=== PATIENT | male | born 1935 | race Caucasian/White ===

== ENCOUNTER 2019-10-14 08:36 | Outpatient (CLI) | payer MEDICARE, SELFPAY ==
--- NOTE | ~2019-10-14 | NM_ITS ---
EXAMINATION: NM bone scan whole body DATE: 10/14/2019 13:35 INDICATION: Prostate cancer TECHNIQUE: 24.8 mCi Tc-99m HDP was administered intravenously. Delayed whole-body scintigrams were o btained. COMPARISON: Bone scan dated 10/17/[address] abdomen and pelvis date FINDINGS: There is persistent intense bone uptake along the left inferior pubic ramus corresponding to expansil e sclerotic lesion which could be related to metastatic disease or potentially Paget's disease. Three foci of mild increased uptake remains in a linear pattern along the anterior right fifth, sixth and seventh ribs with linear pattern favoring healing rib fractures. There is however a subtle sclerotic bone lesion at the anterior right seventh rib on the most recent CT which has an appearance more conc erning for metastatic disease. Multiple small foci of mild joint centered uptake with typical distrib ution most likely degenerative in etiology including at the bilateral shoulders, at a few facet joint s in the cervical spine and at the thoracolumbar junction, the lateral side of the right knee and at several metacarpophalangeal or interphalangeal joints at the bilateral feet. Mild increased uptake at the L4-L5 disc space with corresponding degenerative endplate changes on CT. Mild increased uptake a long the bilateral anterior iliac spines where there are small enthesophytes. A prior suspicious scle rotic lesion short distance posterior medial from the right anterior iliac spine as well as a few add itional smaller sclerotic lesions at the right pubic body and at L1 and L3 appear to have resolved on the most recent CT images and are without evident increased uptake on the bone scan. IMPRESSION: 1. Persistent intense increased uptake along the left inferior pubic ramus with decrease in the degre e of previous sclerosis likely related to treated metastatic disease. 2. 3 small foci of increased uptake at the anterior right fifth-seventh ribs. The linear orientation favors rib fractures however there is a subtle sclerotic lesion at the visualized seventh rib lesion which appears more concerning for metastatic disease. 3. Interval resolution on CT at several of the distal sclerotic lesion seen on the prior CT which rem ain without evident increased FDG uptake on the current study likely representing response to treatme nt of metastatic disease. Reviewed, dictated and finalized at location A. IMPRESSION: 1. Persistent intense increased uptake along the left inferior pubic ramus with decrease in the degree of previous sclerosis likely related to treated metasta tic disease. 2. 3 small foci of increased uptake at the anterior right fifth-seventh ribs. T he linear orientation favors rib fractures however there is a subtle sclerotic lesion at the visualized seventh rib lesion which appears more concerning for m etastatic disease. 3. Interval resolution on CT at several of the distal sclerotic lesion seen on the prior CT which remain without evident increased FDG uptake on the current s tudy likely representing response to treatment of metastatic disease.
--- NOTE | ~2019-10-14 | CT_ITS ---
EXAMINATION: CT abdomen pelvis w con DATE: 10/14/2019 09:19 INDICATION: Prostate cancer restaging TECHNIQUE: Computed tomography (CT) of the abdomen and pelvis was performed with 100 cc Omnipaque 350 intravenous contrast. Automated exposure control and iterative reconstruction technique were employe d. Exam dose: 269.27 mGy-cm total exam DLP. COMPARISON: 10/27/2016 CT abdomen pelvis 10/17/2016 radionuclide bone scan FINDINGS: Fat-containing right foramen of Bochdalek hernia. There is no infiltrate or consolidation or mass density at the included lung bases. Normal heart size. No pericardial or pleural effusion. Several small hepatic cysts are noted. There are bilateral renal cysts, the largest at the upper pole of the left kidney, measuring up to 4.6 cm diameter. The largest on the right measures 3.3 cm diamet er. Otherwise no hepatic, splenic, pancreatic, and adrenal or solid renal space-occupying mass lesion is evident. There is calcification of the abdominal aorta and iliac arteries; no abdominal aortic aneurysm. Status post prostatectomy. There are surgical clips along both pelvic sidewalls. No intraperitoneal o r retroperitoneal or pelvic mass lesion or adenopathy or ascites is evident. No bowel obstruction, bowel wall thickening, pneumatosis or intraperitoneal free air is evident. Sclerosis of the left inferior pubic ramus/impression is less intense compared to 10/27/2016. Small sclerotic lesion of the right ilium noted on 10/27/2016. IMPRESSION: No evidence of prostate cancer recurrence or metastasis; diminished right ilium and left inferior pubic ramus/ischium findings compared to 10/27/2016 Reviewed, dictated and finalized at [facility]. Reviewed, dictated and finalized at location B. IMPRESSION: No evidence of prostate cancer recurrence or metastasis; diminishe d right ilium and left inferior pubic ramus/ischium findings compared to 017
[2019-10-14 09:08] LABS: Estimated Glomerular Filt Rate > 60
== END 2019-10-14 08:37 | disposition home or self-care (01) ==
LOC: ANHIMG 08:43
PROVIDERS: PCP Family Medicine; Visit Provider Urology
DX: C61 Malignant neoplasm of prostate (principal)
CPT/HCPCS: 36415; 74177; 78306; A9561; Q9967

== ENCOUNTER 2020-06-02 09:14 | Outpatient (CLI) | payer MEDICARE, SELFPAY ==
--- NOTE | ~2020-06-02 | CT_ITS ---
EXAMINATION: CT abdomen pelvis w con DATE: 06/02/2020 09:44 INDICATION: Prostate cancer restaging TECHNIQUE: Computed tomography (CT) of the abdomen and pelvis was performed with 100 cc Omnipaque 350 intravenous contrast. Automated exposure control and iterative reconstruction technique were employe d. Exam dose: 256.02 mGy-cm total exam DLP. COMPARISON: 10/14/2019 CT abdomen pelvis FINDINGS: Emphysematous changes are noted. No infiltrate or consolidation of the included lower lung zones. Normal heart size. No pericardial or pleural effusion. There are several up to 7 mm left hepatic cysts. The liver is otherwise unremarkable. Normal splenic size. No pancreatic mass lesion or calcification. The gallbladder appears unremarkable. No bile duct or pancreatic duct dilatation. Normal adrenal glands. Multiple bilateral renal cysts measuring up to 5 cm maximal dimension on the left, 3.5 cm on the righ t. No urinary tract calculus or hydroureteronephrosis is evident. The urinary bladder is unremarkable. Status post prostatectomy. Status post bilateral pelvic sidewall lymph node dissection. No intraperitoneal or retroperitoneal or pelvic mass lesion or adenopathy or ascites is detected. No evidence of appendicitis. No bowel obstruction, bowel wall thickening, pneumatosis or intraperiton eal free air. There is abdominal aortic and iliac and femoral and bilateral renal artery calcification. No abdomina l aortic aneurysm. There are scattered osteosclerotic lesions of the axial skeleton consistent with prostate metastatic disease. There is increased involvement of the left ischium/posterior acetabulum and new lesions invo lving left and right ilium, sacrum, proximal right femur, spine, one or more). IMPRESSION: Status post prostatectomy and bilateral pelvic sidewall lymph node dissection Osteosclerotic metastatic disease, increased since 10/14/2019 No abdominal or pelvic mass lesion or adenopathy is evident Hepatic and bilateral renal cysts Reviewed, dictated and finalized at Location [facility]. Reviewed, dictated and finalized at location B.
[2020-06-02 09:41] LABS: Estimated Glomerular Filt Rate > 60
== END 2020-06-02 09:15 | disposition home or self-care (01) ==
LOC: ANHIMG 09:18
PROVIDERS: PCP Family Medicine; Visit Provider Urology
DX: C80.1 Malignant (primary) neoplasm, unspecified (principal); Z19.2 Hormone resistant malignancy status; C79.51 Secondary malignant neoplasm of bone; Z90.79 Acquired absence of other genital organ(s); K76.89 Other specified diseases of liver; N28.1 Cyst of kidney, acquired; N28.89 Other specified disorders of kidney and ureter; I70.0 Atherosclerosis of aorta; I70.8 Atherosclerosis of other arteries
CPT/HCPCS: 74177; Q9967

== ENCOUNTER 2020-06-03 09:43 | Outpatient (CLI) | payer MEDICARE, SELFPAY ==
--- NOTE | ~2020-06-03 | NM_ITS ---
EXAMINATION: NM bone scan whole body DATE: 06/03/2020 12:35 INDICATION: Prostate cancer TECHNIQUE: 25 mCi Tc-99m HDP was administered intravenously. Delayed whole-body scintigrams were obt ained. COMPARISON: Bone scan dated 10/14/[address] abdomen and pelvis dated 06/02/2020 FINDINGS: Persistent increased uptake along the left inferior pubic ramus extending to the left ischial tuberos ity with increased sclerosis minimal change in extent of a large sclerotic lesion on CT consistent wi th metastatic disease. Significant increase in number and degree of FDG uptake throughout the axial a nd appendicular skeleton. There are corresponding small sclerotic lesions skin on the CT in the ribs, spine, pelvis and proximal femurs, the majority which appear either new or significantly enlarged si nce the prior study consistent with progression of metastatic disease. IMPRESSION: 1. Interval progression of widespread osseous metastatic disease. Reviewed, dictated and finalized at location A.
== END 2020-06-03 09:44 | disposition home or self-care (01) ==
LOC: ANHIMG 09:46
PROVIDERS: PCP Family Medicine; Visit Provider Urology
DX: C80.1 Malignant (primary) neoplasm, unspecified (principal); Z19.2 Hormone resistant malignancy status; C79.51 Secondary malignant neoplasm of bone
CPT/HCPCS: 78306; A9561

== ENCOUNTER 2021-02-07 07:56 | Outpatient (CLI) | payer MEDICARE, SELFPAY ==
--- NOTE | ~2021-02-07 | NM_ITS ---
EXAMINATION: NM bone scan whole body DATE: 02/07/2021 13:56 INDICATION: Malignant neoplasm with hormone resistant status. TECHNIQUE: 26.5 mCi Tc-99m HDP was administered intravenously. Delayed whole-body scintigrams were o btained. COMPARISON: Bone scan dated 06/03/2020 FINDINGS: Significant interval increase in numerous widespread foci of increased bone uptake which at the time of the prior study correspond with numerous sclerotic bone lesions with change of prior prostatectomy most consistent with metastatic prostate cancer. The numerous lesions involve essentially all of the vertebrae of the spine and THE bilateral ribs with multiple additional lesions in the pelvis and pro ximal bones of the extremities with a couple lesions in the skull. Small foci of mild likely degenera tive uptake at the base of the right great toe and at the medial compartment of the left knee. IMPRESSION: 1. Significant interval decrease in numerous widely scattered foci of increased uptake throughout the axial and appendicular skeleton consistent with progression of metastatic prostate cancer. Reviewed, dictated and finalized at location A. [employer] IMPRESSION: 1. Significant interval decrease in numerous widely scattered foci of increased uptake throughout the axial and appendicular skeleton consistent with progress ion of metastatic prostate cancer.
--- NOTE | ~2021-02-07 | DEXA_ITS ---
Bone Density Report Name: Yamil Sabillon Age: 85 Sex: Male Ethnicity: White Date of : 1935 Indication: cancer; Referring Provider: Carl Eason Study: Bone densitometry was performed. Exam Date: February 07, 2021 Accession number: [id number] Bone Density: Region BMD T-score Z-score Classification AP Spine (L1, L2, L3) 1.014 -0.5 0.7 Normal Femoral Neck (Left) 0.536 -2.9 -1.2 Osteoporosis Total Hip (Left) 0.655 -2.5 -1.3 Osteoporosis Total Hip Bilateral Avg 0.644 -2.5 -1.4 Osteoporosis Femoral Neck (Right) 0.531 -2.9 -1.3 Osteoporosis Total Hip (Right) 0.633 -2.6 -1.4 Osteoporosis World Health Organization criteria for BMD impression classify patients as: Normal (T-score at or above -1.0), Osteopenia (T-score between -1.0 and -2.5), or Osteoporosis (T-score at or below -2.5). 10-year Fracture Risk: FRAX not reported because: Some T-score for Spine Total or Hip Total or Femoral Neck at or below -2.5 Clinical Information Provided by Patient: Smokes Has the following medical conditions: Cancer Patient maximum height was 67 Drinks caffeinated beverages Impression: The patient has osteoporosis, based on the Left Femoral Neck T-score. The patient has risk factors, including: smoking. Discussion: INCREASED RISK OF FRACTURE. BONE DENSITY IS UNDESIRABLY LOW AT ONE OR MORE SKELETAL SITES, CONSISTENT WITH OSTEOPOROSIS. This patient's lowest T-score meets the World Health Organization's (WHO) criteria for osteoporosis at one or more sites (T-score -2.5 or below). In untreated patients, the risk of osteoporotic fracture increases approximately two-fold for each 1.0 SD decrease in T-score. Low bone density is not the only risk factor for fracture; also consider factors such as patient's age, frailty or poor health, risk of falling, risk of injury, previous osteoporotic fracture, family history of osteoporosis, cigarette smoking, low body weight, etc. Not everyone with low bone mineral density has osteoporosis; osteomalacia and other metabolic bone disorders should also be considered. Patients who have osteoporosis should be evaluated for specific diseases and conditions (secondary causes) that may cause or contribute to bone loss. The National Osteoporosis Foundation (NOF) recommends pharmacologic intervention for men with BMD at this level (a T-score of -2.5 or below). The patient should follow a healthful lifestyle (good nutrition with adequate calcium and vitamin D, and appropriate weight-bearing exercise). Follow-Up: Consider repeating this study in 2 years to reassess this patient's status, or sooner if there is some new clinical indication. Reported by: ADITYA on 02/07/2021 8:24:00 AM. Reviewed, dictated and finalized at location [place] [facility]
== END 2021-02-07 07:57 | disposition home or self-care (01) ==
LOC: ANHIMG 08:01
PROVIDERS: PCP Family Medicine; Visit Provider Urology
DX: C80.1 Malignant (primary) neoplasm, unspecified (principal); M81.0 Age-related osteoporosis without current pathological fracture; Z19.2 Hormone resistant malignancy status
CPT/HCPCS: 77080; 78306; A9561

== ENCOUNTER 2021-03-31 14:22 | Outpatient (CLI) | payer MEDICARE, SELFPAY ==
[2021-03-31 14:38] LABS: Basophils Absolute Auto 0.1 K/mm3 (0.0-0.1); Eosinophils Absolute Auto 0.4 K/mm3 (0-0.3); Eosinophils Percent Auto 8.2 % (0-4.4); Hematocrit 44.3 % (42.0-52.0); Hemoglobin 14.1 g/dL (14.0-18.0); Immature Granulocyte Absolute 0.01 K/mm3 (0.00-0.031); Immature Granulocyte Percent A 0.2 % (0-0.5); Lymphocytes Absolute Auto 1.28 K/mm3 (0.9-3.2); Lymphocytes Percent Auto 26.8 % (18.3-44.2); Mean Corpuscular HGB Conc 31.8 g/dl (32-36); Mean Corpuscular Hemoglobin 28.8 pg (26-34); Mean Corpuscular Volume 90.6 fl (80-100); Mean Platelet Volume 9.2 fl (7.4-10.4); Monocytes Absolute Auto 0.4 K/mm3 (0.1-0.6); Monocytes Percent Auto 7.3 % (2.6-8.5); Neutrophils Absolute Auto 2.7 K/mm3 (1.3-6.7); Neutrophils Percent Auto 56.5 % (45.5-73.1); Platelet Count Result 227 k/mm3 (150-375); Red Blood Count 4.89 M/mm3 (4.6-6.20); Red Cell Distribution Width 13.5 % (11.5-14.5); White Blood Count 4.8 K/mm3 (4.5-10.0)
[2021-03-31 17:18] LABS: Alanine Aminotransferase 12 U/L (4-50); Albumin Level 4.6 g/dL (3.5-5.1); Alkaline Phosphatase 266 U/L (38-126); Anion Gap 8 mmol/L (8-16); Aspartate Amino Transferase 33 U/L (17-59); Bilirubin,Total 0.3 mg/dL (0.2-1.3); Blood Urea Nitrogen 14 mg/dL (9-20); Calcium 9.2 mg/dL (8.4-10.2); Carbon Dioxide 27 mmol/L (22-30); Chloride 104 mmol/L (98-107); Estimated Glomerular Filt Rate > 60; Glucose 104 mg/dL (65-110); Potassium 4.6 mmol/L (3.4-5.0); Sodium 139 mmol/L (137-145)
[2021-04-05 12:54] LABS: Testosterone Free 0.4 pg/mL (30.0-135.0); Testosterone Total 7 ng/dL (250-1100)
== END 2021-03-31 14:23 | disposition home or self-care (01) ==
LOC: ANHLAB 14:24
PROVIDERS: PCP Family Medicine; Visit Provider Internal Medicine Hematology & Oncology
DX: C61 Malignant neoplasm of prostate (principal)
CPT/HCPCS: 36415; 80053; 84153; 84402; 84403; 85025

== ENCOUNTER 2021-04-17 10:16 | Outpatient (CLI) | payer MEDICARE, SELFPAY ==
[2021-04-17 10:59] LABS: INR 0.9; Prothrombin Time 12.4 Seconds (11.1-14.7)
[2021-04-17 11:00] LABS: Partial Thromboplastin Time 36.6 SECONDS (22.3-36.8)
== END 2021-04-17 10:17 | disposition home or self-care (01) ==
LOC: ANHSURGERY 10:23
PROVIDERS: PCP Family Medicine; Visit Provider Surgery
DX: Z01.818 Encounter for other preprocedural examination (principal); C61 Malignant neoplasm of prostate
CPT/HCPCS: 36415; 85610; 85730

== ENCOUNTER 2021-04-19 01:30 | Day surgery (SDC) | payer MEDICARE, SELFPAY ==
[2021-04-12 13:31] VITALS: BMI 23.1
--- NOTE | 2021-04-12 13:52 | PC.NURSE ---
Report to the Outpatient Waiting Room, entrance under the green pavilion located off [facility], at time _11:30AM__ on date __04/19/21 . OR Time: ___1:30PM . - You will be asked a series of questions to screen for COVID 19 for your protection. - A mask is required within the hospital. - No visitors are allowed at this time. Preoperative COVID Testing Requirements: No COVID Test needed if: (proof is required; if not received patient will have Rapid Test prior to entry) - Patient has received COVID Vaccine at least 14 days prior to procedure date or - Patient has positive COVID test result within last 90 days of surgery date. COVID Test needed if above criteria is not met If not COVID vaccinated a COVID test must be conducted within 72 hours of surgery and patient is asked to isolate self from time of testing until procedure. You will go to the [facility] for your COVID testing. The [facility] site is located at the corner of [address] [facility]. You will only be called if COVID results are positive and your surgeon may reschedule your elective surgery date. Patients may have clear liquids (water, carbonated beverages, clear teas, apple juice) until 3 hours prior to surgery with a maximum of 20 ounces. - No food from midnight until time of surgery - Infants may have breast milk until 4 hours before surgery, infant formula 6 hours prior to surgery. - Children will be allowed to drink immediately following surgery. If applicable, please bring a bottle or sippy cup to assist with drinking. Juice, water, soda, and popsicles are readily available. For infants on formula, please bring formula the day of surgery. Pacifiers are allowed. Take the following medications with a SIP of water the morning of surgery: NONE Medications to discontinue per physician NONE Date to take last dose Please no make-up, nail english, hairspray, perfume, deodorant, or body powder the day of surgery. No jewelry (including any body piercings) or valuables the day of surgery, leave them at home. Please take a shower or bath the night before, or the morning of, surgery with an antibacterial soap. Wear comfortable, loose fitting clothing. Children are encouraged to wear pajamas. - Jewelry must be removed prior to entering the operating room. Rings and piercings that are not removed may be cut off. - The hospital will not accept responsibility for valuables. - Please leave all valuables, including medications, at home the day of surgery. If you are going home after surgery, a licensed [facility] driver must drive you home. - NO public transportation without another adult. - We recommend that an adult stay with you for 24 hours following discharge. - We also recommend that you do not drive, make important decision, drink alcoholic beverages, or take any drugs that were not prescribed by your health care provider for at least 24 hours after your discharge time. For Pediatric surgeries, we recommend two adults accompany the child home (only one inside the building at this time). Follow any additional instructions given to you from your surgeon. Telephone instructions given to ____PATIENT and asked if any additional questions and then verbalized understanding. Patient advised to call surgeon office or pre surgery nurse liaison [phone] if any additional questions.
--- NOTE | ~2021-04-19 | XR_ITS ---
EXAMINATION: XR chest port-a-cath/central DATE: 04/19/2021 13:47 INDICATION: Port catheter insertion TECHNIQUE: frontal view of the chest was obtained. COMPARISON: None FINDINGS: Left internal jugular central venous port catheter with distal tip in the cephalad superior vena cava . No focal airspace opacities, pulmonary edema, pleural effusion or pneumothorax. The cardiomediastin al silhouette is normal. There are scattered sclerotic bone lesions consistent with metastatic prosta te cancer. IMPRESSION: 1. No acute cardiopulmonary disease post placement of a left internal jugular central venous port cat heter with distal tip in the cephalad superior vena cava. 2. Multiple sclerotic bone lesions consistent with metastatic prostate cancer. Reviewed, dictated and finalized at location A. TURE TESTER IMPRESSION: 1. No acute cardiopulmonary disease post placement of a left internal jugular c entral venous port catheter with distal tip in the cephalad superior vena cava. 2. Multiple sclerotic bone lesions consistent with metastatic prostate cancer.
--- NOTE | ~2021-04-19 | XR_ITS ---
EXAMINATION: XR fl guide central line place DATE: 04/19/2021 13:24 INDICATION: Port catheter insertion TECHNIQUE: Single fluoroscopic image of the left upper chest was obtained during procedure performed by Dr. Nicole. Radiologist was not present for the imaging or procedure. The amount of fluoroscopy santosh e used during this procedure was 0.3 minutes. COMPARISON: None. FINDINGS: Left internal jugular central venous port catheter with distal tip at the midsuperior vena cava. No p neumothorax. Mediastinal silhouette is normal. IMPRESSION: 1. Left internal jugular central venous port catheter with distal tip at the midsuperior vena cava. Reviewed, dictated and finalized at location A. L [employer] IMPRESSION: 1. Left internal jugular central venous port catheter with distal tip at the mi dsuperior vena cava.
--- NOTE | 2021-04-19 07:28 | WPDANESEPPF ---
Anes - Initial Pre Proc Eval Procedure: Operation Date: 04/19/21 13:30 Proposed Procedures p Insertion Radha Cath - Sheila Nicole MD Date/Time: 04/19/21 07:28 Surgeon: Sheila Nicole MD Pre Op Diagnosis: Prostate Ca Patient Data Age: 86 Gender: M Height: 1.69 m Weight: 66 kg Allergies Allergy/AdvReac Type Severity Reaction Status Date / Time No Known Allergies Allergy Mild Unverified 04/19/21 11:36 Home Medications Medication Instructions Recorded Confirmed Type lisinopril-hydrochlorothiazide 1 tablet PO QAM 04/12/21 04/19/21 History Patient hx anesthesia problems: none Family hx anesthesia problems: none Results Review: All pre-operative results and documents have been reviewed as part of the pre-operative evaluation. [facility], [facility] Past Medical History Medical History (Updated 04/19/21 @ 07:28 by Figueroa Post DO) Bone metastases Dyslipidemia Essential (primary) hypertension Prostate cancer Surgical History Surgical History (Updated 11/18/19 @ 10:32 by Angelica Staton MD) History of bilateral inguinal hernia repair 11/2003 History of prostatectomy 11/2002 Family History Family History (Updated 09/04/17 @ 10:40 by DOCTOR UNKNOWN) Father Family history of cardiovascular disease Malignant neoplasm of prostate Mother Family history of cardiovascular disease Social History Social History Smoking packs per day: 1 Smoking cigarettes per day: 20.0 Years smoked: 60 Smoking pack-years: 60.00 Smoking status: Current every day smoker Tobacco type: cigarettes Alcohol intake: former Substance use: never Living arrangements: alone Spiritual care concerns: No Anes - Eval Final PreProcedure Day of Procedure 04/19/21 07:28 Patient weight: normal Heart: regular rate and rhythm Lungs: clear to auscultation and normal air movement Airway: Mallampati scale class II Neurological: alert and oriented Last oral intake: >/= 8 hours ASA classification: III Emergent: no Anesthetic plan: proceed Anesthesia type and monitoring: general GIVS and standard monitoring Results Review: All pre-operative results and documents have been reviewed as part of the pre-operative evaluation. Informed Consent: The patient's anesthetic plan and its attendant risks and benefits were discussed with the patient/family/POA. Questions were solicited and answers provided to the satisfaction of the patient/family/POA.
[2021-04-19] MEDS: LACTATED RINGERS 1,000 ML 30 ML IV CONT (12:00)
[2021-04-19] MEDS: KETOROLAC 15 MG/ML VIAL (*BKC) IV PUSH (12:01)
[2021-04-19 12:22] VITALS: BP 130/69; PULSE 74; RESP 16; TEMP 37.1; O2SAT 95
--- NOTE | 2021-04-19 12:22 | PM.IMHP ---
H&P: HPI History of Present Illness Date/Time: 04/19/21 12:22 Pt is a 86 y/o M c metastatic prostate cancer needing access for chemotherapy. Pt denies any previous central venous catheterization. Pt is right handed. Chief Complaint: metastatic prostate cancer Review of Systems Review of Systems: All systems reviewed & are unremarkable except as noted in HPI and below PMFSH Past Medical History Medical History Bone metastases Dyslipidemia Essential (primary) hypertension Prostate cancer Surgical History Surgical History History of bilateral inguinal hernia repair 11/2003 History of prostatectomy 11/2002 Family History Family History Father Family history of cardiovascular disease Malignant neoplasm of prostate Mother Family history of cardiovascular disease Social History Social History Smoking packs per day: 1 Smoking cigarettes per day: 20.0 Years smoked: 60 Smoking pack-years: 60.00 Smoking status: Current every day smoker Tobacco type: cigarettes Alcohol intake: former Substance use: never Living arrangements: alone Spiritual care concerns: No Meds Home Medications and Allergies Home Medications Medication Instructions Recorded Confirmed Type lisinopril-hydrochlorothiazide 1 tablet PO QAM 04/12/21 04/19/21 History Allergies Allergy/AdvReac Type Severity Reaction Status Date / Time No Known Allergies Allergy Mild Unverified 04/19/21 11:36 Exam Const: General: cooperative, comfortable and no acute distress Orientation/consciousness: patient oriented x3 Limitations: no limitations Neck: Neck: normal visual inspection, full ROM and no lymphadenopathy Chest: Chest palpation & inspection: normal inspection of the chest Resp: Auscultation: clear to auscultation bilaterally Cardio: Rate: regular rate Rhythm: regular rhythm Assessment and Plan Assessment and plan (1) Prostate cancer: Code(s): C61 - Malignant neoplasm of prostate Status: Acute Assessment and Plan: will setup for VAD placement
--- NOTE | 2021-04-19 12:25 | WPDHPUPDATE1 ---
History and Physical Update Update Date/Time: 04/19/21 12:25 History and Physical has been reviewed, including an updated exam of the patient. There are NO changes in the patient's condition. Risks, benefits, and alternatives have been discussed and questions answered. Patient agrees to proceed with procedure.
[2021-04-19] MEDS: ceFAZolin 2 GM/D5W 50 ML 2 GM/50 ML BAG IVPB (12:48)
[2021-04-19] MEDS: BUPIVACAINE/EPINEPHRINE 0.5% 10 ML VIAL 30 ML INFILTRATE (13:19)
[2021-04-19] MEDS: HEPARIN SODIUM, PORCINE 10,000 UNITS/10 ML VIAL 4000 UNITS IV PUSH (13:26)
[2021-04-19] MEDS: HEPARIN SODIUM 5,000 UNITS/ML VIAL 5000 UNITS IRRIGATION (13:27)
--- NOTE | 2021-04-19 13:30 | W.PM.PROC2 ---
Procedure Note - Detailed Date of Procedure 04/19/21 Pre-op Diagnosis Metastatic prostate cancer Post-op Diagnosis same Procedure Performed placement of LIJ VAD under U/S and flurosocpic guidance Surgeon Sheila Nicole MD Anesthesia MAC and local Indications 86 y/o M c metastatic prostate cancer needing access for chemotherapy Findings unable to pass guidewire past 15 cm in LSCV and subsequently placed in LIJ Description of Procedure Patient was brought into the operating room and placed in the supine position. After adequate induction of mac anesthesia, the patient was prepped and draped in normal sterile fashion. Time-out was then done to verify the patient's identity, as well as the procedure being performed. I began by making a small incision in the left chest, I then gained access into the left subclavian vein with an 18 gauge needle. I then attempted to place the guidewire into the vein, however, I could not get the wire to pass over 15 cm. I did attempt to cannulize the subclavian vein a few other times without success. I then used the ultrasound to gain access into the left internal jugular vein. Once access was gained, I placed the guidewire in the vein and confirmed proper positioning. I then locally anesthetized the area in the left chest. I then enlarged the incision including making a subcutaneous pocket inferiorly to allow placement of the port itself. I proceeded to tunnel the catheter from the chest to the left neck insertion site. I then placed a dilating sheath over the guidewire into the left internal jugular vein via sterile Seldinger technique. This was once again done and confirmed via fluoroscopic guidance. I then removed the dilator and the guidewire, now just leaving the sheath in the vein. I then fed the previously flushed catheter into the left internal jugular vein under fluoroscopic guidance. At approximately 26 cm, the catheter was noted to be near the atrial caval junction. I then peeled away the sheath, now just leaving the catheter in the vein. I then was able to easily draw and flush from the catheter. The catheter was cut to fit and attached to the port itself. The port was placed into the previously made subcutaneous pocket and sutured in with 0 Ethibond suture. Final fluoroscopic view showed the termination of the catheter at the atrial caval junction with a nice smooth curvature back to the port itself. I was able to gain access to the port with a Pool needle and was able to easily draw and flush from the port. I then flushed 4 cc of a final heparin flush into the port. The incision was closed with 3 0 Vicryl suture in the subcutaneous tissue and the skin was closed with 4 O Monocryl subcuticular suture. Dermabond was then placed on wound. The patient tolerated the procedure well and will be sent to the recovery room in stable condition. Implants LIJ VAD Estimated Blood Loss 10 Pathology none sent Complications No immediate complications Condition stable Disposition PACU
[2021-04-19 13:34] VITALS: BP 95/52; PULSE 75; RESP 16; O2SAT 97
[2021-04-19 14:04] VITALS: BP 124/66; PULSE 71; RESP 16
== END 2021-04-19 14:15 | disposition home or self-care (01) ==
PROVIDERS: PCP Family Medicine; Visit Provider Surgery
PROC: (CPT 36561; principal; 2021-04-19 13:30)
DX: C61 Malignant neoplasm of prostate (principal); C79.51 Secondary malignant neoplasm of bone; I10 Essential (primary) hypertension; E78.5 Hyperlipidemia, unspecified; F17.210 Nicotine dependence, cigarettes, uncomplicated
CPT/HCPCS: 36561; 77001; C1788; J0690; J1644; J1885; J2704; J7030; J7120

== ENCOUNTER 2021-09-13 06:35 | Outpatient (CLI) | payer MEDICARE, SELFPAY ==
--- NOTE | ~2021-09-13 | NM_ITS ---
NM bone scan whole body DATE: 09/13/2021 10:58 INDICATION: Prostate cancer metastatic to bone TECHNIQUE: Delayed anterior and posterior static images of the skeleton after intravenous injection o f 26.8 mCi 99m technetium MDP COMPARISON: 02/07/2021 radionuclide bone scan FINDINGS: Numerous abnormal areas of abnormal uptake of the radiopharmaceutical are noted scattered t hrough the axial skeleton, including both shoulder girdles, proximal humeri, proximal femurs, numerou s rib and thoracic and lumbar spine lesions and pelvic lesions. There is little interval change since 02/07/2021. Renal activity is barely detectable, consistent with SuperScan. IMPRESSION: Extensive bilateral skeletal metastatic lesions, relatively stable since 02/07/2021 Reviewed, dictated and finalized at Location A. Reviewed, dictated and finalized at location A.
--- NOTE | ~2021-09-13 | CT_ITS ---
EXAMINATION: CT chest abdomen pelvis w con DATE: 09/13/2021 07:07 INDICATION: Metastatic prostate cancer TECHNIQUE: Transaxial computed tomographic images of the chest, abdomen, and pelvis were obtained aft er the administration of 100 cc of Omnipaque 300 intravenous contrast. The dose-length product (DLP) was 399.67 mGy-cm. Automated exposure control and iterative reconstruction technique were employed. COMPARISON: 06/02/2020 FINDINGS: CHEST CT: There is moderate emphysema. There is a 12 mm nodule of the left upper lobe. There is a left internal jugular Port-A-Cath ending in the midsuperior vena cava. There is a 12 mm lymph node of the left axi lla. The heart size is normal. There is calcified coronary artery atherosclerosis. The lungs are free of acute opacities. No pleural effusion or pneumothorax. There are widespread sclerotic osseous meta stases of the ribs, thoracic spine, sternum, and scapulae. ABDOMEN/PELVIS CT: Cysts of the liver measure up to 7 mm. The spleen, pancreas, gallbladder, and adrenal glands are norm al. Cysts of the kidneys measure up to 6.2 cm on the left. No pathologically enlarged abdominal or pe lvic lymph nodes are identified. There is no free intraperitoneal gas or evidence of bowel obstructio n. There is calcified atherosclerosis of the aorta and many of the other arteries. Again seen are wid espread sclerotic osseous metastases of the spine, pelvis, and femurs with interval increase in size and number since the prior examination. IMPRESSION: 1. Widespread osseous metastatic disease with worsening since the comparison examination. 2. 12 mm left upper lobe nodule and enlarged left axillary lymph node, possible metastatic disease. Reviewed, dictated and finalized at location B. IMPRESSION: 1. Widespread osseous metastatic disease with worsening since the comparison ex amination. 2. 12 mm left upper lobe nodule and enlarged left axillary lymph node, possible metastatic disease.
== END 2021-09-13 06:36 | disposition home or self-care (01) ==
PROVIDERS: PCP Family Medicine; Visit Provider Internal Medicine Hematology & Oncology
DX: C61 Malignant neoplasm of prostate (principal); C79.51 Secondary malignant neoplasm of bone
CPT/HCPCS: 71260; 74177; 78306; A9561; Q9967

== ENCOUNTER 2021-10-06 03:07 | Outpatient (CLI) | payer MEDICARE, SELFPAY ==
--- NOTE | 2021-10-03 09:27 | PC.NURSE ---
Pre Radiology instructions Report to the Outpatient Waiting Room, entrance under the green pavilion located off [facility], at time _0900 on date ___10/06/21____. Procedure Time: _1100 . One visitor will be allowed to accompany the patient into the hospital. The visitor will be instructed to remain with patient at all times or leave the building. We will allow the visitor to come back to the postoperative area when patient is ready. You and your visitor will be asked a series of questions to screen for COVID 19 for your protection. A mask is required within the hospital. Patients are to have no food or drink 6 hours prior to procedure time Driving will be restricted after the procedure, you must have a person to drive you home. Labs will be drawn in preop area and once reviewed, you will be taken to radiology area for procedure. When the procedure is completed, you will be taken to outpatient where you will be monitored for several hours. You may have one visitor in this area. Other than holding anti-coagulants, patient may take other medication(s) as scheduled. Prior to your appointment date patients are instructed to hold anti-coagulants after discussing with ordering provider to stop. If unable to discontinue anti-coagulants please notify radiologist. No aspirin or warfarin (Coumadin) for 7 days prior to the procedure. No clopidogrel (Plavix), ticagrelor (Brilinta), prasugrel (Effient) or dabigatran (Pradaxa) for 5 days prior to the procedure. No rivaroxaban (Xarelto), apixaban (Eliquis), dipyridamole (Aggrenox or Persantine) or cilostazol (Pletal) for 2 days prior to the procedure. Medications to discontinue per physician: ____NONE Date to take last dose: Please leave all valuables, including medications, at home the day of procedure. The hospital will not accept responsibility for valuables. Wear comfortable, loose fitting clothing. Follow any additional instructions given to you from ordering provider. Telephone instructions given to ___PATIENT and asked if any additional questions and then verbalized understanding. Patient advised to call scheduling provider office or registration scheduling [phone] if any additional questions.
[2021-10-03 09:29] VITALS: BMI 22.4
--- NOTE | ~2021-10-06 | XR_ITS ---
EXAMINATION: XR chest 1V DATE: 10/06/2021 12:03 INDICATION: Status post percutaneous left lung biopsy TECHNIQUE: frontal view of the chest was obtained. COMPARISON: 04/29/2021 FINDINGS: There is a small to moderate sized left pneumothorax. Nodular opacity left hilum corresponding to the biopsied nodule and small amount of associated pulmonary hemorrhage. No other airspace opacities, pu lmonary edema, pleural effusion or right-sided pneumothorax. The cardiomediastinal silhouette remains normal with no midline shift. Scattered sclerotic bone lesions consistent with known metastatic pros saravia cancer. Left internal jugular central venous port catheter with distal tip at the cephalad super ior vena cava. IMPRESSION: 1. Small to moderate-sized left pneumothorax post percutaneous biopsy of a left upper lobe nodule. Th e patient was symptomatic with shortness of breath and oxygen saturations of 89% on 2 L oxygen which increased to 96% on 10 L oxygen by nasal cannula. The patient was returned to the CT scanner for ches t tube placement. See separate CT chest tube placement report for further detail. Reviewed, dictated and finalized at location A. IMPRESSION: 1. Small to moderate-sized left pneumothorax post percutaneous biopsy of a left upper lobe nodule. The patient was symptomatic with shortness of breath and ox ygen saturations of 89% on 2 L oxygen which increased to 96% on 10 L oxygen by nasal cannula. The patient was returned to the CT scanner for chest tube placem ent. See separate CT chest tube placement report for further detail.
--- NOTE | ~2021-10-06 | CT_ITS ---
EXAMINATION: CT chest tube placement w [facility] [place] DATE: 10/06/2021 12:42 INDICATION: Iatrogenic left pneumothorax post percutaneous lung biopsy TECHNIQUE: The procedure including the risks and benefits was discussed with the patient. Risks discu ssed included bleeding and infection. The patient understood the risks and benefits and agreed to pro ceed. The skin overlying the infraclavicular anterior left upper chest was prepped and draped in usua l sterile fashion. Anesthetic was administered with 1% lidocaine subcutaneously. Utilizing CT guidan ce the 18 G trocar needle catheter was inserted into the moderate-sized left pneumothorax. A J-wire w as advanced without resistance with positioning within the apical portion of the pneumothorax confirm ed with CT. Utilizing Seldinger technique the needle was removed and the tract serially dilated over the wire to 8 Cymraes. An 8.5 Cymraes pigtail catheter was advanced over the wire and the pigtail tip w as formed and locked. The catheter was attached to a three-way stopcock and one-way valve. The pneumo thorax was manually decompressed and final post procedure CT images were obtained to confirm position ing of the chest tube and decompression of the pneumothorax. Upon decompressing pneumothorax the luh ent's shortness of breath resolved and oxygen saturations increased from 95% to 100% on 10 L nasal ca nnula. The catheter was sutured to the skin. Sterile Vaseline impregnated gauze was placed around the catheter access site and suture and a sterile dressing applied. There were no immediate complication s. The dose-length product was 159.25 mGy-cm. [facility] bed placement. FINDINGS: CT images demonstrate the catheter within the long the anterior margin of the left apex wit h minimal residual pneumothorax. Small amount of pulmonary hemorrhage can be seen surrounding the bio psied nodule in the perihilar posterior segment of the left upper lobe. IMPRESSION: 1. Successful CT-guided left sided chest tube placement with near complete decompression of the previ ously moderate sized iatrogenic left pneumothorax post percutaneous biopsy of a left upper lobe petrona contreras. Reviewed, dictated and finalized at location A. IMPRESSION: 1. Successful CT-guided left sided chest tube placement with near complete deco mpression of the previously moderate sized iatrogenic left pneumothorax post pe rcutaneous biopsy of a left upper lobe nodule.
--- NOTE | ~2021-10-06 | CT_ITS ---
EXAMINATION: CT biopsy lung w/imaging DATE: 10/06/2021 11:55 INDICATION: Left lung biopsy TECHNIQUE: The procedure including the risks and benefits was discussed with the patient. Risks discu ssed included infection, approximately 1/20 risk of symptomatic hemorrhage beyond mild hemoptysis, ap proximately 1/3 risk of pneumothorax, and approximately 1/10 risk of pneumothorax severe enough to wa rrant chest tube placement. The patient understood the risks and agreed to proceed. The patient was p laced supine. The skin overlying the anterior left hemithorax was prepped and draped in sterile fash ion. Anesthetic was administered with 1% lidocaine subcutaneously. A 19 gauge outer needle was adva nced under CT guidance to the lesion of interest. A 20 gauge core biopsy needle was then used to obta in 4 core biopsy specimens. The needle was removed and the entry site was cleaned and dressed. There were no immediate complications. The dose-length product was 169.51 mGy-cm. FINDINGS: CT images demonstrate the outer needle tip adjacent to a 1.3 cm left upper lobe nodule. The re are multiple sclerotic bone lesions consistent with metastatic disease. Mild to moderate emphysema . IMPRESSION: 1. Successful CT-guided biopsy of a 1.3 cm left upper lobe nodule. 2. Biopsy complicated by a delayed post biopsy pneumothorax evident on the postprocedure chest radiog raph and with patient becomes symptomatic with shortness of breath and hypoxia. A CT-guided left ches t tube was placed with resolution of patient's symptoms. Patient was transferred to the emergency dep artment pending hospital admission. See separate report for details regarding the chest tube placemen t. Reviewed, dictated and finalized at location A. IMPRESSION: 1. Successful CT-guided biopsy of a 1.3 cm left upper lobe nodule. 2. Biopsy complicated by a delayed post biopsy pneumothorax evident on the post procedure chest radiograph and with patient becomes symptomatic with shortness of breath and hypoxia. A CT-guided left chest tube was placed with resolution o f patient's symptoms. Patient was transferred to the emergency department pendi ng hospital admission. See separate report for details regarding the chest tube placement.
[2021-10-06 09:24] VITALS: BP 122/64; PULSE 79; RESP 20; TEMP 36.4; O2SAT 97
[2021-10-06 09:54] LABS: Mean Platelet Volume 9.8 fl (7.4-10.4); Platelet Count Result 190 k/mm3 (150-375)
[2021-10-06 10:27] LABS: Prothrombin Time 12.8 Seconds (11.1-14.7)
== END 2021-10-06 03:08 | disposition home or self-care (01) ==
PROVIDERS: Radiology Diagnostic Radiology; PCP Family Medicine; Visit Provider Internal Medicine Hematology & Oncology
PROC: BB24ZZZ Computerized Tomography (CT Scan) of Bilateral Lungs (ICD-10-PCS; CPT 32408; principal; 2021-10-06 11:00)
DX: R91.1 Solitary pulmonary nodule (principal); Z51.81 Encounter for therapeutic drug level monitoring; Z79.899 Other long term (current) drug therapy
CPT/HCPCS: 32408; 32550; 36415; 71045; 75989; 85049; 85610; 88305; C1729; C1769

== ENCOUNTER 2021-10-06 12:52 | Inpatient (IN) | payer MEDICARE, SELFPAY ==
[2021-10-06] VITALS (21 sets, daily range): BP systolic 132–166; BP diastolic 63–80; PULSE 61–79; RESP 18–29; TEMP 36.5–37; O2SAT 88–99
--- NOTE | ~2021-10-06 | XR_ITS ---
XR chest 1V portable 10/06/2021 16:03 Indication: Left pneumothorax. Chest tube placement. Procedure: AP portable chest Comparison: Comparison to multiple prior studies sequentially, with oldest reviewed study dated 2021. Findings: Stable position to pigtail catheter overlying the left upper thorax. There is a port cathet er tip in the SVC. Mild pulmonary vascular congestion. No definite normal thorax is identified. There are scattered areas of sclerosis in the bones, consistent with metastases. Impression: 1: No definite pneumothorax identified. 2: Pulmonary vascular congestion. 3: Sclerotic metastases. Reviewed, dictated and finalized at location A. Impression: 1: No definite pneumothorax identified. 2: Pulmonary vascular congestion. 3: Sclerotic metastases.
--- NOTE | ~2021-10-06 | XR_ITS ---
EXAMINATION: XR chest 1V portable DATE: 10/07/2021 05:48 INDICATION: Left pneumothorax post chest tube placement TECHNIQUE: frontal view of the chest was obtained. COMPARISON: Chest radiograph dated 10/06/2021 FINDINGS: Apical left chest tube in unchanged position. Left internal jugular central venous port catheter with distal tip in the midsuperior vena cava. Small nodular opacity at the left hilum. No other airspace opacities, pulmonary edema, pleural effusi on or pneumothorax. The cardiomediastinal silhouette is normal. Numerous scattered sclerotic bone les ions consistent with metastatic prostate cancer. IMPRESSION: 1. Left chest tube remains in place with no pneumothorax. 2. Emphysema with the biopsied small left upper lobe nodule projecting over the left hilum. 3. Widespread sclerotic bone lesions consistent with metastatic prostate cancer. Reviewed, dictated and finalized at location A. IMPRESSION: 1. Left chest tube remains in place with no pneumothorax. 2. Emphysema with the biopsied small left upper lobe nodule projecting over the left hilum. 3. Widespread sclerotic bone lesions consistent with metastatic prostate cancer .
--- NOTE | ~2021-10-06 | XR_ITS ---
EXAMINATION: XR chest 1V portable DATE: 10/08/2021 09:14 INDICATION: Chest tube removal TECHNIQUE: frontal view of the chest was obtained. COMPARISON: Chest radiograph dated 10/07/2021 FINDINGS: Interval removal of the left-sided chest tube. No pneumothorax. Persistent nodular opacity at the lef t hilum. No other airspace opacities, pulmonary edema or pleural effusion. Cardiomediastinal silhouet te is normal. Unchanged left internal jugular central venous port catheter with distal tip at the cep halad superior vena cava. Multiple scattered sclerotic bone lesions consistent with metastatic prosta te cancer. IMPRESSION: 1. No pneumothorax post left chest tube removal. 2. Indeterminate left perihilar nodule. Correlate with results from prior biopsy. 3. Multiple scattered sclerotic bone lesions consistent with metastatic prostate cancer. Reviewed, dictated and finalized at location A. IMPRESSION: 1. No pneumothorax post left chest tube removal. 2. Indeterminate left perihilar nodule. Correlate with results from prior biops y. 3. Multiple scattered sclerotic bone lesions consistent with metastatic prostat e cancer.
--- NOTE | ~2021-10-06 | XR_ITS ---
XR chest 1V portable 10/06/2021 13:24 Indication: Pneumothorax. Chest tube placement. Procedure: AP portable chest Comparison: 10/06/2021 Findings: Portacatheter tip in the SVC. Heart size normal. No definite pneumothorax identified post c hest tube placement. Patchy bilateral airspace disease, atelectasis versus pneumonia There are sclero tic lesions in the ribs, likely metastatic disease. Impression: 1: Interval resolution of left pneumothorax post chest tube placement. 2: Patchy bilateral airspace disease,, atelectasis versus pneumonia. 3: Osseous metastases. Reviewed, dictated and finalized at location A. Impression: 1: Interval resolution of left pneumothorax post chest tube placement. 2: Patchy bilateral airspace disease,, atelectasis versus pneumonia. 3: Osseous metastases.
--- NOTE | ~2021-10-06 | XR_ITS ---
EXAMINATION: XR chest 1V portable Exam Date/Time: 10/07/2021 11:45 CDT HISTORY: obtain 30 minutes after chest tube placed to w/s Comparison: Same date 5:40 AM. RESULT: Lines, tubes, and devices: Smallbore left upper lung chest tube and left implanted port both remain in stable and good position. Lungs and pleura: Stable left hilar nodule. Senescent change, otherwise clear. Cardiomediastinal silhouette: Stable. Other: No acute osseous or upper abdominal finding. Scattered sclerotic osseous lesions. IMPRESSION: Small bore left chest tube remains in stable and good position, without pneumothorax.. Reviewed, dictated and finalized at location K. IMPRESSION: Small bore left chest tube remains in stable and good position, without pneumot horax..
--- NOTE | 2021-10-06 13:12 | PC.NURSE ---
Patient's chest tube connected to water seal plur-evac and low intermittent suction per Dr. Fenton verbal orders.
[2021-10-06 13:20] LABS: Basophils Percent Auto 0.6 % (0.2-1.2); Eosinophils Percent Auto 0.4 % (0-4.4); Hemoglobin 12.2 g/dL (14.0-18.0); Immature Granulocyte Absolute 0.02 K/mm3 (0.00-0.031); Immature Granulocyte Percent A 0.4 % (0-0.5); Lymphocytes Absolute Auto 0.83 K/mm3 (0.9-3.2); Lymphocytes Percent Auto 17.3 % (18.3-44.2); Mean Corpuscular HGB Conc 31.3 g/dl (32-36); Mean Corpuscular Hemoglobin 29.5 pg (26-34); Mean Corpuscular Volume 94.4 fl (80-100); Mean Platelet Volume 8.8 fl (7.4-10.4); Monocytes Absolute Auto 0.4 K/mm3 (0.1-0.6); Monocytes Percent Auto 8.8 % (2.6-8.5); Neutrophils Absolute Auto 3.5 K/mm3 (1.3-6.7); Neutrophils Percent Auto 72.5 % (45.5-73.1); Platelet Count Result 174 k/mm3 (150-375); Red Blood Count 4.13 M/mm3 (4.6-6.20); Red Cell Distribution Width 16.7 % (11.5-14.5); White Blood Count 4.8 K/mm3 (4.5-10.0)
[2021-10-06 13:25] LABS: Alanine Aminotransferase 12 U/L (6-50); Albumin Level 3.8 g/dL (3.5-5.1); Alkaline Phosphatase 86 U/L (38-126); Anion Gap 4 mmol/L (8-16); Aspartate Amino Transferase 22 U/L (17-59); Bilirubin,Total 0.4 mg/dL (0.2-1.3); Blood Urea Nitrogen 16 mg/dL (9-20); Carbon Dioxide 28 mmol/L (22-30); Chloride 107 mmol/L (98-107); Estimated Glomerular Filt Rate > 60; Glucose 102 mg/dL (65-110); Potassium 4.1 mmol/L (3.4-5.0); Sodium 139 mmol/L (137-145)
--- NOTE | 2021-10-06 13:30 | PC.NURSE ---
PT waterseal chest tube suctioning without issues.
[2021-10-06 13:39] LABS: Prothrombin Time 12.9 Seconds (11.1-14.7)
[2021-10-06 13:40] LABS: Partial Thromboplastin Time 32.2 SECONDS (22.3-36.8)
[2021-10-06 13:52] LABS: SARS-CoV-2 RNA PCR Negative
--- NOTE | 2021-10-06 14:25 | ED.GENADULT ---
HPI - General Adult General Chief complaint: Unspecified Stated complaint: from CT - chest tube Time Seen by Provider: 10/06/21 12:53 Related Data Home Medications Medication Instructions Recorded Confirmed lisinopril 20 1 tablet PO QAM 04/12/21 10/06/21 mg-hydrochlorothiazide 25 mg tablet calcium carbonate 600 mg-vitamin 1 tablet PO BID 06/12/21 10/06/21 D3 5 mcg (200 unit) tablet cholecalciferol (vitamin D3) 25 25 mcg PO DAILY 10/03/21 10/06/21 mcg (1,000 unit) tablet prednisone 5 mg tablet 5 mg PO BID 10/03/21 10/06/21 Allergies Allergy/AdvReac Type Severity Reaction Status Date / Time No Known Allergies Allergy Mild Verified 10/06/21 09:17 [facility] Past Medical History Medical History Bone metastases Dyslipidemia Essential (primary) hypertension Prostate cancer Surgical History Surgical History History of bilateral inguinal hernia repair 11/2003 History of prostatectomy 11/2002 Family History Family History Father Family history of cardiovascular disease Malignant neoplasm of prostate Mother Family history of cardiovascular disease Social History Social History Smoking packs per day: 1 Smoking cigarettes per day: 20.0 Years smoked: 63 Smoking pack-years: 63.00 Smoking status: Current every day smoker Tobacco type: cigarettes Alcohol intake: former Substance use: never Spiritual care concerns: No Course Vital Signs Vital signs: Vital Signs Temperature 97.7 F 10/06/21 13:22 Pulse Rate 65 10/06/21 13:22 Respiratory Rate 25 H 10/06/21 13:22 Blood Pressure 132/72 10/06/21 13:22 Pulse Oximetry 98 10/06/21 13:22 Oxygen Delivery Room Air 10/06/21 13:22 Temperature 97.7 F 10/06/21 13:22 Pulse Rate 65 10/06/21 13:22 Respiratory Rate 25 H 10/06/21 13:22 Blood Pressure 132/72 10/06/21 13:22 Pulse Oximetry 98 10/06/21 13:22 Oxygen Delivery Room Air 10/06/21 13:22 Medical Decision Making Vital Signs Vital Signs: Vital Signs Temperature 97.7 F 10/06/21 13:22 Pulse Rate 65 10/06/21 13:22 Respiratory Rate 25 H 10/06/21 13:22 Blood Pressure 132/72 10/06/21 13:22 Pulse Oximetry 98 10/06/21 13:22 Oxygen Delivery Room Air 10/06/21 13:22 Temperature 97.7 F 10/06/21 13:22 Pulse Rate 65 10/06/21 13:22 Respiratory Rate 25 H 10/06/21 13:22 Blood Pressure 132/72 10/06/21 13:22 Pulse Oximetry 98 10/06/21 13:22 Oxygen Delivery Room Air 10/06/21 13:22 Lab Data Result diagrams: 10/06/21 13:04 10/06/21 13:04 Labs: Lab Results 10/06/21 10/06/21 10/06/21 Range/Units 13:04 13:04 13:04 WBC 4.8 (4.5-10.0) K/mm3 RBC 4.13 L (4.6-6.20) M/mm3 Hgb 12.2 L (14.0-18.0) g/dL Hct 39.0 L (42.0-52.0) % MCV 94.4 (80-100) fl MCH 29.5 (26-34) pg MCHC 31.3 L (32-36) g/dl RDW 16.7 H (11.5-14.5) % Plt Count 174 (150-375) k/mm3 MPV 8.8 (7.4-10.4) fl Immature Gran % (Auto) 0.4 (0-0.5) % Neut % (Auto) 72.5 (45.5-73.1) % Lymph % (Auto) 17.3 L (18.3-44.2) % [place] % (Auto) 8.8 H (2.6-8.5) % Eos % (Auto) 0.4 (0-4.4) % Baso % (Auto) 0.6 (0.2-1.2) % Lymph # (Auto) 0.83 L (0.9-3.2) K/mm3 [place] # (Auto) 0.4 (0.1-0.6) K/mm3 Eos # (Auto) 0.0 (0-0.3) K/mm3 Baso # (Auto) 0.0 (0.0-0.1) K/mm3 Abs Immat Gran (auto) 0.02 (0.00-0.031) K/mm3 Absolute Neuts (auto) 3.5 (1.3-6.7) K/mm3 Absolute Nucleated RBC 0.0 (0.0-0.012) K/mm3 Nucleated RBC % 0.0 (0.0-0.2) % PT 12.9 (11.1-14.7) Seconds INR 1.0 APTT 32.2 (22.3-36.8) SECONDS Sodium 139 (137-145) mmol/L Potassium 4.1 (3.4-5.0) mmol/L Chloride 107 (98-107) mmol/L Carbon Dioxide 28 (2
--- NOTE | 2021-10-06 14:32 | PM.IMHP ---
H&P: HPI History of Present Illness Date/Time: 10/06/21 14:32 Chief Complaint: Lung collapse after lung biopsy Narrative: patient is a 86-year-old male with a past medical history of dyslipidemia, hypertension, prostate cancer with bone metastasis. Patient presented to [facility] after going to Interventional Radiology for a lung biopsy. Unfortunately the patient developed a left-sided pneumothorax which required chest tube placement. General surgery was consulted for further management. While in the emergency department labs and imaging were obtained. Patient had a WBC 4.8, hemoglobin 12.2, hematocrit 39.0, platelet 174, sodium 139, potassium 4.1, creatinine 0.9 BUN of 16 with normal LFTs. Patient is being managed for acute pneumothorax related to a lung biopsy. He will be placed on the medical unit with a chest tube hooked up to suction -defer further care to General surgery. The patient is currently on room air SpO2 98%?. Patient is also on 2 L of oxygen per nasal cannula despite Nursing charting 98% on room air.. Patient's respiration rate is 25 with heart rate of 65 and blood pressure 132/72. He remains afebrile. will resume his lisinopril hydrochlorothiazide and monitor hypertension while he is in the hospital. Chest tube examined at the side of the bed. Chest tube was changed to continuous suction in order to maintain saturations and fully expand the lungs. Patient did not have crepitus around chest tube site which is in the 2nd intercostal space on the left chest wall. Review of Systems Review of Systems: All systems reviewed & are unremarkable except as noted in HPI and below PMFSH Past Medical History Medical History Bone metastases Dyslipidemia Essential (primary) hypertension Prostate cancer Surgical History Surgical History History of bilateral inguinal hernia repair 11/2003 History of prostatectomy 11/2002 Family History Family History Father Family history of cardiovascular disease Malignant neoplasm of prostate Mother Family history of cardiovascular disease Social History Social History Smoking packs per day: 1 Smoking cigarettes per day: 20.0 Years smoked: 63 Smoking pack-years: 63.00 Smoking status: Current every day smoker Tobacco type: cigarettes Alcohol intake: former Substance use: never Spiritual care concerns: No Meds Home Medications and Allergies Home Medications Medication Instructions Recorded Confirmed Type lisinopril 20 1 tablet PO QAM 04/12/21 10/06/21 History mg-hydrochlorothiazide 25 mg tablet calcium carbonate 600 mg-vitamin 1 tablet PO BID 06/12/21 10/06/21 History D3 5 mcg (200 unit) tablet cholecalciferol (vitamin D3) 25 25 mcg PO DAILY 10/03/21 10/06/21 History mcg (1,000 unit) tablet prednisone 5 mg tablet 5 mg PO BID 10/03/21 10/06/21 History Allergies Allergy/AdvReac Type Severity Reaction Status Date / Time No Known Allergies Allergy Mild Verified 10/06/21 09:17 Vital Signs Vital Signs - 24 hr 10/06/21 13:22 Temperature 97.7 F Pulse Rate 65 Respiratory Rate 25 H Blood Pressure 132/72 Pulse Oximetry 98 Oxygen Delivery Room Air Exam Narrative: General: No acute distress. Mental Status: Awake, alert and oriented to person, place, and time with clear speech. Skin: Skin in warm, dry and intact without rashes or lesions. Head: Normocephalic and atraumatic. Eyes: Conjunctivae are clear without exudates or hemorrhage. Sclera is non-icteric. EOM are intact, PERRLA. Ears: The external ear and canal are non-tender and without swelling or discharge. Nose: Nasal mucosa is pink and moist. Septum midline. Nares patent bilaterally. Throat: Oral mucosa pink and
--- NOTE | 2021-10-06 14:36 | ED.GENADULT ---
HPI - General Adult General Chief complaint: Unspecified Stated complaint: from CT - chest tube Time Seen by Provider: 10/06/21 12:53 Source: RN notes reviewed History of Present Illness HPI narrative: Patient presents emergency department from radiology for pneumothorax. The patient was in radiology getting outpatient CT-guided biopsy of the lung nodule when he suffered a pneumothorax. At that time a chest tube was placed by radiologist and the patient was sent to the emergency department for further evaluation and admission. Patient arrives with chest tube in place he denies any complaints at this time other than mild discomfort in the left side of his chest he denies any fevers or chills. States he has a history of prostate cancer with metastasis Related Data Home Medications Medication Instructions Recorded Confirmed lisinopril 20 1 tablet PO QAM 04/12/21 10/06/21 mg-hydrochlorothiazide 25 mg tablet calcium carbonate 600 mg-vitamin 1 tablet PO BID 06/12/21 10/06/21 D3 5 mcg (200 unit) tablet cholecalciferol (vitamin D3) 25 25 mcg PO DAILY 10/03/21 10/06/21 mcg (1,000 unit) tablet prednisone 5 mg tablet 5 mg PO BID 10/03/21 10/06/21 Allergies Allergy/AdvReac Type Severity Reaction Status Date / Time No Known Allergies Allergy Mild Verified 10/06/21 09:17 Review of Systems Review of Systems: Gen.: Denies fevers or chills ENT: Denies congestion Respiratory: See HPI CV: Denies chest pain or palpitations GI: Denies abdominal pain nausea, emesis or diarrhea Musculoskeletal: Denies back pain or muscle pain Neuro: Denies numbness, tingling, weakness or focal weakness Skin: Denies rash Except as documented, all other systems reviewed and negative [facility] Past Medical History Medical History Bone metastases Dyslipidemia Essential (primary) hypertension Prostate cancer Surgical History Surgical History History of bilateral inguinal hernia repair 11/2003 History of prostatectomy 11/2002 Family History Family History Father Family history of cardiovascular disease Malignant neoplasm of prostate Mother Family history of cardiovascular disease Social History Social History Smoking packs per day: 1 Smoking cigarettes per day: 20.0 Years smoked: 63 Smoking pack-years: 63.00 Smoking status: Current every day smoker Tobacco type: cigarettes Alcohol intake: former Substance use: never Spiritual care concerns: No Exam Narrative: APPEARANCE: No acute distress, nontoxic, resting in bed EYES: EOMI HEENT: Normocephalic, atraumatic, OMM RESPIRATORY: No respiratory distress Clear to auscultation bilaterally with no rhonchi wheezing or rales. CARDIOVASCULAR: Regular rate and rhythm without murmurs rubs or gallops. Chest: Chest tube in left anterior chest no surrounding signs of infection ABDOMINAL: Soft, nontender, nondistended, no rebound or guarding MUSCULOSKELETAl: Moves all extremities. No clubbing, cyanosis or edema. NEURO: Awake and alert. Following commands, speech normal, no focal deficits SKIN:: Warm, dry. No rashes lesions or abrasions PSYCHIATRIC: Normal affect/mood, Course Course Emergency Course: Discussed with Dr. Cuellar agrees with consult Discussed with TIFFANY Montano for Dr. Ascencio agrees with admission Discussed with patient and family results of workup and diagnosis. Discussed need for admission. Patient and family understand and agree to current treatment plan Vital Signs Vital signs: Vital Signs Temperature 97.7 F 10/06/21 13:22 Pulse Rate 65 10/06/21 13:22 Respiratory Rate 25 H 10/06/21 13:22 Blood Pressure 132/72 10/06/21 13:22 Pulse Oximetry 98 10/06/21 13:22 Oxygen Delivery Room Air 10/06/21 13:22 Temperature 97.7
--- NOTE | 2021-10-06 16:49 | PM.CNGS ---
Assessment and Plan Assessment and plan (1) Pneumothorax on left: Code(s): J93.9 - Pneumothorax, unspecified Status: Acute Assessment and Plan: Currently resolved with pigtail catheter in place. Will continue suction for now. May try water seal or even catheter removal tomorrow. If pneumo recurs may need formal chest tube placement. (2) Left upper lobe pulmonary nodule: Code(s): R91.1 - Solitary pulmonary nodule Status: Chronic Assessment and Plan: Biopsied today (3) Prostate cancer: Code(s): C61 - Malignant neoplasm of prostate Status: Chronic Assessment and Plan: 1st diagnosed 2002. Multiple bony metastases. Receiving chemotherapy. (4) Smoker: Code(s): F17.200 - Nicotine dependence, unspecified, uncomplicated Status: Chronic Assessment and Plan: long-term History of Present Illness Consult details Consult date: 10/06/21 Reason for consult: chest tube (Left pneumothorax) Requesting physician: Scott Fenton DO Narrative: Patient is an 86-year-old man with advanced prostate cancer and extensive bony metastases. He was noted to have a left lung lesion and arrange to have CT-guided core biopsy which was done today. Although the biopsy was completed successfully, it was noted that he had a moderate left pneumothorax with some shortness of breath following the procedure. The radiologist placed a pigtail catheter in the left apex and evacuated air within the chest re expanding the lung in relieving the patient's shortness of breath. The patient transferred to the emergency room with a syringe on the end of the pigtail catheter. He has since been placed to suction and has been comfortable. His sats have been good. He is seen now in consultation. Review of Systems Review of Systems: All systems reviewed & are unremarkable except as noted in HPI and below (HPI and those items noted below) Constitutional: Constitutional: Reports as per HPI, Denies chills and Denies fever(s) Cardiovascular: Cardiovascular: Denies chest pain with activity, Denies diaphoresis, Denies syncope, Denies rapid heart rate, Denies irregular heart rhythm, Denies leg edema and Denies radiating jaw, neck or arm pain Respiratory: Respiratory: Reports as per HPI, Denies chest congestion, Reports cough, Denies hemoptysis, Reports dyspnea (See HPI) and Denies stridor Comments: Patient is long-term smoker Gastrointestinal: Gastrointestinal: Denies abdominal pain, Denies nausea and Denies vomiting Integumentary/Breasts: Skin/Breast: Denies lesions and Denies rash PMFSH Past Medical History Medical History Bone metastases Dyslipidemia Essential (primary) hypertension Prostate cancer Surgical History Surgical History History of bilateral inguinal hernia repair 11/2003 History of prostatectomy 11/2002 Family History Family History Father Family history of cardiovascular disease Malignant neoplasm of prostate Mother Family history of cardiovascular disease Social History Social History Smoking packs per day: 1 Smoking cigarettes per day: 20.0 Years smoked: 63 Smoking pack-years: 63.00 Smoking status: Current every day smoker Tobacco type: cigarettes Alcohol intake: former Substance use: never Spiritual care concerns: No Meds Home Medications and Allergies Home Medications Medication Instructions Recorded Confirmed Type lisinopril 20 1 tablet PO QAM 04/12/21 10/06/21 History mg-hydrochlorothiazide 25 mg tablet calcium carbonate 600 mg-vitamin 1 tablet PO BID 06/12/21 10/06/21 History D3 5 mcg (200 unit) tablet cholecalciferol (vitamin D3) 25 25 mcg PO DAILY 10/03/21 10/06/21 History mcg (1,000 unit) tablet p
--- NOTE | 2021-10-06 17:14 | PC.NURSE ---
Report given to Aaron. Nurse barrera return call once bed 341 is clean.
--- NOTE | 2021-10-06 18:50 | PC.NURSE ---
This patient, Yamil Sabillon, was admitted to Medical Room 341-01. Patient/family oriented to hospital policies and general routines including ID bracelet, bed and alarms, visiting hours, pain management, procedures, bathroom and other care routines, personal items, smoking policy, room service/diet, and visiting hours. Information on how to activate the Rapid Response Team has been discussed. Patient/Family are encouraged to report perceived risks to care and to ask questions if they do not understand what they are told or what they should do.
--- NOTE | 2021-10-06 19:51 | PC.NURSE ---
Pt to room from ER and chest tube not hooked to suction. No orders were in place for suction Dr. Cuellar called and orders recieved.
[2021-10-07 05:26] VITALS: BP 132/63; PULSE 77; RESP 18; TEMP 36.7; O2SAT 96
[2021-10-07 06:20] LABS: Basophils Percent Auto 0.8 % (0.2-1.2); Eosinophils Percent Auto 0.8 % (0-4.4); Hemoglobin 12.7 g/dL (14.0-18.0); Immature Granulocyte Absolute 0.04 K/mm3 (0.00-0.031); Immature Granulocyte Percent A 0.8 % (0-0.5); Lymphocytes Absolute Auto 1.02 K/mm3 (0.9-3.2); Lymphocytes Percent Auto 19.4 % (18.3-44.2); Mean Corpuscular HGB Conc 32.6 g/dl (32-36); Mean Corpuscular Hemoglobin 30.3 pg (26-34); Mean Corpuscular Volume 93.1 fl (80-100); Mean Platelet Volume 9.7 fl (7.4-10.4); Monocytes Absolute Auto 0.5 K/mm3 (0.1-0.6); Monocytes Percent Auto 9.1 % (2.6-8.5); Neutrophils Absolute Auto 3.7 K/mm3 (1.3-6.7); Neutrophils Percent Auto 69.1 % (45.5-73.1); Platelet Count Result 182 k/mm3 (150-375); Red Blood Count 4.19 M/mm3 (4.6-6.20); Red Cell Distribution Width 16.3 % (11.5-14.5); White Blood Count 5.3 K/mm3 (4.5-10.0)
[2021-10-07 06:29] LABS: Alanine Aminotransferase 11 U/L (6-50); Albumin Level 3.6 g/dL (3.5-5.1); Alkaline Phosphatase 86 U/L (38-126); Anion Gap 7 mmol/L (8-16); Aspartate Amino Transferase 21 U/L (17-59); Bilirubin,Total 0.5 mg/dL (0.2-1.3); Blood Urea Nitrogen 15 mg/dL (9-20); Carbon Dioxide 24 mmol/L (22-30); Chloride 105 mmol/L (98-107); Estimated CRCL calculation 54 ml/min; Estimated Glomerular Filt Rate > 60; Glucose 87 mg/dL (65-110); Potassium 3.7 mmol/L (3.4-5.0); Sodium 136 mmol/L (137-145)
--- NOTE | 2021-10-07 07:11 | PM.IMPN ---
Progress Note: A&P Assessment and Plan (1) Pneumothorax on left: Code(s): J93.9 - Pneumothorax, unspecified Status: Acute Assessment and Plan: general surgery has been consulted for further management of the patient's chest tube, appreciate assistance and recommendations chest tube site appears clean dry and intact, no crepitus noted. Chest tube in the 2nd intercostal space on the left of the chest wall. Chest tube was hooked up to continuous suction. will be transitioned to water-seal per General surgery monitor vital signs, I and O's, neuro status and oxygen levels Repeat chest x-ray today Repeat labs in the morning (2) Bone metastases: Code(s): C79.51 - Secondary malignant neoplasm of bone Status: Acute Assessment and Plan: stable (3) Essential (primary) hypertension: Code(s): I10 - Essential (primary) hypertension Status: Acute Assessment and Plan: continue home medications (4) Dyslipidemia: Code(s): E78.5 - Hyperlipidemia, unspecified Status: Acute Assessment and Plan: stable (5) Prostate cancer: Code(s): C61 - Malignant neoplasm of prostate Status: Chronic Assessment and Plan: stable Subjective Date/time seen: 10/07/21 07:11 patient is doing well this morning spoke with General surgery Dr. Cuellar place the patient to water-seal. Plan for repeat imaging today and possible discharge on 10/08/2021 pending the patient's clinical status. patient remains on 2 L of oxygen per nasal cannula 96%. Patient does not wear oxygen at baseline. Patient denies any shortness of breath Or pain to the lateral aspect of his chest. No acute events reported by RN during the night Review of Systems Review of Systems: All systems reviewed & are unremarkable except as noted in HPI and below Exam Narrative: General: No acute distress. Mental Status: Awake, alert and oriented to person, place, and time with clear speech. Skin: Skin in warm, dry and intact without rashes or lesions. Head: Normocephalic and atraumatic. Eyes: Conjunctivae are clear without exudates or hemorrhage. Sclera is non-icteric. EOM are intact, PERRLA. Ears: The external ear and canal are non-tender and without swelling or discharge. Nose: Nasal mucosa is pink and moist. Septum midline. Nares patent bilaterally. Throat: Oral mucosa pink and moist with good dentition. Tongue midline. Neck: The neck supple without adenopathy. Trachea midline. No JVD. Cardiac: S1 and S2 regular rate and rhythm. No murmurs, gallops, or rubs auscultated. Respiratory: Chest wall symmetric, nontender and without deformity or trauma. Respirations even and unlabored. Lung sounds are Diminished to auscultation in all lobes bilaterally without wheezes, rhonchi, or rales. 2 L of oxygen per nasal cannula. Patient did not have crepitus around chest tube site which is in the 2nd intercostal space on the left chest wall. Abdominal: Abdomen soft, round and non-tender to palpation. Bowel sounds present and normoactive in all 4 quadrants. Spine: Neck and back with grossly normal curvature, no deformity in appearance or signs of trauma. Extremities: Upper and lower extremities atraumatic without tenderness or deformity. Full range of motion and muscle strength 5/5 to all extremities bilaterally. Neurological: Full and symmetric motor and light touch sensation bilaterally. Cranial nerves II-XII grossly intact. Objective Data Vital Signs Vital Signs: Vital Signs - 24 hr 10/06/21 13:22 10/06/21 14:02 10/06/21 14:16 Temperature 97.7 F Pulse Rate 65 61 69 Respiratory Rate 25 H 28 H 26 H Blood Pressure 132/72 156/71 H 153/78 H Pulse Oximetry 98 98 98 Oxygen Delivery Room Air Oxygen Flow Rate 10/06/21 15:00 10/06/21 15:01 10/06/21 15:15 Temperature Pulse Rate 62 72 Respiratory Rate 25 H 26 H 20 Blood Pressure 162/75 H Pulse Oximetry 99 99 Oxygen Delivery Oxygen Flow
--- NOTE | 2021-10-07 12:16 | PM.PNGS ---
Progress Note: A&P Assessment and Plan (1) Pneumothorax on left: Code(s): J93.9 - Pneumothorax, unspecified Status: Acute Assessment and Plan: Chest tube working well. Will put chest tube to water seal and recheck chest x-ray. Recheck chest film again tomorrow and if lung remains expanded will DC chest tube and let patient be discharged. (2) Smoker: Code(s): F17.200 - Nicotine dependence, unspecified, uncomplicated Status: Chronic (3) Left upper lobe pulmonary nodule: Code(s): R91.1 - Solitary pulmonary nodule Status: Chronic Assessment and Plan: Biopsied at procedure. Pending path results. Subjective Subjective Date/Time Seen: 10/07/21 12:16 Patient reports: no new complaints and feels better Review of Systems Review of Systems: All systems reviewed & are unremarkable except as noted in HPI and below ( HPI and those items noted below) Constitutional: Constitutional: Denies chills and Denies fever(s) Cardiovascular: Cardiovascular: Denies chest pain, Denies diaphoresis, Denies dyspnea and Denies paroxysmal nocturnal dyspnea Respiratory: Respiratory: Denies chest congestion, Denies cough and Denies dyspnea Integumentary/Breasts: Skin/Breast: Denies lesions and Denies rash Exam Const: General: comfortable, no acute distress, alert and awake Nutritional Appearance: thin Orientation/consciousness: No confusion Chest: Chest palpation & inspection: abnormal inspection of the chest (Left chest pigtail catheter, Port-A-Cath left subclavian), no crepitus and no tenderness Resp: Effort & Inspection: normal respiratory effort Auscultation: clear to auscultation bilaterally Cardio: Rate: regular rate Rhythm: regular rhythm Heart sounds: no gallops, no murmurs and no rubs Extrem: General: no clubbing, cyanosis or edema and edema Psych: Affect: normal affect Thought process: Normal thought process present Insight: Good insight present (Psych) Objective Data Vital Signs Vital Signs: Vital Signs - 24 hr 10/06/21 13:22 10/06/21 14:02 10/06/21 14:16 Temperature 36.5 C Pulse Rate 65 61 69 Respiratory Rate 25 H 28 H 26 H Blood Pressure 132/72 156/71 H 153/78 H Pulse Oximetry 98 98 98 Oxygen Delivery Room Air Oxygen Flow Rate 10/06/21 15:00 10/06/21 15:01 10/06/21 15:15 Temperature Pulse Rate 62 72 Respiratory Rate 25 H 26 H 20 Blood Pressure 162/75 H Pulse Oximetry 99 99 Oxygen Delivery Oxygen Flow Rate 10/06/21 15:16 10/06/21 15:30 10/06/21 15:31 Temperature Pulse Rate 63 72 66 Respiratory Rate 29 H 25 H 29 H Blood Pressure 132/76 145/78 H Pulse Oximetry 99 93 98 Oxygen Delivery Oxygen Flow Rate 10/06/21 15:45 10/06/21 15:46 10/06/21 16:00 Temperature Pulse Rate Respiratory Rate Blood Pressure 140/74 Pulse Oximetry 97 99 88 L Oxygen Delivery Oxygen Flow Rate 10/06/21 16:01 10/06/21 16:16 10/06/21 16:31 Temperature Pulse Rate Respiratory Rate Blood Pressure 141/63 H 133/73 141/71 H Pulse Oximetry 89 L 97 94 Oxygen Delivery Oxygen Flow Rate 10/06/21 16:46 10/06/21 17:01 10/06/21 17:16 Temperature Pulse Rate Respiratory Rate Blood Pressure 156/80 H 154/76 H 137/72 Pulse Oximetry 94 94 96 Oxygen Delivery Oxygen Flow Rate 10/06/21 18:07 10/06/21 20:00 10/06/21 21:51 Temperature 36.8 C 37.0 C Pulse Rate 79 78 Respiratory Rate 20 18 Blood Pressure 143/68 H 166/71 H Pulse Oximetry 98 98 97 Oxygen Delivery Nasal Cannula Oxygen Flow Rate 2 10/07/21 05:26 Temperature 36.7 C Pulse Rate 77 Respiratory Rate 18 Blood Pressure 132/63 Pulse Oximetry 96 Oxygen Delivery Oxygen Flow Rate Intake/Output Intake/Output: Intake & Output 10/04/21 10/05/21 10/06/21 10/07/21 23:59 23:59 23:59 23:59 Intake Total 440 Output Total 600 Balance -160 Meds/Results Radiology Results: ITS Impressions Chest X-Ray
[2021-10-07 14:58] VITALS: BP 127/64; PULSE 79; RESP 18; TEMP 35.5; O2SAT 93
[2021-10-07 20:09] VITALS: BP 129/67; PULSE 69; RESP 18; TEMP 36.2; O2SAT 96
[2021-10-07 21:15] VITALS: O2SAT 94
[2021-10-08 04:36] VITALS: BP 128/61; PULSE 76; RESP 16; TEMP 36.8; O2SAT 98
[2021-10-08] MEDS: predniSONE 5 MG TABLET PO (08:11)
[2021-10-08] MEDS: lisinopriL 20 MG TABLET PO (08:11)
[2021-10-08] MEDS: hydroCHLOROthiazide 25 MG TABLET PO (08:11)
--- NOTE | 2021-10-08 08:59 | WPDPN ---
Progress Note: A&P Assessment and Plan (1) Pneumothorax on left: Code(s): J93.9 - Pneumothorax, unspecified Status: Acute Assessment and Plan: no pneumothorax on this morning's chest x-ray as well. Chest tube removed without difficulty. We will repeat chest x-ray. If no pneumothorax, patient can be discharged from my perspective. No surgical follow-up is needed. Dressing change instructions were given. He can follow-up with Oncology. (2) Left upper lobe pulmonary nodule: Code(s): R91.1 - Solitary pulmonary nodule Status: Chronic Assessment and Plan: Biopsied and path pending (3) Prostate cancer: Code(s): C61 - Malignant neoplasm of prostate Status: Chronic (4) Bone metastases: Code(s): C79.51 - Secondary malignant neoplasm of bone Status: Acute (5) Smoker: Code(s): F17.200 - Nicotine dependence, unspecified, uncomplicated Status: Chronic Subjective Date/time seen: 10/08/21 08:59 Interval history: No new complaints. No shortness of breath. Review of Systems Review of Systems: All systems reviewed & are unremarkable except as noted in HPI and below ( HPI and those items noted below) Constitutional: Constitutional: Denies chills and Denies fever(s) Cardiovascular: Cardiovascular: Denies chest pain, Denies diaphoresis, Denies dyspnea and Denies paroxysmal nocturnal dyspnea Respiratory: Respiratory: Denies chest congestion, Denies cough and Denies dyspnea Exam Const: General: comfortable, no acute distress, alert and awake Nutritional Appearance: thin Orientation/consciousness: No confusion Chest: Chest palpation & inspection: abnormal inspection of the chest ( left chest tube and Port-A-Cath. Left chest tube removed w/o difficulty.) Resp: Effort & Inspection: normal respiratory effort, able to speak in complete sentences and no cough Auscultation: clear to auscultation bilaterally Objective Data Vital Signs Vital Signs: Vital Signs - 24 hr 10/07/21 14:58 10/07/21 20:09 10/07/21 21:15 Temperature 35.5 C L 36.2 C L Pulse Rate 79 69 Respiratory Rate 18 18 Blood Pressure 127/64 129/67 Pulse Oximetry 93 96 94 Oxygen Delivery Nasal Cannula Oxygen Flow Rate 2 10/08/21 04:36 Temperature 36.8 C Pulse Rate 76 Respiratory Rate 16 Blood Pressure 128/61 Pulse Oximetry 98 Oxygen Delivery Oxygen Flow Rate Intake/Output Intake/Output: Intake & Output 10/05/21 10/06/21 10/07/21 10/08/21 23:59 23:59 23:59 23:59 Intake Total 920 150 Output Total 700 600 Balance 220 -450 Meds/Results Medications: Active Medications Generic Name Dose Route Start Last Admin Trade Name Goranq PRN Reason Stop Dose Admin Calcium Carbonate 500 mg 10/08/21 09:00 10/08/21 08:11 Calcium/Vitamin D 500 Mg Tablet PO 500 mg BID MEENAKSHI Administration Hydrochlorothiazide 25 mg 10/08/21 09:00 10/08/21 08:11 Hydrochlorothiazide 25 Mg Tablet PO 25 mg QAM MEENAKSHI Administration Lisinopril 20 mg 10/08/21 09:00 10/08/21 08:11 Lisinopril 20 Mg Tablet PO 20 mg QAM MEENAKSHI Administration Prednisone 5 mg 10/08/21 09:00 10/08/21 08:11 Prednisone 5 Mg Tablet PO 5 mg BID MEENAKSHI Administration Radiology Results: ITS Impressions Chest X-Ray 10/07/21 16:55 IMPRESSION: Small bore left chest tube remains in stable and good position, without pneumothorax.. Imaging Attestation: I personally reviewed and interpreted this imaging study as follows: ( Chest x-ray from this morning) My impression: no pneumothorax. Chest tube remains in same position. Radiologist's impression: No pneumothorax
--- NOTE | 2021-10-08 10:31 | PM.DS ---
DS: Admitting Diagnosis Discharge Date 10/08/21 Admitting Diagnosis pneumothorax DS: Discharge Diagnosis Discharge Diagnosis (1) Pneumothorax on left: Code(s): J93.9 - Pneumothorax, unspecified Status: Acute Assessment and Plan: general surgery has been consulted for further management of the patient's chest tube, appreciate assistance and recommendations chest tube site appears clean dry and intact, no crepitus noted. Chest tube in the 2nd intercostal space on the left of the chest wall. Chest tube was hooked up to continuous suction. will be transitioned to water-seal per General surgery monitor vital signs, I and O's, neuro status and oxygen levels Repeat chest x-ray today Repeat labs in the morning - resolved, chest tube removed (2) Bone metastases: Code(s): C79.51 - Secondary malignant neoplasm of bone Status: Acute Assessment and Plan: stable (3) Essential (primary) hypertension: Code(s): I10 - Essential (primary) hypertension Status: Acute Assessment and Plan: continue home medications (4) Dyslipidemia: Code(s): E78.5 - Hyperlipidemia, unspecified Status: Acute Assessment and Plan: stable (5) Prostate cancer: Code(s): C61 - Malignant neoplasm of prostate Status: Chronic Assessment and Plan: stable DS: Summary Hospital Course Reason for hospitalization: pneumothorax Hospital Course: patient is a 86-year-old male with a past medical history of dyslipidemia, hypertension, prostate cancer with bone metastasis.? Patient presented to [facility] after going to Interventional Radiology for a lung biopsy.? Unfortunately the patient developed a left-sided pneumothorax which required chest tube placement.? General surgery was consulted for further management. While in the emergency department labs and imaging were obtained.? Patient had a WBC 4.8, hemoglobin 12.2, hematocrit 39.0, platelet 174, sodium 139, potassium 4.1, creatinine 0.9 BUN of 16 with normal LFTs.? Patient is being managed for acute pneumothorax related to a lung biopsy.? He will be placed on the medical unit with a chest tube hooked up to suction -defer further care to General surgery.? The patient is currently on room air SpO2 98%?.? Patient is also on 2 L of oxygen per nasal cannula despite ? Nursing charting 98% on room air.. ? Patient's respiration rate is 25 with heart rate of 65 and blood pressure 132/72.? He remains afebrile. ? will resume his lisinopril hydrochlorothiazide and monitor hypertension while he is in the hospital.? ? Chest tube examined at the side of the bed.? Chest tube was changed to continuous suction in order to maintain saturations and fully expand the lungs.? Patient did not have crepitus around chest tube site which is in the 2nd intercostal space on the left chest wall. On the 2 of admission the patient's chest tube was hooked up to water-seal per General surgery. And a repeat chest x-ray was performed. Repeat chest x-ray showed resolution of pneumothorax and a.m. labs were WNL. Therefore the chest tube was removed on 10/08/2021 with a repeat image after that which continued to show resolution of the pneumothorax. A dressing was applied over the chest tube removal site, dressing appeared clean dry intact and the patient did not have any crepitus surrounding the dressing. Patient is weaned off of oxygen, alert and oriented x4 and is ready to be discharged. No acute concerns. Patient was provided instructions by General surgery about plan of care and dressing management. Status at Discharge Cognitive/behavioral status at discharge: Alert and oriented x4 Time Spent with Patient Time attestation: Total time spent providing and/or coordinating discharge services: Exam Narrative: General: No acute distress. Mental Status: Awake, alert and oriented to person, place, and time with clear speech. Skin:
== END 2021-10-08 11:30 | disposition home or self-care (01) | DRG 200 ==
LOC: ANHED 14:38 → ANH3MEDSUR 15:47 → ANH3MED 17:57 → ANH3MEDSUR 10-09 13:22
PROVIDERS: Admitting Provider Chiropractor; Emergency Provider Emergency Medicine; PCP Family Medicine; Visit Provider Nurse Practitioner Family
DX: J95.811 Postprocedural pneumothorax (principal); C79.51 Secondary malignant neoplasm of bone; C61 Malignant neoplasm of prostate; I10 Essential (primary) hypertension; R91.1 Solitary pulmonary nodule; E78.5 Hyperlipidemia, unspecified; F17.210 Nicotine dependence, cigarettes, uncomplicated
CPT/HCPCS: 32408; 32550; 36415; 71045; 75989; 80053; 85025; 85049; 85610; 85730; 88305; 99285; A9270; C1729; C1769; C9803; J7512; U0003; U0005

== ENCOUNTER 2021-12-19 08:55 | Outpatient (CLI) | payer MEDICARE, SELFPAY ==
--- NOTE | ~2021-12-19 | NM_ITS ---
EXAMINATION: NM bone scan whole body DATE: 12/19/2021 13:35 INDICATION: Prostate cancer metastatic to bone TECHNIQUE: 23.6 mCi Tc-99m HDP was administered intravenously. Delayed whole-body scintigrams were o btained. COMPARISON: Chest CT dated 12/19/2021 and bone scan dated 09/13/2021 FINDINGS/IMPRESSION: No significant interval change in widespread foci of increased bone uptake throughout the axial and a ppendicular skeleton which in the thorax correspond to numerous sclerotic bone lesions consistent wit h metastatic prostate cancer. Reviewed, dictated and finalized at location B.
--- NOTE | ~2021-12-19 | CT_ITS ---
EXAMINATION: CT diagnostic chest w con DATE: 12/19/2021 09:30 INDICATION: Metastatic prostate cancer TECHNIQUE: Transaxial computed tomographic images of the chest were obtained after the administration of 75 cc of Omnipaque 350 intravenous contrast. The dose-length product (DLP) was 154.15 mGy-cm. Ite rative reconstruction was used. COMPARISON: 10/06/2021 FINDINGS: There is a stable 1.3 cm nodule of the left upper lobe having previously undergone biopsy d emonstrating pulmonary hamartoma. There is moderate emphysema. The lungs are free of acute opacities. No pleural effusion or pneumothorax. The heart size is normal. There is calcified coronary artery at herosclerosis. Cysts of the visualized kidneys measure up to 5.5 cm on the left. There are widespread sclerotic osseous metastases involving the axial and endotracheal skeleton. A left internal jugular Port-A-Cath ends with its tip in the midsuperior vena cava. IMPRESSION: 1. No acute findings in the chest. 2. Widespread sclerotic osseous metastatic disease. Reviewed, dictated and finalized at location A.
== END 2021-12-19 08:56 | disposition home or self-care (01) ==
PROVIDERS: PCP Family Medicine; Visit Provider Internal Medicine Hematology & Oncology
DX: C61 Malignant neoplasm of prostate (principal); C79.51 Secondary malignant neoplasm of bone
CPT/HCPCS: 71260; 78306; A9561; Q9967

== ENCOUNTER 2022-05-18 10:48 | Emergency (ER) | payer MEDICARE, SELFPAY ==
[2022-05-18] VITALS (24 sets, daily range): BP systolic 97–260; BP diastolic 50–244; PULSE 77–102; RESP 21–33; TEMP 36.6; O2SAT 83–94
--- NOTE | ~2022-05-18 | XR_ITS ---
Clinical Indication: Cough, weakness AP and lateral views of the chest: Comparison: 10/08/2021 Findings: Left-sided Mediport is unchanged. There are multiple probable subtle small pulmonary nodule s versus osseous lesions. Cardiomediastinal silhouette is within normal limits. Numerous small, subt le, sclerotic osseous lesions are present, consistent with osseous metastatic disease. Impression: Osseous metastatic disease, as above. No definite pulmonary abnormality seen. Stable left-sided Mediport. Reviewed, dictated and finalized at location . ONOMY INSTRUCTOR Impression: Osseous metastatic disease, as above. No definite pulmonary abnormality seen. Stable left-sided Mediport.
--- NOTE | 2022-05-18 11:51 | ECG_ITS ---
Measurements Intervals [place] Rate: 92 P: 66 MT: 142 QRS: 69 QRSD: 84 T: 67 QT: 356 QTc: 440 Interpretive Statements SINUS RHYTHM CANNOT RULE OUT SEPTAL INFARCT, AGE INDETERMINATE BASELINE ARTIFACT- I, II, III, AVR, AVL, AVF, V3-V6 ABNORMAL ECG NO PREVIOUS ECG AVAILABLE FOR COMPARISON Electronically Signed On 05-18-2022 13:36:34 CONVENTION SERVICES MANAGER by Joe Dean D.O.
[2022-05-18 12:03] LABS: Basophils Percent Auto 0.2 % (0.2-1.2); Eosinophils Percent Auto 0.1 % (0-4.4); Hemoglobin 12.1 g/dL (14.0-18.0); Immature Granulocyte Percent A 1.1 % (0-0.5); Lymphocytes Absolute Auto 0.44 K/mm3 (0.9-3.2); Mean Corpuscular HGB Conc 32.7 g/dl (32-36); Mean Corpuscular Hemoglobin 29.7 pg (26-34); Mean Corpuscular Volume 90.7 fl (80-100); Mean Platelet Volume 9.1 fl (7.4-10.4); Monocytes Absolute Auto 0.6 K/mm3 (0.1-0.6); Monocytes Percent Auto 7.3 % (2.6-8.5); Neutrophils Absolute Auto 7.6 K/mm3 (1.3-6.7); Neutrophils Percent Auto 86.3 % (45.5-73.1); Platelet Count Result 317 k/mm3 (150-375); Red Blood Count 4.08 M/mm3 (4.6-6.20); Red Cell Distribution Width 14.4 % (11.5-14.5); White Blood Count 8.8 K/mm3 (4.5-10.0)
--- NOTE | 2022-05-18 12:15 | PC.NURSE ---
Dr. Ley at bedside to assess pt.
--- NOTE | 2022-05-18 12:26 | ED.WEAKNESS ---
HPI - Weakness General Chief complaint: Weakness Stated complaint: weak Time Seen by Provider: 05/18/22 12:02 History of Present Illness HPI Narrative: Patient is an 87-year-old male with metastatic prostate cancer presenting with generalized weakness. Patient was advised to come to the ER by his oncologist Dr. Merida due to this weakness. Patient's brother is at bedside and states that the patient has been increasingly weak and has been coughing a lot. States that he saw his oncologist earlier this week who was concerned that he had infection so he started him on levofloxacin. Unfortunately, the patient's symptoms have continued so he was advised to come in today. Patient denies any pain. Patient denies dyspnea but his brother states that he has been working harder to breathe. He denies headache, numbness or weakness, chest pain, lightheadedness, abdominal pain, vomiting, diarrhea, constipation, dysuria, urinary frequency, leg swelling. Related Data Home Medications Medication Instructions Recorded Confirmed calcium carbonate 600 mg-vitamin 1 tablet PO BID 06/12/21 05/21/22 D3 5 mcg (200 unit) tablet prednisone 5 mg tablet 5 mg PO BID 10/03/21 05/21/22 cholecalciferol (vitamin D3) 25 25 mcg PO DAILY 01/02/22 05/21/22 mcg (1,000 unit) capsule lidocaine-prilocaine 2.5 %-2.5 % See Rx Instructions .Route .COMPLEX 03/13/22 05/21/22 topical cream ondansetron HCl 8 mg tablet 8 mg PO Q6-8H PRN Nausea 03/13/22 05/21/22 Allergies Allergy/AdvReac Type Severity Reaction Status Date / Time No Known Allergies Allergy Mild Verified 05/21/22 10:28 Review of Systems Review of Systems: All systems reviewed & are unremarkable except as noted in HPI and below PMFSH Past Medical History Medical History Bone metastases Dyslipidemia Essential (primary) hypertension Prostate cancer Surgical History Surgical History History of bilateral inguinal hernia repair 11/2003 History of prostatectomy 11/2002 Family History Family History Father Family history of cardiovascular disease Malignant neoplasm of prostate Mother Family history of cardiovascular disease Social History Social History Smoking packs per day: 1 Smoking cigarettes per day: 20.0 Years smoked: 63 Smoking pack-years: 63.00 Smoking status: Current every day smoker Tobacco type: cigarettes Second hand tobacco smoke exposure: Yes Alcohol intake: former Substance use: never Living arrangements: alone Spiritual care concerns: No Exam Narrative: GENERAL: Chronically ill-appearing, frail, laying in bed in no acute distress HEAD: Normocephalic, atraumatic. EYES: PERRLA and EOMI. ENT: Nares clear, no rhinorrhea or epistaxis. Mucous membranes dry NECK: Supple. CHEST: No respiratory distress. Coarse in bilateral bases HEART: Regular rate and rhythm. Normal peripheral pulses. ABDOMEN: Soft, nontender, nondistended EXTREMITIES: Normal range of motion. No edema. SKIN: Warm, dry, no rash. NEURO: No focal deficits. Alert and oriented x3. 5 out of 5 strength in all extremities, no sensory deficits, normal speech PSYCH: Normal mood and affect. Course Vital Signs Vital signs: Vital Signs Temperature 97.8 F 05/18/22 10:51 Pulse Rate 101 H 05/18/22 10:51 Respiratory Rate 22 H 05/18/22 10:51 Blood Pressure 106/50 L 05/18/22 10:51 Pulse Oximetry 92 05/18/22 10:51 Oxygen Delivery Room Air 05/18/22 10:51 Temperature 97.8 F 05/18/22 10:51 Pulse Rate 77 05/18/22 16:16 Respiratory Rate 27 H 05/18/22 16:16 Blood Pressure 140/64 05/18/22 16:16 Pulse Oximetry 92 05/18/22 16:16 Oxygen Delivery Room Air 05/18/22 10:51 MDM - Weakness MDM Narrative Medical decision making n
[2022-05-18] MEDS: LACTATED RINGERS 1,000 ML 999 ML IV CONT ×2 (12:27→15:45)
[2022-05-18 12:32] LABS: Alanine Aminotransferase 27 U/L (6-50); Albumin Level 3.8 g/dL (3.5-5.1); Alkaline Phosphatase 72 U/L (38-126); Anion Gap 7 mmol/L (8-16); Aspartate Amino Transferase 41 U/L (17-59); Bilirubin,Total 0.5 mg/dL (0.2-1.3); Blood Urea Nitrogen 42 mg/dL (9-20); Calcium 8.9 mg/dL (8.4-10.2); Carbon Dioxide 26 mmol/L (22-30); Chloride 95 mmol/L (98-107); Estimated CRCL calculation 32 ml/min; Estimated Glomerular Filt Rate 52; Glucose 127 mg/dL (65-110); Sodium 128 mmol/L (137-145)
[2022-05-18 12:49] LABS: Lactic Acid Reflex 1.1 mmol/L (0.7-2.0)
[2022-05-18 12:55] LABS: INR 1.1; Prothrombin Time 14.2 Seconds (11.1-14.7)
[2022-05-18 12:56] LABS: Partial Thromboplastin Time 34.3 SECONDS (22.3-36.8)
[2022-05-18 13:02] LABS: NT Pro B Type Natriuretic Pept 253 pg/mL (19.9-100); Troponin I < 0.012 ng/mL (0.000-0.034)
[2022-05-18 13:41] LABS: Influenza A QL RT-PCR Negative (Negative); Influenza B QL RT-PCR Negative (Negative); RSV RNA, RT-PCR Negative (Negative); SARS-CoV-2 RNA PCR Negative
[2022-05-18 14:49] LABS: Appearance Urine Clear (Clear); Bacteria Urine None Seen /hpf; Bilirubin Urine Negative (Negative); Blood Urine Negative (Negative); Color Urine Yellow (Yellow); Glucose Urine UA Negative (Negative); Hyaline Casts Urine Present /lpf; Ketones Urine Negative (Negative); Leukocyte Esterase Ur Negative LEU/UL (Negative); Nitrate Urine Negative (Negative); Protein Urine Trace mg/dL (Negative); RBC Urine 0-2 /hpf (0-2); Specific Grav Ur 1.019 (1.001-1.035); Squamous Epithelial Cell Urine None seen /hpf (Few); Urobilinogen Urine 0.2 mg/dL (<2.0); WBC Urine 0-5 /hpf; pH Urine 5.5 (5.0-9.0)
[2022-05-18 14:59] LABS: Add Urine Microscopic? YES
[2022-05-18 15:53] LABS: Troponin I < 0.012 ng/mL (0.000-0.034)
== END 2022-05-18 16:51 | disposition home or self-care (01) ==
PROVIDERS: Emergency Medicine; Emergency Provider Emergency Medicine; PCP Family Medicine
DX: E86.0 Dehydration (principal); E87.1 Hypo-osmolality and hyponatremia; C61 Malignant neoplasm of prostate; C79.51 Secondary malignant neoplasm of bone; Z20.822 Contact with and (suspected) exposure to COVID-19; I10 Essential (primary) hypertension; E78.5 Hyperlipidemia, unspecified; F17.210 Nicotine dependence, cigarettes, uncomplicated; R94.31 Abnormal electrocardiogram [ECG] [EKG]; R06.89 Other abnormalities of breathing; Z90.79 Acquired absence of other genital organ(s)
CPT/HCPCS: 36415; 71046; 80053; 81001; 83605; 83880; 84484; 85025; 85610; 85730; 87637; 93005; 96360; 96361; 99284; J7120

== ENCOUNTER 2022-06-04 08:04 | Outpatient (CLI) | payer MEDICARE, SELFPAY ==
--- NOTE | ~2022-06-04 | CT_ITS ---
Clinical Indication: Prostate cancer CT Scan of the Chest with Contrast: Technique: Contiguous sections were acquired throughout the chest after intravenous administration of 75 cc of Omnipaque 350. Dose reduction technique was used on this scan by utilizing automated exposu re control and iterative reconstruction technique. The dose-length product (DLP) was 153.22 mGy-cm. COMPARISON: 12/19/2021 Findings: There is no evidence of any significant mediastinal, hilar or axillary lymphadenopathy. No large cent ral pulmonary embolus seen. There is no evidence of aortic dissection or aneurysm. Atherosclerotic ca lcifications of the aorta and coronary arteries are present. There is no evidence of pleural or pericardial effusion. There is mild to moderate emphysema. 1.2 cm noncalcified left upper lobe pulmonary nodule present majo r the hilum (axial image 63), unchanged. Images through the upper abdomen reveal no abnormalities. Innumerable sclerotic lesions are prior exa m, scattered throughout the visualized osseous structures, essentially unchanged. Impression: Stable 1.2 cm left upper lobe perihilar pulmonary nodule. Stable extensive osteoblastic metastatic disease. Mild to moderate emphysema. Reviewed, dictated and finalized at location M. Impression: Stable 1.2 cm left upper lobe perihilar pulmonary nodule. Stable extensive osteoblastic metastatic disease. Mild to moderate emphysema.
--- NOTE | ~2022-06-04 | NM_ITS ---
EXAMINATION: NM bone scan whole body DATE: 06/04/2022 12:01 INDICATION: Prostate cancer metastatic to bone. TECHNIQUE: 25.0 mCi Tc-99m HDP was administered intravenously. Delayed whole-body scintigrams were o btained. COMPARISON: Chest CT 06/04/2022, bone scan 12/19/2021 FINDINGS: There are widespread innumerable foci of increased activity throughout the axial skeleton a nd in the proximal appendicular skeleton correlating with sclerotic lesions by CT, consistent with me tastatic disease. IMPRESSION: 1. Widespread osseous metastatic disease, stable from 12/19/2021. Reviewed, dictated and finalized at location A.
== END 2022-06-04 08:05 | disposition home or self-care (01) ==
LOC: ANHIMG 08:07
PROVIDERS: PCP Family Medicine; Visit Provider Internal Medicine Hematology & Oncology
DX: C61 Malignant neoplasm of prostate (principal); C79.51 Secondary malignant neoplasm of bone; R91.1 Solitary pulmonary nodule; J43.9 Emphysema, unspecified
CPT/HCPCS: 71260; 78306; A9503; Q9967

== ENCOUNTER 2022-10-16 10:34 | Outpatient (CLI) | payer MEDICARE, SELFPAY ==
--- NOTE | ~2022-10-16 | CT_ITS ---
EXAMINATION: CTA chest PE protocol DATE: 10/16/2022 11:31 INDICATION: Dyspnea. TECHNIQUE: Computed tomography angiography (CTA) of the chest was performed with 100 mL Omnipaque-350 intravenous contrast timed to evaluate the pulmonary arteries. Coronal maximum intensity projection 3D-reconstructions were created by the technologist. Automated exposure control and iterative reconst ruction technique were employed. The dose-length product was 255.12 mGy-cm. COMPARISON: Chest CT 06/04/2022, 09/13/21 FINDINGS: There is mild scarring at the lung apices. There is moderate emphysema. There is mild atele ctasis bilaterally. There is a 12 mm biopsy-proven hamartoma in left upper lobe. There are small pleu ral effusions, left worse than right. There is no pulmonary embolus. The heart size is normal. There are coronary artery calcifications. No pericardial effusion. There are cysts in the kidneys measuring up to 5.9 cm on the left. There are widespread sclerotic lesions involving all bones, consistent wit h metastatic disease. IMPRESSION: 1. No pulmonary embolus. 2. Moderate emphysema. 3. Small pleural effusions. 4. Widespread osseous metastatic disease, stable from 06/04/2022. Reviewed, dictated and finalized at location A.
== END 2022-10-16 10:35 | disposition home or self-care (01) ==
PROVIDERS: PCP Family Medicine; Visit Provider Internal Medicine Hematology & Oncology
DX: R06.00 Dyspnea, unspecified (principal); J43.9 Emphysema, unspecified; J90 Pleural effusion, not elsewhere classified; C79.51 Secondary malignant neoplasm of bone
CPT/HCPCS: 36592; 71275; 80047; 80053; 85025; Q9967

== ENCOUNTER 2022-12-31 17:36 | Emergency (ER) | payer MEDICARE, SELFPAY ==
--- NOTE | ~2022-12-31 | XR_ITS ---
EXAMINATION: XR chest 1V portable Exam Date/Time: 12/31/2022 18:49 CDT HISTORY: fall Comparison: 05/18/2022; CTPA 10/16/2022. RESULT: Lines, tubes, and devices: None. Lungs and pleura: Diffusely hazy opacity in the left lung. Emphysematous and senescent change. Mild left costophrenic angle blunting. Cardiomediastinal silhouette: Stable. Other: No acute osseous or upper abdominal finding. Redemonstration of osseous metastatic disease. IMPRESSION: Diffuse left lung opacity likely secondary to chronic small pleural effusion. Reviewed, dictated and finalized at location K.
--- NOTE | ~2022-12-31 | CT_ITS ---
EXAMINATION: CT diagnostic chest w con DATE: 12/31/2022 20:27 INDICATION: left lower rib pain s/p fall TECHNIQUE: Computed tomography (CT) of the chest was performed with 75 mL Omnipaque-350 intravenous c ontrast. Automated exposure control and iterative reconstruction technique were employed. The dose-le ngth product was 243.64 mGy-cm. COMPARISON: 10/16/2022; x-ray chest 12/31/2022. FINDINGS: CHEST: Thoracic aorta: No significant dilation or calcification. Lung parenchyma and airways: Emphysematous change. Bibasilar scar/atelectasis. Airways debris noted i n dependent left lower lobe bronchi. Thoracic inlet, axillae and chest wall: No thyroid or soft tissue mass. No axillary lymphadenopathy. Mediastinum: No mass or lymphadenopathy. Heart and pericardium: Normal heart size. No pericardial effusion. Coronary artery calcifications: Absent. Pleura: Small-moderate volume bilateral pleural fluid collections. Upper abdomen: Somewhat lentiform shaped hypodensity along the posterior aspect of the spleen, encomp assing greater than 10% but less than 50% of the splenic surface area. Thoracic bones: Diffuse sclerotic lesions. Nondisplaced lateral and posterior lateral fractures of th e left eighth through 11th ribs. Stable mild anterior wedge deformity at L1. IMPRESSION: Subcapsular splenic hematoma (AAST grade 2). Multiple nondisplaced lateral and posterior lateral fractures of the left eighth through 11th ribs. Small-moderate bilateral pleural fluid collections, increased in size since the prior CT exam. Airway debris within the left lower lobe bronchi as can be seen with mucus plugging and aspiration. Reviewed, dictated and finalized at location K. IMPRESSION: Subcapsular splenic hematoma (AAST grade 2). Multiple nondisplaced lateral and posterior lateral fractures of the left eight h through 11th ribs. Small-moderate bilateral pleural fluid collections, increased in size since the prior CT exam. Airway debris within the left lower lobe bronchi as can be seen with mucus plug ging and aspiration.
[2022-12-31 17:43] VITALS: BP 89/44; PULSE 86; RESP 16; TEMP 36.4; O2SAT 94
--- NOTE | 2022-12-31 17:50 | ECG_ITS ---
Measurements Intervals [place] Rate: 68 P: 74 GA: 148 QRS: 78 QRSD: 86 T: 76 QT: 390 QTc: 416 Interpretive Statements SINUS RHYTHM LOW QRS VOLTAGE IN PRECORDIAL LEADS [QRS DEFLECTION < 1.0 mV IN CHEST LEADS] POOR R-WAVE PROGRESSION, CANNOT RULE OUT AN OLD aNTEROSEPTAL MYOCARDIAL INFARCTION COMPARED TO ECG 05/18/2022 12:36:53 NO SIGNIFICANT CHANGES Electronically Signed On 01-01-2023 19:48:22 CDT by Katie Dan M.D.
--- NOTE | 2022-12-31 17:51 | ED.GENADULT ---
HPI - General Adult General Chief complaint: Fall Stated complaint: fell, hit ribs on toilet Time Seen by Provider: 12/31/22 18:30 History of Present Illness HPI narrative: Yamil Sabillon is an 87 y/o male with PMHx of stage IV prostate CA , chronic prednisone user who comes in after a fall in the bathroom striking his side on the toilet at around 0800 this morning, and reports since he has had a hard time breathing / with pain to his left posterior ribs . Related Data Home Medications Medication Instructions Recorded Confirmed calcium carbonate 600 mg-vitamin 1 tablet PO BID 06/12/21 01/06/23 D3 5 mcg (200 unit) tablet prednisone 5 mg tablet 5 mg PO BID 10/03/21 01/06/23 cholecalciferol (vitamin D3) 25 25 mcg PO DAILY 01/02/22 01/06/23 mcg (1,000 unit) capsule lisinopril 20 1 tablet PO DAILY 07/25/22 01/06/23 mg-hydrochlorothiazide 25 mg tablet Allergies Allergy/AdvReac Type Severity Reaction Status Date / Time No Known Allergies Allergy Mild Verified 01/06/23 03:04 [facility] Past Medical History Medical History (Updated 01/06/23 @ 17:18 by Viola Meade MD) Bone metastases COPD (chronic obstructive pulmonary disease) Dyslipidemia Essential (primary) hypertension Pleural effusion Prostate cancer Rib fracture Splenic laceration Surgical History Surgical History History of bilateral inguinal hernia repair 11/2003 History of prostatectomy 11/2002 Family History Family History Father Family history of cardiovascular disease Malignant neoplasm of prostate Mother Family history of cardiovascular disease Social History Social History Smoking packs per day: 1 Smoking cigarettes per day: 20.0 Years smoked: 63 Smoking pack-years: 63.00 Smoking status: Current every day smoker Tobacco type: cigarettes Second hand tobacco smoke exposure: Yes Alcohol intake: never Substance use: never Lack of Transportation: No Lack of Food: Never True Current Housing: I Have Housing Concerned About Future Housing: No Difficulty Paying Gas/Electric Bills: No Difficulty Paying for Meds: YES Currently Unemployed: No Education: High School Diploma/GED Difficulty w/ Childcare or Family Care: No Living arrangements: alone Spiritual care concerns: No Course Vital Signs Vital signs: Vital Signs Temperature 36.4 C 12/31/22 17:43 Pulse Rate 86 12/31/22 17:43 Respiratory Rate 16 12/31/22 17:43 Blood Pressure 89/44 L 12/31/22 17:43 Pulse Oximetry 94 12/31/22 17:43 Oxygen Delivery Room Air 12/31/22 17:43 Temperature 36.4 C 12/31/22 17:43 Pulse Rate 62 12/31/22 22:14 Respiratory Rate 14 12/31/22 22:14 Blood Pressure 128/62 12/31/22 22:14 Pulse Oximetry 96 12/31/22 22:14 Oxygen Delivery Room Air 12/31/22 17:43 Medical Decision Making Vital Signs Vital Signs: Vital Signs Temperature 36.4 C 12/31/22 17:43 Pulse Rate 86 12/31/22 17:43 Respiratory Rate 16 12/31/22 17:43 Blood Pressure 89/44 L 12/31/22 17:43 Pulse Oximetry 94 12/31/22 17:43 Oxygen Delivery Room Air 12/31/22 17:43 Temperature 36.4 C 12/31/22 17:43 Pulse Rate 62 12/31/22 22:14 Respiratory Rate 14 12/31/22 22:14 Blood Pressure 128/62 12/31/22 22:14 Pulse Oximetry 96 12/31/22 22:14 Oxygen Delivery Room Air 12/31/22 17:43 Lab Data 12/31/22 19:30 12/31/22 19:30 Labs: Lab Results 12/31/22 Range/Units 19:30 WBC 7.8 (4.5-10.0) K/mm3 RBC 3.65 L (4.6-6.20) M/mm3 Hgb 11.1 L (14.0-18.0) g/dL Hct 34.8 L (42.0-52.0) % MCV 95.3 (80-100) fl MCH 30.4 (26-34) pg MCHC 31.9 L (32-36) g/dl RDW 16.0 H (11.5-14.5) % Plt Count 207 (150-375) k/mm3 MPV 10.2 (7.4-10.4) fl Immature Gran % (Auto)
--- NOTE | 2022-12-31 19:44 | ED.FALL ---
HPI - Fall General Chief Complaint: Fall Stated Complaint: fell, hit ribs on toilet Time Seen by Provider: 12/31/22 18:30 History of Present Illness HPI Narrative: Patient is an 87-year-old male with a history of metastatic prostate cancer presenting with rib pain. Patient states that he slipped in the bathroom and he fell landing on his left side against the toilet. States that he had immediate severe pain of his left lower ribs. Worse with coughing and deep breathing. Denies chest pain or shortness of breath prior to falling. No lightheadedness or palpitations. He did not strike his head or lose consciousness. Denies abdominal pain, nausea or vomiting. No further complaints. Related Data Home Medications Medication Instructions Recorded Confirmed calcium carbonate 600 mg-vitamin 1 tablet PO BID 06/12/21 12/18/22 D3 5 mcg (200 unit) tablet prednisone 5 mg tablet 5 mg PO BID 10/03/21 12/18/22 cholecalciferol (vitamin D3) 25 25 mcg PO DAILY 01/02/22 12/18/22 mcg (1,000 unit) capsule lidocaine-prilocaine 2.5 %-2.5 % See Rx Instructions .Route .COMPLEX 03/13/22 12/18/22 topical cream ondansetron HCl 8 mg tablet 8 mg PO Q6-8H PRN Nausea 03/13/22 12/18/22 lisinopril 20 1 tablet PO DAILY 07/25/22 12/18/22 mg-hydrochlorothiazide 25 mg tablet Allergies Allergy/AdvReac Type Severity Reaction Status Date / Time No Known Allergies Allergy Mild Verified 12/31/22 17:48 Review of Systems Review of Systems: All systems reviewed & are unremarkable except as noted in HPI and below PMFSH Past Medical History Medical History Bone metastases Dyslipidemia Essential (primary) hypertension Prostate cancer Surgical History Surgical History History of bilateral inguinal hernia repair 11/2003 History of prostatectomy 11/2002 Family History Family History Father Family history of cardiovascular disease Malignant neoplasm of prostate Mother Family history of cardiovascular disease Social History Social History Smoking packs per day: 1 Smoking cigarettes per day: 20.0 Years smoked: 63 Smoking pack-years: 63.00 Smoking status: Current every day smoker Tobacco type: cigarettes Second hand tobacco smoke exposure: Yes Alcohol intake: former Substance use: never Living arrangements: alone Spiritual care concerns: No Exam Narrative: GENERAL: Chronically ill-appearing, in moderate distress secondary to pain HEAD: Normocephalic, atraumatic. EYES: PERRLA and EOMI. ENT: Mucous membranes moist. NECK: Supple. No midline tenderness CHEST: Diminished breath sounds bilaterally, tender over left lower ribs anteriorly HEART: Regular rate and rhythm ABDOMEN: Soft, nontender, nondistended EXTREMITIES: Normal range of motion. No edema. SKIN: Warm, dry, no rash. NEURO: No focal deficits. Alert and oriented x3. PSYCH: Normal mood and affect. Course Vital Signs Vital signs: Vital Signs Temperature 97.6 F 12/31/22 17:43 Pulse Rate 86 12/31/22 17:43 Respiratory Rate 16 12/31/22 17:43 Blood Pressure 89/44 L 12/31/22 17:43 Pulse Oximetry 94 12/31/22 17:43 Oxygen Delivery Room Air 12/31/22 17:43 Temperature 97.6 F 12/31/22 17:43 Pulse Rate 62 12/31/22 22:14 Respiratory Rate 14 12/31/22 22:14 Blood Pressure 128/62 12/31/22 22:14 Pulse Oximetry 96 12/31/22 22:14 Oxygen Delivery Room Air 12/31/22 17:43 MDM - Fall MDM Narrative Medical decision making narrative: 87-year-old male presenting with left rib pain following a fall. Initially had some soft pressures which improved with fluids. Blood work with elevation in creatinine. Patient does look dry and he does report decrease in oral intake lately. Fluids are on
[2022-12-31 19:47] LABS: Basophils Percent Auto 0.4 % (0.2-1.2); Hematocrit 34.8 % (42.0-52.0); Hemoglobin 11.1 g/dL (14.0-18.0); Immature Granulocyte Absolute 0.06 K/mm3 (0.00-0.031); Immature Granulocyte Percent A 0.8 % (0-0.5); Lymphocytes Absolute Auto 0.82 K/mm3 (0.9-3.2); Lymphocytes Percent Auto 10.5 % (18.3-44.2); Mean Corpuscular HGB Conc 31.9 g/dl (32-36); Mean Corpuscular Hemoglobin 30.4 pg (26-34); Mean Corpuscular Volume 95.3 fl (80-100); Mean Platelet Volume 10.2 fl (7.4-10.4); Monocytes Absolute Auto 0.7 K/mm3 (0.1-0.6); Monocytes Percent Auto 8.8 % (2.6-8.5); Neutrophils Absolute Auto 6.2 K/mm3 (1.3-6.7); Neutrophils Percent Auto 79.5 % (45.5-73.1); Platelet Count Result 207 k/mm3 (150-375); Red Blood Count 3.65 M/mm3 (4.6-6.20); White Blood Count 7.8 K/mm3 (4.5-10.0)
[2022-12-31] MEDS: KETOROLAC 30 MG/ML VIAL (*BKC) IV PUSH (19:55)
[2022-12-31] MEDS: SODIUM CHLORIDE 0.9% IV 1,000 ML 999 ML IV CONT ×2 (19:55→21:39)
[2022-12-31] MEDS: HYDROmorphone HCL INJ (*CRX) 1 MG/ML SYR 0.5 MG IV PUSH (19:55)
[2022-12-31 19:59] LABS: Alanine Aminotransferase 16 U/L (6-50); Albumin Level 3.2 g/dL (3.5-5.1); Alkaline Phosphatase 62 U/L (38-126); Anion Gap 5 mmol/L (8-16); Aspartate Amino Transferase 35 U/L (17-59); Bilirubin,Total 0.6 mg/dL (0.2-1.3); Blood Urea Nitrogen 33 mg/dL (9-20); Calcium 8.5 mg/dL (8.4-10.2); Carbon Dioxide 29 mmol/L (22-30); Chloride 99 mmol/L (98-107); Estimated CRCL calculation 29 ml/min; Estimated Glomerular Filt Rate 48; Glucose 95 mg/dL (65-110); Potassium 4.4 mmol/L (3.4-5.0); Sodium 133 mmol/L (137-145)
[2022-12-31 21:40] VITALS: BP 119/50; PULSE 64; RESP 23; O2SAT 97
[2022-12-31 22:14] VITALS: BP 128/62; PULSE 62; RESP 14; O2SAT 96
== END 2022-12-31 22:12 | disposition short-term general hospital (02) ==
PROVIDERS: Nurse Practitioner Family; Emergency Provider Emergency Medicine; PCP Family Medicine
DX: S36.029A Unspecified contusion of spleen, initial encounter (principal); S22.42XA Multiple fractures of ribs, left side, initial encounter for closed fracture; C61 Malignant neoplasm of prostate; C79.51 Secondary malignant neoplasm of bone; I10 Essential (primary) hypertension; E78.5 Hyperlipidemia, unspecified; F17.210 Nicotine dependence, cigarettes, uncomplicated; Z90.79 Acquired absence of other genital organ(s); R94.31 Abnormal electrocardiogram [ECG] [EKG]; W01.198A Fall on same level from slipping, tripping and stumbling with subsequent striking against other object, initial encounter
CPT/HCPCS: 36415; 71045; 71260; 80053; 85025; 93005; 96361; 96374; 96375; 99285; J1170; J1885; J7030; Q9967

== ENCOUNTER 2023-01-06 02:51 | Inpatient (IN) | payer MEDICARE, SELFPAY ==
[2023-01-06] VITALS (50 sets, daily range): BP systolic 102–157; BP diastolic 54–88; PULSE 57–103; RESP 12–32; TEMP 36.5–36.8; O2SAT 90–100; BMI 20.5
--- NOTE | ~2023-01-06 | XR_ITS ---
XR chest 1V portable DATE: 01/06/2023 03:06 INDICATION: New onset of shortness of breath TECHNIQUE: Portable upright AP chest on 01/06/2023 0300 hours COMPARISON: 01/06/2023 CTA chest FINDINGS: Left internal jugular Port-A-Cath catheter tip overlies the superior vena cava. Normal heart size. Aortic arch calcification. No hilar or mediastinal enlargement is evident. Moderate pleural effusions are demonstrated to better advantage on 01/06/2023 CT chest examination. There is pulmonary vascular redistribution, mild prominence of the minor fissure, suggesting subpleur al edema. There is mild infiltrate or atelectasis in the lower lung zones. Diffuse osteopenia. Probable bilateral rotator cuff atrophy. IMPRESSION: Congestive changes Bilateral lower lung infiltrate and/or atelectasis Aortic atherosclerosis Reviewed, dictated and finalized at location A.
--- NOTE | ~2023-01-06 | CT_ITS ---
EXAMINATION: CTA chest PE protocol DATE: 01/06/2023 03:51 INDICATION: Shortness of breath. Cough. History of rib fracture. TECHNIQUE: Computed tomography angiography (CTA) of the chest was performed with 100 mL Omnipaque-350 intravenous contrast timed to evaluate the pulmonary arteries. Coronal maximum intensity projection 3D-reconstructions were created by the technologist. Automated exposure control and iterative reconst ruction technique were employed. Exam dose: 336.08 mGy-cm total exam DLP. COMPARISON: 01/06/2023 portable AP chest at 0300 hours 12/31/2022 CT chest FINDINGS: There is diagnostic contrast enhancement of the pulmonary arteries and no evidence of pulmo nary embolism. Left Port-A-Cath catheter is noted. Normal heart size. No thoracic aortic aneurysm or dissection. There is aortic and great vessel and co ronary atherosclerosis. No hilar or mediastinal mass lesion or lymphadenopathy. There are moderate bilateral dependent pleural effusions with associated mild bilateral lower lobe co mpressive atelectasis. There is discoid atelectasis in the dependent lingula and right upper lobe and more prominent infiltr ate or atelectasis of the middle lobe.. Bilateral renal cysts. No adrenal mass lesion is evident. There are extensive osteosclerotic metastases throughout the axial skeleton including cervical and th oracic and lumbar spine, left and right scapula, glenohumeral and clavicular bones and extensive bila teral rib osseous chronic lesions Posterolateral left 10th and posterior left 11th and posterolateral left 11th rib recent fractures Mild T12 and moderate L1 compression fractures. IMPRESSION: No evidence of pulmonary embolism Extensive osteosclerotic metastatic disease Left Port-A-Cath Moderate bilateral free dependent pleural effusions with associated compressive atelectasis of the lo wer lobes Dependent atelectasis in the lingula, right upper lobe and more prominent infiltrate or atelectasis o f the middle lobe Recent left 10th and 11th rib fractures Reviewed, dictated and finalized at Location A. Reviewed, dictated and finalized at location A. IMPRESSION: No evidence of pulmonary embolism Extensive osteosclerotic metastatic disease Left Port-A-Cath Moderate bilateral free dependent pleural effusions with associated compressive atelectasis of the lower lobes Dependent atelectasis in the lingula, right upper lobe and more prominent infil trate or atelectasis of the middle lobe Recent left 10th and 11th rib fractures
--- NOTE | ~2023-01-06 | XR_ITS ---
EXAMINATION: XR chest 1V portable DATE: 01/10/2023 05:20 INDICATION: Pleural effusions. TECHNIQUE: A single frontal view of the chest was obtained on 2 radiographs. COMPARISON: Chest single view 01/06/2023, chest CT 01/06/2023 FINDINGS: There are lucencies in the lungs, consistent with emphysema. There are airspace opacities i n right mid and lower lung zones and left lower lung zone. There are small pleural effusions. No pneu mothorax. The heart size is normal. There is a left internal jugular port with tip in superior vena c kayla. There are widespread sclerotic lesions of bone, consistent metastatic disease. IMPRESSION: 1. Worsened airspace opacities in right mid and lower lung zones and left lower lung zone, consistent with atelectasis versus pneumonia. 2. Small pleural effusions. 3. Widespread sclerotic lesions of bone, consistent with metastatic disease. Reviewed, dictated and finalized at location E.
--- NOTE | 2023-01-06 02:59 | ECG_ITS ---
Measurements Intervals [place] Rate: 77 P: 81 MI: 150 QRS: 87 QRSD: 79 T: 180 QT: 375 QTc: 426 Interpretive Statements SINUS RHYTHM BASELINE ARTIFACT ANTEROSEPTAL MYOCARDIAL INFARCTION , OF INDETERMINATE AGE [40+ ms Q WAVE IN V1-V4] ABNORMAL ECG COMPARED TO ECG 12/31/2022 19:20:15 NO SIGNIFICANT CHANGES Electronically Signed On 01-06-2023 13:43:14 CDT by Jasen Candelaria M.D.
--- NOTE | 2023-01-06 03:04 | ED.SOB ---
HPI - SOB/Dyspnea General Chief Complaint: Shortness of Breath/Dyspnea Stated Complaint: dyspnea Source: patient and EMS Mode of arrival: EMS Limitations: no limitations History of Present Illness HPI Narrative: 87-year-old male presenting for shortness of breath starting earlier today. Progressively has worsened. He was seen recently for multiple rib fractures as well as a splenic laceration. He was transferred out at the point. This was about a week Ago. He was doing well until today. No chest pain. He is a long-time smoker. All other symptoms and complaints are negative as per ROS. Related Data Home Medications Medication Instructions Recorded Confirmed calcium carbonate 600 mg-vitamin 1 tablet PO BID 06/12/21 12/18/22 D3 5 mcg (200 unit) tablet prednisone 5 mg tablet 5 mg PO BID 10/03/21 12/18/22 cholecalciferol (vitamin D3) 25 25 mcg PO DAILY 01/02/22 12/18/22 mcg (1,000 unit) capsule lidocaine-prilocaine 2.5 %-2.5 % See Rx Instructions .Route .COMPLEX 03/13/22 12/18/22 topical cream ondansetron HCl 8 mg tablet 8 mg PO Q6-8H PRN Nausea 03/13/22 12/18/22 lisinopril 20 1 tablet PO DAILY 07/25/22 12/18/22 mg-hydrochlorothiazide 25 mg tablet Allergies Allergy/AdvReac Type Severity Reaction Status Date / Time No Known Allergies Allergy Mild Verified 01/06/23 03:04 Review of Systems Review of Systems: All systems reviewed & are unremarkable except as noted in HPI and below PMFSH Past Medical History Medical History Bone metastases Dyslipidemia Essential (primary) hypertension Prostate cancer Surgical History Surgical History History of bilateral inguinal hernia repair 11/2003 History of prostatectomy 11/2002 Family History Family History Father Family history of cardiovascular disease Malignant neoplasm of prostate Mother Family history of cardiovascular disease Social History Social History Smoking packs per day: 1 Smoking cigarettes per day: 20.0 Years smoked: 63 Smoking pack-years: 63.00 Smoking status: Current every day smoker Tobacco type: cigarettes Second hand tobacco smoke exposure: Yes Alcohol intake: former Substance use: never Living arrangements: alone Spiritual care concerns: No Exam Narrative: Constitutional: Generally well appearing, no acute distress Head: Atraumatic, no deformities. Eyes: Pupils equal, round, and reactive to light. Neck: Supple, no tracheal deviation, no JVD. ENMT: Mucous membranes moist Cardiovascular: S1, S2 auscultated. No murmurs, rubs, or gallops. No S3/S4. Normal Distal pulses. No peripheral edema. Respiratory: Lung sounds slightly diminished bilaterally especially in the bases. Rhonchi present diffusely. No wheezing. Gastrointestinal: Abdomen was soft and non-tender. Non-distended. No rebound or guarding. Genitourinary: Deferred Musculoskeletal: Normal muscle tone and bulk. No obvious deformities or tenderness over extremities. Skin: Bruising over the left lateral lower ribs Neurological: Strength 5/5 in extremities. Cranial nerves I-XII grossly intact. Distal sensation intact. Mental Status: Awake, alert and oriented x3. Follows commands Course Vital Signs Vital signs: Vital Signs Temperature 36.6 C 01/06/23 02:51 Pulse Rate 77 01/06/23 02:51 Respiratory Rate 23 H 01/06/23 02:51 Blood Pressure 157/74 H 01/06/23 02:51 Pulse Oximetry 94 01/06/23 02:51 Oxygen Delivery Room Air 01/06/23 02:51 Temperature 36.6 C 01/06/23 02:51 Pulse Rate 63 01/06/23 05:01 Respiratory Rate 20 01/06/23 05:01 Blood Pressure 129/54 L 01/06/23 05:01 Pulse Oximetry 93 01/06/23 05:01 Oxygen Delivery Nasal Cannula 01/06/23 04:43 Oxygen Flow Rate 3 10
[2023-01-06] MEDS: SODIUM CHLORIDE 0.9% IV 1,000 ML 999 ML IV CONT (03:09)
[2023-01-06 03:10] LABS: Basophils Percent Auto 0.6 % (0.2-1.2); Eosinophils Percent Auto 0.2 % (0-4.4); Hematocrit 33.3 % (42.0-52.0); Hemoglobin 10.5 g/dL (14.0-18.0); Immature Granulocyte Absolute 0.06 K/mm3 (0.00-0.031); Immature Granulocyte Percent A 1.2 % (0-0.5); Lymphocytes Absolute Auto 0.53 K/mm3 (0.9-3.2); Lymphocytes Percent Auto 10.6 % (18.3-44.2); Mean Corpuscular HGB Conc 31.5 g/dl (32-36); Mean Corpuscular Hemoglobin 30.3 pg (26-34); Mean Corpuscular Volume 96.2 fl (80-100); Mean Platelet Volume 9.6 fl (7.4-10.4); Monocytes Absolute Auto 0.5 K/mm3 (0.1-0.6); Monocytes Percent Auto 10.8 % (2.6-8.5); Neutrophils Absolute Auto 3.8 K/mm3 (1.3-6.7); Neutrophils Percent Auto 76.6 % (45.5-73.1); Platelet Count Result 271 k/mm3 (150-375); Red Blood Count 3.46 M/mm3 (4.6-6.20); Red Cell Distribution Width 16.1 % (11.5-14.5)
[2023-01-06] MEDS: ALBUTEROL SULFATE NEB 2.5 MG/3 ML INH INHALATION ×2 (03:11→20:11)
[2023-01-06] MEDS: IPRATROPIUM BR 0.02% INH SOLN 0.5 MG/2.5 ML VIAL INHALATION ×2 (03:11→20:11)
[2023-01-06 03:24] LABS: Alanine Aminotransferase 23 U/L (6-50); Albumin Level 2.9 g/dL (3.5-5.1); Alkaline Phosphatase 87 U/L (38-126); Anion Gap 3 mmol/L (8-16); Aspartate Amino Transferase 39 U/L (17-59); Bilirubin,Total 0.4 mg/dL (0.2-1.3); Blood Urea Nitrogen 34 mg/dL (9-20); Calcium 8.5 mg/dL (8.4-10.2); Carbon Dioxide 28 mmol/L (22-30); Chloride 103 mmol/L (98-107); Estimated CRCL calculation 42 ml/min; Estimated Glomerular Filt Rate > 60; Glucose 108 mg/dL (65-110); Potassium 4.1 mmol/L (3.4-5.0); Sodium 134 mmol/L (137-145)
[2023-01-06] MEDS: DOXYCYCLINE 100 MG/NS 100 ML 100 MG/100 ML BAG IVPB ×2 (04:09→14:40)
--- NOTE | 2023-01-06 04:54 | PC.NURSE ---
pt stated that he was in pain when he started coughing. pt states that he is prescribed tylenol for pain, but had not taken any today and would like some. This RN attempted to give pt tylenol for pain. pt then refused to take Tylenol, pt states that he did not want the Tylenol because he was going to have trouble swallowing the pill . This RN asked if pt wanted to try and take a sip of water to see if he could swallow well. Pt stated he did not want to try and was not having pain at the moment.
[2023-01-06 06:58] LABS: Influenza A QL RT-PCR Negative (Negative); Influenza B QL RT-PCR Negative (Negative); RSV RNA, RT-PCR Negative (Negative); SARS-CoV-2 RNA PCR Negative (Negative)
--- NOTE | 2023-01-06 08:57 | PC.NURSE ---
This patient, Yamil Sabillon, was admitted to 2 Medical Room 240-01. Patient/family oriented to hospital policies and general routines including ID bracelet, bed and alarms, visiting hours, pain management, procedures, bathroom and other care routines, personal items, smoking policy, room service/diet, and visiting hours. Information on how to activate the Rapid Response Team has been discussed. Patient/Family are encouraged to report perceived risks to care and to ask questions if they do not understand what they are told or what they should do.
[2023-01-06] MEDS: SODIUM CHLORIDE 0.9% IV 1,000 ML 125 ML IV CONT (10:14)
--- NOTE | 2023-01-06 16:44 | PM.IMHP ---
H&P: HPI History of Present Illness Date/Time: 01/06/23 16:44 Chief Complaint: Shortness of breath Narrative: 87yo male with prostate CA with mets to the bone and HTN who presents with SOB. He was seen here on 12/31 after a fall in the bathroom striking the left side of his chest. CT chest showing subcapsular splenic hematoma, multiple nondisplaced lateral and posterior lateral rib fractures left 8th-11th and small-moderate bilateral pleural fluid collection. Airway debris noted in dependent LLL. Review of Systems Review of Systems: All systems reviewed & are unremarkable except as noted in HPI and below PMFSH Past Medical History Medical History (Updated 01/06/23 @ 16:53 by Arthur Fox MD) Bone metastases COPD (chronic obstructive pulmonary disease) Dyslipidemia Essential (primary) hypertension Prostate cancer Surgical History Surgical History History of bilateral inguinal hernia repair 11/2003 History of prostatectomy 11/2002 Family History Family History Father Family history of cardiovascular disease Malignant neoplasm of prostate Mother Family history of cardiovascular disease Social History Social History Smoking packs per day: 1 Smoking cigarettes per day: 20.0 Years smoked: 63 Smoking pack-years: 63.00 Smoking status: Current every day smoker Tobacco type: cigarettes Second hand tobacco smoke exposure: Yes Alcohol intake: never Substance use: never Lack of Transportation: No Lack of Food: Never True Current Housing: I Have Housing Concerned About Future Housing: No Difficulty Paying Gas/Electric Bills: No Difficulty Paying for Meds: YES Currently Unemployed: No Education: High School Diploma/GED Difficulty w/ Childcare or Family Care: No Living arrangements: alone Spiritual care concerns: No Meds Home Medications and Allergies Home Medications Medication Instructions Recorded Confirmed Type calcium carbonate 600 mg-vitamin 1 tablet PO BID 06/12/21 01/06/23 History D3 5 mcg (200 unit) tablet prednisone 5 mg tablet 5 mg PO BID 10/03/21 01/06/23 History cholecalciferol (vitamin D3) 25 25 mcg PO DAILY 01/02/22 01/06/23 History mcg (1,000 unit) capsule lisinopril 20 1 tablet PO DAILY 07/25/22 01/06/23 History mg-hydrochlorothiazide 25 mg tablet Allergies Allergy/AdvReac Type Severity Reaction Status Date / Time No Known Allergies Allergy Mild Verified 01/06/23 03:04 Vital Signs Vital Signs - 24 hr 01/06/23 02:51 01/06/23 02:59 01/06/23 03:03 Temperature 97.8 F Pulse Rate 77 77 Respiratory Rate 23 H 28 H Blood Pressure 157/74 H 137/86 Pulse Oximetry 94 94 94 Oxygen Delivery Room Air Room Air Oxygen Flow Rate 01/06/23 03:11 01/06/23 03:27 01/06/23 03:57 Temperature Pulse Rate 76 80 Respiratory Rate 30 H 24 H Blood Pressure Pulse Oximetry 92 Oxygen Delivery Nasal Cannula Oxygen Flow Rate 3 01/06/23 03:59 01/06/23 04:43 01/06/23 03:03 Temperature Pulse Rate 80 78 Respiratory Rate 19 28 H Blood Pressure 102/58 L Pulse Oximetry 96 92 93 Oxygen Delivery Nasal Cannula Oxygen Flow Rate 3 01/06/23 03:57 01/06/23 04:00 01/06/23 04:01 Temperature Pulse Rate 80 78 81 Respiratory Rate 30 H 31 H 29 H Blood Pressure 102/58 L Pulse Oximetry 95 95 95 Oxygen Delivery Oxygen Flow Rate 01/06/23 04:15 01/06/23 04:16 01/06/23 04:46 Temperature Pulse Rate 79 77 69 Respiratory Rate 28 H 31 H 20 Blood Pressure 139/63 131/58 L Pulse Oximetry 91 91 95 Oxygen Delivery Oxygen Flow Rate 01/06/23 04:47 01/06/23 05:00 01/06/23 05:01 Temperature Pulse Rate 69 57 L 63 Respiratory Rate 14 16 20 Blood Pressure 129/54 L Pulse Oximetry 94 94 93 Oxygen Delivery Oxygen Fl
--- NOTE | 2023-01-06 17:03 | PM.IMHP ---
H&P: HPI History of Present Illness Date/Time: 01/06/23 17:03 Chief Complaint: shortness of breath Narrative: 87M pleasant male living at home accompanied by son and daughter, w/ PMH COPD, HLD, HTN, active tobacco abuse, 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 Walsh w/ recent fall at home and left side rib fracture and splenic laceration presented with abrupt onset of shortness of breath. He was just dc'ed from [facility] after being monitored in the ICU for rib fractures and s/p thoracentesis of R side. In ER was taken down from 6L to 3L NC and admitted for PNA, COPD, mucous congestion. pt is a poor historian as he underreports his symptoms. he reports feeling fine right now, but he is actively coughing deep congestion without producing sputum. he reports his L side rib pain is nearly gone. Review of Systems Review of Systems: All systems reviewed & are unremarkable except as noted in HPI and below PMFSH Past Medical History Medical History (Updated 01/06/23 @ 17:18 by Viola Meade MD) Bone metastases COPD (chronic obstructive pulmonary disease) Dyslipidemia Essential (primary) hypertension Pleural effusion Prostate cancer Rib fracture Splenic laceration Surgical History Surgical History History of bilateral inguinal hernia repair 11/2003 History of prostatectomy 11/2002 Family History Family History Father Family history of cardiovascular disease Malignant neoplasm of prostate Mother Family history of cardiovascular disease Social History Social History Smoking packs per day: 1 Smoking cigarettes per day: 20.0 Years smoked: 63 Smoking pack-years: 63.00 Smoking status: Current every day smoker Tobacco type: cigarettes Second hand tobacco smoke exposure: Yes Alcohol intake: never Substance use: never Lack of Transportation: No Lack of Food: Never True Current Housing: I Have Housing Concerned About Future Housing: No Difficulty Paying Gas/Electric Bills: No Difficulty Paying for Meds: YES Currently Unemployed: No Education: High School Diploma/GED Difficulty w/ Childcare or Family Care: No Living arrangements: alone Spiritual care concerns: No Meds Home Medications and Allergies Home Medications Medication Instructions Recorded Confirmed Type calcium carbonate 600 mg-vitamin 1 tablet PO BID 06/12/21 01/06/23 History D3 5 mcg (200 unit) tablet prednisone 5 mg tablet 5 mg PO BID 10/03/21 01/06/23 History cholecalciferol (vitamin D3) 25 25 mcg PO DAILY 01/02/22 01/06/23 History mcg (1,000 unit) capsule lisinopril 20 1 tablet PO DAILY 07/25/22 01/06/23 History mg-hydrochlorothiazide 25 mg tablet Allergies Allergy/AdvReac Type Severity Reaction Status Date / Time No Known Allergies Allergy Mild Verified 01/06/23 03:04 Vital Signs Vital Signs - 24 hr 01/06/23 02:51 01/06/23 02:59 01/06/23 03:03 Temperature 97.8 F Pulse Rate 77 77 Respiratory Rate 23 H 28 H Blood Pressure 157/74 H 137/86 Pulse Oximetry 94 94 94 Oxygen Delivery Room Air Room Air Oxygen Flow Rate 01/06/23 03:11 01/06/23 03:27 01/06/23 03:57 Temperature Pulse Rate 76 80 Respiratory Rate 30 H 24 H Blood Pressure Pulse Oximetry 92 Oxygen Delivery Nasal Cannula Oxygen Flow Rate 3 01/06/23 03:59 01/06/23 04:43 01/06/23 03:03 Temperature Pulse Rate 80 78 Respiratory Rate 19 28 H Blood Pressure 102/58 L Pulse Oximetry 96 92 93 Oxygen Delivery Nasal Cannula Oxygen Flow Rate 3 01/06/23 03:57 01/06/23 04:00 01/06/23 04:01 Temperature Pulse Rate 80 78 81 Respiratory Rate 30 H 31 H 29 H Blood Pressure 102/58 L Pulse Oximetry 95 95 95 Oxygen Delivery Oxygen Flow Rate 01/06/23 04:15 01/06/23 04:16 01/06/23 04:46 Temperatu
[2023-01-06] MEDS: MEROPENEM 1 GM/NS 100 ML 1 GM/100 ML BAG IVPB (17:51)
[2023-01-06] MEDS: methylPREDNISolone SOD SUCC 125 MG VIAL 60 MG IV PUSH (17:53)
[2023-01-06] MEDS: AZITHROMYCIN 500 MG/NS 250 ML 500 MG/250 ML BAG 250 MG IVPB (18:30)
[2023-01-06 19:57] LABS: MRSA (PCR) NOT DETECTED (NOT DETECTE)
[2023-01-06] MEDS: guaiFENesin 12 HR 600 MG TABCR 1200 MG PO (20:44)
[2023-01-06] MEDS: HEPARIN SODIUM 5,000 UNITS/ML VIAL 5000 UNITS SUB-Q (20:45)
[2023-01-06] MEDS: MELATONIN 3 MG TABLET PO (20:51)
[2023-01-06] MEDS: ACETAMINOPHEN 325 MG TABLET 650 MG PO (20:51)
[2023-01-07] VITALS (21 sets, daily range): BP systolic 111–146; BP diastolic 52–62; PULSE 63–90; RESP 12–20; TEMP 36.4–37; O2SAT 92–98; BMI 20.5
[2023-01-07] MEDS: methylPREDNISolone SOD SUCC 125 MG VIAL 60 MG IV PUSH ×4 (01:00→17:48)
[2023-01-07] MEDS: MEROPENEM 1 GM/NS 100 ML 1 GM/100 ML BAG IVPB ×3 (01:03→17:48)
[2023-01-07] MEDS: IPRATROPIUM BR 0.02% INH SOLN 0.5 MG/2.5 ML VIAL INHALATION ×4 (01:39→20:43)
[2023-01-07] MEDS: ALBUTEROL SULFATE NEB 2.5 MG/3 ML INH INHALATION ×4 (01:39→20:43)
[2023-01-07 05:35] LABS: Basophils Percent Auto 0.2 % (0.2-1.2); Hematocrit 29.8 % (42.0-52.0); Hemoglobin 9.5 g/dL (14.0-18.0); Immature Granulocyte Absolute 0.08 K/mm3 (0.00-0.031); Immature Granulocyte Percent A 1.8 % (0-0.5); Lymphocytes Absolute Auto 0.14 K/mm3 (0.9-3.2); Lymphocytes Percent Auto 3.1 % (18.3-44.2); Mean Corpuscular HGB Conc 31.9 g/dl (32-36); Mean Corpuscular Hemoglobin 30.8 pg (26-34); Mean Corpuscular Volume 96.8 fl (80-100); Mean Platelet Volume 9.7 fl (7.4-10.4); Monocytes Absolute Auto 0.1 K/mm3 (0.1-0.6); Monocytes Percent Auto 1.1 % (2.6-8.5); Neutrophils Absolute Auto 4.2 K/mm3 (1.3-6.7); Neutrophils Percent Auto 93.8 % (45.5-73.1); Platelet Count Result 243 k/mm3 (150-375); Red Blood Count 3.08 M/mm3 (4.6-6.20); White Blood Count 4.5 K/mm3 (4.5-10.0)
[2023-01-07 05:50] LABS: Anion Gap 4 mmol/L (8-16); Blood Urea Nitrogen 27 mg/dL (9-20); Calcium 7.6 mg/dL (8.4-10.2); Carbon Dioxide 23 mmol/L (22-30); Chloride 106 mmol/L (98-107); Estimated CRCL calculation 44 ml/min; Estimated Glomerular Filt Rate > 60; Glucose 148 mg/dL (65-110); Magnesium 2.3 mg/dL (1.6-2.3); Potassium 4.1 mmol/L (3.4-5.0); Sodium 133 mmol/L (137-145)
[2023-01-07 06:08] LABS: Procalcitonin 0.2 ng/mL
[2023-01-07] MEDS: hydroCHLOROthiazide 25 MG TABLET PO (09:01)
[2023-01-07] MEDS: guaiFENesin 12 HR 600 MG TABCR 1200 MG PO ×2 (09:01→20:37)
[2023-01-07] MEDS: lisinopriL 20 MG TABLET PO (09:01)
[2023-01-07] MEDS: CHOLECALCIFEROL 1,000 UNITS TABLET 1000 UNITS PO (09:02)
[2023-01-07] MEDS: HEPARIN SODIUM 5,000 UNITS/ML VIAL 5000 UNITS SUB-Q ×2 (09:03→20:37)
--- NOTE | 2023-01-07 09:56 | PM.IMPN ---
Progress Note: A&P Assessment and Plan (1) Rib fracture: Code(s): S22.39XA - Fracture of one rib, unspecified side, initial encounter for closed fracture Status: Acute (2) Splenic laceration: Code(s): S36.039A - Unspecified laceration of spleen, initial encounter Status: Acute (3) COPD (chronic obstructive pulmonary disease): Code(s): J44.9 - Chronic obstructive pulmonary disease, unspecified Status: Acute (4) Acute respiratory distress: Code(s): R06.03 - Acute respiratory distress Status: Acute (5) Pneumonia: Qualifiers: Laterality: bilateral Lung location: unspecified part of lung Pneumonia type: due to unspecified organism Qualified Code(s): J18.9 - Pneumonia, unspecified organism Code(s): J18.9 - Pneumonia, unspecified organism Status: Acute (6) Smoker: Code(s): F17.200 - Nicotine dependence, unspecified, uncomplicated Status: Chronic (7) Prostate cancer: Code(s): C61 - Malignant neoplasm of prostate Status: Chronic (8) Pleural effusion: Code(s): J90 - Pleural effusion, not elsewhere classified Status: Acute Plan 87M pleasant male living at home accompanied by son and daughter, w/ PMH COPD, HLD, HTN, active tobacco abuse, 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 Walsh w/ recent fall at home and left side rib fracture and splenic bruise presented with abrupt onset of shortness of breath. He was just dc'ed from [facility] after being monitored in the ICU for rib fractures and spleen issue and s/p thoracentesis of R side. Admitted on 01/06 for acute hypoxic respiratory failure. 1) acute hypoxic respiratory failure - rapid viral panel negative - was on 6L with EMS, down to 3L now. improved on 01/07, no longer hacking cough, lung exam clear w/o the severe upper airway congestion. continue present management, no changes until tomorrow. - CTA on admission revealing: IMPRESSION:? No evidence of pulmonary embolism Extensive osteosclerotic metastatic disease Left Port-A-Cath Moderate bilateral free dependent pleural effusions with associated compressive atelectasis of the lower lobes Dependent atelectasis in the lingula, right upper lobe and more prominent infiltrate or atelectasis of the middle lobe Recent left 10th and 11th rib fractures - treat HCAP/aspirational PNA with meropenem, vancomycin started on 01/06. f/u sputum culture (obtain), blood culture, legionella and pneumococcal urinary antigens. no sepsis identified - treat COPD exacerbation with solumedrol and duonebs started on 01/06 - treat hypersecretions with guaifenesin and incentive spirometer and cornet, monitor b/l pleural effusions (d/t chemo vs metastasis?) (s/p R thoracentesis at [facility] last week), low threshold for pulmonology consult if he worsens again 2) tobacco abuse - counseled. he declined nicotine patch 3) COPD - needs pulmonology f/u for proper PFT's. treat as acute exacerbation for now. hx of wheeze, smoking, nearly flattened diaphragm on CXR 4) prostate cancer w/ metastasis to bones - new mets to lungs? due for PET scan - chemo on hold in light of active issues 5) HTN - resume home losartan HCTZ 6) recent L rib fracture and splenic bruise - after fall at home on 12/31, presented to [place] ER, after CT chest completed, transferred to U. CT report in system: Upper abdomen: Somewhat lentiform shaped hypodensity along the posterior aspect of the spleen, encompassing greater than 10% but less than 50% of the splenic surface area. - family reports he did not need intervention as spleen did not bleed further at U, monitor HB - pain almost resolved per patient, tylenol prn - continuous pulse ox and telemetry 7) hypocalcemia - corrected, 8.0. asymptomatic, CMP tomorrow FEN: saline lock IV, cardiac diet GI prophylaxis: not indicated DVT prophylaxis: HSC Lines: pIV Code Status: Full Code Dispo: Stable. More than 35 minutes spent on darlin
--- NOTE | 2023-01-07 10:37 | PCSTNOTE ---
Please refer to the Bedside Swallow Evaluation in the EMR. Please note, silent aspiration cannot be ruled out at bedside.
--- NOTE | 2023-01-07 15:29 | PC.NURSE ---
Care, assessment and medications performed by Lauren Miranda Student Nurse/[facility] under direct supervision of equipment operation instructor and hospital staff. Charting reviewed and agree with same.
[2023-01-07] MEDS: AZITHROMYCIN 500 MG/NS 250 ML 500 MG/250 ML BAG 250 MG IVPB (18:28)
[2023-01-07] MEDS: VANCOMYCIN 1,000 MG/NS 250 ML 1,000 MG/250 ML BAG 250 MG IVPB (20:37)
[2023-01-07] MEDS: MELATONIN 3 MG TABLET PO (20:38)
[2023-01-08] VITALS (19 sets, daily range): BP systolic 100–144; BP diastolic 50–77; PULSE 73–95; RESP 18–20; TEMP 36.3–36.6; O2SAT 92–99
[2023-01-08] MEDS: methylPREDNISolone SOD SUCC 125 MG VIAL 60 MG IV PUSH ×5 (00:11→23:19)
[2023-01-08] MEDS: ALBUTEROL SULFATE NEB 2.5 MG/3 ML INH INHALATION ×4 (01:11→22:30)
[2023-01-08] MEDS: IPRATROPIUM BR 0.02% INH SOLN 0.5 MG/2.5 ML VIAL INHALATION ×4 (01:11→22:30)
[2023-01-08] MEDS: MEROPENEM 1 GM/NS 100 ML 1 GM/100 ML BAG IVPB ×3 (01:48→17:47)
[2023-01-08 06:52] LABS: Hematocrit 31.5 % (42.0-52.0); Hemoglobin 9.8 g/dL (14.0-18.0); Mean Corpuscular HGB Conc 31.1 g/dl (32-36); Mean Corpuscular Hemoglobin 30.2 pg (26-34); Mean Corpuscular Volume 97.2 fl (80-100); Platelet Count Result 246 k/mm3 (150-375); Red Blood Count 3.24 M/mm3 (4.6-6.20); Red Cell Distribution Width 16.1 % (11.5-14.5); White Blood Count 6.7 K/mm3 (4.5-10.0)
[2023-01-08 07:05] LABS: Alanine Aminotransferase 35 U/L (6-50); Albumin Level 2.8 g/dL (3.5-5.1); Alkaline Phosphatase 81 U/L (38-126); Anion Gap 5 mmol/L (8-16); Aspartate Amino Transferase 43 U/L (17-59); Bilirubin,Total 0.3 mg/dL (0.2-1.3); Blood Urea Nitrogen 31 mg/dL (9-20); Calcium 7.8 mg/dL (8.4-10.2); Carbon Dioxide 25 mmol/L (22-30); Chloride 106 mmol/L (98-107); Estimated CRCL calculation 49 ml/min; Estimated Glomerular Filt Rate > 60; Glucose 134 mg/dL (65-110); Sodium 136 mmol/L (137-145)
[2023-01-08] MEDS: CHOLECALCIFEROL 1,000 UNITS TABLET 1000 UNITS PO (08:27)
[2023-01-08] MEDS: guaiFENesin 12 HR 600 MG TABCR 1200 MG PO ×2 (08:28→21:18)
[2023-01-08] MEDS: HEPARIN SODIUM 5,000 UNITS/ML VIAL 5000 UNITS SUB-Q ×2 (08:28→21:18)
[2023-01-08] MEDS: lisinopriL 20 MG TABLET PO (08:28)
[2023-01-08] MEDS: hydroCHLOROthiazide 25 MG TABLET PO (08:28)
--- NOTE | 2023-01-08 12:17 | PM.IMPN ---
Progress Note: A&P Assessment and Plan (1) Rib fracture: Code(s): S22.39XA - Fracture of one rib, unspecified side, initial encounter for closed fracture Status: Acute Assessment and Plan: SEE BELOW much the same continue current treatments (2) Splenic laceration: Code(s): S36.039A - Unspecified laceration of spleen, initial encounter Status: Acute (3) COPD (chronic obstructive pulmonary disease): Code(s): J44.9 - Chronic obstructive pulmonary disease, unspecified Status: Acute (4) Acute respiratory distress: Code(s): R06.03 - Acute respiratory distress Status: Acute (5) Pneumonia: Qualifiers: Laterality: bilateral Lung location: unspecified part of lung Pneumonia type: due to unspecified organism Qualified Code(s): J18.9 - Pneumonia, unspecified organism Code(s): J18.9 - Pneumonia, unspecified organism Status: Acute (6) Smoker: Code(s): F17.200 - Nicotine dependence, unspecified, uncomplicated Status: Chronic (7) Prostate cancer: Code(s): C61 - Malignant neoplasm of prostate Status: Chronic (8) Pleural effusion: Code(s): J90 - Pleural effusion, not elsewhere classified Status: Acute Plan 87M pleasant male living at home accompanied by son and daughter, w/ PMH COPD, HLD, HTN, active tobacco abuse, 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 Walsh w/ recent fall at home and left side rib fracture and splenic bruise presented with abrupt onset of shortness of breath. He was just dc'ed from [facility] after being monitored in the ICU for rib fractures and spleen issue and s/p thoracentesis of R side. Admitted on 01/06 for acute hypoxic respiratory failure. 1) acute hypoxic respiratory failure - CTA on admission revealing: IMPRESSION:? No evidence of pulmonary embolism Extensive osteosclerotic metastatic disease Left Port-A-Cath Moderate bilateral free dependent pleural effusions with associated compressive atelectasis of the lower lobes Dependent atelectasis in the lingula, right upper lobe and more prominent infiltrate or atelectasis of the middle lobe Recent left 10th and 11th rib fractures - treat HCAP/aspirational PNA with meropenem, vancomycin started on 01/06. f/u sputum culture (obtain), blood culture, legionella and pneumococcal urinary antigens. no sepsis identified 2) tobacco abuse - counseled. he declined nicotine patch 3) COPD - - treat COPD exacerbation with solumedrol and duonebs started on 01/06 - treat hypersecretions with guaifenesin and incentive spirometer and cornet, monitor b/l pleural effusions (d/t chemo vs metastasis?) (s/p R thoracentesis at [facility] last week) 4) prostate cancer w/ metastasis to bones - new mets to lungs? due for PET scan - chemo on hold in light of active issues 5) HTN - resume home losartan HCTZ 6) recent L rib fracture and splenic bruise - after fall at home on 12/31, presented to [place] [facility], after CT chest completed, transferred to [facility]. CT report in system: Upper abdomen: Somewhat lentiform shaped hypodensity along the posterior aspect of the spleen, encompassing greater than 10% but less than 50% of the splenic surface area. 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 Walsh w/ recent fall at home and left side rib fracture and splenic laceration presented with abrupt onset of shortness of breath. SOb secondary to rib fracture, COPD a
--- NOTE | 2023-01-08 13:22 | PC.NURSE ---
On 01/08/23, the student, [Natividad Mojica], provided care and completed [facility] documentation on this patient. I have reviewed the student's documentation and agree with the findings.
[2023-01-08] MEDS: AZITHROMYCIN 500 MG/NS 250 ML 500 MG/250 ML BAG 250 MG IVPB (18:02)
[2023-01-08 20:32] LABS: Vancomycin Trough 9.4 ug/mL (10.0-20.0)
[2023-01-08] MEDS: VANCOMYCIN 1,000 MG/NS 250 ML 1,000 MG/250 ML BAG 200 MG IVPB (21:17)
[2023-01-08] MEDS: MELATONIN 3 MG TABLET PO (21:19)
[2023-01-09] VITALS (15 sets, daily range): BP systolic 123–159; BP diastolic 55–80; PULSE 72–100; RESP 18–20; TEMP 36.3–37; O2SAT 91–93
[2023-01-09] MEDS: MEROPENEM 1 GM/NS 100 ML 1 GM/100 ML BAG IVPB ×2 (02:48→09:12)
--- NOTE | 2023-01-09 04:31 | PCRCNOTE ---
Patient refused his 0200 updraft treatment due to wanting uninterrupted sleep. Treatment to resume at 0800.
[2023-01-09] MEDS: methylPREDNISolone SOD SUCC 125 MG VIAL 60 MG IV PUSH ×2 (05:58→11:03)
[2023-01-09 06:05] LABS: Estimated CRCL calculation 44 ml/min; Estimated Glomerular Filt Rate > 60
[2023-01-09] MEDS: hydroCHLOROthiazide 25 MG TABLET PO (09:11)
[2023-01-09] MEDS: lisinopriL 20 MG TABLET PO (09:11)
[2023-01-09] MEDS: CHOLECALCIFEROL 1,000 UNITS TABLET 1000 UNITS PO (09:11)
[2023-01-09] MEDS: HEPARIN SODIUM 5,000 UNITS/ML VIAL 5000 UNITS SUB-Q ×2 (09:12→20:21)
[2023-01-09] MEDS: VANCOMYCIN 1,000 MG/NS 250 ML 1,000 MG/250 ML BAG 250 MG IVPB (09:12)
[2023-01-09] MEDS: guaiFENesin 12 HR 600 MG TABCR 1200 MG PO ×2 (09:12→20:21)
[2023-01-09] MEDS: IPRATROPIUM BR 0.02% INH SOLN 0.5 MG/2.5 ML VIAL INHALATION ×3 (10:17→20:04)
[2023-01-09] MEDS: ALBUTEROL SULFATE NEB 2.5 MG/3 ML INH INHALATION ×3 (10:17→20:04)
--- NOTE | 2023-01-09 13:03 | PM.IMPN ---
Progress Note: A&P Assessment and Plan (1) Rib fracture: Code(s): S22.39XA - Fracture of one rib, unspecified side, initial encounter for closed fracture Status: Acute Assessment and Plan: SEE BELOW (2) Splenic laceration: Code(s): S36.039A - Unspecified laceration of spleen, initial encounter Status: Acute (3) COPD (chronic obstructive pulmonary disease): Code(s): J44.9 - Chronic obstructive pulmonary disease, unspecified Status: Acute (4) Acute respiratory distress: Code(s): R06.03 - Acute respiratory distress Status: Acute (5) Pneumonia: Qualifiers: Laterality: bilateral Lung location: unspecified part of lung Pneumonia type: due to unspecified organism Qualified Code(s): J18.9 - Pneumonia, unspecified organism Code(s): J18.9 - Pneumonia, unspecified organism Status: Acute (6) Smoker: Code(s): F17.200 - Nicotine dependence, unspecified, uncomplicated Status: Chronic (7) Prostate cancer: Code(s): C61 - Malignant neoplasm of prostate Status: Chronic (8) Pleural effusion: Code(s): J90 - Pleural effusion, not elsewhere classified Status: Acute Plan 87M pleasant male living at home accompanied by son and daughter, w/ PMH COPD, HLD, HTN, active tobacco abuse, 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 Walsh w/ recent fall at home and left side rib fracture and splenic bruise presented with abrupt onset of shortness of breath. He was just dc'ed from [facility] after being monitored in the ICU for rib fractures and spleen issue and s/p thoracentesis of R side. Admitted on 01/06 for acute hypoxic respiratory failure. 1) acute hypoxic respiratory failure - CTA on admission revealing: IMPRESSION:? No evidence of pulmonary embolism Extensive osteosclerotic metastatic disease Left Port-A-Cath Moderate bilateral free dependent pleural effusions with associated compressive atelectasis of the lower lobes Dependent atelectasis in the lingula, right upper lobe and more prominent infiltrate or atelectasis of the middle lobe Recent left 10th and 11th rib fractures - HCAP/aspirational PNA - pt treated with IV meropenem, vancomycin started on 01/06. can transition to oral abx today 2) tobacco abuse - counseled. he declined nicotine patch 3) COPD - - treat COPD exacerbation with solumedrol and duonebs started on 01/06 - treat hypersecretions with guaifenesin and incentive spirometer and cornet, monitor b/l pleural effusions (d/t chemo vs metastasis?) (s/p R thoracentesis at [facility] last week) - decrease iv steroids 4) prostate cancer w/ metastasis to bones - new mets to lungs? due for PET scan - chemo on hold in light of active issues 5) HTN - resume home losartan HCTZ 6) recent L rib fracture and splenic bruise - after fall at home on 12/31, presented to [place] [facility], after CT chest completed, transferred to [facility]. CT report in system: Upper abdomen: Somewhat lentiform shaped hypodensity along the posterior aspect of the spleen, encompassing greater than 10% but less than 50% of the splenic surface area. 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 Walsh w/ recent fall at home and left side rib fracture and splenic laceration presented with abrupt onset of shortness of breath. Sob secondary to rib fracture, COPD and pneumonia Slow improvement, awaiting rehab placement once medically stable C
--- NOTE | 2023-01-09 14:19 | PCPTNOTE ---
Attempted to see patient, however he stated that he was too tired and wanted to take a nap. He stated that he did not sleep much last night and just wanted to sleep. Pt. stated that he will do therapy tomorrow. RN notified.
[2023-01-09] MEDS: levoFLOXacin 750 MG TABLET PO (15:36)
--- NOTE | 2023-01-09 16:46 | PM.CNPUL ---
Assessment and Plan Assessment and plan (1) COPD (chronic obstructive pulmonary disease): Code(s): J44.9 - Chronic obstructive pulmonary disease, unspecified Status: Acute Assessment and Plan: Patient with a 64 pack year history of tobacco use (quit 11/23/2022), CT scan of the chest on 08/2021 and most recently on 12/18/1911/28/2022 demonstrates [id number] centrilobular emphysema apices greater than bases, I have no PFTs. Patient with worsening dyspnea on exertion over the last 4 months with no rest shortness of breath. He has not been on any inhalers. Patient presents now with worsening shortness of breath, hypoxia, coarse breath sounds and was treated for COPD exacerbation and possible pneumonia with steroids, bronchodilators and antibiotics. 01/09/23: Currently the patient has improved. He has no wheezing on exam currently. I suspect the etiology of the patient's worsening dyspnea on exertion with no rest shortness of breath include: COPD, possible pneumonia, bilateral pleural effusions, metastatic prostate cancer and possible fluid overload. Plan: I will check an ABG to exclude hypercarbic respiratory failure. I will check an alpha 1 anti trypsin genotype and level. I will check an overnight oximetry on room air to qualify the patient for supplemental oxygen at night. The patient has moderate bilateral pleural effusions and I will obtain a chest x-ray in the morning. I will order an echocardiogram to assess LV, RV function and valvular function. I will check a BNP in the morning. I will check a chest x-ray on 01/10/2023 to reassess his pleural effusions. Patient is on Solu-Medrol 40 q.8, steroid started on 01/06, day 4. I will switch him over to prednisone 40 starting 01/10/2023. I will continue albuterol and ipratropium nebulizers Q 6 hours. Patient is on guaifenesin 1200 mg p.o. q.12 hours and he denies difficulty expectorating fluid currently. Patient is currently on Levaquin 750 mg p.o. Q 48 hours.. Will follow with you. (2) Pneumonia: Qualifiers: Laterality: bilateral Lung location: unspecified part of lung Pneumonia type: due to unspecified organism Qualified Code(s): J18.9 - Pneumonia, unspecified organism Code(s): J18.9 - Pneumonia, unspecified organism Status: Acute Assessment and Plan: Patient has been afebrile with no leukocytosis, a procalcitonin of 0.2, low risk for sepsis, a CT scan with bilateral effusions with compressive atelectasis as well as atelectasis in the lingula and right middle lobe, sputum with growth of normal alf, COVID influenza and RSV RT PCR studies negative. Patient received azithromycin 01/06 through , ceftriaxone and doxycycline on 01/06, meropenem on 01/06 through 01/09, vancomycin on 01/0601/09/23: He is afebrile. White blood cell count is 6.7. He has no purulent phlegm and minimal secretions. Currently patient along Levaquin 750 mg p.o. Q 48 hours 1st dose on 01/09. Today today is day 4 of antibiotics. Will continue Levaquin for a total of 7 days. (3) Prostate cancer: Code(s): C61 - Malignant neoplasm of prostate Status: Chronic Assessment and Plan: Patient with metastatic castrate resistant prostate cancer. A RV-7-. [employer] test was nondiagnostic. He was diagnosed in November 2002 with adenocarcinoma [place] score 7 status post open radical prostatectomy in November of 2002. I have an office note from Dr. Merida on 05/21/2022 weekly Taxotere started April 24, 2021, Eligard every 3 months, his IgE Von a monthly basis. Infusion note from 12/25/22: receiving treatment through Oncology with denosumab and dexamethasone. He had a thoracentesis at [facility] I do not know if this was sent for cytology. He may have metastatic prostate to the pleural or lung. History of Present Illness History of Present Illness Consult date: 01/09/23 Chief complaint: Pneumonia Narrative: 01/09/2023: T
[2023-01-09 17:49] LABS: Alveolar/Arterial O2 Gradient 68.5 mmHg; Base Excess ABG -1.6 mEq/l (+/-2.0); Fractional Inspired Oxygen 24 %; Oxygen Content ABG 13.9 %vol (16.0-22.0); Oxygen Saturation ABG 95.2 % (95.0-100.0); Oxyhemoglobin 92.7 % THb (90.0-100.0); PCO2 ABG 28.7 mmHg (35.0-45.0); PO2 ABG 68.5 mmHg (80.0-100.0); PO2 FiO2 Ratio Arterial Blood 2.85 %; Total Hemoglobin 10.6 g/dL (12.0-18.0); pH ABG 7.483 (7.350-7.450)
[2023-01-09 17:50] LABS: Device NASAL CANNULA; Modified Allen's Test Pass; Site Drawn LEFT RADIAL
[2023-01-09] MEDS: MELATONIN 3 MG TABLET PO (20:26)
[2023-01-10] VITALS (16 sets, daily range): BP systolic 115–140; BP diastolic 60–74; PULSE 68–84; RESP 16–20; TEMP 36.3–36.5; O2SAT 90–96
[2023-01-10 06:27] LABS: NT Pro B Type Natriuretic Pept 1190 pg/mL (19.9-100)
--- NOTE | 2023-01-10 06:57 | ECHO_ITS ---
Patient Info Name: Yamil Sabillon Age: 87 years : 1935 Gender: Male Ht: 67 in Wt: 130 lbs BSA: 1.67 m2 HR: 78 bpm BP: 134 / 79 mmHg Heart Rhythm: Sinus Rhythm Technical Quality: Poor Exam Date: 01/10/2023 10:37 AM Exam Location: Echo Lab Patient Status: Inpatient Admit Date: 01/07/2023 Staff Ordering Physician: Huey Aggarwal MD [employer]urb[employer] Installer: Stacey Tesfaye RDCS Attending Provider: Lindsey Kamara DO Referring Physician: Jasen GRIFFITH; Exam Type: CA echo doppler color flow Study Info Indications - ASIF, assess lv, rv, pasp and valve Complete two-dimensional, color flow and Doppler transthoracic echocardiogram is performed. Reason for Poor Study: poor patient cooperation Summary 1. Complete two-dimensional, color flow and Doppler transthoracic echocardiogram is performed. 2. Left ventricular chamber dimension is normal. 3. Left ventricular systolic function is normal, estimated at 65-70%. 4. The left ventricular diastolic function is grade I diastolic dysfunction. 5. E/e' 7 is not elevated. 6. There is mild aortic valve sclerosis. 7. There is mild mitral valve regurgitation. 8. No pulmonary hypertension, estimated pulmonary arterial systolic pressure is 37 mmHg. 9. There is small pericardial effusion on right side of heart with echogenic material adherent to right ventricular free wall suggestive of chronicity of effusion. Left Ventricle E/e' 7 is not elevated. Left ventricular chamber dimension is normal. Left ventricular systolic function is normal, estimated at 65-70%. The left ventricular diastolic function is grade I diastolic dysfunction. Right Ventricle Right ventricular chamber dimension is normal. Right ventricular systolic function is normal. Left Atria Left atrial chamber dimension is normal. Right Atria Right atrial chamber dimension is normal. Aortic Valve The aortic valve is not well visualized. There is mild aortic valve sclerosis. There is no aortic valve stenosis. There is no aortic valve regurgitation. Pulmonic Valve There is no pulmonic regurgitation. Mitral Valve There is no mitral valve stenosis. There is mild mitral valve regurgitation. Tricuspid Valve There is no tricuspid valve regurgitation. No pulmonary hypertension, estimated pulmonary arterial systolic pressure is 37 mmHg. Pericardium/Pleural There is small pericardial effusion on right side of heart with echogenic material adherent to right ventricular free wall suggestive of chronicity of effusion. No cardiac tamponade. Inferior Vena Cava Normal inferior vena cava with >50% collapse upon inspiration consistent with normal right atrial pressure, 5 mmHg. Aorta The aortic root size at the sinus of Valsalva is normal. Left Ventricular Outflow Tract Name Value Normal LVOT 2D LVOT Diameter 1.9 cm LVOT Doppler LVOT Peak Gradient 3 mmHg LVOT Mean Gradient 2 mmHg LVOT VTI 26 cm LVOT VTI/AV VTI Ratio 0.8 LVOT Stroke Volume 72 ml LVOT CO 3.9 l/min LVOT CI
[2023-01-10] MEDS: ALBUTEROL SULFATE NEB 2.5 MG/3 ML INH INHALATION ×2 (07:40→16:44)
[2023-01-10] MEDS: IPRATROPIUM BR 0.02% INH SOLN 0.5 MG/2.5 ML VIAL INHALATION (07:40)
[2023-01-10] MEDS: predniSONE 20 MG TABLET 40 MG PO (09:17)
[2023-01-10] MEDS: HEPARIN SODIUM 5,000 UNITS/ML VIAL 5000 UNITS SUB-Q ×2 (09:18→20:27)
[2023-01-10] MEDS: guaiFENesin 12 HR 600 MG TABCR 1200 MG PO ×2 (09:18→20:26)
[2023-01-10] MEDS: CHOLECALCIFEROL 1,000 UNITS TABLET 1000 UNITS PO (09:18)
--- NOTE | 2023-01-10 11:05 | PM.PNPUL ---
Progress Note: A&P Assessment and Plan (1) COPD (chronic obstructive pulmonary disease): Code(s): J44.9 - Chronic obstructive pulmonary disease, unspecified Status: Acute Assessment and Plan: Patient with a 64 pack year history of tobacco use (quit 11/23/2022), CT scan of the chest on 10/06/2021 and most recently on 12/18/1911/28/2022 demonstrates [id number] centrilobular emphysema apices greater than bases, I have no PFTs. Patient with worsening dyspnea on exertion over the last 4 months with no rest shortness of breath. He has not been on any inhalers. Patient presents now with worsening shortness of breath, hypoxia, coarse breath sounds and was treated for COPD exacerbation and possible pneumonia with steroids, bronchodilators and antibiotics. 01/09/23: Currently the patient has improved. He has no wheezing on exam currently. I suspect the etiology of the patient's worsening dyspnea on exertion with no rest shortness of breath include: COPD, possible pneumonia, bilateral pleural effusions, metastatic prostate cancer and possible fluid overload. Plan: I will check an ABG to exclude hypercarbic respiratory failure. I will check an alpha 1 anti trypsin genotype and level. I will check an overnight oximetry on room air to qualify the patient for supplemental oxygen at night. The patient has moderate bilateral pleural effusions and I will obtain a chest x-ray in the morning. I will order an echocardiogram to assess LV, RV function and valvular function. I will check a BNP in the morning. I will check a chest x-ray on 01/10/2023 to reassess his pleural effusions. Patient is on Solu-Medrol 40 q.8, steroid started on 01/06, day 4. I will switch him over to prednisone 40 starting 01/10/2023. I will continue albuterol and ipratropium nebulizers Q 6 hours. Patient is on guaifenesin 1200 mg p.o. q.12 hours and he denies difficulty expectorating fluid currently. Patient is currently on Levaquin 750 mg p.o. Q 48 hours. 01/10/23: Patient tells me he had difficulty sleeping last night. He is breathing normally at rest but does have shortness of breath when he moves to the chair. He denies cough and produces phlegm is 2 times a day. On 1 L nasal cannula saturation is 90%. Chest x-ray with worsening right lower lobe hazy infiltrate which could be consistent with a right pleural effusion. He has a small left pleural effusion. Plan: Continue prednisone 40 mg p.o. q.day, today is day 5 and will discontinue after today's dose. I will change the patient to Anoro Ellipta at 1 puff q.day. Continue guaifenesin 1200 mg p.o. q.12 hours. Continue Levaquin 750 mg p.o. Q 48 hours (day 5 total antibiotics). I will reorder the overnight oximetry on room air, unfortunately this was not performed last night. Will follow with you. (2) Pneumonia: Qualifiers: Laterality: bilateral Lung location: unspecified part of lung Pneumonia type: due to unspecified organism Qualified Code(s): J18.9 - Pneumonia, unspecified organism Code(s): J18.9 - Pneumonia, unspecified organism Status: Acute Assessment and Plan: Patient has been afebrile with no leukocytosis, a procalcitonin of 0.2, low risk for sepsis, a CT scan with bilateral effusions with compressive atelectasis as well as atelectasis in the lingula and right middle lobe, sputum with growth of normal alf, COVID influenza and RSV RT PCR studies negative. Patient received azithromycin 01/06 through , ceftriaxone and doxycycline on 01/06, meropenem on 01/06 through 01/09, vancomycin on 01/0601/09/23: He is afebrile. White blood cell count is 6.7. He has no purulent phlegm and minimal secretions. Currently patient along Levaquin 750 mg p.o. Q 48 hours 1st dose on 01/09. Today today is day 4 of antibiotics. Will continue Levaquin for a total of 7 days. 01/10/23: Afebrile. he denies cough and produces phlegm is 2 times a day. On 1 L nasal cannula saturation is 90%.
[2023-01-10] MEDS: lisinopriL 20 MG TABLET PO (11:50)
[2023-01-10] MEDS: hydroCHLOROthiazide 25 MG TABLET PO (11:50)
--- NOTE | 2023-01-10 12:11 | PM.IMPN ---
Progress Note: A&P Assessment and Plan (1) Rib fracture: Code(s): S22.39XA - Fracture of one rib, unspecified side, initial encounter for closed fracture Status: Acute Assessment and Plan: SEE BELOW (2) Splenic laceration: Code(s): S36.039A - Unspecified laceration of spleen, initial encounter Status: Acute (3) COPD (chronic obstructive pulmonary disease): Code(s): J44.9 - Chronic obstructive pulmonary disease, unspecified Status: Acute (4) Acute respiratory distress: Code(s): R06.03 - Acute respiratory distress Status: Acute (5) Pneumonia: Qualifiers: Laterality: bilateral Lung location: unspecified part of lung Pneumonia type: due to unspecified organism Qualified Code(s): J18.9 - Pneumonia, unspecified organism Code(s): J18.9 - Pneumonia, unspecified organism Status: Acute (6) Smoker: Code(s): F17.200 - Nicotine dependence, unspecified, uncomplicated Status: Chronic (7) Prostate cancer: Code(s): C61 - Malignant neoplasm of prostate Status: Chronic (8) Pleural effusion: Code(s): J90 - Pleural effusion, not elsewhere classified Status: Acute Plan 87M pleasant male living at home accompanied by son and daughter, w/ PMH COPD, HLD, HTN, active tobacco abuse, 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 Walsh w/ recent fall at home and left side rib fracture and splenic bruise presented with abrupt onset of shortness of breath. He was just dc'ed from [facility] after being monitored in the ICU for rib fractures and spleen issue and s/p thoracentesis of R side. Admitted on 01/06 for acute hypoxic respiratory failure. 1) acute hypoxic respiratory failure - CTA on admission revealing: IMPRESSION:? No evidence of pulmonary embolism Extensive osteosclerotic metastatic disease Left Port-A-Cath Moderate bilateral free dependent pleural effusions with associated compressive atelectasis of the lower lobes Dependent atelectasis in the lingula, right upper lobe and more prominent infiltrate or atelectasis of the middle lobe Recent left 10th and 11th rib fractures - HCAP/aspirational PNA - pt treated with IV meropenem, vancomycin started on 01/06. can transition to oral abx 2) tobacco abuse - counseled. he declined nicotine patch 3) COPD - - treat COPD exacerbation with solumedrol and duonebs started on 01/06 - treat hypersecretions with guaifenesin and incentive spirometer and cornet, monitor b/l pleural effusions (d/t chemo vs metastasis?) (s/p R thoracentesis at [facility] last week) - transition to oral steroids 4) prostate cancer w/ metastasis to bones - new mets to lungs? due for PET scan - chemo on hold in light of active issues 5) HTN - resume home losartan HCTZ 6) recent L rib fracture and splenic bruise - after fall at home on 12/31, presented to [place] [facility], after CT chest completed, transferred to [facility]. CT report in system: Upper abdomen: Somewhat lentiform shaped hypodensity along the posterior aspect of the spleen, encompassing greater than 10% but less than 50% of the splenic surface area. 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 Walsh w/ recent fall at home and left side rib fracture and splenic laceration presented with abrupt onset of shortness of breath. Sob secondary to rib fracture, COPD and pneumonia Slow improvement, awaiting rehab placement once medically stable
[2023-01-10] MEDS: UMECLIDINIUM/VILANTEROL 62.5-25 MCG ELLIPTA 1 PUFF INHALATION (14:11)
--- NOTE | 2023-01-10 14:16 | PC.NURSE ---
On 01/10/23, the student, [Rita Simon], provided care and completed [facility] documentation on this patient. I have reviewed the student's documentation and agree with the findings.
[2023-01-10] MEDS: ACETAMINOPHEN 325 MG TABLET 650 MG PO (20:26)
[2023-01-10] MEDS: MELATONIN 3 MG TABLET PO (20:27)
[2023-01-11] VITALS (8 sets, daily range): BP systolic 136–137; BP diastolic 63–73; PULSE 64–87; RESP 16–20; TEMP 36.4–36.6; O2SAT 91–96
[2023-01-11 06:06] LABS: Hematocrit 28.6 % (42.0-52.0); Hemoglobin 9.1 g/dL (14.0-18.0); Mean Corpuscular HGB Conc 31.8 g/dl (32-36); Mean Corpuscular Hemoglobin 30.4 pg (26-34); Mean Corpuscular Volume 95.7 fl (80-100); Mean Platelet Volume 9.7 fl (7.4-10.4); Platelet Count Result 192 k/mm3 (150-375); Red Blood Count 2.99 M/mm3 (4.6-6.20); Red Cell Distribution Width 16.2 % (11.5-14.5); White Blood Count 7.9 K/mm3 (4.5-10.0)
[2023-01-11 06:17] LABS: Anion Gap -1 mmol/L (8-16); Blood Urea Nitrogen 43 mg/dL (9-20); Carbon Dioxide 31 mmol/L (22-30); Chloride 102 mmol/L (98-107); Estimated CRCL calculation 49 ml/min; Estimated Glomerular Filt Rate > 60; Glucose 87 mg/dL (65-110); Potassium 3.9 mmol/L (3.4-5.0); Sodium 132 mmol/L (137-145)
[2023-01-11] MEDS: UMECLIDINIUM/VILANTEROL 62.5-25 MCG ELLIPTA 1 PUFF INHALATION (08:06)
[2023-01-11] MEDS: hydroCHLOROthiazide 25 MG TABLET PO (08:32)
[2023-01-11] MEDS: CHOLECALCIFEROL 1,000 UNITS TABLET 1000 UNITS PO (08:32)
[2023-01-11] MEDS: guaiFENesin 12 HR 600 MG TABCR 1200 MG PO (08:32)
[2023-01-11] MEDS: lisinopriL 20 MG TABLET PO (08:33)
[2023-01-11] MEDS: HEPARIN SODIUM 5,000 UNITS/ML VIAL 5000 UNITS SUB-Q (08:33)
--- NOTE | 2023-01-11 10:33 | PM.PNPUL ---
Progress Note: A&P Assessment and Plan (1) COPD (chronic obstructive pulmonary disease): Code(s): J44.9 - Chronic obstructive pulmonary disease, unspecified Status: Acute Assessment and Plan: Patient with a 64 pack year history of tobacco use (quit 11/23/2022), CT scan of the chest on 10/06/2021 and most recently on 12/18/1911/28/2022 demonstrates [id number] centrilobular emphysema apices greater than bases, I have no PFTs. Patient with worsening dyspnea on exertion over the last 4 months with no rest shortness of breath. He has not been on any inhalers. Patient presents now with worsening shortness of breath, hypoxia, coarse breath sounds and was treated for COPD exacerbation and possible pneumonia with steroids, bronchodilators and antibiotics. 01/09/23: Currently the patient has improved. He has no wheezing on exam currently. I suspect the etiology of the patient's worsening dyspnea on exertion with no rest shortness of breath include: COPD, possible pneumonia, bilateral pleural effusions, metastatic prostate cancer and possible fluid overload. Plan: I will check an ABG to exclude hypercarbic respiratory failure. I will check an alpha 1 anti trypsin genotype and level. I will check an overnight oximetry on room air to qualify the patient for supplemental oxygen at night. The patient has moderate bilateral pleural effusions and I will obtain a chest x-ray in the morning. I will order an echocardiogram to assess LV, RV function and valvular function. I will check a BNP in the morning. I will check a chest x-ray on 01/10/2023 to reassess his pleural effusions. Patient is on Solu-Medrol 40 q.8, steroid started on 01/06, day 4. I will switch him over to prednisone 40 starting 01/10/2023. I will continue albuterol and ipratropium nebulizers Q 6 hours. Patient is on guaifenesin 1200 mg p.o. q.12 hours and he denies difficulty expectorating fluid currently. Patient is currently on Levaquin 750 mg p.o. Q 48 hours. 01/10/23: Patient tells me he had difficulty sleeping last night. He is breathing normally at rest but does have shortness of breath when he moves to the chair. He denies cough and produces phlegm is 2 times a day. On 1 L nasal cannula saturation is 90%. Chest x-ray with worsening right lower lobe hazy infiltrate which could be consistent with a right pleural effusion. He has a small left pleural effusion. Plan: Continue prednisone 40 mg p.o. q.day, today is day 5 and will discontinue after today's dose. I will change the patient to Anoro Ellipta at 1 puff q.day. Continue guaifenesin 1200 mg p.o. q.12 hours. Continue Levaquin 750 mg p.o. Q 48 hours (day 5 total antibiotics). I will reorder the overnight oximetry on room air, unfortunately this was not performed last night. 01/11 patient tells me he slept better last night. At rest he states he is breathing normally. His dyspnea on exertion is slowly getting better. On 2 L nasal cannula saturations are 91-92%. White blood cell count 7.9, creatinine 0.8. Patient had an overnight oximetry on room air with recording time of 6 hours and 33 minutes, average saturation 89%, low saturation 84%, time with saturation less than or equal to 88% was 144 minutes, oxygen desaturation index 25.1. From a pulmonary perspective patient is ready to be discharged on these pulmonary medications: Levaquin 750 mg p.o. Q 48 hours, through 01/12/2023. Needs 1 dose today which will cover room for 48 hours. Anoro Ellipta 62.5-25 at 1 puff q.day Rescue albuterol 2 puffs q.4 hours p.r.n. shortness of breath or wheezing Oxygen 2 L at night. Oxygen at rest and with ambulation per facilities protocol. Discussed with Dr. Pérez, call with questions. (2) Pneumonia: Qualifiers: Laterality: bilateral Lung location: unspecified part of lung Pneumonia type: due to unspecified organism Qualified Code(s): J18.9 - Pneumonia, unspecified organism Code(s): J18.9 - Pneumonia, unsp
[2023-01-11 13:02] LABS: SARS-CoV-2 RNA PCR Negative (Negative)
--- NOTE | 2023-01-11 13:55 | PM.DS ---
DS: Admitting Diagnosis Discharge Date 01/11/2023 Admitting Diagnosis Shortness of breath DS: Discharge Diagnosis Discharge Diagnosis (1) Rib fracture: Code(s): S22.39XA - Fracture of one rib, unspecified side, initial encounter for closed fracture Status: Acute Assessment and Plan: SEE BELOW (2) Splenic laceration: Code(s): S36.039A - Unspecified laceration of spleen, initial encounter Status: Acute (3) COPD (chronic obstructive pulmonary disease): Code(s): J44.9 - Chronic obstructive pulmonary disease, unspecified Status: Acute (4) Acute respiratory distress: Code(s): R06.03 - Acute respiratory distress Status: Acute (5) Pneumonia: Qualifiers: Laterality: bilateral Lung location: unspecified part of lung Pneumonia type: due to unspecified organism Qualified Code(s): J18.9 - Pneumonia, unspecified organism Code(s): J18.9 - Pneumonia, unspecified organism Status: Acute (6) Smoker: Code(s): F17.200 - Nicotine dependence, unspecified, uncomplicated Status: Chronic (7) Prostate cancer: Code(s): C61 - Malignant neoplasm of prostate Status: Chronic (8) Pleural effusion: Code(s): J90 - Pleural effusion, not elsewhere classified Status: Acute Plan 87M pleasant male living at home accompanied by son and daughter, w/ PMH COPD, HLD, HTN, active tobacco abuse, 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 Walsh w/ recent fall at home and left side rib fracture and splenic bruise presented with abrupt onset of shortness of breath. He was just dc'ed from [facility] after being monitored in the ICU for rib fractures and spleen issue and s/p thoracentesis of R side. Admitted on 01/06 for acute hypoxic respiratory failure. 1) acute hypoxic respiratory failure - CTA on admission revealing: IMPRESSION:? No evidence of pulmonary embolism Extensive osteosclerotic metastatic disease Left Port-A-Cath Moderate bilateral free dependent pleural effusions with associated compressive atelectasis of the lower lobes Dependent atelectasis in the lingula, right upper lobe and more prominent infiltrate or atelectasis of the middle lobe Recent left 10th and 11th rib fractures - HCAP/aspirational PNA - pt treated with IV meropenem, vancomycin started on 01/06. can transition to oral abx 2) tobacco abuse - counseled. he declined nicotine patch 3) COPD - - treat COPD exacerbation with solumedrol and duonebs started on 01/06 - treat hypersecretions with guaifenesin and incentive spirometer and cornet, monitor b/l pleural effusions (d/t chemo vs metastasis?) (s/p R thoracentesis at [facility] last week) - transition to oral steroids 4) prostate cancer w/ metastasis to bones - new mets to lungs? due for PET scan - chemo on hold in light of active issues 5) HTN - resume home losartan HCTZ 6) recent L rib fracture and splenic bruise - after fall at home on 12/31, presented to [place] [facility], after CT chest completed, transferred to [facility]. CT report in system: Upper abdomen: Somewhat lentiform shaped hypodensity along the posterior aspect of the spleen, encompassing greater than 10% but less than 50% of the splenic surface area. 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 Walsh w/ recent fall at home and left side rib fracture and splenic bruise presented with abrupt onset of shortness of breath. He was just dc[facility]ed from [facility] after being monit
[2023-01-11] MEDS: levoFLOXacin 750 MG TABLET PO (14:44)
[2023-01-14 14:17] LABS: Alpha-1-Antitrypsin, QN 191 mg/dL (83-199)
== END 2023-01-11 15:09 | DRG 193 ==
LOC: ANHED 07:05 → ANH2MED 08:59
PROVIDERS: General Practice; Internal Medicine Pulmonary Disease; Admitting Provider Internal Medicine; Emergency Provider Emergency Medicine; PCP Family Medicine; Visit Provider Family Medicine
DX: J18.9 Pneumonia, unspecified organism (principal); J96.01 Acute respiratory failure with hypoxia; C79.51 Secondary malignant neoplasm of bone; J43.2 Centrilobular emphysema; C61 Malignant neoplasm of prostate; E78.5 Hyperlipidemia, unspecified; E83.51 Hypocalcemia; F17.210 Nicotine dependence, cigarettes, uncomplicated; I10 Essential (primary) hypertension; S36.039D Unspecified laceration of spleen, subsequent encounter; S22.42XD Multiple fractures of ribs, left side, subsequent encounter for fracture with routine healing; W19.XXXD Unspecified fall, subsequent encounter; Z90.79 Acquired absence of other genital organ(s); Z11.52 Encounter for screening for COVID-19
CPT/HCPCS: 36415; 36600; 71045; 71275; 80048; 80053; 80202; 82103; 82104; 82565; 82805; 83735; 83880; 84145; 85025; 85027; 87070; 87205; 87635; 87637; 87641; 92610; 93005; 93306; 94640; 94667; 94668; 94762; 96361; 96365; 96366; 96367; 96374; 96375; 96376; 97110; 97161; 97166; 97530; 97535; 99285; A9270; G0378; J0456; J0696; J1100; J1644; J2185; J2930; J3370; J7030; J7512; Q9967

== ENCOUNTER → 2023-01-29 12:05 | Outpatient (CLI) | payer MEDICARE, SELFPAY ==
--- NOTE | ~2023-01-29 | XR_ITS ---
EXAM: XR elbow LT min 3V DATE: 01/29/2023 12:27 HISTORY: M25.422 - Effusion, left elbow . COMPARISON: None available. FINDINGS: Decreased mineralization. No fracture or dislocation. No lytic or blastic lesion. Mild deg enerative change at the elbow joint. Mild medial and lateral enthesopathy.. No erosion or periosteal change. Marked posterior soft tissue swelling, with subcutaneous gas. IMPRESSION: No acute osseous finding in the left elbow. Significant posterior soft tissue swelling with subcutaneous gas as can be seen with cellulitis and a bscess. Reviewed, dictated and finalized at location K. STANT GOLF COURSE SUPERINTENDENT IMPRESSION: No acute osseous finding in the left elbow. Significant posterior soft tissue swelling with subcutaneous gas as can be seen with cellulitis and abscess.
== END ==
PROVIDERS: PCP Family Medicine; Visit Provider Family Medicine
DX: M25.422 Effusion, left elbow (principal)
CPT/HCPCS: 73080

== ENCOUNTER 2023-02-02 08:24 | Inpatient (IN) | payer MEDICARE, SELFPAY ==
[2023-02-02] VITALS (30 sets, daily range): BP systolic 90–111; BP diastolic 46–62; PULSE 76–93; RESP 18–35; TEMP 36.4–36.5; O2SAT 94–100; BMI 19.5
--- NOTE | ~2023-02-02 | XR_ITS ---
Portable chest x-ray Comparison: 02/07/2023 Clinical History: Right effusion Findings: Left-sided Mediport is unchanged. There are small bilateral pleural effusions with probabl e moderate developing pulmonary edema pattern. Cardiomediastinal silhouette is stable. Probable exte nsive sclerotic change of the osseous structures. Impression: Small bilateral pleural effusions with moderate presumed pulmonary edema pattern. Correlate clinicall y for infection. Stable Mediport. Probable extensive sclerotic change of the osseous structures, suspicious for osseous metastatic dise ase. Reviewed, dictated and finalized at location M. SITTER Impression: Small bilateral pleural effusions with moderate presumed pulmonary edema patter n. Correlate clinically for infection. Stable Mediport. Probable extensive sclerotic change of the osseous structures, suspicious for o sseous metastatic disease.
--- NOTE | ~2023-02-02 | US_ITS ---
EXAMINATION: US thoracentesis DATE: 02/07/2023 10:17 INDICATION: pleural effusion TECHNIQUE: The procedure and its risks, benefits, and alternatives were discussed with the patient. P otential risks discussed included bleeding, infection, and pneumothorax. The patient understood the r isks and agreed to proceed. The skin was prepped and draped in sterile fashion. 1% lidocaine was used for local anesthesia. Under ultrasound guidance, a 5 Fr catheter with trochar was advanced into the right pleural effusion. Fluid was aspirated. The catheter was removed, and a dressing was applied. Th ere were no immediate complications. FINDINGS: Ultrasound images demonstrate a right pleural effusion and the catheter within the fluid. IMPRESSION: 1. Successful ultrasound-guided thoracentesis yielding 1000 mL of yellow fluid. Reviewed, dictated and finalized at location A. OSITE ASSEMBLER IMPRESSION: 1. Successful ultrasound-guided thoracentesis yielding 1000 mL of yellow fluid .
--- NOTE | ~2023-02-02 | XR_ITS ---
EXAMINATION: XR chest 2V DATE: 02/02/2023 09:14 INDICATION: Shortness of breath TECHNIQUE: Frontal and lateral views of the chest are obtained COMPARISON: 01/10/2023 FINDINGS: There is a small right pleural effusion with interval decrease in size. There are airspace opacities of the mid and lower lung zones. No pneumothorax is identified. A left internal jugular Por t-A-Cath ends with its tip in the proximal superior vena cava. Again noted are widespread sclerotic o sseous metastases. IMPRESSION: 1. Small right pleural effusion with interval decrease in size. 2. Airspace opacities of the mid and lower lung zones, consistent with atelectasis versus pneumonia. Reviewed, dictated and finalized at location A. ALIZATION DEVELOPER IMPRESSION: 1. Small right pleural effusion with interval decrease in size. 2. Airspace opacities of the mid and lower lung zones, consistent with atelecta sis versus pneumonia.
--- NOTE | ~2023-02-02 | XR_ITS ---
EXAMINATION: XR chest 1V portable DATE: 02/06/2023 13:09 INDICATION: Shortness of breath. TECHNIQUE: A single frontal view of the chest was obtained. COMPARISON: Chest 2 views 02/02/2023, chest CT 01/06/2023 FINDINGS: There are airspace opacities in the mid and lower lung zones. There are small pleural effus ions. No pneumothorax. The heart size is normal. There is a left internal jugular port with tip in cabrera perior vena cava. There are scattered sclerotic lesions of bone, consistent with metastatic disease. IMPRESSION: 1. Worsened airspace opacities in the mid and lower lung zones, consistent with atelectasis versus pn eumonia. 2. Worsened small pleural effusions. 3. Scattered sclerotic lesions of bone, consistent with metastatic disease. Reviewed, dictated and finalized at location A. CAL SOCIAL CONSULTANT IMPRESSION: 1. Worsened airspace opacities in the mid and lower lung zones, consistent with atelectasis versus pneumonia. 2. Worsened small pleural effusions. 3. Scattered sclerotic lesions of bone, consistent with metastatic disease.
--- NOTE | ~2023-02-02 | US_ITS ---
EXAMINATION: US venous doppler [facility] DATE: 02/07/2023 10:16 INDICATION: Shortness of breath. TECHNIQUE: Grayscale ultrasound images without and with compression and Doppler ultrasound images of the bilateral lower extremity veins were obtained. COMPARISON: None. FINDINGS: The visualized portions of right common femoral vein, profunda (deep) femoral vein, femoral vein, pop liteal vein, peroneal veins, posterior tibial veins, and greater saphenous vein outflow are patent. The visualized portions of left common femoral vein, profunda femoral vein, femoral vein, popliteal v ein, peroneal veins, posterior tibial veins, and greater saphenous vein outflow are patent. IMPRESSION: 1. No deep venous thrombosis. Reviewed, dictated and finalized at location A. ICATION MANAGER
--- NOTE | ~2023-02-02 | XR_ITS ---
EXAMINATION: [id number]_CR DATE: 02/07/2023 10:12 INDICATION: Right pleural effusion status post thoracentesis. TECHNIQUE: A single frontal view of the chest was obtained. COMPARISON: Chest CT 02/06/2023 FINDINGS: There are small right and moderate-sized left pleural effusions. There are airspace opaciti es in the mid and lower lung zones. No pneumothorax. The heart size is normal. There are widespread s clerotic lesions of bone, consistent with metastatic disease. There is a left internal jugular port w ith tip in superior vena cava. IMPRESSION: 1. Small right and moderate-sized left pleural effusions status post right-sided thoracentesis. 2. Airspace opacities in the mid and lower lung zones, likely atelectasis. 3. Widespread osseous metastatic disease. Reviewed, dictated and finalized at location A. NESS ANALYTICS SPECIALIST IMPRESSION: 1. Small right and moderate-sized left pleural effusions status post right-side d thoracentesis. 2. Airspace opacities in the mid and lower lung zones, likely atelectasis. 3. Widespread osseous metastatic disease.
--- NOTE | ~2023-02-02 | US_ITS ---
EXAMINATION: US venous doppler [facility] DATE: 02/07/2023 10:16 INDICATION: Shortness of breath. TECHNIQUE: Grayscale ultrasound images without and with compression and Doppler ultrasound images of the bilateral upper extremity veins were obtained. COMPARISON: None. FINDINGS: The visualized portions of the right internal jugular vein, subclavian vein, axillary vein, brachial veins, basilic vein, cephalic vein, radial vein, and ulnar vein are patent. The visualized portions of the left internal jugular vein, subclavian vein, axillary vein, brachial v eins, basilic vein, cephalic vein, radial vein, and ulnar vein are patent. IMPRESSION: 1. No deep venous thrombosis. Reviewed, dictated and finalized at location A. HT READINESS TECHNICIAN
--- NOTE | ~2023-02-02 | CT_ITS ---
EXAMINATION: CTA chest PE protocol DATE: 02/06/2023 16:34 INDICATION: Shortness of breath. TECHNIQUE: Computed tomography angiography (CTA) of the chest was performed with 100 mL Omnipaque-350 intravenous contrast timed to evaluate the pulmonary arteries. Coronal maximum intensity projection 3D-reconstructions were created by the technologist. Automated exposure control and iterative reconst ruction technique were employed. The dose-length product was 469.61 mGy-cm. COMPARISON: Chest CT 01/06/2023 FINDINGS: There is moderate emphysema. There is a 12 mm biopsy-proven hamartoma in left upper lobe. T here are moderate-sized pleural effusions. There is atelectasis with a dependent predominance. The he art size is normal. No pericardial effusion. There are coronary artery calcifications. There is no pu lmonary embolus. There are cysts in the kidneys measuring up to 5.0 cm on the left. There are widespr ead sclerotic lesions involving all bones. There is a chronic compression fracture of L1. Again seen are multiple healing left rib fractures. There is a left internal jugular port with tip in superior v erma cava. IMPRESSION: 1. No pulmonary embolus. 2. Moderate-sized pleural effusions, worsened from 01/06/2023. 3. Stable widespread osseous metastatic disease. 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
--- NOTE | 2023-02-02 08:27 | ECG_ITS ---
Measurements Intervals [place]bin Rate: 82 P: 24 OR: 136 QRS: 68 QRSD: 80 T: 29 QT: 363 QTc: 426 Interpretive Statements SINUS RHYTHM LOW QRS VOLTAGE- DIFFUSE LEADS ANTEROSEPTAL INFARCT, AGE INDETERMINATE BASELINE ARTIFACT- I, II, AVR, AVL, AVF, V1-V6 ABNORMAL ECG COMPARED TO ECG 01/06/2023 03:01:30 NO SIGNIFICANT CHANGES Electronically Signed On 02-02-2023 8:43:25 BILLIARD TABLE REPAIRER by Joe Dean D.O.
[2023-02-02 08:40] LABS: Basophils Percent Auto 0.3 % (0.2-1.2); Eosinophils Absolute Auto 0.1 K/mm3 (0-0.3); Eosinophils Percent Auto 1.2 % (0-4.4); Hematocrit 36.2 % (42.0-52.0); Hemoglobin 11.3 g/dL (14.0-18.0); Immature Granulocyte Absolute 0.05 K/mm3 (0.00-0.031); Immature Granulocyte Percent A 0.5 % (0-0.5); Lymphocytes Absolute Auto 1.33 K/mm3 (0.9-3.2); Lymphocytes Percent Auto 13.7 % (18.3-44.2); Mean Corpuscular HGB Conc 31.2 g/dl (32-36); Mean Corpuscular Hemoglobin 30.1 pg (26-34); Mean Corpuscular Volume 96.3 fl (80-100); Mean Platelet Volume 9.2 fl (7.4-10.4); Monocytes Absolute Auto 0.6 K/mm3 (0.1-0.6); Monocytes Percent Auto 6.5 % (2.6-8.5); Neutrophils Absolute Auto 7.6 K/mm3 (1.3-6.7); Neutrophils Percent Auto 77.8 % (45.5-73.1); Platelet Count Result 241 k/mm3 (150-375); Red Blood Count 3.76 M/mm3 (4.6-6.20); Red Cell Distribution Width 15.1 % (11.5-14.5); White Blood Count 9.7 K/mm3 (4.5-10.0)
[2023-02-02 08:48] LABS: Alveolar/Arterial O2 Gradient 318.9 mmHg; Base Excess ABG -1.4 mEq/l (+/-2.0); Fractional Inspired Oxygen 70 %; HCO3 ABG 22.7 mEq/l (22.0-26.0); Oxygen Content ABG 16.9 %vol (16.0-22.0); Oxygen Saturation ABG 98.9 % (95.0-100.0); Oxyhemoglobin 97.3 % THb (90.0-100.0); PCO2 ABG 36.1 mmHg (35.0-45.0); PO2 ABG 141.4 mmHg (80.0-100.0); PO2 FiO2 Ratio Arterial Blood 2.02 %; Total Hemoglobin 12.2 g/dL (12.0-18.0); pH ABG 7.417 (7.350-7.450)
[2023-02-02 08:49] LABS: Device NON-REBREATHER MASK; Modified Allen's Test Pass; Site Drawn RIGHT RADIAL
[2023-02-02 08:54] LABS: Alanine Aminotransferase 13 U/L (6-50); Albumin Level 2.8 g/dL (3.5-5.1); Alkaline Phosphatase 91 U/L (38-126); Anion Gap 6 mmol/L (8-16); Aspartate Amino Transferase 20 U/L (17-59); Bilirubin,Total 0.5 mg/dL (0.2-1.3); Blood Urea Nitrogen 24 mg/dL (9-20); Calcium 7.3 mg/dL (8.4-10.2); Carbon Dioxide 27 mmol/L (22-30); Chloride 106 mmol/L (98-107); Estimated CRCL calculation 40 ml/min; Estimated Glomerular Filt Rate > 60; Glucose 102 mg/dL (65-110); Lactic Acid Reflex 1.4 mmol/L (0.7-2.0); Potassium 3.3 mmol/L (3.4-5.0); Sodium 139 mmol/L (137-145)
[2023-02-02 09:02] LABS: NT Pro B Type Natriuretic Pept 298 pg/mL (19.9-100)
[2023-02-02 10:23] LABS: Prothrombin Time 13.7 Seconds (11.1-14.7)
[2023-02-02 10:24] LABS: Partial Thromboplastin Time 33.3 SECONDS (22.3-36.8)
[2023-02-02 12:18] LABS: Influenza A QL RT-PCR Negative (Negative); Influenza B QL RT-PCR Negative (Negative); SARS-CoV-2 RNA PCR Negative (Negative)
--- NOTE | 2023-02-02 13:06 | PCRCNOTE ---
RT went to give neb tx but tech and RN was in room to clean up patient. RT will return once finished with clean up for breathing treatment.
[2023-02-02] MEDS: ALBUTEROL SULFATE NEB 2.5 MG/3 ML INH INHALATION ×3 (13:24→19:56)
[2023-02-02] MEDS: IPRATROPIUM BR 0.02% INH SOLN 0.5 MG/2.5 ML VIAL INHALATION ×3 (13:24→19:56)
--- NOTE | 2023-02-02 13:39 | ED.SOB ---
HPI - SOB/Dyspnea General Chief Complaint: Shortness of Breath/Dyspnea Stated Complaint: SOB Time Seen by Provider: 02/02/23 08:25 History of Present Illness HPI Narrative: Patient is an 87-year-old male who presents ER with increased shortness of breath. Associated with cough over the last couple days. EMS arrived patient's O2 sats were in the low 90s. Patient wears 2 L of oxygen at baseline. No chest pain or chest pressure. patient also reports that he has been having diarrhea over the last week. He has tried taking pills slowed down was is not helping. He had been recently admitted to the hospital. He had had complications from prostate metastases in the fall resulting in rib fractures. He has also recently had a thoracentesis. Related Data Home Medications Medication Instructions Recorded Confirmed calcium carbonate 600 mg-vitamin 1 tablet PO BID 06/12/21 01/29/23 D3 5 mcg (200 unit) tablet cholecalciferol (vitamin D3) 25 25 mcg PO DAILY 01/02/22 02/02/23 mcg (1,000 unit) capsule lisinopril 20 1 tablet PO DAILY 07/25/22 02/02/23 mg-hydrochlorothiazide 25 mg tablet cephalexin 500 mg capsule mg 02/02/23 potassium chloride 20 mEq meq PO 02/02/23 tablet,extended release(part/cryst) potassium chloride 20 mEq meq PO 02/02/23 tablet,extended release(part/cryst) Allergies Allergy/AdvReac Type Severity Reaction Status Date / Time No Known Allergies Allergy Mild Verified 02/02/23 08:30 Review of Systems Review of Systems: All systems reviewed & are unremarkable except as noted in HPI and below Constitutional: Constitutional: Denies chills, Reports fatigue and Denies fever(s) ENT: Denies nasal congestion and Denies sore throat Cardiovascular: Cardiovascular: Denies chest pain, Denies rapid heart rate and Denies radiating jaw, neck or arm pain Respiratory: Respiratory: Reports cough, Reports dyspnea and Denies wheezing Gastrointestinal: Gastrointestinal: Denies abdominal pain, Reports diarrhea, Denies nausea and Denies vomiting Genitourinary: Genitourinary: Reports no additional male genitourinary complaints PMFSH Past Medical History Medical History Bone metastases COPD (chronic obstructive pulmonary disease) Dyslipidemia Essential (primary) hypertension Pleural effusion Prostate cancer Rib fracture Splenic laceration Surgical History Surgical History History of bilateral inguinal hernia repair 11/2003 History of prostatectomy 11/2002 Family History Family History (Updated 02/02/23 @ 17:22 by Yas Becker RN) Father Family history of cardiovascular disease Malignant neoplasm of prostate Mother Family history of cardiovascular disease Sibling Acute myocardial infarction Social History Social History Smoking packs per day: 1 Smoking cigarettes per day: 20.0 Years smoked: 60 Smoking pack-years: 60.00 Smoking status: Former smoker Tobacco type: cigarettes Second hand tobacco smoke exposure: Yes Alcohol intake: former Drinks per week: 10 Substance use: never Lack of Transportation: YES Lack of Food: Never True Current Housing: I Have Housing Concerned About Future Housing: No Difficulty Paying Gas/Electric Bills: No Difficulty Paying for Meds: No Currently Unemployed: No Education: High School Diploma/GED Difficulty w/ Childcare or Family Care: No Living arrangements: alone Spiritual care concerns: No Exam Narrative: GENERAL: Frail-appearing, well-nourished, and in no acute distress. HEAD: Normocephalic, atraumatic. ENT: Mucous membranes moist. CHEST: Clear to auscultation. frequent wet coughing, basilar rales. HEART: Regular rate and rhythm. Normal peripheral pulses. ABDOMEN: Soft, nontender, nondistended. EXTREMITIES: Normal range of m
[2023-02-02] MEDS: AZITHROMYCIN 500 MG/NS 250 ML 500 MG/250 ML BAG 250 MG IVPB (14:35)
--- NOTE | 2023-02-02 17:07 | ADMGEN ---
This patient, Yamil Sabillon, was admitted to Medical Room 347-01. Patient/family oriented to hospital policies and general routines including ID bracelet, bed and alarms, visiting hours, pain management, procedures, bathroom and other care routines, personal items, smoking policy, room service/diet, and visiting hours. Information on how to activate the Rapid Response Team has been discussed. Patient/Family are encouraged to report perceived risks to care and to ask questions if they do not understand what they are told or what they should do. Report received from Cleo CARRERO
--- NOTE | 2023-02-02 22:01 | PM.IMHP ---
H&P: HPI History of Present Illness Date/Time: 02/02/23 21:00 Chief Complaint: Shortness of breath. 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 The patient provides the following history. He reports having a rough time the last month. At the end of December he slipped in the bathroom and sustained multiple rib fractures and splenic contusion treated conservatively. He was admitted to this hospital several days after he was discharged from [facility] with shortness of breath and hypoxia for which he was treated for a COPD exacerbation and 5 days of levofloxacin for possible pneumonia. He went to [place] rehab on discharge and he has been at home for nearly 2 weeks. He has been on oxygen since that time. He admits that he is not back to baseline since his a fall last month with generalized weakness and continued dyspnea with exertion. He once again developed a cough the last several days which is occasionally productive of light yellow phlegm. He has become increasingly short of breath with exertion. He also reports having several episodes of diarrhea a day for the past 1 week. He denies fever, chills, sweats, headache, sinus congestion, sore throat, chest pain, pleuritic pain, palpitations, orthopnea, nausea, vomiting, lower extremity edema, and calf pain. His appetite has been okay. He denies dysphagia and concerns for aspiration. He denies abdominal pain. He has not noticed any blood or mucus in the stool. No history of C diff. he lives at home with his brother who does not have similar symptoms. In the ED: He was afebrile on arrival. Blood pressures have been at the lower end of normal. Labs were significant for WBC count of 9.7, hemoglobin 11.3, potassium 3.3, BUN 24, proBNP 298, total protein 5.0, albumin 2.8. He tested negative for influenza and COVID. Chest x-ray showed small right pleural effusion with decrease in size and airspace opacities of the mid and lower lung zones consistent with atelectasis versus pneumonia. He received a nebulizer treatment with improvement in his shortness of breath. He was also started on azithromycin and ceftriaxone for possible pneumonia and he is being admitted in this setting. Review of Systems Review of Systems: Twelve systems were reviewed and are negative except for as per HPI. [facility] Past Medical History Medical History Chronic obstructive pulmonary disease Dyslipidemia Essential (primary) hypertension Prostate cancer metastatic to bone Rib fracture (12/2022) Splenic laceration (12/2022) Surgical History Surgical History History of bilateral inguinal hernia repair (11/2003) History of cataract extraction History of prostatectomy (11/2002) Family History Family History Father Family history of cardiovascular disease Malignant neoplasm of prostate Mother Family history of cardiovascular disease Sibling Acute myocardial infarction Social History Social History Social History: Surrogate medical decision maker: Hakeem Sabillon, brother. Code status: Full code. Smoking packs per day: 1 Smoking cigarettes per day: 20.0 Years smoked: 60 Smoking pack-years: 60.00 Smoking status: Former smoker Tobacco type: cigarettes Second hand tobacco smoke exposure: Yes Alcohol intake: former Drinks per week: 10 Substance use: never Lack of Transportation: YES Lack of Food: Never True Current Housing: I Have Housing Concerned About Future Housing: No Difficulty Paying Gas/Electric Bills: No Diff
[2023-02-03] VITALS (14 sets, daily range): BP systolic 97–120; BP diastolic 52–71; PULSE 77–92; RESP 18–20; TEMP 36.4–36.8; O2SAT 90–100
[2023-02-03] MEDS: POTASSIUM CHLORIDE 20 MEQ ER TABLET PO (00:50)
[2023-02-03] MEDS: ALBUTEROL SULFATE NEB 2.5 MG/3 ML INH INHALATION ×4 (02:36→20:15)
[2023-02-03] MEDS: IPRATROPIUM BR 0.02% INH SOLN 0.5 MG/2.5 ML VIAL INHALATION ×4 (02:37→20:15)
[2023-02-03 05:57] LABS: Hematocrit 34.2 % (42.0-52.0); Hemoglobin 10.8 g/dL (14.0-18.0); Mean Corpuscular HGB Conc 31.6 g/dl (32-36); Mean Platelet Volume 8.7 fl (7.4-10.4); Platelet Count Result 213 k/mm3 (150-375); White Blood Count 9.3 K/mm3 (4.5-10.0)
[2023-02-03 06:08] LABS: Anion Gap 3 mmol/L (8-16); Blood Urea Nitrogen 28 mg/dL (9-20); Carbon Dioxide 27 mmol/L (22-30); Chloride 106 mmol/L (98-107); Estimated CRCL calculation 35 ml/min; Estimated Glomerular Filt Rate > 60; Glucose 114 mg/dL (65-110); Magnesium 2.4 mg/dL (1.6-2.3); Potassium 3.4 mmol/L (3.4-5.0); Sodium 136 mmol/L (137-145)
[2023-02-03] MEDS: guaiFENesin 12 HR 600 MG TABCR PO ×2 (08:51→21:23)
--- NOTE | 2023-02-03 09:36 | PM.IMPN ---
Progress Note: A&P Assessment and Plan (1) Shortness of breath: Code(s): R06.02 - Shortness of breath Status: Acute (2) Chronic obstructive pulmonary disease: Code(s): J44.9 - Chronic obstructive pulmonary disease, unspecified Status: Acute (3) Abnormal chest x-ray: Code(s): R93.89 - Abnormal findings on diagnostic imaging of other specified body structures Status: Acute (4) Diarrhea: Code(s): R19.7 - Diarrhea, unspecified Status: Acute Assessment and Plan: Patient reports several loose stools the last 2 days. Abdominal exam is benign. (5) Hypokalemia: Code(s): E87.6 - Hypokalemia Status: Acute (6) Protein calorie malnutrition: Code(s): E46 - Unspecified protein-calorie malnutrition Status: Acute (7) Prostate cancer metastatic to bone: Code(s): C61 - Malignant neoplasm of prostate; C79.51 - Secondary malignant neoplasm of bone Status: Acute (8) Essential (primary) hypertension: Code(s): I10 - Essential (primary) hypertension Status: Acute (9) C. difficile colitis: Code(s): A04.72 - Enterocolitis due to Clostridium difficile, not specified as recurrent Status: Acute Plan Assessment and plan (1) Shortness of breath: ?Code(s): R06.02 - Shortness of breath ?Status:?Acute ?Assessment and Plan: Suspecting COPD exacerbation and pneumonia admitted to the hospital a little less than 4 weeks ago with similar complaints at which time he was treated for suspected COPD exacerbation and pneumonia. Chest x-ray shows possible atelectasis versus pneumonia. volume overload seems unlikely. PE seems unlikely as well. O2 therapy as needed (2) Chronic obstructive pulmonary disease: ?Code(s): J44.9 - Chronic obstructive pulmonary disease, unspecified ?Status:?Acute ?Assessment and Plan: Patient quit smoking last month following his hospitalization. No bronchospasm noted on exam today. Continue scheduled bronchodilators as patient reports subjective improvement with that. No indication for steroids at this time. He was negative for influenza and COVID. (3) Abnormal chest x-ray: ?Code(s): R93.89 - Abnormal findings on diagnostic imaging of other specified body structures ?Status:?Acute ?Assessment and Plan: Chest x-ray today shows a small right pleural effusion with interval decrease in size and airspace opacities of the mid and lower lung zones consistent with atelectasis versus pneumonia. Continue azithromycin and ceftriaxone for now, pending sputum culture. Check Legionella and pneumococcal antigens, pending mycoplasma IgM Continue scheduled bronchodilators. Encourage incentive spirometry. (4) Diarrhea: ?Code(s): R19.7 - Diarrhea, unspecified ?Status:?Acute ?Assessment and Plan: Patient reports several loose stools the last 2 days. Abdominal exam is benign. Positive c diff Started vancomycin 125 mg q.6 hours p.o. Continue probiotics. Send stool for culture. Pending Stop Imodium (5) Hypokalemia: ?Code(s): E87.6 - Hypokalemia ?Status:?Acute ?Assessment and Plan: Potassium will be replaced and monitored. (6) Protein calorie malnutrition: ?Code(s): E46 - Unspecified protein-calorie malnutrition ?Status:?Acute ?Assessment and Plan: Total protein is 5.0, albumin 2.8. Dietitian consulted for recommendations. (7) Prostate cancer metastatic to bone: ?Code(s): C61 - Malignant neoplasm of prostate; C79.51 - Secondary malignant neoplasm of bone ?Status:?Acute ?Assessment and Plan: Widespread sclerotic osseous metastases noted on chest x-ray. Analgesics available as needed. (8) Essential (primary) hypertension: ?Code(s): I10 - Essential (primary) hypertension ?Status:?Acute ?Assessment and Plan: Blood pressures have been in the low end of normal. Hold (and possibly d
[2023-02-03] MEDS: AZITHROMYCIN 500 MG/NS 250 ML 500 MG/250 ML BAG 250 MG IVPB (09:45)
[2023-02-03 10:37] LABS: Toxigenic C. Diff POSITIVE (NEGATIVE)
[2023-02-03] MEDS: SODIUM CHLORIDE 0.9% IV 1,000 ML 75 ML IV CONT ×2 (11:17→21:23)
[2023-02-03] MEDS: VANCOMYCIN ORAL 125 MG/2.5 ML SYRUP PO ×2 (13:22→17:54)
[2023-02-04] VITALS (12 sets, daily range): BP systolic 96–141; BP diastolic 60–65; PULSE 75–82; RESP 16–20; TEMP 36.4–37.2; O2SAT 93–97; BMI 20.3
[2023-02-04] MEDS: VANCOMYCIN ORAL 125 MG/2.5 ML SYRUP PO ×5 (00:32→23:36)
[2023-02-04] MEDS: ALBUTEROL SULFATE NEB 2.5 MG/3 ML INH INHALATION ×4 (02:30→20:00)
[2023-02-04] MEDS: IPRATROPIUM BR 0.02% INH SOLN 0.5 MG/2.5 ML VIAL INHALATION ×4 (02:30→20:00)
[2023-02-04] MEDS: guaiFENesin 12 HR 600 MG TABCR PO ×2 (09:01→20:54)
[2023-02-04] MEDS: AZITHROMYCIN 500 MG/NS 250 ML 500 MG/250 ML BAG 250 MG IVPB (09:02)
--- NOTE | 2023-02-04 10:14 | PM.IMPN ---
Progress Note: A&P Assessment and Plan (1) Shortness of breath: Code(s): R06.02 - Shortness of breath Status: Acute (2) Chronic obstructive pulmonary disease: Code(s): J44.9 - Chronic obstructive pulmonary disease, unspecified Status: Acute (3) Abnormal chest x-ray: Code(s): R93.89 - Abnormal findings on diagnostic imaging of other specified body structures Status: Acute (4) Diarrhea: Code(s): R19.7 - Diarrhea, unspecified Status: Acute Assessment and Plan: Patient reports several loose stools the last 2 days. Abdominal exam is benign. (5) Hypokalemia: Code(s): E87.6 - Hypokalemia Status: Acute (6) Protein calorie malnutrition: Code(s): E46 - Unspecified protein-calorie malnutrition Status: Acute (7) Prostate cancer metastatic to bone: Code(s): C61 - Malignant neoplasm of prostate; C79.51 - Secondary malignant neoplasm of bone Status: Acute (8) Essential (primary) hypertension: Code(s): I10 - Essential (primary) hypertension Status: Acute (9) C. difficile colitis: Code(s): A04.72 - Enterocolitis due to Clostridium difficile, not specified as recurrent Status: Acute (10) Abscess of left elbow: Code(s): L02.414 - Cutaneous abscess of left upper limb Status: Acute Plan Assessment and plan (1) Shortness of breath: ?Code(s): R06.02 - Shortness of breath ?Status:?Acute ?Assessment and Plan: Suspecting COPD exacerbation and pneumonia admitted to the hospital a little less than 4 weeks ago with similar complaints at which time he was treated for suspected COPD exacerbation and pneumonia. Chest x-ray shows possible atelectasis versus pneumonia. volume overload seems unlikely. PE seems unlikely as well. O2 therapy as needed (2) Chronic obstructive pulmonary disease: ?Code(s): J44.9 - Chronic obstructive pulmonary disease, unspecified ?Status:?Acute ?Assessment and Plan: Patient quit smoking last month following his hospitalization. No bronchospasm noted on exam today. Continue scheduled bronchodilators as patient reports subjective improvement with that. No indication for steroids at this time. He was negative for influenza and COVID. (3) Abnormal chest x-ray: ?Code(s): R93.89 - Abnormal findings on diagnostic imaging of other specified body structures ?Status:?Acute ?Assessment and Plan: Chest x-ray today shows a small right pleural effusion with interval decrease in size and airspace opacities of the mid and lower lung zones consistent with atelectasis versus pneumonia. Continue azithromycin and ceftriaxone for now, pending sputum culture. Check Legionella and pneumococcal antigens, pending mycoplasma IgM Continue scheduled bronchodilators. Encourage incentive spirometry. (4) Diarrhea: ?Code(s): R19.7 - Diarrhea, unspecified ?Status:?Acute ?Assessment and Plan: Patient reports several loose stools the last 2 days. Abdominal exam is benign. Positive c diff Started vancomycin 125 mg q.6 hours p.o. Continue probiotics. Send stool for culture. Pending Stop Imodium (5) Hypokalemia: ?Code(s): E87.6 - Hypokalemia ?Status:?Acute ?Assessment and Plan: Potassium will be replaced and monitored. (6) Protein calorie malnutrition: ?Code(s): E46 - Unspecified protein-calorie malnutrition ?Status:?Acute ?Assessment and Plan: Total protein is 5.0, albumin 2.8. Dietitian consulted for recommendations. (7) Prostate cancer metastatic to bone: ?Code(s): C61 - Malignant neoplasm of prostate; C79.51 - Secondary malignant neoplasm of bone ?Status:?Acute ?Assessment and Plan: Widespread sclerotic osseous metastases noted on chest x-ray. Analgesics available as needed. (8) Essential (primary) hypertension: ?Code(s): I10 - Essential (primary) hypertension ?S
[2023-02-04 10:29] LABS: Hematocrit 34.1 % (42.0-52.0); Hemoglobin 10.4 g/dL (14.0-18.0); Mean Corpuscular HGB Conc 30.5 g/dl (32-36); Mean Corpuscular Hemoglobin 29.8 pg (26-34); Mean Corpuscular Volume 97.7 fl (80-100); Mean Platelet Volume 8.8 fl (7.4-10.4); Platelet Count Result 195 k/mm3 (150-375); Red Blood Count 3.49 M/mm3 (4.6-6.20); Red Cell Distribution Width 14.9 % (11.5-14.5); White Blood Count 7.3 K/mm3 (4.5-10.0)
[2023-02-04 10:45] LABS: Anion Gap 8 mmol/L (8-16); Blood Urea Nitrogen 21 mg/dL (9-20); Calcium 6.3 mg/dL (8.4-10.2); Carbon Dioxide 23 mmol/L (22-30); Chloride 109 mmol/L (98-107); Estimated CRCL calculation 44 ml/min; Estimated Glomerular Filt Rate > 60; Glucose 129 mg/dL (65-110); Sodium 140 mmol/L (137-145)
[2023-02-04] MEDS: SODIUM CHLORIDE 0.9% IV 1,000 ML 75 ML IV CONT ×2 (11:37→20:53)
[2023-02-04 23:16] LABS: Magnesium 2.4 mg/dL (1.6-2.3); Phosphorus 2.6 mg/dL (2.5-4.5)
[2023-02-05] VITALS (15 sets, daily range): BP systolic 115–138; BP diastolic 71–78; PULSE 79–94; RESP 18–24; TEMP 36.2–36.7; O2SAT 93–99
[2023-02-05] MEDS: ALBUTEROL SULFATE NEB 2.5 MG/3 ML INH INHALATION ×5 (01:49→22:27)
[2023-02-05] MEDS: IPRATROPIUM BR 0.02% INH SOLN 0.5 MG/2.5 ML VIAL INHALATION ×4 (01:50→20:03)
[2023-02-05] MEDS: VANCOMYCIN ORAL 125 MG/2.5 ML SYRUP PO ×4 (05:31→23:40)
[2023-02-05 06:29] LABS: Anion Gap 3 mmol/L (8-16); Blood Urea Nitrogen 16 mg/dL (9-20); Calcium 6.3 mg/dL (8.4-10.2); Carbon Dioxide 24 mmol/L (22-30); Chloride 109 mmol/L (98-107); Estimated CRCL calculation 51 ml/min; Estimated Glomerular Filt Rate > 60; Glucose 97 mg/dL (65-110); Magnesium 2.3 mg/dL (1.6-2.3); Phosphorus 2.3 mg/dL (2.5-4.5); Potassium 3.7 mmol/L (3.4-5.0); Sodium 136 mmol/L (137-145)
--- NOTE | 2023-02-05 08:17 | PM.CNOR ---
Assessment and Plan Assessment and plan (1) Olecranon bursitis of left elbow: Code(s): M70.22 - Olecranon bursitis, left elbow Status: Acute Assessment and Plan: New patient evaluation for chief complaint left elbow drainage. No evidence of infection. History, physical exam and radiographs reviewed with the patient. Discussed the condition, nature, etiology and course of natural history with the patient. Treatment options including surgical and nonoperative treatment were reviewed. Risks and benefits of each as well as alternatives reviewed. The patient's questions were answered. Conservative treatment ice, compression and elevation. Continue wound care. Will follow. (2) Ulcer of elbow with fat layer exposed: Code(s): L98.492 - Non-pressure chronic ulcer of skin of other sites with fat layer exposed Status: Acute History of Present Illness HPI Consult date: 02/05/23 Requesting physician: Adama Hernandez MD Chief complaint: Pneumonia/Diarrhea Narrative: 87-year-old 3 weeks of drainage from the posterior left elbow. Patient not sure if he fell or hit the elbow. Has been on oral antibiotics and dressings. Continues to have drainage. No pain. Denies numbness or tingling. Patient is [id number]. Review of Systems Constitutional: Constitutional: Denies fever(s) Eyes: Eyes: Denies blurry vision ENT: Reports Normal hearing present Cardiovascular: Cardiovascular: Denies chest pain and Denies dyspnea Respiratory: Respiratory: Denies dyspnea and Denies wheezing Gastrointestinal: Gastrointestinal: Denies abdominal pain Genitourinary: Genitourinary: Denies urinary urgency Musculoskeletal: Musculoskeletal: Reports as per HPI and Denies numbness Integumentary/Breasts: Skin/Breast: Denies changing lesions and Denies sores Neurologic: Reports Normal hearing present, Denies behavioral changes, Denies confusion, Denies numbness and Denies convulsions Psychiatric: Psychiatric: Denies behavioral changes, Denies confusion and Denies hallucinations Endocrine: Endocrine: Denies heat intolerance Hematologic/Lymphatic: Hematologic/Lymphatic: Denies easy bleeding Allergic/Immunologic: Allergic/Immunologic: Denies wheezing PMFSH Past Medical History Medical History (Updated 02/05/23 @ 08:23 by Rajan Maurer MD) Chronic obstructive pulmonary disease Dyslipidemia Essential (primary) hypertension Olecranon bursitis of left elbow Prostate cancer metastatic to bone Rib fracture (12/2022) Splenic laceration (12/2022) Ulcer of elbow with fat layer exposed Surgical History Surgical History History of bilateral inguinal hernia repair (11/2003) History of cataract extraction History of prostatectomy (11/2002) Family History Family History Father Family history of cardiovascular disease Malignant neoplasm of prostate Mother Family history of cardiovascular disease Sibling Acute myocardial infarction Social History Social History Social History: Surrogate medical decision maker: Hakeem Snydercharlinesiva, brother. Code status: Full code. Smoking packs per day: 1 Smoking cigarettes per day: 20.0 Years smoked: 60 Smoking pack-years: 60.00 Smoking status: Former smoker Tobacco type: cigarettes Second hand tobacco smoke exposure: Yes Alcohol intake: former Drinks per week: 10 Substance use: never Lack of Transportation: YES Lack of Food: Never True Current Housing: I Have Housing Concerned About Future Housing: No Difficulty Paying Gas/Electric Bills: No Difficulty Paying for Meds: No Currently Unemployed: No Education: High School Diploma/GED Difficulty w/ Childcare or Family Care: No Living arrangements: alone Spiritual care concerns: No Meds Home Medicat
--- NOTE | 2023-02-05 08:47 | PCPTNOTE ---
Attempted to see patient for PT, however patient reported he wanted to eat breakfast before working with PT. Patient declined at this time, patient waiting on breakfast.
[2023-02-05] MEDS: guaiFENesin 12 HR 600 MG TABCR PO ×2 (08:51→20:28)
[2023-02-05] MEDS: AZITHROMYCIN 500 MG/NS 250 ML 500 MG/250 ML BAG 250 MG IVPB (08:51)
[2023-02-05] MEDS: CHOLECALCIFEROL 1,000 UNITS TABLET 1000 UNITS PO (08:51)
[2023-02-05] MEDS: POTASSIUM/PHOSPHORUS/SODIUM 1.5 GM PACKET 1 PACKET PO (08:51)
[2023-02-05] MEDS: LORATADINE 10 MG TABLET PO (08:57)
--- NOTE | 2023-02-05 12:37 | PM.IMPN ---
Progress Note: A&P Assessment and Plan (1) Shortness of breath: Code(s): R06.02 - Shortness of breath Status: Acute (2) Chronic obstructive pulmonary disease: Code(s): J44.9 - Chronic obstructive pulmonary disease, unspecified Status: Acute (3) Abnormal chest x-ray: Code(s): R93.89 - Abnormal findings on diagnostic imaging of other specified body structures Status: Acute (4) Diarrhea: Code(s): R19.7 - Diarrhea, unspecified Status: Acute Assessment and Plan: Patient reports several loose stools the last 2 days. Abdominal exam is benign. (5) Hypokalemia: Code(s): E87.6 - Hypokalemia Status: Acute (6) Protein calorie malnutrition: Code(s): E46 - Unspecified protein-calorie malnutrition Status: Acute (7) Prostate cancer metastatic to bone: Code(s): C61 - Malignant neoplasm of prostate; C79.51 - Secondary malignant neoplasm of bone Status: Acute (8) Essential (primary) hypertension: Code(s): I10 - Essential (primary) hypertension Status: Acute (9) C. difficile colitis: Code(s): A04.72 - Enterocolitis due to Clostridium difficile, not specified as recurrent Status: Acute (10) Abscess of left elbow: Code(s): L02.414 - Cutaneous abscess of left upper limb Status: Acute Plan Assessment and plan (1) Shortness of breath: ?Code(s): R06.02 - Shortness of breath ?Status:?Acute ?Assessment and Plan: Suspecting COPD exacerbation and pneumonia admitted to the hospital a little less than 4 weeks ago with similar complaints at which time he was treated for suspected COPD exacerbation and pneumonia. Chest x-ray shows possible atelectasis versus pneumonia. volume overload seems unlikely. PE seems unlikely as well. O2 therapy as needed 02/05: Patient now sounds like he may have some mild fluid overload. IV fluids discontinued. (2) Chronic obstructive pulmonary disease: ?Code(s): J44.9 - Chronic obstructive pulmonary disease, unspecified ?Status:?Acute ?Assessment and Plan: Patient quit smoking last month following his hospitalization. No bronchospasm noted on exam today. Continue scheduled bronchodilators as patient reports subjective improvement with that. No indication for steroids at this time. He was negative for influenza and COVID. 02/05: Stenotrophomonas maltophilia noted on respiratory sputum culture (3) Abnormal chest x-ray: ?Code(s): R93.89 - Abnormal findings on diagnostic imaging of other specified body structures ?Status:?Acute ?Assessment and Plan: Chest x-ray today shows a small right pleural effusion with interval decrease in size and airspace opacities of the mid and lower lung zones consistent with atelectasis versus pneumonia. Continue azithromycin and ceftriaxone for now, pending sputum culture. Check Legionella and pneumococcal antigens, pending mycoplasma IgM Continue scheduled bronchodilators. Encourage incentive spirometry. 02/05: Stenotrophomonas maltophilia noted on respiratory sputum culture (4) Diarrhea: ?Code(s): R19.7 - Diarrhea, unspecified ?Status:?Acute ?Assessment and Plan: Patient reports several loose stools the last 2 days. Abdominal exam is benign. Positive c diff Started oral vancomycin 125 mg q.6 hours p.o. Continue probiotics. Send stool for culture. Pending Stop Imodium (5) Hypokalemia: ?Code(s): E87.6 - Hypokalemia ?Status:?Acute ?Assessment and Plan: Potassium will be replaced and monitored. (6) Protein calorie malnutrition: ?Code(s): E46 - Unspecified protein-calorie malnutrition ?Status:?Acute ?Assessment and Plan: Total protein is 5.0, albumin 2.8. Dietitian consulted for recommendations. (7) Prostate cancer metastatic to bone: ?Code(s): C61 - Malignant neoplasm of prostate; C79.51 - Secondary malignant neoplasm of ammy
[2023-02-05 16:52] LABS: Mycoplasma IgM Antibody Titer 140 U/mL (<770)
[2023-02-05] MEDS: SULFAMETHOXAZOLE/TRIMETHOPRIM 800/160 MG DS TABLET 2 TAB PO ×2 (17:08→23:40)
[2023-02-05 18:02] LABS: MRSA (PCR) NOT DETECTED (NOT DETECTE)
[2023-02-06] VITALS (16 sets, daily range): BP systolic 111–131; BP diastolic 56–69; PULSE 58–104; RESP 14–40; TEMP 36.3–36.6; O2SAT 85–100
[2023-02-06] MEDS: ALBUTEROL SULFATE NEB 2.5 MG/3 ML INH INHALATION ×6 (01:13→23:25)
[2023-02-06] MEDS: IPRATROPIUM BR 0.02% INH SOLN 0.5 MG/2.5 ML VIAL INHALATION ×6 (01:13→23:25)
[2023-02-06 05:46] LABS: Basophils Absolute Auto 0.1 K/mm3 (0.0-0.1); Basophils Percent Auto 0.7 % (0.2-1.2); Eosinophils Absolute Auto 0.1 K/mm3 (0-0.3); Eosinophils Percent Auto 1.9 % (0-4.4); Hemoglobin 9.7 g/dL (14.0-18.0); Immature Granulocyte Absolute 0.06 K/mm3 (0.00-0.031); Immature Granulocyte Percent A 0.9 % (0-0.5); Lymphocytes Absolute Auto 0.69 K/mm3 (0.9-3.2); Lymphocytes Percent Auto 9.9 % (18.3-44.2); Mean Corpuscular HGB Conc 31.3 g/dl (32-36); Mean Corpuscular Hemoglobin 29.8 pg (26-34); Mean Corpuscular Volume 95.4 fl (80-100); Monocytes Absolute Auto 0.4 K/mm3 (0.1-0.6); Monocytes Percent Auto 6.2 % (2.6-8.5); Neutrophils Absolute Auto 5.6 K/mm3 (1.3-6.7); Neutrophils Percent Auto 80.4 % (45.5-73.1); Platelet Count Result 189 k/mm3 (150-375); Red Blood Count 3.25 M/mm3 (4.6-6.20); Red Cell Distribution Width 14.8 % (11.5-14.5)
[2023-02-06] MEDS: VANCOMYCIN ORAL 125 MG/2.5 ML SYRUP PO ×4 (06:04→23:09)
[2023-02-06 06:06] LABS: Anion Gap 4 mmol/L (8-16); Blood Urea Nitrogen 15 mg/dL (9-20); Calcium 6.4 mg/dL (8.4-10.2); Carbon Dioxide 25 mmol/L (22-30); Chloride 112 mmol/L (98-107); Estimated CRCL calculation 46 ml/min; Estimated Glomerular Filt Rate > 60; Glucose 93 mg/dL (65-110); Magnesium 2.3 mg/dL (1.6-2.3); Phosphorus 2.6 mg/dL (2.5-4.5); Potassium 3.9 mmol/L (3.4-5.0); Sodium 141 mmol/L (137-145)
[2023-02-06] MEDS: SULFAMETHOXAZOLE/TRIMETHOPRIM 800/160 MG DS TABLET 2 TAB PO ×2 (09:24→20:46)
[2023-02-06] MEDS: LORATADINE 10 MG TABLET PO (09:25)
[2023-02-06] MEDS: AZITHROMYCIN 500 MG/NS 250 ML 500 MG/250 ML BAG 250 MG IVPB (09:25)
[2023-02-06] MEDS: CHOLECALCIFEROL 1,000 UNITS TABLET 1000 UNITS PO (09:25)
[2023-02-06] MEDS: guaiFENesin 12 HR 600 MG TABCR PO ×2 (09:25→20:46)
--- NOTE | 2023-02-06 10:31 | PM.DS ---
DS: Admitting Diagnosis Discharge Date 01/22/23 Admitting Diagnosis acute respiratory failure? in the setting of COPD DS: Summary Hospital Course Hospital Course: Subjective Date/time seen: 01/18/23? 11:20 Interval history: The patient is a? this 87-year-old male with past medical history of bone metastasis, COPD, dyslipidemia, hypertension, pleural effusion, prostate cancer, history of splenic laceration who presented to [facility] after recent fall at home.? Patient had a subsequent splenic bruise.? He had abrupt shunt sudden shortness of breath.? [facility] had [facility] after being monitored in ICU for rib fracture and spleen issue.? He had a thoracentesis of the right-sided that time.? Patient was readmitted on 01/06/2023 with acute hypoxic respiratory failure.? CTA of the chest showed no pulmonary embolism.? Patient is found have pneumonia.? Patient was treated with IV meropenem and vancomycin.? He was eventually transitioned to oral antibiotics.? Pulmonology was consulted.? Patient was placed on Levaquin until 01/12/2023.? Oxygen inhalers were adjusted.? Patient worked with physical therapy and occupational therapy.? Acute inpatient rehab was recommended of note, patient was actually discharged to SNF.? But then changed his mind and wanted to go to rehab. 01/14 Patient was seen and evaluated today Vital signs reviewed with episode of orthostatic hypotension today Instructed Nursing to hold Blood pressure medication today Discontinued Hydrochlorothiazide with episode of desaturation today during activity Started on Albuterol/ipatropium 3 ml inhalation Q6H will continue to monitor blood pressure and oxygen status 01/15 Patient was seen and evaluated today Claimed that he slept well last night and is eating okay No shortness of breath, chest pain, or palpitations Vital signs reviewed and are stable Labs reviewed No acute issue overnight 01/16 Patient was seen and evaluated today Claimed that he slept well last night and is eating okay Breathing is better than the past few days as per patient Vital signs reviewed and are stable Labs reviewed Instructed nursing to monitor oxygen at rest and during activity. Wean from oxygen if appropriate. Continue medical care 01/17 Patient was seen and evaluated today Claimed that he slept well last night and is eating okay Vital signs reviewed and are stable Labs reviewed No acute issue overnight 01/18 Patient was seen and evaluated today No shortness of breath, chest pain , or palpitations Vital signs reviewed and are stable Labs reviewed Continue medical care 01/19/23 Patient was seen and examined. No acute findings overnight. Tolerating therapy Increased O2 demand to 4L . will obtain CXR. 01/20: Seen this morning. CXR revealed pulmonary congestion and possible atypical pneumonia vs atelectasis gave him a dose of 40mg of oral lasix and started him on azitromycin 500mg daily for 3 days Significant improvement noted. He is saturating at 89-90% on room air at rest and he is requiring 2L with activity Will give an other dose of 40 IV lasix today and will continue azithromycin. He reports persistent weakness. Will continue therapy. 01/21 Patient was seen and evaluated today No shortness of breath, chest pain , or palpitations Vital signs reviewed and are stable Labs reviewed requiring 2L of oxygen only today Ordered 1 dose of Lasix 20 mg PO For repeat CBC, CMP in am Review of Systems Review of Systems:?? All systems reviewed & are unremarkable except as noted in HPI and below Exam Narrative:?? General:? Alert, awake, cooperative HEENT: Atraumatic, normocephalic Cardiac: Regular rate rhythm, no murmurs auscultated Pulmonary:? Clear to auscultation bilaterally, no rhonchi no wheezing no rales Abdomen:? Soft, nontender, bowel sounds present Neurologic:? Alert, awake, answering questions, Extremities:? left elbow wound, dressing clean dry and intact ? Co
--- NOTE | 2023-02-06 10:41 | PM.IMPN ---
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 The patient provides the following history. He reports having a rough time the last month. At the end of December he slipped in the bathroom and sustained multiple rib fractures and splenic contusion treated conservatively. He was admitted to this hospital several days after he was discharged from [facility] with shortness of breath and hypoxia for which he was treated for a COPD exacerbation and 5 days of levofloxacin for possible pneumonia. He went to [facility] on discharge and he has been at home for nearly 2 weeks. He has been on oxygen since that time. He admits that he is not back to baseline since his a fall last month with generalized weakness and continued dyspnea with exertion. He once again developed a cough the last several days which is occasionally productive of light yellow phlegm. He has become increasingly short of breath with exertion. He also reports having several episodes of diarrhea a day for the past 1 week. He denies fever, chills, sweats, headache, sinus congestion, sore throat, chest pain, pleuritic pain, palpitations, orthopnea, nausea, vomiting, lower extremity edema, and calf pain. His appetite has been okay. He denies dysphagia and concerns for aspiration. He denies abdominal pain. He has not noticed any blood or mucus in the stool. No history of C diff. he lives at home with his brother who does not have similar symptoms. 02/03 Patient still has diarrhea, had 4 bowel movement morning, watery, without blood.? Patient denied abdomen pain, nausea vomiting.? Also denied shortness of breath at rest.? 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 Patient denies nausea vomiting abdomen pain.? Patient notice had tip drainage from left elbow today 02/05 Respiratory culture returns with heavy growth of?Stenotrophomonas maltophilia.? Noted that IV fluids are still running patient has crackles throughout.? Will discontinue IV fluids.? Awaiting culture and sensitivity for Stenotrophomonas maltophilia, continue current antibiotics until then.? Patient was evaluated by Orthopedics and the olecranon bursitis does not appear infected, continue wound care. 02/06: Patient is seen today resting in bed and appears unwell. He states that he feels terrible. He is concerned because he was having diarrhea and now he is not. He also states that he is having increased shortness of breath and anxiety. He does report a productive cough but he is unsure of the color of his sputum. Overnight he had increasing her oxygen requirements up to 5 L. today chest x-ray shows worsened airspace opacities in the mid and lower lung zones as well as small worsening pleural effusions. IV fluids were stopped yesterday. Will diurese with IV Lasix today. His lungs have audible expiratory wheeze throughout. Will add IV steroids Q 6 and repeat viral panel. Increase nebulizers from Q 4 to Q 6. I also called and spoke with Dr. Aggarwal, cafe team member who recommended proceeding with D-dimer high, but procalcitonin cover and BNP. D-dimer was elevated at 4.26 therefore will proceed with CTA for PE protocol. Pulmonology will see the patient tomorrow. I called and updated patient's brother, Hakeem on plan of care who is agreeable. Review of Systems Review of Systems: All systems reviewed & are unremarkable except as noted in HPI and below Objective Data Vital Signs Vital Signs: Vital Signs - 24 hr 02/05/23 14:08 02/05/23 14:19 02/05/23 15:35 Temperature 98.1 F Pulse Rate 84 86 88 Respiratory Rate 18 18 18 Blood Pressure 115/78 Pulse Oximetry 95 Oxyg
[2023-02-06 14:48] LABS: Influenza A QL RT-PCR Negative (Negative); Influenza B QL RT-PCR Negative (Negative); RSV RNA, RT-PCR Negative (Negative); SARS-CoV-2 RNA PCR Negative (Negative)
[2023-02-06 15:17] LABS: NT Pro B Type Natriuretic Pept 475 pg/mL (19.9-100)
[2023-02-06 15:19] LABS: D Dimer 4.29 ug/mL (<0.48)
[2023-02-06 15:58] LABS: Procalcitonin 0.1 ng/mL
--- NOTE | 2023-02-06 16:24 | PM.IMPN ---
Progress Note: A&P Assessment and Plan (1) Shortness of breath: Code(s): R06.02 - Shortness of breath Status: Acute Assessment and Plan: Suspecting COPD exacerbation and pneumonia ?admitted to the hospital a little less than 4 weeks ago with similar complaints at which time he was treated for suspected COPD exacerbation and pneumonia. ?Chest x-ray shows possible atelectasis versus pneumonia. ?volume overload seems unlikely. PE seems unlikely as well. O2 therapy as needed 02/05:? Patient now sounds like he may have some mild fluid overload.? IV fluids discontinued. 02/06: Had increased oxygen requirements overnight up to 5 L NC. Expiratory wheezing throughout with some crackles. Repeat chest Xray shows worsened small pleural effusions and worsened airspace opacities in the mid and lower lung zones. D-dimer elevated, CTA ordered and PE negative. Will start on solu-medrol 40 mg IVP Q 6 hours and increase nebulizers to Q 4 hours, also will give IV lasix for pleural effusions. I discussed case with Dr Aggarwal with pulmonology who provided recommendations and will formally see the patient in the morning. Will add on procalcitonin and BNP as well. Repeating respiratory viral swab. (2) Chronic obstructive pulmonary disease: Code(s): J44.9 - Chronic obstructive pulmonary disease, unspecified Status: Acute Assessment and Plan: Patient quit smoking last month following his hospitalization. No bronchospasm noted on exam today. Continue scheduled bronchodilators as patient reports subjective improvement with that. No indication for steroids at this time. He was negative for influenza and COVID.02/05:??Stenotrophomonas maltophilia noted on respiratory sputum culture 02/06-Now with expiratory wheezing. Add on IV solu-medrol Q 6 hours. (3) Abnormal chest x-ray: Code(s): R93.89 - Abnormal findings on diagnostic imaging of other specified body structures Status: Acute Assessment and Plan: Chest x-ray today shows a small right pleural effusion with interval decrease in size and airspace opacities of the mid and lower lung zones consistent with atelectasis versus pneumonia. Continue azithromycin and ceftriaxone for now, pending sputum culture. Check Legionella and pneumococcal antigens, pending mycoplasma IgM Continue scheduled bronchodilators. Encourage incentive spirometry.02/05:??Stenotrophomonas maltophilia noted on respiratory sputum culture 02/06: On Bactrim for Stenotrophomonas maltophilia. WBC normal. Afebrile. (4) Diarrhea: Code(s): R19.7 - Diarrhea, unspecified Status: Acute Assessment and Plan: Patient reports several loose stools the last 2 days. Abdominal exam is benign. Positive c diff Started oral vancomycin 125 mg q.6 hours p.o. Continue probiotics. Send stool for culture.? Pending Stop Imodium (5) Hypokalemia: Code(s): E87.6 - Hypokalemia Status: Acute Assessment and Plan: Potassium will be replaced and monitored. 02/06: Lytes reviewed today and are normal. (6) Protein calorie malnutrition: Code(s): E46 - Unspecified protein-calorie malnutrition Status: Acute Assessment and Plan: Total protein is 5.0, albumin 2.8. Dietitian consulted for recommendations. 02/06: Poor intake. Likely 2/2 current infections. (7) Prostate cancer metastatic to bone: Code(s): C61 - Malignant neoplasm of prostate; C79.51 - Secondary malignant neoplasm of bone Status: Acute Assessment and Plan: Widespread sclerotic osseous metastases noted on chest x-ray. Analgesics available as needed. (8) Essential (primary) hypertension: Code(s): I10 - Essential (primary) hypertension Status: Acute Assessment and Plan: Blood pressures have been in the low end of normal. Hold (and possibly discontinue) antihypertensives. (9) C. difficile colitis: Code(s): A04.72 - Enterocolitis due to Clostridium difficile, not
[2023-02-06] MEDS: FUROSEMIDE INJ 40 MG/4 ML VIAL IV PUSH (17:09)
[2023-02-06] MEDS: hydrOXYzine HCL 25 MG TABLET PO (17:09)
[2023-02-06] MEDS: methylPREDNISolone SOD SUCC 40 MG VIAL IV PUSH ×2 (17:10→23:09)
[2023-02-07] VITALS (19 sets, daily range): BP systolic 108–135; BP diastolic 47–64; PULSE 57–98; RESP 15–22; TEMP 36.5–37.1; O2SAT 90–95
[2023-02-07] MEDS: ALBUTEROL SULFATE NEB 2.5 MG/3 ML INH INHALATION ×6 (03:53→23:49)
[2023-02-07] MEDS: IPRATROPIUM BR 0.02% INH SOLN 0.5 MG/2.5 ML VIAL INHALATION ×6 (03:53→23:49)
[2023-02-07] MEDS: methylPREDNISolone SOD SUCC 40 MG VIAL IV PUSH (05:22)
[2023-02-07] MEDS: VANCOMYCIN ORAL 125 MG/2.5 ML SYRUP PO ×3 (05:22→17:30)
[2023-02-07 05:47] LABS: Basophils Percent Auto 0.2 % (0.2-1.2); Hematocrit 30.7 % (42.0-52.0); Hemoglobin 9.8 g/dL (14.0-18.0); Immature Granulocyte Absolute 0.14 K/mm3 (0.00-0.031); Immature Granulocyte Percent A 2.2 % (0-0.5); Lymphocytes Absolute Auto 0.45 K/mm3 (0.9-3.2); Lymphocytes Percent Auto 7.2 % (18.3-44.2); Mean Corpuscular HGB Conc 31.9 g/dl (32-36); Mean Corpuscular Hemoglobin 29.7 pg (26-34); Mean Platelet Volume 9.4 fl (7.4-10.4); Monocytes Percent Auto 0.6 % (2.6-8.5); Neutrophils Absolute Auto 5.6 K/mm3 (1.3-6.7); Neutrophils Percent Auto 89.8 % (45.5-73.1); Platelet Count Result 201 k/mm3 (150-375); White Blood Count 6.2 K/mm3 (4.5-10.0)
[2023-02-07 06:00] LABS: Anion Gap 6 mmol/L (8-16); Blood Urea Nitrogen 18 mg/dL (9-20); Calcium 6.6 mg/dL (8.4-10.2); Carbon Dioxide 22 mmol/L (22-30); Chloride 109 mmol/L (98-107); Estimated CRCL calculation 39 ml/min; Estimated Glomerular Filt Rate > 60; Glucose 145 mg/dL (65-110); Magnesium 2.2 mg/dL (1.6-2.3); Phosphorus 3.1 mg/dL (2.5-4.5); Sodium 137 mmol/L (137-145)
[2023-02-07 09:03] LABS: Lactate Dehydrogenase 213 U/L (120-246)
--- NOTE | 2023-02-07 09:17 | PM.IMPN ---
Progress Note: A&P Assessment and Plan (1) Shortness of breath: Code(s): R06.02 - Shortness of breath Status: Acute Assessment and Plan: Suspecting COPD exacerbation and pneumonia ?admitted to the hospital a little less than 4 weeks ago with similar complaints at which time he was treated for suspected COPD exacerbation and pneumonia. ?Chest x-ray shows possible atelectasis versus pneumonia. ?volume overload seems unlikely. PE seems unlikely as well. O2 therapy as needed 02/05:? Patient now sounds like he may have some mild fluid overload.? IV fluids discontinued. 02/06: Had increased oxygen requirements overnight up to 5 L NC. Expiratory wheezing throughout with some crackles. Repeat chest Xray shows worsened small pleural effusions and worsened airspace opacities in the mid and lower lung zones. D-dimer elevated, CTA ordered and PE negative. Will start on solu-medrol 40 mg IVP Q 6 hours and increase nebulizers to Q 4 hours, also will give IV lasix for pleural effusions. I discussed case with Dr Aggarwal with pulmonology who provided recommendations and will formally see the patient in the morning. Will add on procalcitonin and BNP as well. Repeating respiratory viral swab. 02/07: I spoke with Dr Aggarwal this morning who does not believe this is pneumonia or COPD but rather related to his pleural effusions. He believes the sputum is a colonized bacteria, Bactrim is stopped as well as IV steroids. (2) Chronic obstructive pulmonary disease: Code(s): J44.9 - Chronic obstructive pulmonary disease, unspecified Status: Acute Assessment and Plan: Patient quit smoking last month following his hospitalization. No bronchospasm noted on exam today. Continue scheduled bronchodilators as patient reports subjective improvement with that. No indication for steroids at this time. He was negative for influenza and COVID.02/05:??Stenotrophomonas maltophilia noted on respiratory sputum culture 02/06-Now with expiratory wheezing. Add on IV solu-medrol Q 6 hours. 02/07-Lung sounds are clear, no wheezing present. D/c steroids. Continue with nebs q 4 hours. (3) Abnormal chest x-ray: Code(s): R93.89 - Abnormal findings on diagnostic imaging of other specified body structures Status: Acute Assessment and Plan: Chest x-ray today shows a small right pleural effusion with interval decrease in size and airspace opacities of the mid and lower lung zones consistent with atelectasis versus pneumonia. Continue azithromycin and ceftriaxone for now, pending sputum culture. Check Legionella and pneumococcal antigens, pending mycoplasma IgM Continue scheduled bronchodilators. Encourage incentive spirometry.02/05:??Stenotrophomonas maltophilia noted on respiratory sputum culture 02/06: On Bactrim for Stenotrophomonas maltophilia. WBC normal. Afebrile. 02/07: Pulmonology feels this is likely a colonized bacteria. Stopping Bactrim. (4) Diarrhea: Code(s): R19.7 - Diarrhea, unspecified Status: Acute Assessment and Plan: Patient reports several loose stools the last 2 days. Abdominal exam is benign. Positive c diff Started oral vancomycin 125 mg q.6 hours p.o. Continue probiotics. Send stool for culture.? Pending Stop Imodium 02/07: Banatrol + added per nutrition rec's. Last bowel movement 02/05. (5) Hypokalemia: Code(s): E87.6 - Hypokalemia Status: Acute Assessment and Plan: Potassium will be replaced and monitored. 02/06: Lytes reviewed today and are normal. 02/07: Stable (6) Protein calorie malnutrition: Code(s): E46 - Unspecified protein-calorie malnutrition Status: Acute Assessment and Plan: Total protein is 5.0, albumin 2.8. Dietitian consulted for recommendations. 02/06: Poor intake. Likely 2/2 current infections. 02/07: Regular diet and banatrol plus + (7) Prostate cancer metastatic to bone: Code(s): C61 - Malignant neoplasm of prostate; C7
--- NOTE | 2023-02-07 09:20 | PM.CNPUL ---
Assessment and Plan Assessment and plan (1) COPD (chronic obstructive pulmonary disease): Qualifiers: COPD type: emphysema Emphysema type: unspecified Qualified Code(s): J43.9 - Emphysema, unspecified Code(s): J44.9 - Chronic obstructive pulmonary disease, unspecified Status: Acute Assessment and Plan: Patient with a 64 pack year history of tobacco use (quit 11/23/2022), alpha 1 anti trypsin genotype MM, CT scan of the chest on 09/13/2021 and most recently on 12/18/1911/28/2022 and 02/06/23 demonstrates [id number] centrilobular emphysema apices greater than bases, I have no PFTs. Sputum with stenotrophomonas maltophilia on 02/03/2023. Patient has no wheezing currently. I am not convinced the patient has an active COPD exacerbation. Patient presented with shortness of breath and treated for possible pneumonia with ceftriaxone from 02/02 through 02/06, azithromycin 02/02 through 02/06, and Septra 02/05. He has worsening hypoxemia with worsening pleural effusions without focal consolidations on his CT scan. Otherwise he is afebrile, has no leukocytosis, procalcitonin of 0.1, no phlegm production. COVID, influenza, RSV RT PCR negative x2. Plan: I suspect the patient's worsening hypoxemia is related to his moderately sized pleural effusion and I have ordered a thoracentesis today. Of note the patient had a prior thoracentesis at [facility] in late December and I had previously requested these records last admission but they were not delivered and I have requested those medical records again today. I do not believe the patient has an active COPD exacerbation and given his active C difficile infection I will discontinue systemic steroids and place the patient on albuterol and ipratropium nebulizers q.4 hours. I am not convinced the patient has an active pneumonia and suspected he is colonized with stenotrophomonas maltophilia. At this time I will discontinue all antibiotics and monitor the patient. The patient has a positive D-dimer with a negative CT angiogram for PE. I will obtain the upper and lower extremity Dopplers. Discussed with Hattie Thompson. Will follow with you. (2) Prostate cancer: Code(s): C61 - Malignant neoplasm of prostate Status: Chronic Assessment and Plan: Patient with metastatic castrate resistant prostate cancer. A RV-7-. [facility] test was nondiagnostic. He was diagnosed in November 2002 with adenocarcinoma [place] score 7 status post open radical prostatectomy in November of 2002. I have an office note from Dr. Merida on 05/21/2022 weekly Taxotere started April 24, 2021, Eligard every 3 months, his IgE Von a monthly basis. Infusion note from 12/25/22: receiving treatment through Oncology with denosumab and dexamethasone. He had a thoracentesis at [facility] 12/2022 I do not know if this was sent for cytology. He may have metastatic prostate to the pleural or lung. Plan: I will perform a right thoracentesis today and send for cytology. Medical records from [facility] requested. History of Present Illness History of Present Illness Consult date: 02/07/23 Chief complaint: Pneumonia/Diarrhea Narrative: 02/07/2023: This is a new pulmonary consult for hypoxemia. 87-year-old man with a history of COPD, on 2 L nasal cannula oxygen, hypertension, hyperlipidemia, prostate cancer metastatic to the bones (on denosumab and dexamethasone infusions per Dr. Merida), a fall about 12/31/22 with left rib fractures.? Patient was admitted to [facility] and apparently had a thoracentesis at that time. I saw the patient in consultation on 01/09/2023 for COPD exacerbation, possible pneumonia and prostate cancer. He was discharged to rehab on 01/11/2023 with a plan to complete Levaquin, on Anoro Ellipta and 2 L oxygen at night. In rehab he remained on 2 L nasal cannula. He had a previous thoracentesis at [facility]
[2023-02-07 11:05] LABS: pH Pleural Fluid > 7.500 (7.210-7.500)
[2023-02-07 11:32] LABS: Appearance Pleural Fluid Clear (Clear); Color Pleural Fluid Yellow (Colorless); Pleural fluid source Pleural fluid
[2023-02-07 11:33] LABS: Neutrophils Pleural Fluid 25 % (0-25); Nucleated Cell Pleural Fluid 156 /uL (0-1000); RBC Pleural Fluid < 2000 /uL (0-0)
[2023-02-07 11:34] LABS: Lymphocytes Pleural Fluid 22 %; Macrophages Pleural Fluid 49 %; Mesothelial Cells Pleural Flui 4 %
[2023-02-07] MEDS: CHOLECALCIFEROL 1,000 UNITS TABLET 1000 UNITS PO (11:56)
[2023-02-07] MEDS: LORATADINE 10 MG TABLET PO (11:56)
[2023-02-07] MEDS: FUROSEMIDE INJ 40 MG/4 ML VIAL IV PUSH (11:56)
[2023-02-07] MEDS: guaiFENesin 12 HR 600 MG TABCR PO ×2 (11:56→20:00)
[2023-02-08] VITALS (8 sets, daily range): BP systolic 111–114; BP diastolic 60–67; PULSE 78–98; RESP 18–22; TEMP 36.9–37.5; O2SAT 91–96
[2023-02-08] MEDS: IPRATROPIUM BR 0.02% INH SOLN 0.5 MG/2.5 ML VIAL INHALATION ×3 (04:43→13:08)
[2023-02-08] MEDS: ALBUTEROL SULFATE NEB 2.5 MG/3 ML INH INHALATION ×3 (04:44→13:07)
[2023-02-08 05:57] LABS: Basophils Percent Auto 0.3 % (0.2-1.2); Eosinophils Percent Auto 0.2 % (0-4.4); Hematocrit 29.6 % (42.0-52.0); Hemoglobin 9.2 g/dL (14.0-18.0); Immature Granulocyte Absolute 0.13 K/mm3 (0.00-0.031); Immature Granulocyte Percent A 1.5 % (0-0.5); Lymphocytes Absolute Auto 1.11 K/mm3 (0.9-3.2); Lymphocytes Percent Auto 12.8 % (18.3-44.2); Mean Corpuscular HGB Conc 31.1 g/dl (32-36); Mean Corpuscular Hemoglobin 29.4 pg (26-34); Mean Corpuscular Volume 94.6 fl (80-100); Monocytes Absolute Auto 0.6 K/mm3 (0.1-0.6); Monocytes Percent Auto 6.7 % (2.6-8.5); Neutrophils Absolute Auto 6.8 K/mm3 (1.3-6.7); Neutrophils Percent Auto 78.5 % (45.5-73.1); Platelet Count Result 185 k/mm3 (150-375); Red Blood Count 3.13 M/mm3 (4.6-6.20); Red Cell Distribution Width 15.5 % (11.5-14.5); White Blood Count 8.7 K/mm3 (4.5-10.0)
[2023-02-08] MEDS: VANCOMYCIN ORAL 125 MG/2.5 ML SYRUP PO ×2 (06:50→12:19)
[2023-02-08] MEDS: LORATADINE 10 MG TABLET PO (08:33)
[2023-02-08] MEDS: CHOLECALCIFEROL 1,000 UNITS TABLET 1000 UNITS PO (08:33)
[2023-02-08] MEDS: guaiFENesin 12 HR 600 MG TABCR PO (08:33)
--- NOTE | 2023-02-08 08:47 | P.PNIM_ITS ---
Progress Note: A&P Assessment and Plan (1) Shortness of breath: Code(s): R06.02 - Shortness of breath Status: Acute Assessment and Plan: Suspecting COPD exacerbation and pneumonia ?admitted to the hospital a little less than 4 weeks ago with similar complaints at which time he was treated for suspected COPD exacerbation and pneumonia. ?Chest x-ray shows possible atelectasis versus pneumonia. ?volume overload seems unlikely. PE seems unlikely as well. O2 therapy as needed 02/05:? Patient now sounds like he may have some mild fluid overload.? IV fluids discontinued. 02/06: Had increased oxygen requirements overnight up to 5 L NC. Expiratory wheezing throughout with some crackles. Repeat chest Xray shows worsened small pleural effusions and worsened airspace opacities in the mid and lower lung zones. D-dimer elevated, CTA ordered and PE negative. Will start on solu-medrol 40 mg IVP Q 6 hours and increase nebulizers to Q 4 hours, also will give IV lasix for pleural effusions. I discussed case with Dr Aggarwal with pulmonology who provided recommendations and will formally see the patient in the morning. Will add on procalcitonin and BNP as well. Repeating respiratory viral swab. 02/07: I spoke with Dr Aggarwal this morning who does not believe this is pneumonia or COPD but rather related to his pleural effusions. He believes the sputum is a colonized bacteria, Bactrim is stopped as well as IV steroids. (2) Chronic obstructive pulmonary disease: Code(s): J44.9 - Chronic obstructive pulmonary disease, unspecified Status: Acute Assessment and Plan: Patient quit smoking last month following his hospitalization. No bronchospasm noted on exam today. * Continue scheduled bronchodilators as patient reports subjective improvement with that. * No indication for steroids at this time. * He was negative for influenza and COVID.02/05:??Stenotrophomonas maltophilia noted on respiratory sputum culture 02/06-Now with expiratory wheezing. Add on IV solu-medrol Q 6 hours. 02/07-Lung sounds are clear, no wheezing present. D/c steroids. Continue with nebs q 4 hours. (3) Abnormal chest x-ray: Code(s): R93.89 - Abnormal findings on diagnostic imaging of other specified body structures Status: Acute Assessment and Plan: Chest x-ray today shows a small right pleural effusion with interval decrease in size and airspace opacities of the mid and lower lung zones consistent with atelectasis versus pneumonia. * Continue azithromycin and ceftriaxone for now, pending sputum culture. * Check Legionella and pneumococcal antigens, pending mycoplasma IgM * Continue scheduled bronchodilators. * Encourage incentive spirometry.02/05:??Stenotrophomonas maltophilia noted on respiratory sputum culture 02/06: On Bactrim for Stenotrophomonas maltophilia. WBC normal. Afebrile. 02/07: Pulmonology feels this is likely a colonized bacteria. Stopping Bactrim. (4) Diarrhea: Code(s): R19.7 - Diarrhea, unspecified Status: Acute Assessment and Plan: Patient reports several loose stools the last 2 days. Abdominal exam is benign. Positive c diff Started oral vancomycin 125 mg q.6 hours p.o. Continue probiotics. Send stool for culture.? Pending Stop Imodium 02/07: Banatrol + added per nutrition rec's. Last bowel movement 02/05. (5) Hypokalemia: Code(s): E87.6 - Hypokalemia Status: Acute Assessment and Plan: Potassium will be replaced and monitored. 02/06: Lytes reviewed today and are normal. 02/07: Stable (6) Protein calorie malnutrition: Code(s): E46 - Unspecified protein-calor
--- NOTE | 2023-02-08 09:57 | PM.PNPUL ---
Progress Note: A&P Assessment and Plan (1) COPD (chronic obstructive pulmonary disease): Qualifiers: COPD type: emphysema Emphysema type: unspecified Qualified Code(s): J43.9 - Emphysema, unspecified Code(s): J44.9 - Chronic obstructive pulmonary disease, unspecified Status: Acute Assessment and Plan: Patient with a 64 pack year history of tobacco use (quit 11/23/2022), alpha 1 anti trypsin genotype MM, CT scan of the chest on 09/13/2021 and most recently on 12/18/1911/28/2022 and 02/06/23 demonstrates [id number] centrilobular emphysema apices greater than bases, I have no PFTs. Sputum with stenotrophomonas maltophilia on 02/03/2023. Patient on 2 L with activity and with sleep. Patient has no wheezing currently. I am not convinced the patient has an active COPD exacerbation. Patient presented with shortness of breath and treated for possible pneumonia with ceftriaxone from 02/02 through 02/06, azithromycin 02/02 through 02/06, and Septra 02/05. He has worsening hypoxemia with worsening pleural effusions without focal consolidations on his CT scan. Otherwise he is afebrile, has no leukocytosis, procalcitonin of 0.1, no phlegm production. COVID, influenza, RSV RT PCR negative x2. Plan: I suspect the patient's worsening hypoxemia is related to his moderately sized pleural effusion and I have ordered a thoracentesis today. Of note the patient had a prior thoracentesis at [facility] in late December and I had previously requested these records last admission but they were not delivered and I have requested those medical records again today. I do not believe the patient has an active COPD exacerbation and given his active C difficile infection I will discontinue systemic steroids and place the patient on albuterol and ipratropium nebulizers q.4 hours. I am not convinced the patient has an active pneumonia and suspected he is colonized with stenotrophomonas maltophilia. At this time I will discontinue all antibiotics and monitor the patient. The patient has a positive D-dimer with a negative CT angiogram for PE. I will obtain the upper and lower extremity Dopplers. Later in the day the patient had Upper and lower extremity Dopplers were negative for DVT. 02/08/23: Patient states he is breathing better. He denies cough, phlegm or hemoptysis. When I entered the room he is on 3.5 L nasal cannula saturation 95%. I decreased him to 2 L and his saturation remained 92%. His white blood cell count is 8.7. He is afebrile. Chest x-ray today shows small bilateral pleural effusions. Plan: Patient has in approved off of steroids and antibiotics. Oxygenation improved post thoracentesis and currently on 2 L which is his baseline. No wheezing on albuterol and ipratropium q.4 hours. I will continue the patient to albuterol and ipratropium nebulizers q.4 hours while awake. From a pulmonary perspective patient is ready to be discharged on these pulmonary medications: Beta agonist and muscarinic antagonist combination that insurance will cover (Anoro Ellipta 62.5/25 at 1 puff Q day, stiolto respimat 2.5/2.5 at 1 puff BID, bevespi aerosphere 9 mcg/4.8 at 2 puffs BID, combivent respimat at 2 puffs Q 4 HR or separate albuterol and atrovent inhalers at 2 puffs Q 4 HR) Rescue albuterol 2 puffs q.4 hours p.r.n. shortness of breath or wheezing. Oxygen at rest and with activity per formal home O2 assessment on the day of discharge if he is going home. Oxygen at rest and with ambulation per living facilities protocol if he is going to a correction. Oxygen 2 L nasal cannula at night Follow-up in the Pulmonary Clinic in 3-4 weeks after discharge. 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 Discussed with Hattie Thompson. Will sign off. Call with questions. (2) Prostate cancer: Code(s): C61 - Malignant neoplasm of prostate Status: Chronic Assessment and Plan: Patient with metastatic castrate resi
--- NOTE | 2023-02-08 10:23 | PM.PNORT ---
Progress Note: A&P Assessment and Plan (1) Ulcer of elbow with fat layer exposed: Code(s): L98.492 - Non-pressure chronic ulcer of skin of other sites with fat layer exposed Status: Acute Assessment and Plan: Swelling and drainage from left elbow improved today. Discussed with wound care team. Start Betadine paint to the ulcer with gauze dressing for absorption. Range of motion and activity as tolerated. (2) Olecranon bursitis of left elbow: Code(s): M70.22 - Olecranon bursitis, left elbow Status: Acute Subjective Subjective Date/Time Seen: 02/08/23 10:23 Principal diagnosis: Left elbow olecranon bursitis Interval history: patient states pain and swelling left elbow improved. No new complaints. Exam Const: General: healthy appearing; No in distress or confusion Orientation/consciousness: oriented to person, oriented to place, oriented to time and No confusion Resp: Effort & Inspection: normal respiratory effort and no audible wheezes Neuro: General: oriented to person, oriented to place, oriented to time and No confusion Extrem: Right upper extremity: shoulder/upper arm axillary nerve sensory function normal, normal ROM (FF 130, Abd 120, ER 70, IR T7) and other (RC 5/5, Bicep 5/5, Deltoid 5/5, ER 5/5); no tenderness and no swelling, elbow/forearm normal ROM and other (bicep 5/5, tricep 5/5, pronation 5/5, supination 5/5); no tenderness and no swelling, wrist normal ROM and radial pulse present; no tenderness and Extremity exam: right hand neuromotor exam normal wrist extension normal, thumb opposition normal, thumb IP flexion normal and fingers 2-5 ABduction normal, neurosensory exam normal radial nerve sensory function normal, ulnar nerve sensory function normal, median nerve sensory function normal and digital nerve sensory function normal and vascular exam radial pulse present and normal capillary refill; no tenderness, no swelling and no crepitus Left upper extremity: normal to inspection, shoulder/upper arm inspection abnormal, axillary nerve sensory function normal, normal ROM and other (RC 5/5, Bicep 5/5, Deltoid 5/5, ER 5/5); no tenderness and no swelling, elbow/forearm tenderness of the olecranon and other (resisted wrist flexion), swelling of the olecranon, abnormal ROM pain with active ROM with flexion and with range as follows ( active elbow 5 to 130?, pronation 70?, supination 80?) and other (bicep 5/5, tricep 4/5, pronation 5/5, supination 5/5); no ecchymosis and no crepitus, wrist normal ROM, radial pulse present and other (wrist extension 5/5, wrist flexion4/5); no tenderness and hand neuromotor exam normal Details: wrist extension normal and thumb IP flexion normal, neurosensory exam normal Details: radial nerve sensory function normal, ulnar nerve sensory function normal and median nerve sensory function normal, tendon exam normal Location: of all digits and vascular exam radial pulse present and normal capillary refill; no tenderness Right lower extremity: normal to inspection Left lower extremity: normal to inspection Objective Data Vital Signs Vital Signs: Vital Signs - 24 hr 02/07/23 12:13 02/07/23 12:14 02/07/23 12:26 Temperature Pulse Rate 75 80 Respiratory Rate 20 20 Blood Pressure Pulse Oximetry 95 Oxygen Delivery Nasal Cannula Oxygen Flow Rate 2 Fraction of Inspired Oxygen 02/07/23 14:00 02/07/23 16:27 02/07/23 16:39 Temperature 98.7 F Pulse Rate 92 93 98 Respiratory Rate 22 H 20 20 Blood Pressure 109/61 Pulse Oximetry 90 Oxygen Delivery Oxygen Flow Rate Fraction of Inspired Oxygen 02/07/23 20:00 02/07/23 20:46 02/07/23 20:47 Temperature Pulse Rate 98 95 Respiratory Rate 20 20 Blood Pressure Pulse Oximetry 90 94 Oxygen Delivery Nasal Cannula Nasal Cannula Oxygen Flow Rate 1.5 3.5 Fraction of Inspired Oxygen 02/07/23 20:55 02/07/23 21:57 02/07/23 23:49 Temperature 98.6 F Pulse Rate 97 80 92
--- NOTE | 2023-02-08 12:08 | PCNFU ---
Nutrition Follow-Up Complete: Increased Nutrient Needs as related to increased energy and protein needs as evidenced by est needs 2200 kcals and 70 gms protein for cancer. Goal: Adequate Intake of at least 75% of meals/supplements patient is meeting current goal. Pt current nutrition is Health Healthy with Banatrol Plus BID Last recorded weight is 62.7 kg, up from 58.9 kg on admit. Bowel Motility:+Bm reported 12/-more formed per nursing. Labs Reviewed:Hgb 9.2,Hct 29.6 Meds Noted:Mucinex, Vit D Skin:WNL Additional Notes: Patient remains on a heart healthy diet consuming 75-100% of meals. Banatrol Plus BID given for stool bulking. Agree with diet orders. Will continue to monitor, weight, labs, skin, oral intake every 5 days.
--- NOTE | 2023-02-08 13:17 | PM.DS ---
DS: Admitting Diagnosis Discharge Date 02/08 Admitting Diagnosis shortness of breath DS: Discharge Diagnosis Discharge Diagnosis (1) Shortness of breath: Code(s): R06.02 - Shortness of breath Status: Acute (2) Chronic obstructive pulmonary disease: Code(s): J44.9 - Chronic obstructive pulmonary disease, unspecified Status: Acute (3) Abnormal chest x-ray: Code(s): R93.89 - Abnormal findings on diagnostic imaging of other specified body structures Status: Acute (4) Diarrhea: Code(s): R19.7 - Diarrhea, unspecified Status: Acute (5) Hypokalemia: Code(s): E87.6 - Hypokalemia Status: Acute (6) Protein calorie malnutrition: Code(s): E46 - Unspecified protein-calorie malnutrition Status: Acute (7) Prostate cancer metastatic to bone: Code(s): C61 - Malignant neoplasm of prostate; C79.51 - Secondary malignant neoplasm of bone Status: Acute (8) Essential (primary) hypertension: Code(s): I10 - Essential (primary) hypertension Status: Acute (9) C. difficile colitis: Code(s): A04.72 - Enterocolitis due to Clostridium difficile, not specified as recurrent Status: Acute (10) Abscess of left elbow: Code(s): L02.414 - Cutaneous abscess of left upper limb Status: Acute Plan Assessment and Plan (1) Shortness of breath: ?Code(s): R06.02 - Shortness of breath ?Status:?Acute ?Assessment and Plan: Suspecting COPD exacerbation and pneumonia ?admitted to the hospital a little less than 4 weeks ago with similar complaints at which time he was treated for suspected COPD exacerbation and pneumonia. ?Chest x-ray shows possible atelectasis versus pneumonia. ?volume overload seems unlikely. PE seems unlikely as well. O2 therapy as needed 02/05:? Patient now sounds like he may have some mild fluid overload.? IV fluids discontinued. 02/06: Had increased oxygen requirements overnight up to 5 L NC. Expiratory wheezing throughout with some crackles. Repeat chest Xray shows worsened small pleural effusions and worsened airspace opacities in the mid and lower lung zones. D-dimer elevated, CTA ordered and PE negative. Will start on solu-medrol 40 mg IVP Q 6 hours and increase nebulizers to Q 4 hours, also will give IV lasix for pleural effusions. I discussed case with Dr Aggarwal with pulmonology who provided recommendations and will formally see the patient in the morning. Will add on procalcitonin and BNP as well. Repeating respiratory viral swab. 02/07: I spoke with Dr Aggarwal this morning who does not believe this is pneumonia or COPD but rather related to his pleural effusions. He believes the sputum is a colonized bacteria, Bactrim is stopped as well as IV steroids. (2) Chronic obstructive pulmonary disease: ?Code(s): J44.9 - Chronic obstructive pulmonary disease, unspecified ?Status:?Acute ?Assessment and Plan: Patient quit smoking last month following his hospitalization. No bronchospasm noted on exam today. Continue scheduled bronchodilators as patient reports subjective improvement with that. No indication for steroids at this time. He was negative for influenza and COVID.02/05:??Stenotrophomonas maltophilia noted on respiratory sputum /29-Now with expiratory wheezing. Add on IV solu-medrol Q 6 hours. 02/07-Lung sounds are clear, no wheezing present. D/c steroids. Continue with nebs q 4 hours. (3) Abnormal chest x-ray: ?Code(s): R93.89 - Abnormal findings on diagnostic imaging of other specified body structures ?Status:?Acute ?Assessment and Plan: Chest x-ray today shows a small right pleural effusion with interval decrease in size and airspace opacities of the mid and lower lung zones consistent with atelectasis versus pneumonia. Continue azithromycin and ceftriaxone for now, pending sputum culture. Check Legionella and pneumococcal antigens, pending mycoplasma IgM Continue sche
[2023-02-08 15:19] LABS: SARS-CoV-2 RNA PCR Negative (Negative)
[2023-02-12 10:50] LABS: Amylase, Pleural Fluid 18 U/L
[2023-02-13 07:06] LABS: Glucose Pleural Fluid 158 mg/dL; LDH Pleural Fluid 102 U/L; Total Protein Pleural Fluid <3.0 g/dL
[2023-02-14 21:38] LABS: Albumin Pleural Fluid 1.5 g/dL
== END 2023-02-08 16:00 | DRG 187 ==
LOC: ANHED 09:28 → ANH3MED 16:30
PROVIDERS: Hospitalist; Internal Medicine Pulmonary Disease; Nurse Practitioner; Physician Assistant; Admitting Provider Internal Medicine; Emergency Provider Emergency Medicine; PCP Family Medicine; Visit Provider Nurse Practitioner Acute Care
DX: J90 Pleural effusion, not elsewhere classified (principal); A04.72 Enterocolitis due to Clostridium difficile, not specified as recurrent; C79.51 Secondary malignant neoplasm of bone; E46 Unspecified protein-calorie malnutrition; J43.9 Emphysema, unspecified; M70.22 Olecranon bursitis, left elbow; R09.02 Hypoxemia; B96.89 Other specified bacterial agents as the cause of diseases classified elsewhere; Z20.822 Contact with and (suspected) exposure to COVID-19; E87.6 Hypokalemia; C61 Malignant neoplasm of prostate; I10 Essential (primary) hypertension; E78.5 Hyperlipidemia, unspecified; Z87.891 Personal history of nicotine dependence; Z68.21 Body mass index [BMI] 21.0-21.9, adult
CPT/HCPCS: 32555; 36415; 36600; 71045; 71046; 71275; 80048; 80053; 82042; 82150; 82805; 82945; 83605; 83615; 83735; 83880; 83986; 84100; 84145; 84155; 84157; 84311; 84478; 85025; 85027; 85380; 85610; 85730; 86738; 87015; 87045; 87070; 87075; 87077; 87102; 87116; 87186; 87205; 87206; 87269; 87272; 87427; 87449; 87493; 87635; 87636; 87637; 87641; 88108; 88184; 88305; 88342; 89051; 93005; 93970; 94640; 94667; 94668; 96365; 96367; 97110; 97161; 97166; 97530; 97535; 99285; A9270; G0378; J0456; J0696; J1940; J2920; J3370; J7030; Q9967

== ENCOUNTER 2023-02-19 13:37 | Inpatient (IN) | payer MEDICARE, SELFPAY ==
[2023-02-19] VITALS (24 sets, daily range): BP systolic 95–123; BP diastolic 49–68; PULSE 75–97; RESP 18–39; TEMP 36.8–37.9; O2SAT 91–97
--- NOTE | ~2023-02-19 | XR_ITS ---
EXAMINATION: XR chest 1V portable INDICATION: Shortness of breath, COVID 19 positive TECHNIQUE: Portable AP chest at 1403 hours COMPARISON: 02/08/2023 FINDINGS: A left internal jugular Port-A-Cath ends with its tip in the proximal superior vena cava. I nterstitial opacities persist in the lung bases but have improved in the mid and upper lung zones. Th ere are small pleural effusions. There appears to be a small amount of loculated fissural fluid of th e right lung base. There is no pneumothorax. The cardiomediastinal silhouette is stable. IMPRESSION: 1. Improving pulmonary edema. 2. Small pleural effusions with bibasilar airspace opacities, atelectasis versus pneumonia. Reviewed, dictated and finalized at location L. ESSION CASHIER IMPRESSION: 1. Improving pulmonary edema. 2. Small pleural effusions with bibasilar airspace opacities, atelectasis versu s pneumonia.
--- NOTE | ~2023-02-19 | XR_ITS ---
XR chest 2V 02/24/2023 08:32 Indication: Pneumonia. Covid infection. Procedure: AP and lateral views of the chest Comparison: Comparison to multiple prior studies sequentially, with oldest reviewed study dated 01/10. Findings: Portacatheter tip in the SVC. Stable cardiomediastinal silhouette. Improving pulmonary santi a. Small pleural effusions. There is sclerotic lesions of the scapula bilaterally, ribs and the left humerus, suspicious for metastatic disease. Correlate for history of malignancy. Impression: 1: Improving pulmonary edema. 2: Small pleural effusions. 3: Multifocal sclerotic lesions of the bones, suspicious for metastatic disease. Correlate for histor y of malignancy. Reviewed, dictated and finalized at location A. NT SERVICE CONSULTANT Impression: 1: Improving pulmonary edema. 2: Small pleural effusions. 3: Multifocal sclerotic lesions of the bones, suspicious for metastatic disease . Correlate for history of malignancy.
--- NOTE | 2023-02-19 13:49 | ECG_ITS ---
Measurements Intervals [place] Rate: 89 P: 41 NV: 145 QRS: 64 QRSD: 81 T: 60 QT: 331 QTc: 404 Interpretive Statements SINUS RHYTHM SEPTAL MYOCARDIAL INFARCTION , OF INDETERMINATE AGE [40+ ms Q WAVE IN V1/V2] ABNORMAL ECG COMPARED TO ECG 02/02/2023 08:37:11 NO SIGNIFICANT CHANGES Electronically Signed On 02-20-2023 10:31:31 STAFF PHYSICAL THERAPIST by Bright Simons M.D.
[2023-02-19 14:05] LABS: Basophils Percent Auto 0.5 % (0.2-1.2); Eosinophils Percent Auto 0.5 % (0-4.4); Hemoglobin 9.6 g/dL (14.0-18.0); Immature Granulocyte Absolute 0.05 K/mm3 (0.00-0.031); Immature Granulocyte Percent A 0.6 % (0-0.5); Lymphocytes Absolute Auto 1.62 K/mm3 (0.9-3.2); Lymphocytes Percent Auto 18.4 % (18.3-44.2); Mean Corpuscular Hemoglobin 28.9 pg (26-34); Mean Corpuscular Volume 96.4 fl (80-100); Mean Platelet Volume 9.3 fl (7.4-10.4); Monocytes Absolute Auto 0.8 K/mm3 (0.1-0.6); Monocytes Percent Auto 9.5 % (2.6-8.5); Neutrophils Absolute Auto 6.2 K/mm3 (1.3-6.7); Neutrophils Percent Auto 70.5 % (45.5-73.1); Platelet Count Result 208 k/mm3 (150-375); Red Blood Count 3.32 M/mm3 (4.6-6.20); Red Cell Distribution Width 15.4 % (11.5-14.5); White Blood Count 8.8 K/mm3 (4.5-10.0)
[2023-02-19 14:19] LABS: Alanine Aminotransferase 15 U/L (6-50); Albumin Level 2.9 g/dL (3.5-5.1); Alkaline Phosphatase 120 U/L (38-126); Anion Gap 5 mmol/L (8-16); Aspartate Amino Transferase 25 U/L (17-59); Bilirubin,Total 0.3 mg/dL (0.2-1.3); Blood Urea Nitrogen 24 mg/dL (9-20); Calcium 7.6 mg/dL (8.4-10.2); Carbon Dioxide 24 mmol/L (22-30); Chloride 108 mmol/L (98-107); Estimated CRCL calculation 38 ml/min; Estimated Glomerular Filt Rate > 60; Glucose 94 mg/dL (65-110); Lactic Acid Reflex 1.3 mmol/L (0.7-2.0); Potassium 4.1 mmol/L (3.4-5.0); Sodium 137 mmol/L (137-145)
--- NOTE | 2023-02-19 15:42 | ED.SOB ---
HPI - SOB/Dyspnea General Chief Complaint: Shortness of Breath/Dyspnea Stated Complaint: SOB, dehydration, COVID + Time Seen by Provider: 02/19/23 15:10 History of Present Illness HPI Narrative: Patient is an 87-year-old male who presents to the emergency department this afternoon from his extended care facility due to concern for Worsening shortness of breath and dehydration. Patient was recently diagnosed with pneumonia and tested positive for COVID and has been taking an antibiotic for it as an outpatient for the past week. Patient's symptoms have not been improving despite antibiotics and he is having worsening shortness of breath and a productive cough. Patient wears 2 L home oxygen at baseline. Patient denies any chest pain, nausea, vomiting, abdominal pain, dysuria, hematuria, constipation, diarrhea, melena, hematochezia, fevers or chills. Patient also denies any headaches, dizziness, lightheadedness, blurry visions, focal weakness, numbness and or tingling. There are no other modifying, alleviating, or precipitating factors at this time. Related Data Home Medications Medication Instructions Recorded Confirmed calcium carbonate 600 mg-vitamin 1 tablet PO BID 06/12/21 02/02/23 D3 5 mcg (200 unit) tablet cholecalciferol (vitamin D3) 25 25 mcg PO DAILY 01/02/22 02/02/23 mcg (1,000 unit) capsule lisinopril 20 1 tablet PO DAILY 07/25/22 02/02/23 mg-hydrochlorothiazide 25 mg tablet potassium chloride 20 mEq 20 meq PO DAILY 02/02/23 02/02/23 tablet,extended release(part/cryst) Allergies Allergy/AdvReac Type Severity Reaction Status Date / Time No Known Allergies Allergy Mild Verified 02/19/23 13:52 Review of Systems Review of Systems: All systems are reviewed and are negative unless stated otherwise in the HPI. [facility] Past Medical History Medical History Chronic obstructive pulmonary disease Dyslipidemia Essential (primary) hypertension Olecranon bursitis of left elbow Prostate cancer metastatic to bone Rib fracture (12/2022) Splenic laceration (12/2022) Ulcer of elbow with fat layer exposed Surgical History Surgical History History of bilateral inguinal hernia repair (11/2003) History of cataract extraction History of prostatectomy (11/2002) Family History Family History Father Family history of cardiovascular disease Malignant neoplasm of prostate Mother Family history of cardiovascular disease Sibling Acute myocardial infarction Social History Social History Social History: Surrogate medical decision maker: Hakeem Sabillon, brother. Code status: Full code. Smoking packs per day: 1 Smoking cigarettes per day: 20.0 Years smoked: 60 Smoking pack-years: 60.00 Smoking status: Former smoker Tobacco type: cigarettes Second hand tobacco smoke exposure: Yes Alcohol intake: former Drinks per week: 10 Substance use: never Lack of Transportation: YES Lack of Food: Never True Current Housing: I Have Housing Concerned About Future Housing: No Difficulty Paying Gas/Electric Bills: No Difficulty Paying for Meds: No Currently Unemployed: No Education: High School Diploma/GED Difficulty w/ Childcare or Family Care: No Living arrangements: alone Spiritual care concerns: No Exam Narrative: General: Alert, awake, afebrile, in no acute distress, wet cough. HEENT: PERRL, no rhinorrhea, no post nasal drip, oropharynx clear. Neck: Trachea midline, no JVD, no lymphadenopathy. Cardiovascular: Regular rate and rhythm, no murmurs, rubs or gallops, no peripheral edema. Respiratory: Clear to auscultation bilaterally, tachypnea, no wheezing, no rhonchi, no rubs, mild respiratory distress, productive cough. Abdomen: Soft, nontender, n
--- NOTE | 2023-02-19 19:15 | PM.IMHP ---
H&P: HPI History of Present Illness Date/Time: 02/19/23 19:15 Chief Complaint: cough, SOb Narrative: Patient is an 87-year-old male who presents to the emergency department this afternoon from his extended care facility due to concern for ? Worsening shortness of breath and dehydration.? Patient was recently diagnosed with pneumonia and tested positive for COVID and has been taking an antibiotic for it as an outpatient for the past week.? Patient's symptoms have not been improving? despite antibiotics and he is having worsening shortness of breath and a productive cough.? Patient wears 2 L home oxygen at baseline. Patient denies any chest pain, nausea, vomiting, abdominal pain, dysuria, hematuria, constipation, diarrhea, melena, hematochezia, fevers or chills.? Patient also denies any headaches, dizziness, lightheadedness, blurry visions, focal weakness, numbness and or tingling.? There are no other modifying, alleviating, or precipitating factors at this time. He was evaluated in ER and found to have findings suggestive of pneumonia, patient was started on Rocephin and azithromycin, and I was consulted for admission. During my encounter patient, said he feels better however complains of wheezing and worsening cough otherwise vital signs were stable Review of Systems Review of Systems: All systems reviewed & are unremarkable except as noted in HPI and below PMFSH Past Medical History Medical History Chronic obstructive pulmonary disease Dyslipidemia Essential (primary) hypertension Olecranon bursitis of left elbow Prostate cancer metastatic to bone Rib fracture (12/2022) Splenic laceration (12/2022) Ulcer of elbow with fat layer exposed Surgical History Surgical History History of bilateral inguinal hernia repair (11/2003) History of cataract extraction History of prostatectomy (11/2002) Family History Family History Father Family history of cardiovascular disease Malignant neoplasm of prostate Mother Family history of cardiovascular disease Sibling Acute myocardial infarction Social History Social History Social History: Surrogate medical decision maker: Hakeem Deconcini, brother. Code status: Full code. Smoking packs per day: 1 Smoking cigarettes per day: 20.0 Years smoked: 60 Smoking pack-years: 60.00 Smoking status: Former smoker Tobacco type: cigarettes Second hand tobacco smoke exposure: Yes Alcohol intake: former Drinks per week: 10 Substance use: never Lack of Transportation: YES Lack of Food: Never True Current Housing: I Have Housing Concerned About Future Housing: No Difficulty Paying Gas/Electric Bills: No Difficulty Paying for Meds: No Currently Unemployed: No Education: High School Diploma/GED Difficulty w/ Childcare or Family Care: No Living arrangements: alone Spiritual care concerns: No Meds Home Medications and Allergies Home Medications Medication Instructions Recorded Confirmed Type calcium carbonate 600 mg-vitamin 1 tablet PO BID 06/12/21 02/02/23 History D3 5 mcg (200 unit) tablet cholecalciferol (vitamin D3) 25 25 mcg PO DAILY 01/02/22 02/02/23 History mcg (1,000 unit) capsule lisinopril 20 1 tablet PO DAILY 07/25/22 02/02/23 History mg-hydrochlorothiazide 25 mg tablet loratadine 10 mg tablet (Claritin) 10 mg PO DAILY #90 tabs 01/29/23 02/02/23 Rx potassium chloride 20 mEq 20 meq PO DAILY 02/02/23 02/02/23 History tablet,extended release(part/cryst) albuterol sulfate 2.5 mg/3 mL 2.5 mg (3 mL) inhalation [id number] 02/08/23 Rx (0.083 %) solution for nebulization #90 mL albuterol sulfate 90 mcg/actuation 1 inh inhalation QID PRN shortness 02/08/23 Rx aerosol inhaler of breath or wheezing #8.5 grams
--- NOTE | 2023-02-19 19:18 | PC.NURSE ---
Patient repositioned and given a popsicle! patient resting in stretcher.
[2023-02-19] MEDS: methylPREDNISolone SOD SUCC 125 MG VIAL IV PUSH (19:55)
[2023-02-19] MEDS: SODIUM CHLORIDE 0.9% IV 1,000 ML 100 ML IV CONT ×2 (19:57→20:30)
[2023-02-19 19:59] LABS: Basophils Percent Auto 0.3 % (0.2-1.2); Eosinophils Percent Auto 0.5 % (0-4.4); Hematocrit 28.5 % (42.0-52.0); Hemoglobin 8.7 g/dL (14.0-18.0); Immature Granulocyte Absolute 0.04 K/mm3 (0.00-0.031); Immature Granulocyte Percent A 0.5 % (0-0.5); Lymphocytes Absolute Auto 2.11 K/mm3 (0.9-3.2); Lymphocytes Percent Auto 24.4 % (18.3-44.2); Mean Corpuscular HGB Conc 30.5 g/dl (32-36); Mean Platelet Volume 9.9 fl (7.4-10.4); Monocytes Absolute Auto 0.8 K/mm3 (0.1-0.6); Monocytes Percent Auto 9.3 % (2.6-8.5); Neutrophils Absolute Auto 5.6 K/mm3 (1.3-6.7); Platelet Count Result 194 k/mm3 (150-375); Red Cell Distribution Width 15.5 % (11.5-14.5); White Blood Count 8.6 K/mm3 (4.5-10.0)
[2023-02-19] MEDS: AZITHROMYCIN 500 MG/NS 250 ML 500 MG/250 ML BAG 250 MG IVPB (20:00)
--- NOTE | 2023-02-19 20:04 | PC.NURSE ---
respiratory called for breathing treatment for patient.
[2023-02-19 20:14] LABS: Anion Gap 3 mmol/L (8-16); Blood Urea Nitrogen 22 mg/dL (9-20); Calcium 7.4 mg/dL (8.4-10.2); Carbon Dioxide 23 mmol/L (22-30); Chloride 109 mmol/L (98-107); Estimated CRCL calculation 41 ml/min; Estimated Glomerular Filt Rate > 60; Glucose 93 mg/dL (65-110); Potassium 3.7 mmol/L (3.4-5.0); Sodium 135 mmol/L (137-145)
--- NOTE | 2023-02-19 20:44 | ADMGEN ---
This patient, Yamil Sabillon, was admitted to Medical Room 252-01. Patient/family oriented to hospital policies and general routines including ID bracelet, bed and alarms, visiting hours, pain management, procedures, bathroom and other care routines, personal items, smoking policy, room service/diet, and visiting hours. Information on how to activate the Rapid Response Team has been discussed. Patient/Family are encouraged to report perceived risks to care and to ask questions if they do not understand what they are told or what they should do.
[2023-02-19] MEDS: IPRATROPIUM BR 0.02% INH SOLN 0.5 MG/2.5 ML VIAL INHALATION (21:42)
[2023-02-19] MEDS: ALBUTEROL SULFATE NEB 2.5 MG/3 ML INH INHALATION (21:42)
[2023-02-20] VITALS (16 sets, daily range): BP systolic 107–119; BP diastolic 50–58; PULSE 71–88; RESP 16–36; TEMP 36.5–36.7; O2SAT 87–94
[2023-02-20] MEDS: methylPREDNISolone SOD SUCC 40 MG VIAL IV PUSH ×3 (05:30→21:27)
[2023-02-20] MEDS: SODIUM CHLORIDE 0.9% IV 1,000 ML 100 ML IV CONT (05:33)
--- NOTE | 2023-02-20 07:42 | PM.IMPN ---
Progress Note: A&P Assessment and Plan (1) Community acquired pneumonia: Code(s): J18.9 - Pneumonia, unspecified organism Status: Acute Assessment and Plan: 02/20/23: Improving pulmonary edema, small pleural effusions with bibasilar airspace opacities, atelectasis versus pneumonia. Continue Rocephin and Azithromycin Blood cultures obtained and pending. Procalcitonin 0.2 Ordered Xanax for anxiety Continue breathing treatments scheduled and PRN. Continue solu-medrol (2) Chronic obstructive pulmonary disease: Code(s): J44.9 - Chronic obstructive pulmonary disease, unspecified Status: Acute Assessment and Plan: 02/20/23: of note, see above. (3) COVID: Code(s): U07.1 - COVID-19 Status: Acute Assessment and Plan: 02/20/23: COVID positive this admission. Currently on 4L NC, wears 2L NC at baseline Continue to wean O2 for saturation greater than 90% (4) Essential (primary) hypertension: Code(s): I10 - Essential (primary) hypertension Status: Acute Assessment and Plan: 02/20/23: B/P ranging 107/58-119/58 Continue HCTZ and Lisinopril Time Spent With Patient Time with patient: Greater than 35 minutes Subjective Date/time seen: 02/20/23 07:42 Interval history: This is an 87 year old male who presented to the hospital on 02/19/23 with complaint of worsening shortness of breath and dehydration. Patient was recently diagnosed with COVID and pneumonia. He was placed on antibiotics in the outpatient setting. He is currently on 3L NC. He wears 2L NC at baseline. Work up in the hospital includes Chest x-ray that shown improving pulmonary edema, small pleural effusions with bibasilar airspace opacities, and a small loculated fissural fluid of the right lung base. He was given a loading dose of solu-medrol, started on breathing treatments, and IV fluids. Blood cultures were obtained and are pending. He was started on Rocephin and Azithromycin. On examination today patient is alert and oriented x4, lying in the bed. Patient denies any fever, chills, nausea, vomiting, abdominal pain, chest pain. He does report that he has been short of breath and he is had a few bouts of diarrhea. Labs today reveal WBC 6.4, Hgb 9.0, Hct 29.7, Na+ 138, K+ 4.0, Chloride 110, BUN 23, Creatinine 0.90, BG ranging 93-132, Procal 0.2. We will continue on Rocephin and azithromycin. We will also change his breathing treatments to scheduled. Review of Systems Review of Systems: All systems reviewed & are unremarkable except as noted in HPI and below Constitutional: Constitutional: Reports as per HPI and Reports no additional constitutional complaints Eyes: Eyes: Reports as per HPI and Reports no additional eye complaints ENT: Reports system reviewed and no additional complaints, except as documented and Reports as per HPI Cardiovascular: Cardiovascular: Reports as per HPI and Reports no additional cardiovascular complaints Respiratory: Respiratory: Reports as per HPI and Reports no additional respiratory complaints Gastrointestinal: Gastrointestinal: Reports as per HPI and Reports no additional gastrointestinal complaints Genitourinary: Genitourinary: Reports no additional male genitourinary complaints and Reports as per HPI Musculoskeletal: Musculoskeletal: Reports no additional musculoskeletal complaints and Reports as per HPI Integumentary/Breasts: Skin/Breast: Reports system reviewed and no additional complaints, except as docu and Reports as per HPI Neurologic: Reports system reviewed and no additional complaints, except as documented and Reports as per HPI Psychiatric: Psychiatric: Reports no additional psychiatric complaints and Reports as per HPI Exam Narrative: General: In no acute distress, well nourished Head: atraumatic, no encephalopathy Eyes: EOMI, PERRLA, sclera injected ENT: moist mucous membranes, nasal passages clear Neck: supple, no JVD, no adeno
[2023-02-20] MEDS: UMECLIDINIUM/VILANTEROL 62.5-25 MCG ELLIPTA 1 PUFF INHALATION (07:49)
[2023-02-20] MEDS: hydroCHLOROthiazide 25 MG TABLET PO (07:57)
[2023-02-20] MEDS: CHOLECALCIFEROL 1,000 UNITS TABLET 1000 UNITS PO (07:57)
[2023-02-20] MEDS: ENOXAPARIN 40 MG/0.4 ML SYRINGE SUB-Q (07:57)
[2023-02-20] MEDS: lisinopriL 20 MG TABLET PO (07:57)
[2023-02-20] MEDS: LORATADINE 10 MG TABLET PO (07:57)
[2023-02-20] MEDS: THERAPEUTIC MULTIVITAMINS/MINERALS TAB (*BKC) 1 TABLET PO (07:57)
[2023-02-20] MEDS: FOLIC ACID 1 MG TABLET PO (07:57)
[2023-02-20 08:00] LABS: Basophils Percent Auto 0.2 % (0.2-1.2); Hematocrit 29.7 % (42.0-52.0); Immature Granulocyte Absolute 0.04 K/mm3 (0.00-0.031); Immature Granulocyte Percent A 0.6 % (0-0.5); Lymphocytes Absolute Auto 0.68 K/mm3 (0.9-3.2); Lymphocytes Percent Auto 10.7 % (18.3-44.2); Mean Corpuscular HGB Conc 30.3 g/dl (32-36); Mean Corpuscular Hemoglobin 29.1 pg (26-34); Mean Corpuscular Volume 96.1 fl (80-100); Mean Platelet Volume 9.3 fl (7.4-10.4); Monocytes Absolute Auto 0.1 K/mm3 (0.1-0.6); Monocytes Percent Auto 1.9 % (2.6-8.5); Neutrophils Absolute Auto 5.5 K/mm3 (1.3-6.7); Neutrophils Percent Auto 86.6 % (45.5-73.1); Platelet Count Result 196 k/mm3 (150-375); Red Blood Count 3.09 M/mm3 (4.6-6.20); Red Cell Distribution Width 15.4 % (11.5-14.5); White Blood Count 6.4 K/mm3 (4.5-10.0)
[2023-02-20 08:09] LABS: Alanine Aminotransferase 17 U/L (6-50); Albumin Level 2.7 g/dL (3.5-5.1); Alkaline Phosphatase 115 U/L (38-126); Anion Gap 6 mmol/L (8-16); Aspartate Amino Transferase 27 U/L (17-59); Bilirubin,Total 0.3 mg/dL (0.2-1.3); Blood Urea Nitrogen 23 mg/dL (9-20); Calcium 6.9 mg/dL (8.4-10.2); Carbon Dioxide 22 mmol/L (22-30); Chloride 110 mmol/L (98-107); Estimated CRCL calculation 43 ml/min; Estimated Glomerular Filt Rate > 60; Glucose 132 mg/dL (65-110); Sodium 138 mmol/L (137-145)
[2023-02-20 08:38] LABS: Procalcitonin 0.2 ng/mL
[2023-02-20] MEDS: ASCORBIC ACID 125 MG TABLET BY MOUTH (10:29)
[2023-02-20] MEDS: IPRATROPIUM BR 0.02% INH SOLN 0.5 MG/2.5 ML VIAL INHALATION ×2 (13:17→21:10)
[2023-02-20] MEDS: ALBUTEROL SULFATE NEB 2.5 MG/3 ML INH INHALATION ×2 (13:17→21:10)
[2023-02-20] MEDS: ALPRAZolam (*CRX) 0.25 MG TABLET PO (15:17)
[2023-02-21] VITALS (20 sets, daily range): BP systolic 117–142; BP diastolic 45–58; PULSE 67–96; RESP 20–22; TEMP 36.3–36.4; O2SAT 93–97
[2023-02-21] MEDS: ALBUTEROL SULFATE NEB 2.5 MG/3 ML INH INHALATION ×4 (02:44→19:24)
[2023-02-21] MEDS: IPRATROPIUM BR 0.02% INH SOLN 0.5 MG/2.5 ML VIAL INHALATION ×4 (02:44→19:24)
[2023-02-21] MEDS: methylPREDNISolone SOD SUCC 40 MG VIAL IV PUSH (05:02)
[2023-02-21 06:19] LABS: Basophils Percent Auto 0.1 % (0.2-1.2); Hemoglobin 9.2 g/dL (14.0-18.0); Immature Granulocyte Absolute 0.08 K/mm3 (0.00-0.031); Immature Granulocyte Percent A 0.8 % (0-0.5); Lymphocytes Absolute Auto 0.51 K/mm3 (0.9-3.2); Lymphocytes Percent Auto 4.8 % (18.3-44.2); Mean Corpuscular HGB Conc 29.7 g/dl (32-36); Mean Corpuscular Hemoglobin 28.6 pg (26-34); Mean Corpuscular Volume 96.3 fl (80-100); Mean Platelet Volume 9.5 fl (7.4-10.4); Monocytes Absolute Auto 0.4 K/mm3 (0.1-0.6); Monocytes Percent Auto 3.6 % (2.6-8.5); Neutrophils Absolute Auto 9.6 K/mm3 (1.3-6.7); Neutrophils Percent Auto 90.7 % (45.5-73.1); Platelet Count Result 236 k/mm3 (150-375); Red Blood Count 3.22 M/mm3 (4.6-6.20); Red Cell Distribution Width 14.9 % (11.5-14.5); White Blood Count 10.5 K/mm3 (4.5-10.0)
[2023-02-21 06:33] LABS: Alanine Aminotransferase 18 U/L (6-50); Albumin Level 2.9 g/dL (3.5-5.1); Alkaline Phosphatase 101 U/L (38-126); Anion Gap 6 mmol/L (8-16); Aspartate Amino Transferase 26 U/L (17-59); Bilirubin,Total 0.2 mg/dL (0.2-1.3); Blood Urea Nitrogen 24 mg/dL (9-20); Calcium 7.2 mg/dL (8.4-10.2); Carbon Dioxide 19 mmol/L (22-30); Chloride 112 mmol/L (98-107); Estimated CRCL calculation 43 ml/min; Estimated Glomerular Filt Rate > 60; Glucose 152 mg/dL (65-110); Potassium 3.5 mmol/L (3.4-5.0); Sodium 137 mmol/L (137-145)
--- NOTE | 2023-02-21 07:48 | P.PNIM_ITS ---
Progress Note: A&P Assessment and Plan (1) Community acquired pneumonia: Code(s): J18.9 - Pneumonia, unspecified organism Status: Acute Assessment and Plan: 02/20/23: * Improving pulmonary edema, small pleural effusions with bibasilar airspace opacities, atelectasis versus pneumonia. * Continue Rocephin and Azithromycin * Blood cultures obtained and pending. * Procalcitonin 0.2 * Ordered Xanax for anxiety * Continue breathing treatments scheduled and PRN. * Continue solu-medrol 02/21/23: * patient still short of breath at rest, requiring 4 L nasal cannula * patient base line oxygen requirement is 2 L nasal cannula * blood culture showing no growth on preliminary * continue with breathing treatments scheduled and p.r.n. * discontinue Solu-Medrol, start dexamethasone 6 mg IV daily * continue Rocephin and azithromycin * start remdesivir (2) Chronic obstructive pulmonary disease: Code(s): J44.9 - Chronic obstructive pulmonary disease, unspecified Status: Acute Assessment and Plan: 02/20/23: * of note, see above. (3) COVID: Code(s): U07.1 - COVID-19 Status: Acute Assessment and Plan: 02/20/23: * COVID positive this admission. * Currently on 4L NC, wears 2L NC at baseline * Continue to wean O2 for saturation greater than 90% 02/21/23: * patient started on remdesivir and dexamethasone * patient still breathless with rest * currently 4 L nasal cannula * continue to wean O2 for saturation greater than 90% (4) Essential (primary) hypertension: Code(s): I10 - Essential (primary) hypertension Status: Acute Assessment and Plan: 02/20/23: * B/P ranging 107/58-119/58 * Continue HCTZ and Lisinopril 02/21/23: * blood pressures ranging 113/50 to 126/50 * no change to current treatment plan Time Spent With Patient Time with patient: 25 - 35 minutes Subjective Date/time seen: 02/21/23 07:48 Interval history: 02/20/23: This is an 87 year old male who presented to the hospital on 02/19/23 with complaint of worsening shortness of breath and dehydration. Patient was recently diagnosed with COVID and pneumonia. He was placed on antibiotics in the outpatient setting. He is currently on 3L NC. He wears 2L NC at baseline. Work up in the hospital includes Chest x-ray that shown improving pulmonary edema, small pleural effusions with bibasilar airspace opacities, and a small loculated fissural fluid of the right lung base. He was given a loading dose of solu- medrol, started on breathing treatments, and IV fluids. Blood cultures were obtained and are pending. He was started on Rocephin and Azithromycin. On examination today patient is alert and oriented x4, lying in the bed. Patient denies any fever, chills, nausea, vomiting, abdominal pain, chest pain. He does report that he has been short of breath and he is had a few bouts of diarrhea. Labs today reveal WBC 6.4, Hgb 9.0, Hct 29.7, Na+ 138, K+ 4.0, Chloride 110, BUN 23, Creatinine 0.90, BG ranging 93-132, Procal 0.2. We will continue on Rocephin and azithromycin. We will also change his breathing treatments to scheduled. 02/21/23: On examination today patient is alert and oriented x3, in the bed. VSS, he is afebrile, currently on 4L NC, 2L is his baseline oxygen requirement. He is still breathless when resting. Labs today reveal white blood cell count 10.5, hemoglobin 9.2, hematocrit 31.0, potassium 3.5 chloride, bicarb 19, blood sugars ranging 132-152 liver enzymes normal. We will continue with azithromycin Rocephin IV and we will also add remdesivir and dexameth
--- NOTE | 2023-02-21 07:48 | PM.IMPN ---
Progress Note: A&P Assessment and Plan (1) Community acquired pneumonia: Code(s): J18.9 - Pneumonia, unspecified organism Status: Acute Assessment and Plan: 02/20/23: Improving pulmonary edema, small pleural effusions with bibasilar airspace opacities, atelectasis versus pneumonia. Continue Rocephin and Azithromycin Blood cultures obtained and pending. Procalcitonin 0.2 Ordered Xanax for anxiety Continue breathing treatments scheduled and PRN. Continue solu-medrol 02/21/23: patient still short of breath at rest, requiring 4 L nasal cannula patient base line oxygen requirement is 2 L nasal cannula blood culture showing no growth on preliminary continue with breathing treatments scheduled and p.r.n. discontinue Solu-Medrol, start dexamethasone 6 mg IV daily continue Rocephin and azithromycin start remdesivir (2) Chronic obstructive pulmonary disease: Code(s): J44.9 - Chronic obstructive pulmonary disease, unspecified Status: Acute Assessment and Plan: 02/20/23: of note, see above. (3) COVID: Code(s): U07.1 - COVID-19 Status: Acute Assessment and Plan: 02/20/23: COVID positive this admission. Currently on 4L NC, wears 2L NC at baseline Continue to wean O2 for saturation greater than 90% 02/21/23: patient started on remdesivir and dexamethasone patient still breathless with rest currently 4 L nasal cannula continue to wean O2 for saturation greater than 90% (4) Essential (primary) hypertension: Code(s): I10 - Essential (primary) hypertension Status: Acute Assessment and Plan: 02/20/23: B/P ranging 107/58-119/58 Continue HCTZ and Lisinopril 02/21/23: blood pressures ranging 113/50 to 126/50 no change to current treatment plan Time Spent With Patient Time with patient: 25 - 35 minutes Subjective Date/time seen: 02/21/23 07:48 Interval history: 02/20/23: This is an 87 year old male who presented to the hospital on 02/19/23 with complaint of worsening shortness of breath and dehydration. Patient was recently diagnosed with COVID and pneumonia. He was placed on antibiotics in the outpatient setting. He is currently on 3L NC. He wears 2L NC at baseline. Work up in the hospital includes Chest x-ray that shown improving pulmonary edema, small pleural effusions with bibasilar airspace opacities, and a small loculated fissural fluid of the right lung base. He was given a loading dose of solu-medrol, started on breathing treatments, and IV fluids. Blood cultures were obtained and are pending. He was started on Rocephin and Azithromycin. On examination today patient is alert and oriented x4, lying in the bed. Patient denies any fever, chills, nausea, vomiting, abdominal pain, chest pain. He does report that he has been short of breath and he is had a few bouts of diarrhea. Labs today reveal WBC 6.4, Hgb 9.0, Hct 29.7, Na+ 138, K+ 4.0, Chloride 110, BUN 23, Creatinine 0.90, BG ranging 93-132, Procal 0.2. We will continue on Rocephin and azithromycin. We will also change his breathing treatments to scheduled. 02/21/23: On examination today patient is alert and oriented x3, in the bed. VSS, he is afebrile, currently on 4L NC, 2L is his baseline oxygen requirement. He is still breathless when resting. Labs today reveal white blood cell count 10.5, hemoglobin 9.2, hematocrit 31.0, potassium 3.5 chloride, bicarb 19, blood sugars ranging 132-152 liver enzymes normal. We will continue with azithromycin Rocephin IV and we will also add remdesivir and dexamethasone 6 mg daily. Review of Systems Review of Systems: All systems reviewed & are unremarkable except as noted in HPI and below Constitutional: Constitutional: Reports as per HPI and Reports no additional constitutional complaints Eyes: Eyes: Reports as per HPI and Reports no additional eye complaints ENT: Reports system reviewed and no additional complaints, except
[2023-02-21] MEDS: UMECLIDINIUM/VILANTEROL 62.5-25 MCG ELLIPTA 1 PUFF INHALATION (08:10)
[2023-02-21 08:28] LABS: Burr Cells 1+ (NORMAL); Platelet Estimate Adequate (Adequate); Poikilocytosis 1+ (NORMAL); Schistocytes Rare (NORMAL)
[2023-02-21] MEDS: FOLIC ACID 1 MG TABLET PO (09:13)
[2023-02-21] MEDS: hydroCHLOROthiazide 25 MG TABLET PO (09:14)
[2023-02-21] MEDS: ASCORBIC ACID 125 MG TABLET BY MOUTH (09:14)
[2023-02-21] MEDS: CHOLECALCIFEROL 1,000 UNITS TABLET 1000 UNITS PO (09:14)
[2023-02-21] MEDS: lisinopriL 20 MG TABLET PO (09:14)
[2023-02-21] MEDS: LORATADINE 10 MG TABLET PO (09:14)
[2023-02-21] MEDS: THERAPEUTIC MULTIVITAMINS/MINERALS TAB (*BKC) 1 TABLET PO (09:14)
[2023-02-21] MEDS: ENOXAPARIN 40 MG/0.4 ML SYRINGE SUB-Q (09:49)
[2023-02-21 12:22] LABS: Prothrombin Time 13.1 Seconds (11.1-14.7)
[2023-02-21] MEDS: REMDESIVIR 200 MG/NS 250 ML 200 MG/250 ML BAG 250 MG IVPB (13:05)
[2023-02-22] VITALS (17 sets, daily range): BP systolic 119–132; BP diastolic 71–74; PULSE 72–93; RESP 16–20; TEMP 36.3–36.7; O2SAT 95–98
[2023-02-22] MEDS: ALBUTEROL SULFATE NEB 2.5 MG/3 ML INH INHALATION ×4 (02:16→19:54)
[2023-02-22] MEDS: IPRATROPIUM BR 0.02% INH SOLN 0.5 MG/2.5 ML VIAL INHALATION ×4 (02:16→19:55)
[2023-02-22 05:52] LABS: Basophils Percent Auto 0.1 % (0.2-1.2); Hemoglobin 9.2 g/dL (14.0-18.0); Immature Granulocyte Absolute 0.07 K/mm3 (0.00-0.031); Immature Granulocyte Percent A 0.8 % (0-0.5); Lymphocytes Absolute Auto 0.68 K/mm3 (0.9-3.2); Lymphocytes Percent Auto 7.7 % (18.3-44.2); Mean Corpuscular HGB Conc 29.7 g/dl (32-36); Mean Corpuscular Hemoglobin 28.3 pg (26-34); Mean Corpuscular Volume 95.4 fl (80-100); Mean Platelet Volume 9.3 fl (7.4-10.4); Monocytes Absolute Auto 0.6 K/mm3 (0.1-0.6); Monocytes Percent Auto 6.4 % (2.6-8.5); Neutrophils Absolute Auto 7.5 K/mm3 (1.3-6.7); Platelet Count Result 248 k/mm3 (150-375); Red Blood Count 3.25 M/mm3 (4.6-6.20); Red Cell Distribution Width 14.9 % (11.5-14.5); White Blood Count 8.8 K/mm3 (4.5-10.0)
[2023-02-22 06:07] LABS: Alanine Aminotransferase 14 U/L (6-50); Albumin Level 2.8 g/dL (3.5-5.1); Alkaline Phosphatase 100 U/L (38-126); Anion Gap 3 mmol/L (8-16); Aspartate Amino Transferase 23 U/L (17-59); Bilirubin,Total < 0.1 mg/dL (0.2-1.3); Blood Urea Nitrogen 26 mg/dL (9-20); Calcium 7.6 mg/dL (8.4-10.2); Carbon Dioxide 27 mmol/L (22-30); Chloride 109 mmol/L (98-107); Estimated CRCL calculation 48 ml/min; Estimated Glomerular Filt Rate > 60; Glucose 101 mg/dL (65-110); Potassium 3.7 mmol/L (3.4-5.0); Sodium 139 mmol/L (137-145)
--- NOTE | 2023-02-22 07:24 | P.PNIM_ITS ---
Progress Note: A&P Assessment and Plan (1) Community acquired pneumonia: Code(s): J18.9 - Pneumonia, unspecified organism Status: Acute Assessment and Plan: 02/20/23: * Improving pulmonary edema, small pleural effusions with bibasilar airspace opacities, atelectasis versus pneumonia. * Continue Rocephin and Azithromycin * Blood cultures obtained and pending. * Procalcitonin 0.2 * Ordered Xanax for anxiety * Continue breathing treatments scheduled and PRN. * Continue solu-medrol 02/21/23: * patient still short of breath at rest, requiring 4 L nasal cannula * patient base line oxygen requirement is 2 L nasal cannula * blood culture showing no growth on preliminary * continue with breathing treatments scheduled and p.r.n. * discontinue Solu-Medrol, start dexamethasone 6 mg IV daily * continue Rocephin and azithromycin * start remdesivir 02/22/23: * Continue to wean O2 for sat greater than 90% * blood cultures are still showing no growth on preliminary read * continue with breathing treatments scheduled and p.r.n. * continue Rocephin, azithromycin, remdesivir, dexamethasone (2) Chronic obstructive pulmonary disease: Code(s): J44.9 - Chronic obstructive pulmonary disease, unspecified Status: Acute Assessment and Plan: 02/20/23: * of note, see above. (3) COVID: Code(s): U07.1 - COVID-19 Status: Acute Assessment and Plan: 02/20/23: * COVID positive this admission. * Currently on 4L NC, wears 2L NC at baseline * Continue to wean O2 for saturation greater than 90% 02/21/23: * patient started on remdesivir and dexamethasone * patient still breathless with rest * currently 4 L nasal cannula * continue to wean O2 for saturation greater than 90% 02/22/23: * continue remdesivir and dexamethasone * work of breathing much improved from yesterday currently on 4 L nasal cannula * continue to wean O2 for saturation greater than 90% (4) Essential (primary) hypertension: Code(s): I10 - Essential (primary) hypertension Status: Acute Assessment and Plan: 02/20/23: * B/P ranging 107/58-119/58 * Continue HCTZ and Lisinopril 12/14/23: * blood pressures ranging 113/50 to 126/50 * no change to current treatment plan 02/22/23: * blood pressures ranging 117/45-132/71 * no change to current treatment plan. Time Spent With Patient Time with patient: Greater than 35 minutes Subjective Date/time seen: 02/22/23 07:25 Interval history: 02/20/23: This is an 87 year old male who presented to the hospital on 02/19/23 with complaint of worsening shortness of breath and dehydration. Patient was recently diagnosed with COVID and pneumonia. He was placed on antibiotics in the outpatient setting. He is currently on 3L NC. He wears 2L NC at baseline. Work up in the hospital includes Chest x-ray that shown improving pulmonary edema, small pleural effusions with bibasilar airspace opacities, and a small loculated fissural fluid of the right lung base. He was given a loading dose of solu- medrol, started on breathing treatments, and IV fluids. Blood cultures were obtained and are pending. He was started on Rocephin and Azithromycin. On examination today patient is alert and oriented x4, lying in the bed. Patient denies any fever, chills, nausea, vomiting, abdominal pain, chest pain. He does report that he has been short of breath and he is had a few bouts of diarrhea. Labs today reveal WBC 6.4, Hgb 9.0, Hct 29.7, Na+ 138, K+ 4.0, Chloride 110, BUN 23, Creatinine 0.90, BG ranging 93-132, Procal
--- NOTE | 2023-02-22 07:24 | PM.IMPN ---
Progress Note: A&P Assessment and Plan (1) Community acquired pneumonia: Code(s): J18.9 - Pneumonia, unspecified organism Status: Acute Assessment and Plan: 02/20/23: Improving pulmonary edema, small pleural effusions with bibasilar airspace opacities, atelectasis versus pneumonia. Continue Rocephin and Azithromycin Blood cultures obtained and pending. Procalcitonin 0.2 Ordered Xanax for anxiety Continue breathing treatments scheduled and PRN. Continue solu-medrol 02/21/23: patient still short of breath at rest, requiring 4 L nasal cannula patient base line oxygen requirement is 2 L nasal cannula blood culture showing no growth on preliminary continue with breathing treatments scheduled and p.r.n. discontinue Solu-Medrol, start dexamethasone 6 mg IV daily continue Rocephin and azithromycin start remdesivir 02/22/23: Continue to wean O2 for sat greater than 90% blood cultures are still showing no growth on preliminary read continue with breathing treatments scheduled and p.r.n. continue Rocephin, azithromycin, remdesivir, dexamethasone (2) Chronic obstructive pulmonary disease: Code(s): J44.9 - Chronic obstructive pulmonary disease, unspecified Status: Acute Assessment and Plan: 02/20/23: of note, see above. (3) COVID: Code(s): U07.1 - COVID-19 Status: Acute Assessment and Plan: 02/20/23: COVID positive this admission. Currently on 4L NC, wears 2L NC at baseline Continue to wean O2 for saturation greater than 90% 02/21/23: patient started on remdesivir and dexamethasone patient still breathless with rest currently 4 L nasal cannula continue to wean O2 for saturation greater than 90% 02/22/23: continue remdesivir and dexamethasone work of breathing much improved from yesterday currently on 4 L nasal cannula continue to wean O2 for saturation greater than 90% (4) Essential (primary) hypertension: Code(s): I10 - Essential (primary) hypertension Status: Acute Assessment and Plan: 02/20/23: B/P ranging 107/58-119/58 Continue HCTZ and Lisinopril 02/21/23: blood pressures ranging 113/50 to 126/50 no change to current treatment plan 02/22/23: blood pressures ranging 117/45-132/71 no change to current treatment plan. Time Spent With Patient Time with patient: Greater than 35 minutes Subjective Date/time seen: 02/22/23 07:25 Interval history: 02/20/23: This is an 87 year old male who presented to the hospital on 02/19/23 with complaint of worsening shortness of breath and dehydration. Patient was recently diagnosed with COVID and pneumonia. He was placed on antibiotics in the outpatient setting. He is currently on 3L NC. He wears 2L NC at baseline. Work up in the hospital includes Chest x-ray that shown improving pulmonary edema, small pleural effusions with bibasilar airspace opacities, and a small loculated fissural fluid of the right lung base. He was given a loading dose of solu-medrol, started on breathing treatments, and IV fluids. Blood cultures were obtained and are pending. He was started on Rocephin and Azithromycin. On examination today patient is alert and oriented x4, lying in the bed. Patient denies any fever, chills, nausea, vomiting, abdominal pain, chest pain. He does report that he has been short of breath and he is had a few bouts of diarrhea. Labs today reveal WBC 6.4, Hgb 9.0, Hct 29.7, Na+ 138, K+ 4.0, Chloride 110, BUN 23, Creatinine 0.90, BG ranging 93-132, Procal 0.2. We will continue on Rocephin and azithromycin. We will also change his breathing treatments to scheduled. 02/21/23: On examination today patient is alert and oriented x3, in the bed. VSS, he is afebrile, currently on 4L NC, 2L is his baseline oxygen requirement. He is still breathless when resting. Labs today reveal white blood cell count 10.5, hemoglobin 9.2, hematocrit 31.0, potassium 3.5 chloride
[2023-02-22 07:25] LABS: Hypochromasia 1+ (NORMAL); Platelet Estimate Adequate (Adequate); Schistocytes None Seen (NORMAL)
[2023-02-22] MEDS: UMECLIDINIUM/VILANTEROL 62.5-25 MCG ELLIPTA 1 PUFF INHALATION (08:45)
--- NOTE | 2023-02-22 10:23 | P.CDI_ITS ---
CDI Query Clarification Request Chest xray notes pleural effusions and pulmonary edema. Patient with documented history of COPD. Patient remains short of breath at rest and requires 4 L NC, 2 L NC is patients baseline requirement. Breathing treatments remain scheduled and PRN. Patient had received Solu-Medrol and is currently receiving dexamethasone. Patient is receiving Rocephin and Azithromycin IV @ 24 hours. Patient was recently diagnosed with pneumonia and tested positive for COVID and has been taking an antibiotic for it as an outpatient for the past week.? Patient's symptoms have not been improving? despite antibiotics and he is having worsening shortness of breath and a productive cough.? Patient wears 2 L home oxygen at baseline. Please review the clinical information above and clarify the respiratory diagnosis the Patient is being treated for if known. * Acute on chronic respiratory failure with hypoxia * Acute on chronic respiratory failure with hypercapnia * Acute on chronic respiratory failure with hypoxia and hypercapnia * Chronic respiratory failure with hypoxia * Chronic respiratory failure with hypercapnia * Chronic respiratory failure with hypoxia and hypercapnia * Unable to determine. <Yara Vergara RN - Last Filed: 02/22/23 10:40> Clarified Diagnosis Clarified Diagnosis: Acute on chronic respiratory failure with hypoxia COVID-19 Community acquired pneumonia <Hue Lynn APRN - Last Filed: 02/22/23 11:24>
[2023-02-22] MEDS: FOLIC ACID 1 MG TABLET PO (10:54)
[2023-02-22] MEDS: LORATADINE 10 MG TABLET PO (10:54)
[2023-02-22] MEDS: THERAPEUTIC MULTIVITAMINS/MINERALS TAB (*BKC) 1 TABLET PO (10:55)
[2023-02-22] MEDS: CHOLECALCIFEROL 1,000 UNITS TABLET 1000 UNITS PO (10:55)
[2023-02-22] MEDS: lisinopriL 20 MG TABLET PO (10:55)
[2023-02-22] MEDS: hydroCHLOROthiazide 25 MG TABLET PO (10:55)
[2023-02-22] MEDS: ENOXAPARIN 40 MG/0.4 ML SYRINGE SUB-Q (10:56)
[2023-02-22] MEDS: ASCORBIC ACID 125 MG TABLET BY MOUTH (10:56)
[2023-02-22] MEDS: REMDESIVIR 100 MG/NS 250 ML 100 MG/250 ML BAG 250 MG IVPB (11:52)
[2023-02-22] MEDS: ALPRAZolam (*CRX) 0.25 MG TABLET PO (14:22)
[2023-02-23] VITALS (17 sets, daily range): BP systolic 119–148; BP diastolic 60–69; PULSE 55–97; RESP 16–24; TEMP 36.2–36.8; O2SAT 94–96
[2023-02-23] MEDS: ALBUTEROL SULFATE NEB 2.5 MG/3 ML INH INHALATION ×4 (03:19→20:41)
[2023-02-23] MEDS: IPRATROPIUM BR 0.02% INH SOLN 0.5 MG/2.5 ML VIAL INHALATION ×4 (03:20→20:41)
[2023-02-23 05:38] LABS: Basophils Percent Auto 0.2 % (0.2-1.2); Hematocrit 31.5 % (42.0-52.0); Hemoglobin 9.5 g/dL (14.0-18.0); Immature Granulocyte Absolute 0.09 K/mm3 (0.00-0.031); Immature Granulocyte Percent A 1.4 % (0-0.5); Lymphocytes Absolute Auto 0.83 K/mm3 (0.9-3.2); Lymphocytes Percent Auto 13.3 % (18.3-44.2); Mean Corpuscular HGB Conc 30.2 g/dl (32-36); Mean Corpuscular Hemoglobin 28.5 pg (26-34); Mean Corpuscular Volume 94.6 fl (80-100); Mean Platelet Volume 9.2 fl (7.4-10.4); Monocytes Absolute Auto 0.4 K/mm3 (0.1-0.6); Monocytes Percent Auto 5.8 % (2.6-8.5); Neutrophils Percent Auto 79.3 % (45.5-73.1); Platelet Count Result 231 k/mm3 (150-375); Red Blood Count 3.33 M/mm3 (4.6-6.20); Red Cell Distribution Width 14.9 % (11.5-14.5); White Blood Count 6.3 K/mm3 (4.5-10.0)
[2023-02-23 05:50] LABS: Alanine Aminotransferase 16 U/L (6-50); Albumin Level 2.8 g/dL (3.5-5.1); Alkaline Phosphatase 100 U/L (38-126); Anion Gap 2 mmol/L (8-16); Aspartate Amino Transferase 26 U/L (17-59); Bilirubin,Total 0.2 mg/dL (0.2-1.3); Blood Urea Nitrogen 24 mg/dL (9-20); Calcium 7.8 mg/dL (8.4-10.2); Carbon Dioxide 30 mmol/L (22-30); Chloride 106 mmol/L (98-107); Estimated CRCL calculation 48 ml/min; Estimated Glomerular Filt Rate > 60; Glucose 105 mg/dL (65-110); Potassium 4.9 mmol/L (3.4-5.0); Sodium 138 mmol/L (137-145)
[2023-02-23 06:08] LABS: Prothrombin Time 13.4 Seconds (11.1-14.7)
[2023-02-23] MEDS: UMECLIDINIUM/VILANTEROL 62.5-25 MCG ELLIPTA 1 PUFF INHALATION (07:37)
--- NOTE | 2023-02-23 09:21 | P.PNIM_ITS ---
Progress Note: A&P Assessment and Plan (1) Community acquired pneumonia: Code(s): J18.9 - Pneumonia, unspecified organism Status: Acute Assessment and Plan: 02/20/23: * Improving pulmonary edema, small pleural effusions with bibasilar airspace opacities, atelectasis versus pneumonia. * Continue Rocephin and Azithromycin * Blood cultures obtained and pending. * Procalcitonin 0.2 * Ordered Xanax for anxiety * Continue breathing treatments scheduled and PRN. * Continue solu-medrol 02/21/23: * patient still short of breath at rest, requiring 4 L nasal cannula * patient base line oxygen requirement is 2 L nasal cannula * blood culture showing no growth on preliminary * continue with breathing treatments scheduled and p.r.n. * discontinue Solu-Medrol, start dexamethasone 6 mg IV daily * continue Rocephin and azithromycin * start remdesivir 02/22/23: * Continue to wean O2 for sat greater than 90% * blood cultures are still showing no growth on preliminary read * continue with breathing treatments scheduled and p.r.n. * continue Rocephin, azithromycin, remdesivir, dexamethasone 02/23/23: * no change to current treatment plan (2) Chronic obstructive pulmonary disease: Code(s): J44.9 - Chronic obstructive pulmonary disease, unspecified Status: Acute Assessment and Plan: 02/20/23: * of note, see above. (3) COVID: Code(s): U07.1 - COVID-19 Status: Acute Assessment and Plan: 02/20/23: * COVID positive this admission. * Currently on 4L NC, wears 2L NC at baseline * Continue to wean O2 for saturation greater than 90% 02/21/23: * patient started on remdesivir and dexamethasone * patient still breathless with rest * currently 4 L nasal cannula * continue to wean O2 for saturation greater than 90% 02/22/23: * continue remdesivir and dexamethasone * work of breathing much improved from yesterday currently on 4 L nasal cannula * continue to wean O2 for saturation greater than 90% 02/22/23: * no change to current treatment plan (4) Essential (primary) hypertension: Code(s): I10 - Essential (primary) hypertension Status: Acute Assessment and Plan: 02/20/23: * B/P ranging 107/58-119/58 * Continue HCTZ and Lisinopril 02/21/23: * blood pressures ranging 113/50 to 126/50 * no change to current treatment plan 02/22/23: * blood pressures ranging 117/45-132/71 * no change to current treatment plan. 02/23/23: * no change to current treatment plan Time Spent With Patient Time with patient: 25 - 35 minutes Subjective Date/time seen: 02/23/23 09:21 Interval history: 02/20/23: This is an 87 year old male who presented to the hospital on 02/19/23 with complaint of worsening shortness of breath and dehydration. Patient was recently diagnosed with COVID and pneumonia. He was placed on antibiotics in the outpatient setting. He is currently on 3L NC. He wears 2L NC at baseline. Work up in the hospital includes Chest x-ray that shown improving pulmonary edema, small pleural effusions with bibasilar airspace opacities, and a small loculated fissural fluid of the right lung base. He was given a loading dose of solu- medrol, started on breathing treatments, and IV fluids. Blood cultures were obtained and are pending. He was started on Rocephin and Azithromycin. On examination today patient is alert and oriented x4, lying in the bed. Patient denies any fever, chills, nausea, vomiting, abdominal pain, chest pain. He does report that he has been short o
--- NOTE | 2023-02-23 09:21 | PM.IMPN ---
Progress Note: A&P Assessment and Plan (1) Community acquired pneumonia: Code(s): J18.9 - Pneumonia, unspecified organism Status: Acute Assessment and Plan: 02/20/23: Improving pulmonary edema, small pleural effusions with bibasilar airspace opacities, atelectasis versus pneumonia. Continue Rocephin and Azithromycin Blood cultures obtained and pending. Procalcitonin 0.2 Ordered Xanax for anxiety Continue breathing treatments scheduled and PRN. Continue solu-medrol 02/21/23: patient still short of breath at rest, requiring 4 L nasal cannula patient base line oxygen requirement is 2 L nasal cannula blood culture showing no growth on preliminary continue with breathing treatments scheduled and p.r.n. discontinue Solu-Medrol, start dexamethasone 6 mg IV daily continue Rocephin and azithromycin start remdesivir 02/22/23: Continue to wean O2 for sat greater than 90% blood cultures are still showing no growth on preliminary read continue with breathing treatments scheduled and p.r.n. continue Rocephin, azithromycin, remdesivir, dexamethasone 02/23/23: no change to current treatment plan (2) Chronic obstructive pulmonary disease: Code(s): J44.9 - Chronic obstructive pulmonary disease, unspecified Status: Acute Assessment and Plan: 02/20/23: of note, see above. (3) COVID: Code(s): U07.1 - COVID-19 Status: Acute Assessment and Plan: 02/20/23: COVID positive this admission. Currently on 4L NC, wears 2L NC at baseline Continue to wean O2 for saturation greater than 90% 02/21/23: patient started on remdesivir and dexamethasone patient still breathless with rest currently 4 L nasal cannula continue to wean O2 for saturation greater than 90% 02/22/23: continue remdesivir and dexamethasone work of breathing much improved from yesterday currently on 4 L nasal cannula continue to wean O2 for saturation greater than 90% 02/22/23: no change to current treatment plan (4) Essential (primary) hypertension: Code(s): I10 - Essential (primary) hypertension Status: Acute Assessment and Plan: 02/20/23: B/P ranging 107/58-119/58 Continue HCTZ and Lisinopril 02/21/23: blood pressures ranging 113/50 to 126/50 no change to current treatment plan 02/22/23: blood pressures ranging 117/45-132/71 no change to current treatment plan. 02/23/23: no change to current treatment plan Time Spent With Patient Time with patient: 25 - 35 minutes Subjective Date/time seen: 02/23/23 09:21 Interval history: 02/20/23: This is an 87 year old male who presented to the hospital on 02/19/23 with complaint of worsening shortness of breath and dehydration. Patient was recently diagnosed with COVID and pneumonia. He was placed on antibiotics in the outpatient setting. He is currently on 3L NC. He wears 2L NC at baseline. Work up in the hospital includes Chest x-ray that shown improving pulmonary edema, small pleural effusions with bibasilar airspace opacities, and a small loculated fissural fluid of the right lung base. He was given a loading dose of solu-medrol, started on breathing treatments, and IV fluids. Blood cultures were obtained and are pending. He was started on Rocephin and Azithromycin. On examination today patient is alert and oriented x4, lying in the bed. Patient denies any fever, chills, nausea, vomiting, abdominal pain, chest pain. He does report that he has been short of breath and he is had a few bouts of diarrhea. Labs today reveal WBC 6.4, Hgb 9.0, Hct 29.7, Na+ 138, K+ 4.0, Chloride 110, BUN 23, Creatinine 0.90, BG ranging 93-132, Procal 0.2. We will continue on Rocephin and azithromycin. We will also change his breathing treatments to scheduled. 02/21/23: On examination today patient is alert and oriented x3, in the bed. VSS, he is afebrile, currently on 4L NC, 2L is his baseline oxygen requireme
[2023-02-23] MEDS: ASCORBIC ACID 125 MG TABLET BY MOUTH (11:00)
[2023-02-23] MEDS: FOLIC ACID 1 MG TABLET PO (11:00)
[2023-02-23] MEDS: LORATADINE 10 MG TABLET PO (11:00)
[2023-02-23] MEDS: AMOXICILLIN/CLAVULANATE K 875-125 MG TAB 1 TABLET PO ×2 (11:00→21:04)
[2023-02-23] MEDS: ENOXAPARIN 40 MG/0.4 ML SYRINGE SUB-Q (11:00)
[2023-02-23] MEDS: CHOLECALCIFEROL 1,000 UNITS TABLET 1000 UNITS PO (11:01)
[2023-02-23] MEDS: hydroCHLOROthiazide 25 MG TABLET PO (11:01)
[2023-02-23] MEDS: THERAPEUTIC MULTIVITAMINS/MINERALS TAB (*BKC) 1 TABLET PO (11:02)
[2023-02-23] MEDS: lisinopriL 20 MG TABLET PO (11:02)
[2023-02-23] MEDS: REMDESIVIR 100 MG/NS 250 ML 100 MG/250 ML BAG 250 MG IVPB (11:02)
[2023-02-23] MEDS: AZITHROMYCIN 250 MG TABLET 500 MG PO (11:14)
[2023-02-24] VITALS (19 sets, daily range): BP systolic 99–143; BP diastolic 43–74; PULSE 63–105; RESP 16–22; TEMP 36.4–36.8; O2SAT 93–99
[2023-02-24] MEDS: IPRATROPIUM BR 0.02% INH SOLN 0.5 MG/2.5 ML VIAL INHALATION ×4 (02:02→21:03)
[2023-02-24] MEDS: ALBUTEROL SULFATE NEB 2.5 MG/3 ML INH INHALATION ×4 (02:02→21:03)
[2023-02-24] MEDS: ENOXAPARIN 40 MG/0.4 ML SYRINGE SUB-Q (08:46)
[2023-02-24] MEDS: CHOLECALCIFEROL 1,000 UNITS TABLET 1000 UNITS PO (08:47)
[2023-02-24] MEDS: THERAPEUTIC MULTIVITAMINS/MINERALS TAB (*BKC) 1 TABLET PO (08:47)
[2023-02-24] MEDS: LORATADINE 10 MG TABLET PO (08:47)
[2023-02-24] MEDS: ASCORBIC ACID 125 MG TABLET BY MOUTH (08:47)
[2023-02-24] MEDS: lisinopriL 20 MG TABLET PO (08:47)
[2023-02-24] MEDS: hydroCHLOROthiazide 25 MG TABLET PO (08:47)
[2023-02-24] MEDS: FOLIC ACID 1 MG TABLET PO (08:47)
[2023-02-24] MEDS: AMOXICILLIN/CLAVULANATE K 875-125 MG TAB 1 TABLET PO ×2 (08:47→20:21)
[2023-02-24] MEDS: UMECLIDINIUM/VILANTEROL 62.5-25 MCG ELLIPTA 1 PUFF INHALATION (09:07)
--- NOTE | 2023-02-24 09:59 | P.PNIM_ITS ---
Progress Note: A&P Assessment and Plan (1) Community acquired pneumonia: Code(s): J18.9 - Pneumonia, unspecified organism Status: Acute Assessment and Plan: 02/20/23: * Improving pulmonary edema, small pleural effusions with bibasilar airspace opacities, atelectasis versus pneumonia. * Continue Rocephin and Azithromycin * Blood cultures obtained and pending. * Procalcitonin 0.2 * Ordered Xanax for anxiety * Continue breathing treatments scheduled and PRN. * Continue solu-medrol 02/21/23: * patient still short of breath at rest, requiring 4 L nasal cannula * patient base line oxygen requirement is 2 L nasal cannula * blood culture showing no growth on preliminary * continue with breathing treatments scheduled and p.r.n. * discontinue Solu-Medrol, start dexamethasone 6 mg IV daily * continue Rocephin and azithromycin * start remdesivir 02/22/23: * Continue to wean O2 for sat greater than 90% * blood cultures are still showing no growth on preliminary read * continue with breathing treatments scheduled and p.r.n. * continue Rocephin, azithromycin, remdesivir, dexamethasone 02/23/23: * no change to current treatment plan 02/24/2023: * Wean oxygen down to 2 L for a sat greater than 90% * Continue with current treatment (2) Chronic obstructive pulmonary disease: Code(s): J44.9 - Chronic obstructive pulmonary disease, unspecified Status: Acute Assessment and Plan: 02/20/23: * of note, see above. (3) COVID: Code(s): U07.1 - COVID-19 Status: Acute Assessment and Plan: 02/20/23: * COVID positive this admission. * Currently on 4L NC, wears 2L NC at baseline * Continue to wean O2 for saturation greater than 90% 02/21/23: * patient started on remdesivir and dexamethasone * patient still breathless with rest * currently 4 L nasal cannula * continue to wean O2 for saturation greater than 90% 02/22/23: * continue remdesivir and dexamethasone * work of breathing much improved from yesterday currently on 4 L nasal cannula * continue to wean O2 for saturation greater than 90% 02/22/23: * no change to current treatment plan (4) Essential (primary) hypertension: Code(s): I10 - Essential (primary) hypertension Status: Acute Assessment and Plan: 02/20/23: * B/P ranging 107/58-119/58 * Continue HCTZ and Lisinopril 02/21/23: * blood pressures ranging 113/50 to 126/50 * no change to current treatment plan 02/22/23: * blood pressures ranging 117/45-132/71 * no change to current treatment plan. 02/23/23: * no change to current treatment plan 02/24/2023: * Blood pressure stable * No change to current treatment plan Time Spent With Patient Time with patient: 15 - 25 minutes Subjective Date/time seen: 02/24/23 09:59 Interval history: 02/20/23: This is an 87 year old male who presented to the hospital on 02/19/23 with complaint of worsening shortness of breath and dehydration. Patient was recently diagnosed with COVID and pneumonia. He was placed on antibiotics in the outpatient setting. He is currently on 3L NC. He wears 2L NC at baseline. Work up in the hospital includes Chest x-ray that shown improving pulmonary edema, small pleural effusions with bibasilar airspace opacities, and a small loculated fissural fluid of the right lung base. He was given a loading dose of solu- medrol, started on breathing treatments, and IV fluids. Blood cultures were obtained and are pending. He was started on Rocephin and Azithromycin
--- NOTE | 2023-02-24 09:59 | PM.IMPN ---
Progress Note: A&P Assessment and Plan (1) Community acquired pneumonia: Code(s): J18.9 - Pneumonia, unspecified organism Status: Acute Assessment and Plan: 02/20/23: Improving pulmonary edema, small pleural effusions with bibasilar airspace opacities, atelectasis versus pneumonia. Continue Rocephin and Azithromycin Blood cultures obtained and pending. Procalcitonin 0.2 Ordered Xanax for anxiety Continue breathing treatments scheduled and PRN. Continue solu-medrol 02/21/23: patient still short of breath at rest, requiring 4 L nasal cannula patient base line oxygen requirement is 2 L nasal cannula blood culture showing no growth on preliminary continue with breathing treatments scheduled and p.r.n. discontinue Solu-Medrol, start dexamethasone 6 mg IV daily continue Rocephin and azithromycin start remdesivir 02/22/23: Continue to wean O2 for sat greater than 90% blood cultures are still showing no growth on preliminary read continue with breathing treatments scheduled and p.r.n. continue Rocephin, azithromycin, remdesivir, dexamethasone 02/23/23: no change to current treatment plan 02/24/2023: Wean oxygen down to 2 L for a sat greater than 90% Continue with current treatment (2) Chronic obstructive pulmonary disease: Code(s): J44.9 - Chronic obstructive pulmonary disease, unspecified Status: Acute Assessment and Plan: 02/20/23: of note, see above. (3) COVID: Code(s): U07.1 - COVID-19 Status: Acute Assessment and Plan: 02/20/23: COVID positive this admission. Currently on 4L NC, wears 2L NC at baseline Continue to wean O2 for saturation greater than 90% 02/21/23: patient started on remdesivir and dexamethasone patient still breathless with rest currently 4 L nasal cannula continue to wean O2 for saturation greater than 90% 02/22/23: continue remdesivir and dexamethasone work of breathing much improved from yesterday currently on 4 L nasal cannula continue to wean O2 for saturation greater than 90% 02/22/23: no change to current treatment plan (4) Essential (primary) hypertension: Code(s): I10 - Essential (primary) hypertension Status: Acute Assessment and Plan: 02/20/23: B/P ranging 107/58-119/58 Continue HCTZ and Lisinopril 02/21/23: blood pressures ranging 113/50 to 126/50 no change to current treatment plan 02/22/23: blood pressures ranging 117/45-132/71 no change to current treatment plan. 02/23/23: no change to current treatment plan 02/24/2023: Blood pressure stable No change to current treatment plan Time Spent With Patient Time with patient: 15 - 25 minutes Subjective Date/time seen: 02/24/23 09:59 Interval history: 02/20/23: This is an 87 year old male who presented to the hospital on 02/19/23 with complaint of worsening shortness of breath and dehydration. Patient was recently diagnosed with COVID and pneumonia. He was placed on antibiotics in the outpatient setting. He is currently on 3L NC. He wears 2L NC at baseline. Work up in the hospital includes Chest x-ray that shown improving pulmonary edema, small pleural effusions with bibasilar airspace opacities, and a small loculated fissural fluid of the right lung base. He was given a loading dose of solu-medrol, started on breathing treatments, and IV fluids. Blood cultures were obtained and are pending. He was started on Rocephin and Azithromycin. On examination today patient is alert and oriented x4, lying in the bed. Patient denies any fever, chills, nausea, vomiting, abdominal pain, chest pain. He does report that he has been short of breath and he is had a few bouts of diarrhea. Labs today reveal WBC 6.4, Hgb 9.0, Hct 29.7, Na+ 138, K+ 4.0, Chloride 110, BUN 23, Creatinine 0.90, BG ranging 93-132, Procal 0.2. We will continue on Rocephin and azithromycin. We will also change his breathing aidan
[2023-02-24] MEDS: REMDESIVIR 100 MG/NS 250 ML 100 MG/250 ML BAG 250 MG IVPB (11:05)
[2023-02-25] VITALS (21 sets, daily range): BP systolic 119–144; BP diastolic 61–77; PULSE 63–106; RESP 18–22; TEMP 36.5–36.6; O2SAT 92–99
[2023-02-25 06:09] LABS: Basophils Percent Auto 0.3 % (0.2-1.2); Eosinophils Percent Auto 0.2 % (0-4.4); Hematocrit 31.3 % (42.0-52.0); Hemoglobin 9.3 g/dL (14.0-18.0); Immature Granulocyte Absolute 0.29 K/mm3 (0.00-0.031); Immature Granulocyte Percent A 4.9 % (0-0.5); Lymphocytes Absolute Auto 1.14 K/mm3 (0.9-3.2); Lymphocytes Percent Auto 19.1 % (18.3-44.2); Mean Corpuscular HGB Conc 29.7 g/dl (32-36); Mean Corpuscular Hemoglobin 28.4 pg (26-34); Mean Corpuscular Volume 95.4 fl (80-100); Mean Platelet Volume 9.6 fl (7.4-10.4); Monocytes Absolute Auto 0.4 K/mm3 (0.1-0.6); Monocytes Percent Auto 6.2 % (2.6-8.5); Neutrophils Absolute Auto 4.1 K/mm3 (1.3-6.7); Neutrophils Percent Auto 69.3 % (45.5-73.1); Platelet Count Result 267 k/mm3 (150-375); Red Blood Count 3.28 M/mm3 (4.6-6.20); Red Cell Distribution Width 14.9 % (11.5-14.5)
[2023-02-25 06:20] LABS: Alanine Aminotransferase 21 U/L (6-50); Albumin Level 2.7 g/dL (3.5-5.1); Alkaline Phosphatase 88 U/L (38-126); Anion Gap 2 mmol/L (8-16); Aspartate Amino Transferase 28 U/L (17-59); Bilirubin Indirect 0.1 mg/dL (0-1.1); Bilirubin,Total 0.2 mg/dL (0.2-1.3); Blood Urea Nitrogen 28 mg/dL (9-20); Calcium 7.9 mg/dL (8.4-10.2); Carbon Dioxide 31 mmol/L (22-30); Chloride 105 mmol/L (98-107); Estimated CRCL calculation 43 ml/min; Estimated Glomerular Filt Rate > 60; Glucose 89 mg/dL (65-110); Potassium 4.4 mmol/L (3.4-5.0); Sodium 138 mmol/L (137-145)
[2023-02-25 06:25] LABS: INR 1.1; Prothrombin Time 14.3 Seconds (11.1-14.7)
[2023-02-25 07:52] LABS: Platelet Estimate Adequate (Adequate); Schistocytes None Seen (NORMAL)
[2023-02-25 07:53] LABS: Hypochromasia 2+ (NORMAL)
[2023-02-25] MEDS: THERAPEUTIC MULTIVITAMINS/MINERALS TAB (*BKC) 1 TABLET PO (08:34)
[2023-02-25] MEDS: AMOXICILLIN/CLAVULANATE K 875-125 MG TAB 1 TABLET PO ×2 (08:35→20:20)
[2023-02-25] MEDS: LORATADINE 10 MG TABLET PO (08:35)
[2023-02-25] MEDS: lisinopriL 20 MG TABLET PO (08:35)
[2023-02-25] MEDS: hydroCHLOROthiazide 25 MG TABLET PO (08:35)
[2023-02-25] MEDS: CHOLECALCIFEROL 1,000 UNITS TABLET 1000 UNITS PO (08:35)
[2023-02-25] MEDS: FOLIC ACID 1 MG TABLET PO (08:35)
[2023-02-25] MEDS: ALBUTEROL SULFATE NEB 2.5 MG/3 ML INH INHALATION ×3 (08:35→21:47)
[2023-02-25] MEDS: IPRATROPIUM BR 0.02% INH SOLN 0.5 MG/2.5 ML VIAL INHALATION ×3 (08:35→21:47)
[2023-02-25] MEDS: ENOXAPARIN 40 MG/0.4 ML SYRINGE SUB-Q (08:36)
[2023-02-25] MEDS: ASCORBIC ACID 125 MG TABLET BY MOUTH (08:36)
[2023-02-25] MEDS: UMECLIDINIUM/VILANTEROL 62.5-25 MCG ELLIPTA 1 PUFF INHALATION (08:49)
[2023-02-25] MEDS: REMDESIVIR 100 MG/NS 250 ML 100 MG/250 ML BAG 250 MG IVPB (10:48)
--- NOTE | 2023-02-25 15:28 | P.PNIM_ITS ---
Progress Note: A&P Assessment and Plan (1) Community acquired pneumonia: Code(s): J18.9 - Pneumonia, unspecified organism Status: Acute Assessment and Plan: 02/20/23: * Improving pulmonary edema, small pleural effusions with bibasilar airspace opacities, atelectasis versus pneumonia. * Continue Rocephin and Azithromycin * Blood cultures obtained and pending. * Procalcitonin 0.2 * Ordered Xanax for anxiety * Continue breathing treatments scheduled and PRN. * Continue solu-medrol 02/21/23: * patient still short of breath at rest, requiring 4 L nasal cannula * patient base line oxygen requirement is 2 L nasal cannula * blood culture showing no growth on preliminary * continue with breathing treatments scheduled and p.r.n. * discontinue Solu-Medrol, start dexamethasone 6 mg IV daily * continue Rocephin and azithromycin * start remdesivir 02/22/23: * Continue to wean O2 for sat greater than 90% * blood cultures are still showing no growth on preliminary read * continue with breathing treatments scheduled and p.r.n. * continue Rocephin, azithromycin, remdesivir, dexamethasone 02/23/23: * no change to current treatment plan 02/24/2023: * Wean oxygen down to 2 L for a sat greater than 90% * Continue with current treatment 02/25/23: * Wean oxygen for saturation between 88-92% (2) Chronic obstructive pulmonary disease: Code(s): J44.9 - Chronic obstructive pulmonary disease, unspecified Status: Acute Assessment and Plan: 02/20/23: * of note, see above. (3) COVID: Code(s): U07.1 - COVID-19 Status: Acute Assessment and Plan: 02/20/23: * COVID positive this admission. * Currently on 4L NC, wears 2L NC at baseline * Continue to wean O2 for saturation greater than 90% 02/21/23: * patient started on remdesivir and dexamethasone * patient still breathless with rest * currently 4 L nasal cannula * continue to wean O2 for saturation greater than 90% 02/22/23: * continue remdesivir and dexamethasone * work of breathing much improved from yesterday currently on 4 L nasal cannula * continue to wean O2 for saturation greater than 90% 02/22/23: * no change to current treatment plan (4) Essential (primary) hypertension: Code(s): I10 - Essential (primary) hypertension Status: Acute Assessment and Plan: 02/20/23: * B/P ranging 107/58-119/58 * Continue HCTZ and Lisinopril 02/21/23: * blood pressures ranging 113/50 to 126/50 * no change to current treatment plan 02/22/23: * blood pressures ranging 117/45-132/71 * no change to current treatment plan. 02/23/23: * no change to current treatment plan 02/24/2023: * Blood pressure stable * No change to current treatment plan Time Spent With Patient Time with patient: 25 - 35 minutes Subjective Date/time seen: 02/25/23 15:28 Interval history: 02/20/23: This is an 87 year old male who presented to the hospital on 02/19/23 with complaint of worsening shortness of breath and dehydration. Patient was recently diagnosed with COVID and pneumonia. He was placed on antibiotics in the outpatient setting. He is currently on 3L NC. He wears 2L NC at baseline. Work up in the hospital includes Chest x-ray that shown improving pulmonary edema, small pleural effusions with bibasilar airspace opacities, and a small loculated fissural fluid of the right lung base. He was given a loading dose of solu- medrol, started on breathing treatments, and IV fluids. Blood cultures were
--- NOTE | 2023-02-25 15:28 | PM.IMPN ---
Progress Note: A&P Assessment and Plan (1) Community acquired pneumonia: Code(s): J18.9 - Pneumonia, unspecified organism Status: Acute Assessment and Plan: 02/20/23: Improving pulmonary edema, small pleural effusions with bibasilar airspace opacities, atelectasis versus pneumonia. Continue Rocephin and Azithromycin Blood cultures obtained and pending. Procalcitonin 0.2 Ordered Xanax for anxiety Continue breathing treatments scheduled and PRN. Continue solu-medrol 02/21/23: patient still short of breath at rest, requiring 4 L nasal cannula patient base line oxygen requirement is 2 L nasal cannula blood culture showing no growth on preliminary continue with breathing treatments scheduled and p.r.n. discontinue Solu-Medrol, start dexamethasone 6 mg IV daily continue Rocephin and azithromycin start remdesivir 02/22/23: Continue to wean O2 for sat greater than 90% blood cultures are still showing no growth on preliminary read continue with breathing treatments scheduled and p.r.n. continue Rocephin, azithromycin, remdesivir, dexamethasone 02/23/23: no change to current treatment plan 02/24/2023: Wean oxygen down to 2 L for a sat greater than 90% Continue with current treatment 02/25/23: Wean oxygen for saturation between 88-92% (2) Chronic obstructive pulmonary disease: Code(s): J44.9 - Chronic obstructive pulmonary disease, unspecified Status: Acute Assessment and Plan: 02/20/23: of note, see above. (3) COVID: Code(s): U07.1 - COVID-19 Status: Acute Assessment and Plan: 02/20/23: COVID positive this admission. Currently on 4L NC, wears 2L NC at baseline Continue to wean O2 for saturation greater than 90% 02/21/23: patient started on remdesivir and dexamethasone patient still breathless with rest currently 4 L nasal cannula continue to wean O2 for saturation greater than 90% 02/22/23: continue remdesivir and dexamethasone work of breathing much improved from yesterday currently on 4 L nasal cannula continue to wean O2 for saturation greater than 90% 02/22/23: no change to current treatment plan (4) Essential (primary) hypertension: Code(s): I10 - Essential (primary) hypertension Status: Acute Assessment and Plan: 02/20/23: B/P ranging 107/58-119/58 Continue HCTZ and Lisinopril 02/21/23: blood pressures ranging 113/50 to 126/50 no change to current treatment plan 02/22/23: blood pressures ranging 117/45-132/71 no change to current treatment plan. 02/23/23: no change to current treatment plan 02/24/2023: Blood pressure stable No change to current treatment plan Time Spent With Patient Time with patient: 25 - 35 minutes Subjective Date/time seen: 02/25/23 15:28 Interval history: 02/20/23: This is an 87 year old male who presented to the hospital on 02/19/23 with complaint of worsening shortness of breath and dehydration. Patient was recently diagnosed with COVID and pneumonia. He was placed on antibiotics in the outpatient setting. He is currently on 3L NC. He wears 2L NC at baseline. Work up in the hospital includes Chest x-ray that shown improving pulmonary edema, small pleural effusions with bibasilar airspace opacities, and a small loculated fissural fluid of the right lung base. He was given a loading dose of solu-medrol, started on breathing treatments, and IV fluids. Blood cultures were obtained and are pending. He was started on Rocephin and Azithromycin. On examination today patient is alert and oriented x4, lying in the bed. Patient denies any fever, chills, nausea, vomiting, abdominal pain, chest pain. He does report that he has been short of breath and he is had a few bouts of diarrhea. Labs today reveal WBC 6.4, Hgb 9.0, Hct 29.7, Na+ 138, K+ 4.0, Chloride 110, BUN 23, Creatinine 0.90, BG ranging 93-132, Procal 0.2. We will continue on Rocephin
[2023-02-25] MEDS: guaiFENesin 200 MG/10 ML UDC PO (16:56)
[2023-02-26] VITALS (8 sets, daily range): BP systolic 124; BP diastolic 64–79; PULSE 71–91; RESP 18–20; TEMP 36; O2SAT 94–100
[2023-02-26] MEDS: ALPRAZolam (*CRX) 0.25 MG TABLET PO (00:01)
[2023-02-26] MEDS: IPRATROPIUM BR 0.02% INH SOLN 0.5 MG/2.5 ML VIAL INHALATION ×2 (03:21→12:18)
[2023-02-26] MEDS: ALBUTEROL SULFATE NEB 2.5 MG/3 ML INH INHALATION ×2 (03:21→12:17)
[2023-02-26] MEDS: hydroCHLOROthiazide 25 MG TABLET PO (08:52)
[2023-02-26] MEDS: FOLIC ACID 1 MG TABLET PO (08:52)
[2023-02-26] MEDS: THERAPEUTIC MULTIVITAMINS/MINERALS TAB (*BKC) 1 TABLET PO (08:52)
[2023-02-26] MEDS: LORATADINE 10 MG TABLET PO (08:53)
[2023-02-26] MEDS: CHOLECALCIFEROL 1,000 UNITS TABLET 1000 UNITS PO (08:53)
[2023-02-26] MEDS: lisinopriL 20 MG TABLET PO (08:53)
[2023-02-26] MEDS: ASCORBIC ACID 125 MG TABLET BY MOUTH (08:53)
[2023-02-26] MEDS: ENOXAPARIN 40 MG/0.4 ML SYRINGE SUB-Q (08:53)
--- NOTE | 2023-02-26 08:57 | PCNWS ---
Weekly nutritional screen. Patient is tolerating current diet with adequate intake. No weight loss reported. No nutritional needs at this time.
--- NOTE | 2023-02-26 10:50 | PM.DS ---
DS: Admitting Diagnosis Discharge Date 02/26/23 Admitting Diagnosis Covid-19 community acquired Pneumonia COPD essential hypertension DS: Discharge Diagnosis Discharge Diagnosis (1) Community acquired pneumonia: Code(s): J18.9 - Pneumonia, unspecified organism Status: Acute (2) Chronic obstructive pulmonary disease: Code(s): J44.9 - Chronic obstructive pulmonary disease, unspecified Status: Acute (3) COVID: Code(s): U07.1 - COVID-19 Status: Acute (4) Essential (primary) hypertension: Code(s): I10 - Essential (primary) hypertension Status: Acute DS: Summary Hospital Course Hospital Course: This is an 87 year old male who presented to the hospital on 02/19/23 with complaint of worsening shortness of breath and dehydration. Patient was recently diagnosed with COVID and pneumonia. He was placed on antibiotics in the outpatient setting. He was up to 4L NC while hospitalized. He wears 2L NC at baseline. Work up in the hospital includes Chest x-ray that shown improving pulmonary edema, small pleural effusions with bibasilar airspace opacities, and a small loculated fissural fluid of the right lung base.? He was given a loading dose of solu-medrol, started on breathing treatments, and IV fluids. Blood cultures were obtained and are pending. He was started on Rocephin and Azithromycin. On the we added remdesivir and dexamethasone. Patient finished a course of Augmentin, Azithromycin, remdesivir x5 days, and dexamethasone while in the hospital. He was weaned overnight to a 2L NC. Patient states that he feels much better. VSS, he is afebrile. Labs are unremarkable. He is stable for discharge at this time. He will need to follow up with PCP in 1 week. Status at Discharge Cognitive/behavioral status at discharge: Alert and oriented x3 Functional status at discharge: independent ambulation Overall status at discharge: patient is progressing back to baseline Time Spent with Patient Time attestation: Total time spent providing and/or coordinating discharge services: Time spent: Greater than 30 minutes Exam Narrative: General: In no acute distress, well nourished Head: atraumatic, no encephalopathy Eyes: EOMI, PERRLA, sclera injected ENT: moist mucous membranes, nasal passages clear Neck: supple, no JVD, no adenopathy, trachea midline Cardiac: Normal S1 and S2. No murmur, gallops or friction rubs, peripheral pulses intact. Respiratory: Lungs clear auscultation,no respiratory distress noted. Patient is back to baseline oxygen requirements Gastrointestinal: soft, non-distended, non-tender, normoactive bowel sounds. : voiding without difficulty. Extremities: moves all extremities well, no edema, good ROM Skin: clean, dry, intact. No wounds or lesions. Neuro: Alert and oriented x4, cranial nerves intact, no neuro deficits. Psych: normal mood, normal affect, interactive DS: Data Data Completed and Pending Completed studies during hospitalization: Chest x-ray Pending studies at discharge: none Procedures/Treatments: None Discharge Plan Discharge Attending physician on discharge: Kristi Whyte Consulting providers: Marty Rojas; Rafael Dorman; Bright Simons; Shivani Welsh Discharging Clinician: Hue Lynn Anticipated Discharge Date/Time: 02/26/23 07:52 Patient Disposition: NH Residential/Asst Living Activity: as tolerated Diet: as tolerated Discharge Instructions: You finished a course of Remdesivir and Dexamethasone for your COVID diagnosis You also finished a course of antibiotics Augmentin for your pneumonia Follow up with PCP in 1 week. Patient Instructions: COVID-19 (Coronavirus Disease 2019) (DC) Patient Language: Moz[place]ican Stand Alone Forms: General Discharge Information Follow-up/Referrals: Angelica Staton MD [Primary Care Provider] - 1 Week Discharge Medications: Continued calcium carbonate-vitamin D3 600 m
== END 2023-02-26 12:40 | DRG 177 ==
LOC: ANHED 17:15 → ANH3MEDSUR 17:23 → ANH2MED 20:17
PROVIDERS: Emergency Medicine; Nurse Practitioner Acute Care; Student in an Organized Health Care Education/Training Program; Admitting Provider Family Medicine; Emergency Provider Emergency Medicine; PCP Family Medicine; Visit Provider Family Medicine
DX: U07.1 COVID-19 (principal); J18.9 Pneumonia, unspecified organism; J96.21 Acute and chronic respiratory failure with hypoxia; J44.0 Chronic obstructive pulmonary disease with (acute) lower respiratory infection; I10 Essential (primary) hypertension; E78.5 Hyperlipidemia, unspecified; F41.9 Anxiety disorder, unspecified; E86.0 Dehydration; Z87.891 Personal history of nicotine dependence; Z85.46 Personal history of malignant neoplasm of prostate; Z85.830 Personal history of malignant neoplasm of bone; Z99.81 Dependence on supplemental oxygen
CPT/HCPCS: 36415; 71045; 71046; 80048; 80053; 82248; 83605; 84145; 85025; 85610; 87040; 93005; 94640; 99285; A9270; J0248; J0456; J0696; J1100; J1650; J2920; J2930; J7030; J7060

== ENCOUNTER 2023-03-21 22:59 | Observation (INO) | payer MEDICARE, SELFPAY ==
--- NOTE | ~2023-03-21 | XR_ITS ---
EXAMINATION: [id number] DATE: 03/22/2023 10:09 INDICATION: Status post right thoracentesis TECHNIQUE: frontal view of the chest was obtained. COMPARISON: Chest CT dated 03/22/2023 FINDINGS: Opacities in the bilateral mid and lower lung zones consistent with moderate-sized bilateral pleural effusions and associated atelectasis and/or pneumonia. Unchanged horizontal band of discoid atelectas is at the lingula and masslike right perihilar opacity corresponding to right middle lobe collapse on prior CT. Skinfold projects over the lateral aspect of the bilateral mid lung zones. No pneumothorax or evident pulmonary edema. Heart size is normal. Left internal jugular central venous port catheter with distal tip at the cephalad superior vena cava. IMPRESSION: 1. No pneumothorax post right thoracentesis. 2. Moderate-sized bilateral pleural effusions. 3. Persistent atelectasis at the lingula, bilateral lung bases and right middle lobe collapse. Underl brii pneumonia not excludable. Reviewed, dictated and finalized at location A. N PEGGER IMPRESSION: 1. No pneumothorax post right thoracentesis. 2. Moderate-sized bilateral pleural effusions. 3. Persistent atelectasis at the lingula, bilateral lung bases and right middle lobe collapse. Underlying pneumonia not excludable.
--- NOTE | ~2023-03-21 | US_ITS ---
EXAMINATION: US thoracentesis DATE: 03/22/2023 10:13 INDICATION: Bilateral pleural effusions TECHNIQUE: The procedure and its risks and benefits were discussed with the patient. Potential risks discussed included bleeding, infection, and pneumothorax. The patient understood the risks and agreed to proceed. The skin overlying the posterior right hemithorax was prepped and draped in sterile fash ion. 1% lidocaine was used for local anesthesia. Under ultrasound guidance, a 5 Fr catheter with troc maryse was advanced into the right pleural effusion. Fluid was aspirated. The catheter was removed, and a dressing was applied. There were no immediate complications. FINDINGS: Ultrasound images demonstrate a right pleural effusion and the catheter within the fluid. IMPRESSION: 1. Successful ultrasound-guided thoracentesis yielding 1100 mL of clear yellow fluid. Reviewed, dictated and finalized at location A. TING SUPERVISOR
--- NOTE | ~2023-03-21 | XR_ITS ---
EXAMINATION: XR chest 1V portable INDICATION: Right pleural effusion TECHNIQUE: Portable AP chest at 0536 hours COMPARISON: 03/22/2023 FINDINGS: There are moderate-sized right and small left pleural effusions. No pneumothorax is identif ied. There is persistent collapse of the right middle lobe. There is mild atelectasis of the lung bas es and left midlung zone. The heart size is normal. A left internal jugular catheter ends with this t ip in the proximal superior vena cava. 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 IMPRESSION: 1. Moderate-sized right and small left pleural effusions. 2. Persistent right middle lobe collapse. 3. Mild atelectasis of the lung bases. 4. Widespread sclerotic osseous metastases. Reviewed, dictated and finalized at location F. ING REPRESENTATIVE
--- NOTE | ~2023-03-21 | XR_ITS ---
Portable chest x-ray Comparison: 02/24/2023 Clinical History: Shortness of breath Findings: Left-sided Mediport is in place. Moderate right pleural effusion is present. Small left pl eural effusion present. There is bibasilar pulmonary edema/atelectasis. Cardiomediastinal silhouette is stable. Probable extensive sclerotic lesions throughout the visualized skeleton. Impression: Moderate right pleural effusion and small left pleural effusion, with bibasilar pulmonary edema/atele ctasis. Left-sided Mediport. 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 Reviewed, dictated and finalized at location . OR MARKET RESEARCH ANALYST Impression: Moderate right pleural effusion and small left pleural effusion, with bibasilar pulmonary edema/atelectasis. Left-sided Mediport. 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
--- NOTE | ~2023-03-21 | CT_ITS ---
Clinical Indication: Dyspnea CT Scan of the Chest with Contrast: Technique: Contiguous sections were acquired throughout the chest after intravenous administration of 100 cc of Omnipaque 350. Dose reduction technique was used on this scan by utilizing automated expos ure control and iterative reconstruction technique. The dose-length product (DLP) was 414.61 mGy-cm. COMPARISON: 02/06/2023 Findings: There is no evidence of any significant mediastinal, hilar or axillary lymphadenopathy. There is no f illing defect in the pulmonary arterial tree to suggest pulmonary embolus. There is no evidence of ao rtic dissection or aneurysm. No pericardial effusion. There are moderate to large bilateral pleural effusions, with partial bilateral lower lobe atelectasi s. There is near complete right middle lobe atelectasis. There are several peripheral airspace opacit ies in the left upper lobe, somewhat nonspecific. There is mild atelectatic change at the inferior po rtions of the bilateral upper lobes. Images through the upper abdomen reveal no abnormalities. There is diffuse sclerotic osseous metastat ic disease, essentially unchanged. Impression: No evidence of pulmonary embolus, aortic dissection, or aortic aneurysm. Moderate to large bilateral pleural effusions with near complete right middle lobe atelectasis, and p artial bilateral lower lobe and bilateral upper lobe atelectatic change. Several focal airspace opacities in the peripheral left upper lobe, nonspecific. Correlate for pulmon david edema, infection, or possibly metastatic disease. Diffuse osteoblastic metastatic disease, unchanged. Reviewed, dictated and finalized at [facility]. 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 Moderate to large bilateral pleural effusions with near complete right middle l obe atelectasis, and partial bilateral lower lobe and bilateral upper lobe atel ectatic change. Several focal airspace opacities in the peripheral left upper lobe, nonspecific . Correlate for pulmonary edema, infection, or possibly metastatic disease. Diffuse osteoblastic metastatic disease, unchanged.
[2023-03-21 22:59] VITALS: BP 166/57; PULSE 77; RESP 15; TEMP 36.5; O2SAT 96
--- NOTE | 2023-03-21 23:08 | ECG_ITS ---
Measurements Intervals [place] Rate: 66 P: 20 FL: 145 QRS: 60 QRSD: 88 T: 68 QT: 405 QTc: 425 Interpretive Statements SINUS RHYTHM LOW QRS VOLTAGE IN LIMB LEADS CANNOT RULE OUT SEPTAL INFARCT, AGE INDETERMINATE BORDERLINE ST-T WAVE ABNORMALITY- LAT/HIGH LAT LEADS BASELINE ARTIFACT- V1, V4-V5 ATYPICAL ECG COMPARED TO ECG 02/19/2023 13:43:50 NO SIGNIFICANT CHANGES Electronically Signed On 03-22-2023 6:36:51 MACHINE FITTER by Joe Dean D.O.
[2023-03-21 23:16] VITALS: BP 116/54; PULSE 70; RESP 16; TEMP 36.6; O2SAT 98
[2023-03-21 23:17] VITALS: O2SAT 96
[2023-03-21 23:19] LABS: Basophils Absolute Auto 0.1 K/mm3 (0.0-0.1); Basophils Percent Auto 0.5 % (0.2-1.2); Eosinophils Absolute Auto 0.3 K/mm3 (0-0.3); Hematocrit 32.6 % (42.0-52.0); Hemoglobin 9.7 g/dL (14.0-18.0); Immature Granulocyte Absolute 0.07 K/mm3 (0.00-0.031); Immature Granulocyte Percent A 0.7 % (0-0.5); Lymphocytes Absolute Auto 2.19 K/mm3 (0.9-3.2); Lymphocytes Percent Auto 20.7 % (18.3-44.2); Mean Corpuscular HGB Conc 29.8 g/dl (32-36); Mean Corpuscular Volume 93.9 fl (80-100); Mean Platelet Volume 9.2 fl (7.4-10.4); Monocytes Absolute Auto 0.6 K/mm3 (0.1-0.6); Neutrophils Absolute Auto 7.3 K/mm3 (1.3-6.7); Neutrophils Percent Auto 69.1 % (45.5-73.1); Platelet Count Result 270 k/mm3 (150-375); Red Blood Count 3.47 M/mm3 (4.6-6.20); Red Cell Distribution Width 16.1 % (11.5-14.5); White Blood Count 10.6 K/mm3 (4.5-10.0)
[2023-03-21 23:39] LABS: Alanine Aminotransferase 15 U/L (6-50); Albumin Level 2.8 g/dL (3.5-5.1); Alkaline Phosphatase 137 U/L (38-126); Anion Gap 8 mmol/L (8-16); Aspartate Amino Transferase 30 U/L (17-59); Bilirubin,Total 0.2 mg/dL (0.2-1.3); Blood Urea Nitrogen 30 mg/dL (9-20); Calcium 7.3 mg/dL (8.4-10.2); Carbon Dioxide 19 mmol/L (22-30); Chloride 111 mmol/L (98-107); Estimated CRCL calculation 36 ml/min; Estimated Glomerular Filt Rate > 60; Glucose 93 mg/dL (65-110); Potassium 3.1 mmol/L (3.4-5.0); Sodium 138 mmol/L (137-145)
[2023-03-22] VITALS (15 sets, daily range): BP systolic 103–151; BP diastolic 48–73; PULSE 63–79; RESP 13–20; TEMP 36.1–36.8; O2SAT 90–99; BMI 20.8
[2023-03-22] MEDS: SODIUM CHLORIDE 0.9% IV 1,000 ML 999 ML IV CONT (00:01)
[2023-03-22 00:16] LABS: Lactic Acid Reflex 1.1 mmol/L (0.7-2.0)
[2023-03-22 00:39] LABS: Influenza A QL RT-PCR Negative (Negative); Influenza B QL RT-PCR Negative (Negative); RSV RNA, RT-PCR Negative (Negative); SARS-CoV-2 RNA PCR Negative (Negative)
[2023-03-22 02:16] LABS: NT Pro B Type Natriuretic Pept 1080 pg/mL (19.9-100)
[2023-03-22 02:20] LABS: Procalcitonin 2.5 ng/mL
[2023-03-22 02:42] LABS: Troponin I < 0.012 ng/mL (0.000-0.034)
--- NOTE | 2023-03-22 03:18 | ED.GENADULT ---
HPI - General Adult General Chief complaint: Recheck/Abnormal Lab/Rx Stated complaint: abn labs Time Seen by Provider: 03/21/23 23:17 History of Present Illness HPI narrative: The patient is a 88-year-old gentleman who presents emergency department with chief complaint of elevated white blood cell count patient recently had pneumonia and the facility felt as though he was not really improving patient has had no fever reports that he feels better yesterday that he was feeling somewhat weak was treated with IV fluids and states that he feels much better today the patient was discharged from the hospital on the 26 of February Related Data Home Medications Medication Instructions Recorded Confirmed calcium carbonate 600 mg-vitamin 1 tablet PO BID 06/12/21 03/12/23 D3 5 mcg (200 unit) tablet cholecalciferol (vitamin D3) 25 25 mcg PO DAILY 01/02/22 03/12/23 mcg (1,000 unit) capsule lisinopril 20 1 tablet PO DAILY 07/25/22 03/12/23 mg-hydrochlorothiazide 25 mg tablet potassium chloride 20 mEq 20 meq PO DAILY 02/02/23 03/12/23 tablet,extended release(part/cryst) folic acid-vitamin C 1 mg-100 mg 1 tablet PO DAILY 02/19/23 03/12/23 tablet multivitamin-zinc tablet 1 tablet PO DAILY 02/19/23 03/12/23 triamcinolone acetonide 0.1 % 1 applic topical TID 02/19/23 03/12/23 topical cream amoxicillin 875 mg tablet 875 mg PO Q12H 03/12/23 03/12/23 azithromycin 250 mg tablet See Rx Instructions PO .COMPLEX 03/12/23 03/12/23 fluticasone fur. 100 mcg-umeclid 1 inh inhalation DAILY 03/12/23 03/12/23 62.5 mcg-vilant 25 mcg inhalat.powder (Trelegy Ellipta) hydrocodone 5 mg-acetaminophen 325 1 tablet PO QHS PRN 03/12/23 03/12/23 mg tablet zinc sulfate 50 mg zinc (220 mg) 50 mg PO DAILY 03/12/23 03/12/23 capsule Allergies Allergy/AdvReac Type Severity Reaction Status Date / Time No Known Allergies Allergy Mild Verified 03/12/23 11:13 Review of Systems Review of Systems: A 10 system review of systems was completed on the patient and is negative except for what is stated in the HPI. Nursing and ancillary documentation was reviewed. [facility] Past Medical History Medical History Chronic obstructive pulmonary disease Dyslipidemia Essential (primary) hypertension Olecranon bursitis of left elbow Prostate cancer metastatic to bone Rib fracture (12/2022) Splenic laceration (12/2022) Ulcer of elbow with fat layer exposed Surgical History Surgical History History of bilateral inguinal hernia repair (11/2003) History of cataract extraction History of prostatectomy (11/2002) Family History Family History Father Family history of cardiovascular disease Malignant neoplasm of prostate Mother Family history of cardiovascular disease Sibling Acute myocardial infarction Social History Social History Social History: Surrogate medical decision maker: Hakeem Ramandeep, brother. Code status: Full code. Smoking packs per day: 1 Smoking cigarettes per day: 20.0 Years smoked: 60 Smoking pack-years: 60.00 Smoking status: Former smoker Tobacco type: cigarettes Second hand tobacco smoke exposure: Yes Alcohol intake: former Drinks per week: 10 Substance use: never Do You Feel Safe in your Home?: Yes Lack of Transportation: No Lack of Food: Never True Current Housing: I Have Housing Concerned About Future Housing: No Difficulty Paying Gas/Electric Bills: No Difficulty Paying for Meds: No Currently Unemployed: No Education: High School Diploma/GED Difficulty w/ Childcare or Family Care: No Living arrangements: alone Spiritual care concerns: No Exam Narrative: GENERAL: Well-appearing, well-nourished, and in no acute
--- NOTE | 2023-03-22 03:43 | PC.NURSE ---
Patient refused straight catheter during downtime
[2023-03-22 07:43] LABS: Basophils Percent Auto 0.5 % (0.2-1.2); Eosinophils Absolute Auto 0.2 K/mm3 (0-0.3); Eosinophils Percent Auto 2.6 % (0-4.4); Hematocrit 30.5 % (42.0-52.0); Hemoglobin 9.2 g/dL (14.0-18.0); Immature Granulocyte Absolute 0.07 K/mm3 (0.00-0.031); Lymphocytes Absolute Auto 1.26 K/mm3 (0.9-3.2); Lymphocytes Percent Auto 17.3 % (18.3-44.2); Mean Corpuscular HGB Conc 30.2 g/dl (32-36); Mean Corpuscular Hemoglobin 27.9 pg (26-34); Mean Corpuscular Volume 92.4 fl (80-100); Mean Platelet Volume 8.8 fl (7.4-10.4); Monocytes Absolute Auto 0.6 K/mm3 (0.1-0.6); Monocytes Percent Auto 7.7 % (2.6-8.5); Neutrophils Absolute Auto 5.2 K/mm3 (1.3-6.7); Neutrophils Percent Auto 70.9 % (45.5-73.1); Platelet Count Result 229 k/mm3 (150-375); White Blood Count 7.3 K/mm3 (4.5-10.0)
[2023-03-22 07:53] LABS: INR 1.1; Partial Thromboplastin Time 34.3 SECONDS (22.3-36.8); Prothrombin Time 14.4 Seconds (11.1-14.7)
[2023-03-22 07:56] LABS: Alanine Aminotransferase 13 U/L (6-50); Albumin Level 2.5 g/dL (3.5-5.1); Alkaline Phosphatase 123 U/L (38-126); Anion Gap 4 mmol/L (8-16); Aspartate Amino Transferase 25 U/L (17-59); Bilirubin,Total 0.1 mg/dL (0.2-1.3); Blood Urea Nitrogen 24 mg/dL (9-20); Calcium 6.9 mg/dL (8.4-10.2); Carbon Dioxide 22 mmol/L (22-30); Chloride 113 mmol/L (98-107); Estimated CRCL calculation 40 ml/min; Estimated Glomerular Filt Rate > 60; Glucose 85 mg/dL (65-110); Magnesium 2.1 mg/dL (1.6-2.3); Potassium 3.1 mmol/L (3.4-5.0); Sodium 139 mmol/L (137-145)
--- NOTE | 2023-03-22 12:08 | PM.IMHP ---
H&P: HPI History of Present Illness Date/Time: 03/22/23 12:08 Chief Complaint: Abnormal labs Recent PNA Narrative: This very pleasant 88 year old male pt with PMH of COPD, HLD, HTN, Prostate CA with mets to bone, previous rib fractures, Splenic laceration, and a fdc smoker presented to the ER from [facility] where he is currently undergoing rehab after hospitalization 02/19/23-02/26/23 with COVID PNA. Recent follow up labs demonstrated a WBC count that was elevated and the staff at [facility] wanted him evaluated here for concern of recurrent or worsening PNA. On presentation to the ER, he did endorse increased weakness, but felt better prior to coming to the ER. Labs performed in the ER were essentially unremarkable with exception of Potassium level of 3.1, chronic anemia at 9.7, and marginally elevated WBC count of 10.6. Chest imaging was consistent with bilateral pleural effusions, and the pt was admitted to the hospital for Right sided Thoracentesis which was performed successfully this AM draining off 1100 ml of clear yellow fluid. Post x-ray showing no pneumothorax, but moderate sized bilateral pleural effusions with persistent atelectasis at the lingula, bilateral lung bases and RML collapse. An underlying PNA could not be excluded. Pathology from 02/07/23 from Thoracentesis fluid tested was benign. He has been evaluated by Dr. Mccracken from Pulmonology and she has summarized his most recent hospitalizations with regards to respiratory complaints. Hx metastatic prostate cancer, follows with oncology Dr Merida. Hx COPD, HTN, dyslipidemia. He has had multiple recent hospitalizations, most recently discharged 02/26/23 when he was treated for COVID pneumonia. 02/19/23 - 02/26/23 - Hospitalized for COVID pneumonia, required up to 4L/min O2 while hospitalized. CXR showed pulmonary edema, small pleural effusions with bibasilar airspace opacities, and a small loculated fissural fluid of the right lung base. He was treated with IV steroids, breathing treatments, Remdesivir, dexamethasone, Rocephin and azithromycin. He was discharged to [facility] rehab with a goal to return home. I do not see where a Home O2 evaluation was performed before discharge. 02/02/23 - 02/08/23 - Moderate pleural effusions, thoracentesis 02/07/23. C diff infection. Stenotrophomonas maltophilia growing in the sputum which Dr Aggarwal felt was a colonization and not active pneumonia. Seen by Dr Aggarwal in consultation. Discharged with LABA/LAMA, albuterol, oxygen. He was discharged with Anoro Ellipta, albuterol and ipratropium nebulizer treatments, and oral vancomycin for his C diff infection. 01/06/23 - 01/11/23 - Moderate pleural effusions. Treated for pneumonia. Seen by Dr Aggarwal in consultation 01/09/23. [facility] 12/[facility] - ER visit - Fall with multiple rib fractures, transferred to [facility]. Records show he had right [facility]acentesis at [facility]. Pt will be treated for his current Hypokalemia and while here will consult with Pulmonology for opinion on causation, prevention of recurrence and treatment of current pleural effusions, and also consult Dr. Merida as it is stated he has seen pt for his metastatic disease in the past, but is not currently receiving any treatment at the rehab facility to see if any additional Oncological treatment or workup is needed while pt is here. Review of Systems Review of Systems: All systems reviewed & are unremarkable except as noted in HPI and below PMFSH Past Medical History Medical History (Updated 03/22/23 @ 12:38 by Chantelle Gonzalez, NATURAL RESOURCES MANAGER-[employer]son) Chronic obstructive pulmonary disease Dyslipidemia Essential (primary) hypertension Hypertension Metastatic disease Olecranon bursitis of left elbow Prostate cancer metastatic to bone Respiratory abnormality, unspecified Rib fracture (12/2022) Splenic laceration (12/2022) Ulcer of elbow with fat layer exposed Surgical History Surgical History (Reviewed 03/22/23 @ 12:21 by Em
--- NOTE | 2023-03-22 13:40 | CONS_ITS ---
This report was moved to the correct visit on 04/18/2023. The original report was signed by Nikhil Merida MD on 03/22/23 1340. HPI - Date of Consult Date/Time: 03/22/23 13:37 Requesting Physician: Nikhil Merida MD Primary Care Provider: UNKNOWN,DOCTOR - Consult Narrative Reason for consult: Metastatic prostate cancer Narrative: Yamil Sabillon is a 88 year old male with metastatic prostate cancer. He was on chemotherapy with Taxotere Lupron and Xgeva. Patient recently fell and broke his ribs. Chemotherapy was placed on hold. He now came into the hospital with shortness of breath and generally feeling tired and weak. Patient had thoracentesis done with removal of 1100 cc of fluid. He denies any fevers and chills. He does have some cough with nonproductive sputum. No bleeding and bruising. Labs showed anemia with mildly elevated WBC count. CT scan showed no evidence of pulmonary embolism. There was bilateral pleural effusion. He denies any other new complaints. Review of Systems - Review of Systems all systems reviewed & are unremarkable except as noted in History PMFSH Medical History: Medical History (Last Updated 03/22/23 @ 12:38 by PINEDA Johnson) Chronic obstructive pulmonary disease Dyslipidemia Essential (primary) hypertension Hypertension Metastatic disease Olecranon bursitis of left elbow Prostate cancer metastatic to bone Respiratory abnormality, unspecified Rib fracture Onset Date: 12/2022 Splenic laceration Onset Date: 12/2022 Ulcer of elbow with fat layer exposed Surgical History: Surgical History (Last Reviewed 03/22/23 @ 12:21 by PINEDA Johnson) History of bilateral inguinal hernia repair Onset Date: 11/2003 History of cataract extraction History of prostatectomy Onset Date: 11/2002 Family History: Family History (Last Reviewed 03/22/23 @ 12:21 by PINEDA Johnson) Father Family history of cardiovascular disease Malignant neoplasm of prostate Mother Family history of cardiovascular disease Sibling Acute myocardial infarction - Social History Social History: Social History (Last Reviewed 03/22/23 @ 12:21 by PINEDA Johnson) Alcohol Use: Alcohol intake: former Drinks per week: 10 Substance Use: Substance use: never Others: Spiritual care concerns: No Living Arrangements: Living arrangements: alone Smoking Status: Smoking status: Former smoker Second hand tobacco smoke exposure: Yes Smoking Pack-years: Smoking packs per day: 1 Smoking cigarettes per day: 20.0 Years smoked: 60 Smoking pack-years: 60.00 Social Determinants of Health: Do You Feel Safe in your Home?: Yes Has the Lack of Transportation Kept You From Medical Appointments or From Getting Medications?: No Within the Past 12 Months, Were You Worried Whether Your Food Would Run Out Before You Got Money to Buy More?: Never True What is Your Housing Situation Today?: I Have Housing Are You Worried That in the Next 2 Months, You May Not Have Your Own Housing to Live In?: No Do You Have Trouble Paying Your Heating Or Electricity Bill?: No Do You Have Trouble Paying For Medicines?: No Are You Currently Unemployed and Looking for Work?: No Highest Level of Education Completed: High School Diploma/GED Do You Have Trouble With Childcare or the Care of a Family Member?: No Exam - Exam HEENT: EOMI, PERRLA Neck: supple Lungs: clear to auscultation, normal air movement Heart: no murmurs, gallops, or rubs, regular rhythm, regular rate Abdomen: abdomen soft, non-distended, normal bowel sounds Extremities: normal pulses Integumentary:
[2023-03-22] MEDS: ZINC SULFATE 220 MG CAPSULE PO (14:03)
[2023-03-22] MEDS: CYANOCOBALAMIN 500 MCG TABLET PO (14:03)
[2023-03-22] MEDS: ASCORBIC ACID 250 MG TABLET PO (14:03)
[2023-03-22] MEDS: FERROUS SULFATE 325 MG TABLET DR PO (14:03)
[2023-03-22] MEDS: MULTIVITAMINS /C LUTEIN (CENTRUM SILVER) TABLET *BKC 1 TAB PO (14:03)
[2023-03-22] MEDS: CHOLECALCIFEROL 1,000 UNITS TABLET 1000 UNITS PO (14:03)
[2023-03-22] MEDS: FOLIC ACID 1 MG TABLET PO (14:03)
[2023-03-22] MEDS: lisinopriL 20 MG TABLET PO (14:04)
[2023-03-22] MEDS: hydroCHLOROthiazide 25 MG TABLET PO (14:04)
[2023-03-22] MEDS: LORATADINE 10 MG TABLET BY MOUTH (14:04)
[2023-03-22] MEDS: AZITHROMYCIN 500 MG/NS 250 ML 500 MG/250 ML BAG 250 MG IVPB (14:26)
[2023-03-22] MEDS: POTASSIUM CHLORIDE 20 MEQ ER TABLET 40 MEQ PO (14:26)
[2023-03-22] MEDS: FLUTICASONE/UMECLIDIN/VILANTER 200-62.5-25 MCG ELLIPTA 1 PUFF INHALATION (14:39)
--- NOTE | 2023-03-22 15:05 | PM.CNPUL ---
Assessment and Plan Assessment and plan (1) Pleural effusion: Code(s): J90 - Pleural effusion, not elsewhere classified Status: Acute Assessment and Plan: An 88-year-old male patient with a history of centrilobular emphysema, as evidenced by chest imaging, and bone-metastatic prostate cancer has been experiencing chronic bilateral pleural effusions since October of the previous year. Over the past five months, these effusions have progressively enlarged from small to moderate to large, accompanied by dyspnea. Physical examination in addition to abnormal lung ausculatory findings reveals trace pedal edema. The patient underwent thoracentesis in late January of the previous year and again today. He has no history of congestive heart failure, although his most recent echocardiogram showed age-related left ventricular diastolic dysfunction. He also has no history of hepatic or renal failure. A thorough review of previous pleural fluid data revealed a large fucof-vh-hevvflm fluid albumin gradient of 1.4. This gradient, being greater than 1.2 grams/dL, indicates a transudative pleural effusion. The symmetrical morphology of the bilateral fluid collections also supports this diagnosis. Generally, symmetrical bilateral pleural effusions are associated with conditions such as congestive heart failure, renal failure, liver cirrhosis, hypoalbuminemia, pulmonary embolism, and, less commonly, cancers like lung cancer or lymphoma. Autoimmune conditions like systemic lupus erythematosus and rheumatoid arthritis can also present with symmetrical bilateral pleural effusions. The patient's history of bone-metastatic prostate cancer raises the question of whether these effusions are related to his cancer. However, unilateral pleural effusions are extremely rare in patients with metastatic prostate cancer, let alone the bilateral pleural effusions observed in this patient. In the few reported cases of pleural effusions associated with prostate cancer, there is usually evidence of lung metastasis. In this patient, other factors contributing to transudative pleural effusions include hormonal therapy for his prostate cancer. He has been on medications known to cause fluid retention in prostate cancer patients, such as anti-androgen drugs. Chronic hypoalbuminemia, documented in measurements since early December of the previous year, is another factor contributing to fluid retention and the development of pleural effusions. At this point, further thoracentesis is not necessary. I recommend gentle diuresis, dietary enhancement to increase serum albumin levels, and DVT prophylaxis. Given that the patient is not in severe respiratory distress and that pleural effusions are typically resistant to diuretics, I would advise cautious use of diuretics with regular monitoring of renal function. I will continue to follow the patient's progress in collaboration with you. (2) Abnormal chest x-ray: Code(s): R93.89 - Abnormal findings on diagnostic imaging of other specified body structures Status: Acute (3) Shortness of breath: Code(s): R06.02 - Shortness of breath Status: Acute (4) Chronic obstructive pulmonary disease: Code(s): J44.9 - Chronic obstructive pulmonary disease, unspecified Status: Acute (5) Prostate cancer metastatic to bone: Code(s): C61 - Malignant neoplasm of prostate; C79.51 - Secondary malignant neoplasm of bone Status: Acute History of Present Illness History of Present Illness Consult date: 03/22/23 Chief complaint: Bilateral Pleural Effusions Narrative: An 88-year-old male patient presented to the emergency department with symptoms of weakness and potential pneumonia. His medical history includes hypertension, metastatic prostate cancer with bone involvement, previous rib fractures, and persistent pleural effusions. He has had multiple hospital admissions for respiratory distress since December of the previous ye
[2023-03-22 16:36] LABS: Prostate Specific Antigen > 100.0 ng/mL (< OR = 4.0)
[2023-03-22] MEDS: SACCHAROMYCES BOULARDII 250 MG CAPSULE PO (17:03)
[2023-03-22 17:16] LABS: Toxigenic C. Diff POSITIVE (NEGATIVE)
[2023-03-22] MEDS: ALBUTEROL SULFATE (*SP) AEROSOL 1 PUFF INHALATION (17:28)
[2023-03-22] MEDS: VANCOMYCIN HCL 125 MG ORAL CAPSULE PO (17:45)
[2023-03-23] MEDS: VANCOMYCIN HCL 125 MG ORAL CAPSULE PO ×4 (02:03→17:51)
[2023-03-23 05:17] VITALS: BP 136/65; PULSE 83; RESP 18; TEMP 36.1; O2SAT 91
[2023-03-23 06:44] LABS: Basophils Absolute Auto 0.1 K/mm3 (0.0-0.1); Basophils Percent Auto 0.7 % (0.2-1.2); Eosinophils Absolute Auto 0.2 K/mm3 (0-0.3); Eosinophils Percent Auto 2.5 % (0-4.4); Hematocrit 31.3 % (42.0-52.0); Hemoglobin 9.3 g/dL (14.0-18.0); Immature Granulocyte Absolute 0.09 K/mm3 (0.00-0.031); Immature Granulocyte Percent A 1.2 % (0-0.5); Lymphocytes Absolute Auto 1.02 K/mm3 (0.9-3.2); Lymphocytes Percent Auto 14.1 % (18.3-44.2); Mean Corpuscular HGB Conc 29.7 g/dl (32-36); Mean Corpuscular Hemoglobin 27.6 pg (26-34); Mean Corpuscular Volume 92.9 fl (80-100); Mean Platelet Volume 9.6 fl (7.4-10.4); Monocytes Absolute Auto 0.5 K/mm3 (0.1-0.6); Monocytes Percent Auto 6.6 % (2.6-8.5); Neutrophils Absolute Auto 5.4 K/mm3 (1.3-6.7); Neutrophils Percent Auto 74.9 % (45.5-73.1); Platelet Count Result 259 k/mm3 (150-375); Red Blood Count 3.37 M/mm3 (4.6-6.20); Red Cell Distribution Width 15.9 % (11.5-14.5); White Blood Count 7.2 K/mm3 (4.5-10.0)
[2023-03-23 07:04] LABS: Alanine Aminotransferase 14 U/L (6-50); Albumin Level 2.5 g/dL (3.5-5.1); Alkaline Phosphatase 119 U/L (38-126); Anion Gap 6 mmol/L (8-16); Aspartate Amino Transferase 25 U/L (17-59); Bilirubin,Total < 0.1 mg/dL (0.2-1.3); Blood Urea Nitrogen 16 mg/dL (9-20); Calcium 7.3 mg/dL (8.4-10.2); Carbon Dioxide 20 mmol/L (22-30); Chloride 112 mmol/L (98-107); Estimated CRCL calculation 44 ml/min; Estimated Glomerular Filt Rate > 60; Glucose 113 mg/dL (65-110); Magnesium 2.1 mg/dL (1.6-2.3); Potassium 3.2 mmol/L (3.4-5.0); Sodium 138 mmol/L (137-145)
[2023-03-23 08:00] VITALS: PULSE 73; RESP 20; O2SAT 98
[2023-03-23] MEDS: FLUTICASONE/UMECLIDIN/VILANTER 200-62.5-25 MCG ELLIPTA 1 PUFF INHALATION (08:03)
[2023-03-23 08:10] VITALS: O2SAT 95
[2023-03-23] MEDS: SACCHAROMYCES BOULARDII 250 MG CAPSULE PO ×2 (09:31→17:51)
[2023-03-23] MEDS: LORATADINE 10 MG TABLET BY MOUTH (09:31)
[2023-03-23] MEDS: FERROUS SULFATE 325 MG TABLET DR PO (09:31)
[2023-03-23] MEDS: CYANOCOBALAMIN 500 MCG TABLET PO (09:31)
[2023-03-23] MEDS: CHOLECALCIFEROL 1,000 UNITS TABLET 1000 UNITS PO (09:31)
[2023-03-23] MEDS: ASCORBIC ACID 250 MG TABLET PO (09:31)
[2023-03-23] MEDS: ZINC SULFATE 220 MG CAPSULE PO (09:31)
[2023-03-23] MEDS: FOLIC ACID 1 MG TABLET PO (09:31)
[2023-03-23] MEDS: MULTIVITAMINS /C LUTEIN (CENTRUM SILVER) TABLET *BKC 1 TAB PO (09:32)
[2023-03-23] MEDS: hydroCHLOROthiazide 25 MG TABLET PO (09:32)
[2023-03-23] MEDS: POTASSIUM CHLORIDE 20 MEQ ER TABLET PO (09:32)
[2023-03-23] MEDS: AZITHROMYCIN 500 MG/NS 250 ML 500 MG/250 ML BAG 250 MG IVPB (09:32)
[2023-03-23] MEDS: lisinopriL 20 MG TABLET PO (09:32)
[2023-03-23] MEDS: FUROSEMIDE INJ 40 MG/4 ML VIAL 20 MG IV PUSH (09:33)
--- NOTE | 2023-03-23 11:14 | PM.PNPUL ---
Progress Note: A&P Assessment and Plan (1) Pleural effusion: Code(s): J90 - Pleural effusion, not elsewhere classified Status: Acute Assessment and Plan: An 88-year-old male with centrilobular emphysema and bone-metastatic prostate cancer has been experiencing progressively enlarging chronic bilateral pleural effusions since last October. Despite having no history of congestive heart failure, hepatic or renal failure, his recent echocardiogram showed age-related left ventricular diastolic dysfunction. Pleural fluid data showed a emwdc-hz-jrginvv fluid albumin gradient of 1.4, indicating a transudative pleural effusion. Bilateral pleural effusions are rare in metastatic prostate cancer and are generally associated with other conditions. His hormonal therapy for prostate cancer and chronic hypoalbuminemia could be contributing factors to fluid retention. Further thoracentesis is not necessary. The recommendation is gentle diuresis, dietary improvement to increase serum albumin levels, and DVT prophylaxis. Diuretics should be used cautiously due to the patient's lack of severe respiratory distress and resistance of pleural effusions to diuretics. Regular renal function monitoring is advised. WBCs back into the normal range; iw was mildly elevated on admission. I see no need to continue with antibiotics for lower respiratory tract infection at this point. (2) Abnormal chest x-ray: Code(s): R93.89 - Abnormal findings on diagnostic imaging of other specified body structures Status: Acute (3) Shortness of breath: Code(s): R06.02 - Shortness of breath Status: Acute (4) Chronic obstructive pulmonary disease: Code(s): J44.9 - Chronic obstructive pulmonary disease, unspecified Status: Acute (5) Prostate cancer metastatic to bone: Code(s): C61 - Malignant neoplasm of prostate; C79.51 - Secondary malignant neoplasm of bone Status: Acute Subjective Date/time seen: 03/23/23 11:14 Interval history: Patient has no new respiratory symptoms. Remaining on supplemental oxygen. Has no cough wheezing sputum production. No lower extremity edema today. Review of Systems Review of Systems: Patient reports weight loss of approximately 35 lb over the last few years. He has no orthopnea. He has no chest pain. He has some diarrhea but no nausea vomiting or abdominal pain. He has a history of fall with trauma to his left rib cage. No trauma to her right rib cage. Used to smoke 1 pack per day for 60 years. He quit 1 month ago. 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 Exam Narrative: GENERAL APPEARANCE: Well developed, well nourished, alert and cooperative, elderly frail male who appears to be mild respiratory distress while on supplemental oxygen via nasal cannula. SKIN: Inspection of the skin reveals no rashes, ulcerations or petechiae. HEENT: Sclerae anicteric and conjunctivae pink and moist. Extraocular movements were intact. Moist oral mucosa NECK: Supple. There was no thyroid enlargement, and no tenderness, or masses were felt. CHEST: Normal AP diameter and normal contour without any kyphoscoliosis. LUNGS: Dullness to percussion and decreased breath sounds at bases posteriorly CARDIAC: There was a regular rate and rhythm without any murmurs, gallops, rubs. ABDOMEN: Soft and nontender with normal bowel sounds. There was no organomegaly. LYMPH NODES: No lymphadenopathy was appreciated in the neck. EXTREMITIES: No cyanosis, clubbing; no pedal edema lower extremity NEUROLOGIC: Alert and oriented x 3. Normal affect. Objective Data Vital Signs Vital Signs: Vital Signs - 24 hr 03/22/23 14:40 03/22/23 14:00 03/22/23 21:30 Temperature 36.6 C 36.8 C Pulse Rate 72 79 Respiratory Rate 18 13 Blood Pressure 107/52 L 106/54 L Pulse Oximetry 95 94 95 Oxygen Delivery Nasal Cannula Oxygen Flow Rate 2 03/23/23 05:17 03/23/23 08:10 Temperature 36.1 C L Pulse Rate 83 Respirat
--- NOTE | 2023-03-23 11:49 | P.PNIM_ITS ---
Progress Note: A&P Assessment and Plan (1) Metastatic disease: Code(s): C79.9 - Secondary malignant neoplasm of unspecified site Status: Acute Assessment and Plan: * Historically has been evaluated by Dr. 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 * Consult placed for evaluation while pt is in hospital as it is not clear if he has had treatment according to care coordination. 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 * 03/23/23: Pt was evaluated by Dr. Merida who will follow with pt as outpt. In addition, the pt was evaluated by Dr. Cantrell who has low suspicion of Oncological causation of effusion, had no further recommendations for additional thoracentesis, and suggested cautious diuretic therapy for remaining effusion. He also recommended discontinuation of IV abx which has been done. Thank you to these physicians for their input. (2) Respiratory abnormality, unspecified: Code(s): R06.9 - Unspecified abnormalities of breathing Status: Acute Assessment and Plan: * Pt with recent hx of COVID PNA, at rehab currently. * Has had multiple draining of pleural effusion dating back to [facility] * Pathology from January on pleural fluid was benign. * CT chest performed here in ER showing large bilateral pleural effusion. * S/P Right sided thoracentesis today of 1100 ml. No pneumothorax * Labs are unremarkable for suggested infectious process, however, the post film of the thoracentesis couldn't rule out an underlying PNA, so will continue with IV Abx for now pending pulmonary consult as they have been following along with this pt's progress. * Pt is not meeting sepsis criteria. * Continue Trelegy and Albuterol prn * 03/23/23: Continue all current treatments with exception of discontinuing IV Abx today. Will recheck CXR in AM after receiving Lasix 20 mg x1 today and most likely discharge. (3) Hypokalemia: Code(s): E87.6 - Hypokalemia Status: Acute Assessment and Plan: * 3.1 * 40 mEq oral ordered and will check in AM. * 03/23/23: Potassium today is improved from 3.1-->3.2. An additional 40 mEq po is given. (4) Pleural effusion: Code(s): J90 - Pleural effusion, not elsewhere classified Status: Acute Assessment and Plan: * See plan for #2. (5) Hypertension: Code(s): I10 - Essential (primary) hypertension Status: Acute Assessment and Plan: * Continue home medication of Lisinopril/HCTZ as ordered. * Monitor VS (6) Diarrhea: Code(s): R19.7 - Diarrhea, unspecified Status: Acute Assessment and Plan: * Recent diarrhea at Rehab, awaiting C-diff result there. * If pt has repeat diarrhea here, will obtain C-diff sample. * Pt asymptomatic regarding abdominal pain. * 03/23/23: Pt's stool sample tested positive for C-diff. He is started on oral Vancomycin 125 mg Q6 hrs. He will remain on Florastor. Time Spent With Patient Time with patient: 15 - 25 minutes Subjective Date/time seen: 03/23/23 0940 Interval history: This pt was examined at the bedside today in interval assessment. He has no new complaints except for wanting to go home. He denies any acute findings or symptoms today. He was evaluated by Dr. Merida yesterday who will follow up with him upon discharge from hospital and he was also evaluated by Pulmonology Dr. Cantrell. Medicine thanks both of them for their input in this pt's care. Dr. Cantrell suggests that the effusion that was drained was most likely not metastatic as it was bilateral and that there is concern for other cause and
--- NOTE | 2023-03-23 11:49 | PM.IMPN ---
Progress Note: A&P Assessment and Plan (1) Metastatic disease: Code(s): C79.9 - Secondary malignant neoplasm of unspecified site Status: Acute Assessment and Plan: Historically has been evaluated by Dr. 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 Consult placed for evaluation while pt is in hospital as it is not clear if he has had treatment according to care coordination. 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 03/23/23: Pt was evaluated by Dr. Merida who will follow with pt as outpt. In addition, the pt was evaluated by Dr. Cantrell who has low suspicion of Oncological causation of effusion, had no further recommendations for additional thoracentesis, and suggested cautious diuretic therapy for remaining effusion. He also recommended discontinuation of IV abx which has been done. Thank you to these physicians for their input. (2) Respiratory abnormality, unspecified: Code(s): R06.9 - Unspecified abnormalities of breathing Status: Acute Assessment and Plan: Pt with recent hx of COVID PNA, at rehab currently. Has had multiple draining of pleural effusion dating back to January at [facility]. Pathology from January on pleural fluid was benign. CT chest performed here in ER showing large bilateral pleural effusion. S/P Right sided thoracentesis today of 1100 ml. No pneumothorax Labs are unremarkable for suggested infectious process, however, the post film of the thoracentesis couldn't rule out an underlying PNA, so will continue with IV Abx for now pending pulmonary consult as they have been following along with this pt's progress. Pt is not meeting sepsis criteria. Continue Trelegy and Albuterol prn 03/23/23: Continue all current treatments with exception of discontinuing IV Abx today. Will recheck CXR in AM after receiving Lasix 20 mg x1 today and most likely discharge. (3) Hypokalemia: Code(s): E87.6 - Hypokalemia Status: Acute Assessment and Plan: 3.1 40 mEq oral ordered and will check in AM. 03/23/23: Potassium today is improved from 3.1-->3.2. An additional 40 mEq po is given. (4) Pleural effusion: Code(s): J90 - Pleural effusion, not elsewhere classified Status: Acute Assessment and Plan: See plan for #2. (5) Hypertension: Code(s): I10 - Essential (primary) hypertension Status: Acute Assessment and Plan: Continue home medication of Lisinopril/HCTZ as ordered. Monitor VS (6) Diarrhea: Code(s): R19.7 - Diarrhea, unspecified Status: Acute Assessment and Plan: Recent diarrhea at Rehab, awaiting C-diff result there. If pt has repeat diarrhea here, will obtain C-diff sample. Pt asymptomatic regarding abdominal pain. 03/23/23: Pt's stool sample tested positive for C-diff. He is started on oral Vancomycin 125 mg Q6 hrs. He will remain on Florastor. Time Spent With Patient Time with patient: 15 - 25 minutes Subjective Date/time seen: 03/23/23 0940 Interval history: This pt was examined at the bedside today in interval assessment. He has no new complaints except for wanting to go home. He denies any acute findings or symptoms today. He was evaluated by Dr. Merida yesterday who will follow up with him upon discharge from hospital and he was also evaluated by Pulmonology Dr. Cantrell. Medicine thanks both of them for their input in this pt's care. Dr. Cantrell suggests that the effusion that was drained was most likely not metastatic as it was bilateral and that there is concern for other cause and he actually today suggests discontinuation of the IV abx as he has no s/s of acute infection and his WBC's are now normal. He did not recommend any further Thoracentesis, but instead suggests that diuretics be attempted very cautiously, and he will follow along during hospitalization. Review of Systems Review of Systems: All systems reviewed & are unremarkable except as noted
[2023-03-23] MEDS: POTASSIUM CHLORIDE 20 MEQ ER TABLET 40 MEQ PO (12:40)
[2023-03-23 14:00] VITALS: BP 121/51; PULSE 73; RESP 20; TEMP 36.7; O2SAT 98
--- NOTE | 2023-03-23 14:59 | PCPTNOTE ---
03/23/23 MW PT Eval completed, PT services not indicated. at baseline
[2023-03-23 21:51] VITALS: BP 129/67; PULSE 74; RESP 14; TEMP 36.8; O2SAT 93
[2023-03-24] MEDS: VANCOMYCIN HCL 125 MG ORAL CAPSULE PO ×3 (00:30→12:20)
[2023-03-24 05:33] VITALS: BP 125/66; PULSE 68; RESP 14; TEMP 36.4; O2SAT 97
[2023-03-24 06:20] LABS: Basophils Absolute Auto 0.1 K/mm3 (0.0-0.1); Eosinophils Absolute Auto 0.3 K/mm3 (0-0.3); Eosinophils Percent Auto 4.6 % (0-4.4); Hematocrit 32.4 % (42.0-52.0); Hemoglobin 9.9 g/dL (14.0-18.0); Immature Granulocyte Absolute 0.15 K/mm3 (0.00-0.031); Immature Granulocyte Percent A 2.5 % (0-0.5); Lymphocytes Absolute Auto 1.16 K/mm3 (0.9-3.2); Mean Corpuscular HGB Conc 30.6 g/dl (32-36); Mean Corpuscular Volume 91.5 fl (80-100); Mean Platelet Volume 9.4 fl (7.4-10.4); Monocytes Absolute Auto 0.6 K/mm3 (0.1-0.6); Neutrophils Absolute Auto 3.9 K/mm3 (1.3-6.7); Neutrophils Percent Auto 63.9 % (45.5-73.1); Platelet Count Result 273 k/mm3 (150-375); Red Blood Count 3.54 M/mm3 (4.6-6.20); Red Cell Distribution Width 15.7 % (11.5-14.5); White Blood Count 6.1 K/mm3 (4.5-10.0)
[2023-03-24 06:42] LABS: Alanine Aminotransferase 11 U/L (6-50); Albumin Level 2.6 g/dL (3.5-5.1); Alkaline Phosphatase 120 U/L (38-126); Anion Gap 2 mmol/L (8-16); Aspartate Amino Transferase 19 U/L (17-59); Bilirubin,Total 0.2 mg/dL (0.2-1.3); Blood Urea Nitrogen 12 mg/dL (9-20); Calcium 7.7 mg/dL (8.4-10.2); Carbon Dioxide 27 mmol/L (22-30); Chloride 111 mmol/L (98-107); Estimated CRCL calculation 44 ml/min; Estimated Glomerular Filt Rate > 60; Glucose 87 mg/dL (65-110); Magnesium 1.9 mg/dL (1.6-2.3); Potassium 3.9 mmol/L (3.4-5.0); Sodium 140 mmol/L (137-145)
[2023-03-24 07:22] VITALS: PULSE 77; RESP 18; O2SAT 94
[2023-03-24] MEDS: FLUTICASONE/UMECLIDIN/VILANTER 200-62.5-25 MCG ELLIPTA 1 PUFF INHALATION (07:22)
--- NOTE | 2023-03-24 07:48 | PM.DS ---
DS: Admitting Diagnosis Discharge Date 03/24/2023 Admitting Diagnosis Metastatic disease Acute on Chronic Pleural effusion Hypokalemia HTN Diarrhea (C.diff) DS: Discharge Diagnosis Discharge Diagnosis (1) Metastatic disease: Code(s): C79.9 - Secondary malignant neoplasm of unspecified site Status: Acute Assessment and Plan: Historically has been evaluated by Dr. 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 Consult placed for evaluation while pt is in hospital as it is not clear if he has had treatment according to care coordination. 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 03/23/23: Pt was evaluated by Dr. Merida who will follow with pt as outpt. In addition, the pt was evaluated by Dr. Cantrell who has low suspicion of Oncological causation of effusion, had no further recommendations for additional thoracentesis, and suggested cautious diuretic therapy for remaining effusion. He also recommended discontinuation of IV abx which has been done. Thank you to these physicians for their input. 03/24/23, Date of discharge: Pt will be discharged today to home and will follow up with Dr. Merida for continued therapy of his metastatic prostate cancer. Chemo was temporarily placed on hold after his recent fall with resultant rib fracture, but Dr. Merida's consult note states he will resume therapy upon presentation to office on discharge. (2) Respiratory abnormality, unspecified: Code(s): R06.9 - Unspecified abnormalities of breathing Status: Acute Assessment and Plan: Pt with recent hx of COVID PNA, at rehab currently. Has had multiple draining of pleural effusion dating back to January at [facility]. Pathology from January on pleural fluid was benign. CT chest performed here in ER showing large bilateral pleural effusion. S/P Right sided thoracentesis today of 1100 ml. No pneumothorax Labs are unremarkable for suggested infectious process, however, the post film of the thoracentesis couldn't rule out an underlying PNA, so will continue with IV Abx for now pending pulmonary consult as they have been following along with this pt's progress. Pt is not meeting sepsis criteria. Continue Trelegy and Albuterol prn 03/23/23: Continue all current treatments with exception of discontinuing IV Abx today. Will recheck CXR in AM after receiving Lasix 20 mg x1 today and most likely discharge. 03/24/23: Date of discharge: Pt received a low dose IVP Lasix yesterday for diuresis in attempt to decrease the size of the pleural effusions. Pt without accurate I&O documented as ordered, but he states that he was able to urinate very well and that he has no interval change in his respiratory pattern or breathing and wants to go home. Repeat CXR that was performed this AM shows moderate right sided and small left sided pleural effusions with persistent RML collapse, Mild atelectasis of the lung bases and widespread sclerotic osseous metastasis. IV abx were stopped yesterday. He has been followed by Pulmonology also during hospitalization and I thank Dr. Cantrell for his expert input in this patient's care. I will recommend pt follow up with Pulm as outpatient. Suspect pt's recurrent effusion will need further workup which in the setting of his stability, can be performed as an outpatient. (3) Hypokalemia: Code(s): E87.6 - Hypokalemia Status: Resolved Assessment and Plan: 3.1 40 mEq oral ordered and will check in AM. 03/23/23: Potassium today is improved from 3.1-->3.2. An additional 40 mEq po is given. 03/24/23, Date of discharge: 3.9, Resolved (4) Pleural effusion: Code(s): J90 - Pleural effusion, not elsewhere classified Status: Acute Assessment and Plan: See plan for #2. (5) Hypertension: Code(s): I10 - Essential (primary) hypertension Status: Acute Assessment and Plan: Continue home medication of Lisinopril/HCTZ as ordered. Mon[place]
[2023-03-24] MEDS: SACCHAROMYCES BOULARDII 250 MG CAPSULE PO (09:08)
[2023-03-24] MEDS: FOLIC ACID 1 MG TABLET PO (09:08)
[2023-03-24] MEDS: hydroCHLOROthiazide 25 MG TABLET PO (09:08)
[2023-03-24] MEDS: CHOLECALCIFEROL 1,000 UNITS TABLET 1000 UNITS PO (09:08)
[2023-03-24] MEDS: ASCORBIC ACID 250 MG TABLET PO (09:08)
[2023-03-24] MEDS: MULTIVITAMINS /C LUTEIN (CENTRUM SILVER) TABLET *BKC 1 TAB PO (09:08)
[2023-03-24] MEDS: ZINC SULFATE 220 MG CAPSULE PO (09:08)
[2023-03-24] MEDS: lisinopriL 20 MG TABLET PO (09:08)
[2023-03-24] MEDS: FERROUS SULFATE 325 MG TABLET DR PO (09:08)
[2023-03-24] MEDS: POTASSIUM CHLORIDE 20 MEQ ER TABLET PO (09:09)
[2023-03-24] MEDS: FUROSEMIDE INJ 40 MG/4 ML VIAL 20 MG IV PUSH (09:09)
[2023-03-24] MEDS: LORATADINE 10 MG TABLET BY MOUTH (09:09)
[2023-03-24] MEDS: CYANOCOBALAMIN 500 MCG TABLET PO (09:09)
[2023-03-24 14:00] VITALS: BP 121/57; PULSE 92; RESP 18; TEMP 36; O2SAT 91
== END 2023-03-24 14:50 | disposition home health service (06) ==
LOC: ANHED 03-22 03:50 → ANH3MEDSUR 03-22 06:32
PROVIDERS: Internal Medicine Hematology & Oncology; Admitting Provider Internal Medicine; Emergency Provider Emergency Medicine; PCP Family Medicine; Visit Provider Nurse Practitioner Adult Health
DX: J90 Pleural effusion, not elsewhere classified (principal); C79.51 Secondary malignant neoplasm of bone; R06.9 Unspecified abnormalities of breathing; E87.6 Hypokalemia; I10 Essential (primary) hypertension; A04.72 Enterocolitis due to Clostridium difficile, not specified as recurrent; J43.2 Centrilobular emphysema; J44.9 Chronic obstructive pulmonary disease, unspecified; D64.9 Anemia, unspecified; E78.5 Hyperlipidemia, unspecified; E88.09 Other disorders of plasma-protein metabolism, not elsewhere classified; Z95.828 Presence of other vascular implants and grafts; Z90.79 Acquired absence of other genital organ(s); Z87.891 Personal history of nicotine dependence; Z20.822 Contact with and (suspected) exposure to COVID-19; Z86.16 Personal history of COVID-19; Z87.01 Personal history of pneumonia (recurrent); Z79.818 Long term (current) use of other agents affecting estrogen receptors and estrogen levels; Z79.52 Long term (current) use of systemic steroids; Z79.2 Long term (current) use of antibiotics; Z79.891 Long term (current) use of opiate analgesic; Z79.899 Other long term (current) drug therapy
CPT/HCPCS: 32555; 36415; 71045; 71275; 80053; 83605; 83735; 83880; 84145; 84153; 84484; 85025; 85610; 85730; 87040; 87493; 87637; 93005; 94640; 96361; 96365; 96367; 96375; 96376; 97161; 99285; A9270; G0378; J0456; J0696; J1940; J7030; Q9967

== ENCOUNTER 2023-04-03 13:45 | Outpatient (CLI) | payer MEDICARE, SELFPAY ==
[2023-04-03 19:54] LABS: Alanine Aminotransferase 11 U/L (6-50); Albumin Level 3.5 g/dL (3.5-5.1); Alkaline Phosphatase 126 U/L (38-126); Anion Gap 8 mmol/L (8-16); Aspartate Amino Transferase 35 U/L (17-59); Bilirubin,Total 0.4 mg/dL (0.2-1.3); Blood Urea Nitrogen 27 mg/dL (9-20); Calcium 7.6 mg/dL (8.4-10.2); Carbon Dioxide 26 mmol/L (22-30); Chloride 105 mmol/L (98-107); Estimated Glomerular Filt Rate > 60; Glucose 84 mg/dL (65-110); Potassium 4.4 mmol/L (3.4-5.0); Sodium 139 mmol/L (137-145)
== END 2023-04-03 13:46 | disposition home or self-care (01) ==
LOC: ANHGOSHLAB 13:46
PROVIDERS: PCP Family Medicine; Visit Provider Family Medicine
DX: E87.6 Hypokalemia (principal)
CPT/HCPCS: 36415; 80053

== ENCOUNTER → 2023-04-03 13:54 | Outpatient (CLI) | payer MEDICARE, SELFPAY ==
--- NOTE | ~2023-04-03 | XR_ITS ---
XR chest 2V 04/03/2023 14:17 Indication: Shortness of breath Procedure: 2 view chest Comparison: Comparison to multiple prior studies sequentially, with oldest reviewed study dated 02/08. Findings: Small pleural effusions. Widespread sclerotic metastases. Bilateral pulmonary nodules, cons istent with pulmonary metastases. Portacatheter tip in the SVC. Bibasilar airspace consolidation. Mil d interstitial edema. Impression: 1: Metastatic disease with pulmonary nodules bilaterally and widespread sclerotic metastases. 2: Mild interstitial edema. 3: Small pleural effusions. Reviewed, dictated and finalized at location B. NESS OFFICE ASSOCIATE Impression: 1: Metastatic disease with pulmonary nodules bilaterally and widespread sclerot ic metastases. 2: Mild interstitial edema. 3: Small pleural effusions.
== END ==
PROVIDERS: PCP Family Medicine; Visit Provider Family Medicine
DX: J90 Pleural effusion, not elsewhere classified (principal); C79.51 Secondary malignant neoplasm of bone
CPT/HCPCS: 71046

== ENCOUNTER 2023-04-07 12:06 | Emergency (ER) | payer MEDICARE, SELFPAY ==
[2023-04-07] VITALS (7 sets, daily range): BP systolic 91–103; BP diastolic 50–58; PULSE 91–105; RESP 24–30; TEMP 36.6; O2SAT 93–96
--- NOTE | ~2023-04-07 | XR_ITS ---
XR chest 1V portable 04/07/2023 12:45 Indication: Shortness of breath Procedure: AP portable chest Comparison: 04/03 and 03/24/2023 Findings: New small right hydropneumothorax. There is right hilar mass, consistent with malignancy. T here is sclerotic metastases in the bones. There multiple bilateral ill-defined pulmonary nodules, co nsistent with metastatic disease. Portacatheter tip in the SVC. Impression: 1: New small right hydropneumothorax. 2: Pulmonary and osseous metastases. Reviewed, dictated and finalized at location A. LING STRATEGIST Impression: 1: New small right hydropneumothorax. 2: Pulmonary and osseous metastases.
--- NOTE | 2023-04-07 12:11 | ECG_ITS ---
Measurements Intervals [place] Rate: 98 P: 31 ND: 145 QRS: 71 QRSD: 81 T: 87 QT: 355 QTc: 454 Interpretive Statements SINUS RHYTHM LOW QRS VOLTAGE IN LIMB LEADS CANNOT RULE OUT SEPTAL INFARCT, AGE INDETERMINATE BORDERLINE ST ABNORMALITY- ANTEROLAT/INF LEADS BASELINE ARTIFACT- I, II, III, AVR, AVL, AVF, V1-V3, V4 ABNORMAL ECG COMPARED TO ECG 03/21/2023 23:14:36 NO SIGNIFICANT CHANGES Electronically Signed On 04-07-2023 12:23:15 [employer]ICA PLATE LAYER by Joe Dean D.O.
[2023-04-07 12:29] LABS: Basophils Absolute Auto 0.1 K/mm3 (0.0-0.1); Basophils Percent Auto 0.2 % (0.2-1.2); Hematocrit 39.8 % (42.0-52.0); Hemoglobin 11.9 g/dL (14.0-18.0); Immature Granulocyte Absolute 0.17 K/mm3 (0.00-0.031); Immature Granulocyte Percent A 0.7 % (0-0.5); Lymphocytes Absolute Auto 2.63 K/mm3 (0.9-3.2); Lymphocytes Percent Auto 11.5 % (18.3-44.2); Mean Corpuscular HGB Conc 29.9 g/dl (32-36); Mean Corpuscular Hemoglobin 27.4 pg (26-34); Mean Corpuscular Volume 91.5 fl (80-100); Mean Platelet Volume 9.3 fl (7.4-10.4); Monocytes Absolute Auto 1.2 K/mm3 (0.1-0.6); Monocytes Percent Auto 5.4 % (2.6-8.5); Neutrophils Absolute Auto 18.7 K/mm3 (1.3-6.7); Neutrophils Percent Auto 82.2 % (45.5-73.1); Platelet Count Result 292 k/mm3 (150-375); Red Blood Count 4.35 M/mm3 (4.6-6.20); Red Cell Distribution Width 16.2 % (11.5-14.5); White Blood Count 22.8 K/mm3 (4.5-10.0)
--- NOTE | 2023-04-07 12:31 | ED.SOB ---
HPI - SOB/Dyspnea General Chief Complaint: Shortness of Breath/Dyspnea Stated Complaint: SOB Time Seen by Provider: 04/07/23 12:08 History of Present Illness HPI Narrative: patient is an 88-year-old male with a history of metastatic prostate cancer complicated by recurrent pleural effusions presenting with shortness of breath. States that he has had his right lung drained several times in the last few months. Last time it was drained was a few weeks ago. States that for the last day he has been feeling increasingly short of breath as well as week. States he has not been drinking enough water and he thinks he is dehydrated. He denies any pain. No leg swelling. No nausea or vomiting. Reports a few episodes of diarrhea. Recently completed treatment for C diff. Related Data Home Medications Medication Instructions Recorded Confirmed calcium carbonate 600 mg-vitamin 1 tablet PO BID 06/12/21 04/03/23 D3 5 mcg (200 unit) tablet cholecalciferol (vitamin D3) 25 25 mcg PO DAILY 01/02/22 04/03/23 mcg (1,000 unit) capsule lisinopril 20 1 tablet PO DAILY 07/25/22 04/03/23 mg-hydrochlorothiazide 25 mg tablet folic acid-vitamin C 1 mg-100 mg 250 tablet PO DAILY 02/19/23 04/03/23 tablet multivitamin-zinc tablet 1 tablet PO DAILY 02/19/23 04/03/23 triamcinolone acetonide 0.1 % 1 applic topical TID PRN Itching 02/19/23 04/03/23 topical cream zinc sulfate 50 mg zinc (220 mg) 50 mg PO DAILY 03/12/23 04/03/23 capsule ascorbic acid (vitamin C) 250 mg 250 mg PO DAILY 03/22/23 04/03/23 tablet cyanocobalamin (vitamin B-12) 500 500 mcg PO DAILY 03/22/23 04/03/23 mcg tablet ferrous sulfate 325 mg (65 mg 325 mg PO DAILY 03/22/23 04/03/23 iron) tablet lactobacillus combination no.4 3 3,000 mmu cells PO DAILY 04/03/23 04/03/23 billion cell capsule (Probiotic) Allergies Allergy/AdvReac Type Severity Reaction Status Date / Time No Known Allergies Allergy Mild Verified 04/03/23 12:56 Review of Systems Review of Systems: All systems reviewed & are unremarkable except as noted in HPI and below PMFSH Past Medical History Medical History C. difficile colitis (~03/2023) Chronic obstructive pulmonary disease Dyslipidemia Essential (primary) hypertension Hypertension Metastatic disease Olecranon bursitis of left elbow Prostate cancer metastatic to bone Respiratory abnormality, unspecified Rib fracture (12/2022) Splenic laceration (12/2022) Ulcer of elbow with fat layer exposed Surgical History Surgical History History of bilateral inguinal hernia repair (11/2003) History of cataract extraction History of prostatectomy (11/2002) History of thoracentesis right 03/2023, Family History Family History Father Family history of cardiovascular disease Malignant neoplasm of prostate Mother Family history of cardiovascular disease Sibling Acute myocardial infarction Social History Social History Social History: Surrogate medical decision maker: Hakeem Ramandeep, brother. Code status: Full code. Smoking packs per day: 1 Smoking cigarettes per day: 20.0 Years smoked: 60 Smoking pack-years: 60.00 Smoking status: Former smoker Second hand tobacco smoke exposure: Yes Alcohol intake: former Drinks per week: 10 Substance use: never Do You Feel Safe in your Home?: Yes Lack of Transportation: No Lack of Food: Never True Current Housing: I Have Housing Concerned About Future Housing: No Difficulty Paying Gas/Electric Bills: No Difficulty Paying for Meds: No Currently Unemployed: No Education: High School Diploma/GED Difficulty w/ Childcare or Family Care: No Living arrangements: alone Spiritual care concerns: No Exam Narrative:
[2023-04-07 12:40] LABS: Alanine Aminotransferase 16 U/L (6-50); Albumin Level 3.6 g/dL (3.5-5.1); Alkaline Phosphatase 118 U/L (38-126); Anion Gap 11 mmol/L (8-16); Aspartate Amino Transferase 27 U/L (17-59); Bilirubin,Total 0.6 mg/dL (0.2-1.3); Blood Urea Nitrogen 34 mg/dL (9-20); Calcium 7.9 mg/dL (8.4-10.2); Carbon Dioxide 20 mmol/L (22-30); Chloride 105 mmol/L (98-107); Estimated CRCL calculation 26 ml/min; Estimated Glomerular Filt Rate 48; Glucose 146 mg/dL (65-110); Hypochromasia 1+ (NORMAL); Ovalocytes 1+ (NORMAL); Platelet Estimate Adequate (Adequate); Potassium 4.1 mmol/L (3.4-5.0); Schistocytes None Seen (NORMAL); Sodium 136 mmol/L (137-145)
[2023-04-07] MEDS: SODIUM CHLORIDE 0.9% IV 1,000 ML 999 ML IV CONT ×2 (12:44→14:25)
[2023-04-07] MEDS: IPRATROPIUM BR 0.02% INH SOLN 0.5 MG/2.5 ML VIAL INHALATION (12:49)
[2023-04-07] MEDS: ALBUTEROL SULFATE NEB 2.5 MG/3 ML INH 5 MG INHALATION (12:49)
[2023-04-07 12:57] LABS: Lipase 58 U/L (23-300)
[2023-04-07 12:59] LABS: INR 1.1; Prothrombin Time 14.2 Seconds (11.1-14.7)
[2023-04-07 13:00] LABS: Partial Thromboplastin Time 36.7 SECONDS (22.3-36.8)
[2023-04-07 13:01] LABS: Lactic Acid Reflex 3.5 mmol/L (0.7-2.0)
[2023-04-07 13:09] LABS: NT Pro B Type Natriuretic Pept 1800 pg/mL (19.9-100); Troponin I < 0.012 ng/mL (0.000-0.034)
[2023-04-07 13:29] LABS: Influenza A QL RT-PCR Negative (Negative); Influenza B QL RT-PCR Negative (Negative); RSV RNA, RT-PCR Negative (Negative); SARS-CoV-2 RNA PCR Negative (Negative)
[2023-04-07] MEDS: CEFEPIME 1 GM/NS 50 ML 1 GM/50 ML BAG IVPB (14:30)
--- NOTE | 2023-04-07 15:15 | ECG_ITS ---
Measurements Intervals [place] Rate: 90 P: 21 MD: 159 QRS: 65 QRSD: 82 T: 69 QT: 367 QTc: 450 Interpretive Statements SINUS RHYTHM LOW QRS VOLTAGE- DIFFUSE LEADS CANNOT RULE OUT SEPTAL INFARCT, AGE INDETERMINATE BORDERLINE ST-T WAVE ABNORMALITY- DIFFUSE LEADS ABNORMAL ECG COMPARED TO ECG 04/07/2023 12:16:29 NO SIGNIFICANT CHANGES Electronically Signed On 04-07-2023 19:21:29 [employer] DEPARTMENT HEAD by Joe Dean D.O.
[2023-04-07] MEDS: VANCOMYCIN 1,250 MG/NS 250 ML 1,250 MG/250 ML BAG 166.67 MG IVPB (15:31)
[2023-04-07 15:42] LABS: MRSA (PCR) NOT DETECTED (NOT DETECTE)
[2023-04-07 15:48] LABS: Troponin I < 0.012 ng/mL (0.000-0.034)
[2023-04-07 15:49] LABS: Reflex Lactic Acid Yes or No Add Lactic
[2023-04-07 16:27] LABS: Lactic Acid 3.5 mmol/L (0.7-2.0)
== END 2023-04-07 17:50 | disposition short-term general hospital (02) ==
PROVIDERS: Emergency Provider Emergency Medicine; PCP Family Medicine
DX: A41.9 Sepsis, unspecified organism (principal); J94.2 Hemothorax; C61 Malignant neoplasm of prostate; C79.51 Secondary malignant neoplasm of bone; Z20.822 Contact with and (suspected) exposure to COVID-19; J44.9 Chronic obstructive pulmonary disease, unspecified; E78.5 Hyperlipidemia, unspecified; I10 Essential (primary) hypertension; Z99.81 Dependence on supplemental oxygen; Z90.79 Acquired absence of other genital organ(s); Z98.49 Cataract extraction status, unspecified eye; Z87.891 Personal history of nicotine dependence; R94.31 Abnormal electrocardiogram [ECG] [EKG]; C78.01 Secondary malignant neoplasm of right lung
CPT/HCPCS: 36415; 71045; 80053; 83605; 83690; 83880; 84484; 85025; 85610; 85730; 87637; 87641; 93005; 94640; 96361; 96365; 96366; 96367; 99291; J0692; J3370; J7030

== ENCOUNTER 2023-05-01 11:37 | Outpatient (CLI) | payer MEDICARE, SELFPAY ==
--- NOTE | ~2023-05-01 | XR_ITS ---
Clinical Indication: Pleural condition PA and lateral views of the chest: Comparison: 04/07/2023 Findings: Left-sided Mediport in place. Small to moderate left pleural effusion present. Small right pleural effusion present with possible right basilar chest tube. Questionable minimal patchy pulmonar y haziness otherwise, nonspecific.. Cardiomediastinal silhouette is within normal limits. Probable s cattered osteoblastic metastatic disease. Impression: [id number] left pleural effusion, probably increased from prior exam. Minimal right pleural effusion with probable right basilar chest tube. Left sided Mediport. Questionable minimal patchy pulmonary haziness. Correlate for infection or pulmonary edema. Scattered osteoblastic metastatic disease. Reviewed, dictated and finalized at location M. SFORMER BUILDER Impression: [id number] left pleural effusion, probably increased from prior exam. Minimal right pleural effusion with probable right basilar chest tube. Left sided Mediport. Questionable minimal patchy pulmonary haziness. Correlate for infection or pulm onary edema. Scattered osteoblastic metastatic disease.
== END 2023-05-01 11:38 ==
PROVIDERS: PCP Family Medicine; Visit Provider Family Medicine
DX: J94.8 Other specified pleural conditions (principal)
CPT/HCPCS: 71046

== ENCOUNTER 2023-05-10 12:42 | Outpatient (NON) | payer MEDICARE, SELFPAY ==
[2023-05-10 17:27] LABS: Toxigenic C. Diff POSITIVE (NEGATIVE)
== END 2023-05-10 12:43 | disposition home or self-care (01) ==
LOC: ANHLAB 12:43
PROVIDERS: PCP Family Medicine; Visit Provider Family Medicine
DX: R19.7 Diarrhea, unspecified (principal)
CPT/HCPCS: 87493

== ENCOUNTER 2023-05-13 09:04 | Outpatient (CLI) | payer MEDICARE, SELFPAY ==
[2023-05-13 09:33] LABS: Alveolar/Arterial O2 Gradient 39.5 mmHg; Base Excess ABG -3.7 mEq/l (+/-2.0); Carboxyhemoglobin 0.2 % THb (0-2.0); Fractional Inspired Oxygen 21 %; HCO3 ABG 19.7 mEq/l (22.0-26.0); Methemoglobin ABG 0.5 %THb (0-1.5); Oxygen Content ABG 14.3 %vol (16.0-22.0); Oxygen Saturation ABG 95.4 % (95.0-100.0); Oxyhemoglobin 92.9 % THb (90.0-100.0); PCO2 ABG 30.4 mmHg (35.0-45.0); PO2 ABG 73.8 mmHg (80.0-100.0); PO2 FiO2 Ratio Arterial Blood 3.51 %; Reduced Hemoglobin 6.4 %THb (0-5.0); Total Hemoglobin 10.9 g/dL (12.0-18.0)
[2023-05-13 09:39] LABS: Device ROOM AIR; Modified Allen's Test Pass; Site Drawn RIGHT BRACHIAL
--- NOTE | 2023-05-13 09:52 | PCRCNOTE ---
Addendum entered by Keila Adam, IRON PELLET TESTER 05/13/23 09:59: STOPPED TESTING DUE TO ABOVE. Original Note: ATTEMPTED PFT. PT. HAD A HARD TIME FOLLOWING DIRECTIONS DUE TO AGE AND HEARING. KEPT BREAKING SEAL ON MOUTHPIECE AND LOOKED VISIBLY SOB AFTER 3 ATTEMPTS OF SPIROMETRY.
--- NOTE | 2023-05-13 17:26 | WPDSIXMINUTE ---
Six Minute Walk Procedure Procedure Performed Pulmonary Stress Test (6 min walk) Six Minute Walk Six Minute Walk: This is a 6 minute walk test. The test was performed and interpreted in accordance with the 2014 ERS/ATS task force guidelines. Of note, patient used a cane during the testing. Findings: The patient's resting room air oxygen saturation measured by pulse oximetry was 94% and heart rate was 84 bpm. Patient ambulated for 152 meters and oxygen saturation remained 90 to 94%. Heart rate at the end of the study was 103 bpm. The patient did not qualify for supplemental oxygen at rest or with ambulation. There are no prior studies for comparison.
== END 2023-05-13 09:05 | disposition home or self-care (01) ==
LOC: ANHPFT 09:05
PROVIDERS: PCP Family Medicine; Visit Provider Internal Medicine Pulmonary Disease
DX: J44.9 Chronic obstructive pulmonary disease, unspecified (principal)
CPT/HCPCS: 36600; 82375; 82805; 83050; 94618

== ENCOUNTER 2023-07-03 16:03 | Outpatient (CLI) | payer MEDICARE, SELFPAY ==
--- NOTE | ~2023-07-03 | XR_ITS ---
EXAMINATION: XR chest 2V DATE: 07/03/2023 16:17 INDICATION: Malignant neoplasm of prostate. TECHNIQUE: Frontal and lateral views of the chest were obtained. COMPARISON: Chest 2 views 05/01/2023 FINDINGS: There are airspace opacities at left lung base. There is a moderate-sized left pleural effu shahida. No pneumothorax. The heart size is normal. There is a left internal jugular port with tip in cabrera perior vena cava. There are widespread sclerotic lesions of bone. A right-sided pleural catheter is n oted. IMPRESSION: 1. Stable moderate-sized left pleural effusion. 2. Stable airspace opacities at left lung base, consistent with atelectasis or less likely pneumonia. 3. Widespread sclerotic bone lesions, consistent with metastatic disease. Reviewed, dictated and finalized at location E.
== END 2023-07-03 16:04 | disposition home or self-care (01) ==
PROVIDERS: PCP Family Medicine; Visit Provider Internal Medicine Pulmonary Disease
DX: C61 Malignant neoplasm of prostate (principal); C79.51 Secondary malignant neoplasm of bone; J90 Pleural effusion, not elsewhere classified; R91.8 Other nonspecific abnormal finding of lung field
CPT/HCPCS: 36415; 71046; 80047; 80053; 85025; 96367; 96375; 96413; J1100; J2405; J9171

== ENCOUNTER 2023-09-03 07:32 | Outpatient (CLI) | payer MEDICARE, SELFPAY ==
--- NOTE | ~2023-09-03 | PE_ITS ---
EXAMINATION: PET_PETPSMAST_PT DATE: 09/03/2023 09:48 INDICATION: Prostate cancer metastatic to bone TECHNIQUE: 5.038 mCi of Locametz Ga-68([id number]) was administered i.v. Low dose computed kaley ography (CT) images were acquired from the base of the brain to the base of the brain to the proximal thighs for attenuation correction and anatomic localization. Positron emission tomography (PET) imag es were acquired in the same distribution beginning 85 minutes after injection. Images including fuse d PET/CT images were reconstructed in axial, coronal, and sagittal planes. Automated exposure control technique was employed. The dose-length product was 1114.91mGy-cm. COMPARISON: Chest CT dated 03/22/2023 and bone scan dated 05/31/2022 FINDINGS: Musculoskeletal: Again seen are innumerable PSMA avid lesions and sclerotic bone lesions scattered throughout the axia l and appendicular skeleton consistent with widespread metastatic prostate cancer. There are a few ol d lateral left lower rib fractures. Head/neck: Typical pattern of symmetric physiologic increased activity in the lacrimal, parotid and submandibula r glands as well as along the mucosa of the nasal and oral cavities, pharynx and hypopharynx. No pat hologically enlarged cervical lymphadenopathy or suspicious foci of increased soft tissue uptake in t he visualized head or neck. Chest: Left internal jugular central venous port catheter with distal tip at the midsuperior vena cava. Mode rate-sized left and small right pleural effusions. There is dependent compressive atelectasis in the bilateral lower lobes. Additional dependent atelectasis in the lingula and linear band of discoid ate lectasis in the right middle lobe. There is a chest tube extending posteriorly in the right pleural e ffusion with distal tip at the medial base of the right pleural space. No pneumonia or pulmonary santi a. Heart size is normal. Atherosclerotic coronary artery calcifications. Thoracic aorta is normal in caliber. No pathologically enlarged or PSMA avid thoracic lymphadenopathy. Abdomen/pelvis/proximal thighs: Physiologic renal accumulation and excretion of activity in the kidneys, bladder and along portions o f ureters. Postoperative change of prior prostatectomy without evident nodular soft tissue density or PSMA uptake outside of the excreted urine in the bladder to suggest local recurrence of reported pro state cancer. There are surgical clips in the region of the likely resected seminal vesicles. There a re photopenic defects associated with low-attenuation bilateral renal cysts the larger on the left me asuring 6.3 cm. Additional photopenic defect associated with a 1.2 cm intermediate attenuation lesion at the lower pole of the left kidney most likely proteinaceous/hemorrhagic cyst although solid neopl asm could not be excluded. Normal degree and slightly heterogenous pattern of increased uptake throug hout the liver and spleen without radiologic correlate or dominant PSMA avid lesion. The gallbladder, pancreas and bilateral adrenal glands are normal. Moderate uptake scattered throughout the bowels wi th typical duodenal and proximal jejunal predominance and without radiologic correlate, also likely p hysiologic. No other abnormal foci of increased uptake or pathologically enlarged lymphadenopathy in the abdomen, pelvis or proximal thighs. IMPRESSION: 1. Status post prostatectomy with numerous scattered PSMA avid and sclerotic bone lesions throughout the axial and appendicular skeleton consistent with widespread osseous metastatic disease. No evident local recurrence at the prostatectomy bed or evident soft tissue metastatic disease. 2. Moderate left and small right pleural effusions with right chest tube in place. 3. 1.2 cm soft tissue density lesion in the left kidney most likely a proteinaceous/hemorrhagic cyst although solid neoplasm cannot be absolutely excluded. Could consider
== END 2023-09-03 07:33 | disposition home or self-care (01) ==
PROVIDERS: PCP Family Medicine; Visit Provider Internal Medicine Hematology & Oncology
DX: C61 Malignant neoplasm of prostate (principal); C79.51 Secondary malignant neoplasm of bone; J90 Pleural effusion, not elsewhere classified; N28.9 Disorder of kidney and ureter, unspecified; Z90.79 Acquired absence of other genital organ(s)
CPT/HCPCS: 78815; A9596

== ENCOUNTER 2023-09-04 07:25 | Outpatient (CLI) | payer MEDICARE, SELFPAY ==
--- NOTE | ~2023-09-04 | NM_ITS ---
EXAMINATION: NM bone scan whole body DATE: 09/04/2023 11:46 INDICATION: Prostate cancer metastatic to bone. TECHNIQUE: 25.2 mCi Tc-99m HDP was administered intravenously. Delayed whole-body scintigrams were o btained. COMPARISON: Bone scan 06/04/2022, PET CT 09/03/2023 FINDINGS: There are widespread foci of increased activity involving the spine, pelvis, ribs, proximal femora, scapulae, and proximal humeri correlating with sclerotic lesions by CT, consistent with meta static disease. IMPRESSION: 1. Widespread osseous metastatic disease, stable from 06/04/2022. Reviewed, dictated and finalized at location A.
== END 2023-09-04 07:26 | disposition home or self-care (01) ==
PROVIDERS: PCP Family Medicine; Visit Provider Internal Medicine Hematology & Oncology
DX: C61 Malignant neoplasm of prostate (principal); C79.51 Secondary malignant neoplasm of bone
CPT/HCPCS: 78306; A9503

== ENCOUNTER 2023-10-13 08:36 | Inpatient (IN) | payer MEDICARE, SELFPAY ==
[2023-10-13] VITALS (12 sets, daily range): BP systolic 90–133; BP diastolic 51–66; PULSE 78–94; RESP 16–26; TEMP 36–37.2; O2SAT 92–100
--- NOTE | ~2023-10-13 | XR_ITS ---
Clinical Indication: Cough, shortness of breath PA and lateral views of the chest: Comparison: 07/03/2023 Findings: Stable left-sided Mediport. Small bilateral pleural effusions are present. There is hazy ai rspace disease the bilateral lung bases and right upper lobe. Questionable nodular opacity right lung base.. Cardiomediastinal silhouette is within normal limits. Bones and soft tissues are unremarkabl e. Impression: Hazy bibasilar and right upper lobe airspace disease. Correlate for pneumonia or possibly mild pulmon david edema. Possible nodular opacity right lung base. Chest CT recommended to confirm or exclude pulmonary nodule . Small pleural effusions. Stable Mediport. Reviewed, dictated and finalized at location . Impression: Hazy bibasilar and right upper lobe airspace disease. Correlate for pneumonia o r possibly mild pulmonary edema. Possible nodular opacity right lung base. Chest CT recommended to confirm or ex clude pulmonary nodule. Small pleural effusions. Stable Mediport.
--- NOTE | 2023-10-13 08:50 | ECG_ITS ---
Test Date: 2023-10-13 08:51:04 Measurements Intervals [place] Rate: 83 P: 37 [place]: 141 QRS: 52 QRSD: 69 T: 46 QT: 346 QTc: 409 Interpretive Statements SINUS RHYTHM LOW QRS VOLTAGE [QRS DEFLECTION < 0.5/1.0 mV IN LIMB/CHEST LEADS] POSSIBLE SEPTAL MYOCARDIAL INFARCTION , PROBABLY OLD [40+ ms Q WAVE IN V1/V2] ABNORMAL ECG Compared to ECG 10/13/2023 08:40:43 DIFFICULT COMPARISON SINCE PREVIOUS ELECTROCARDIOGRAM HAD EXCESSIVE ARTIFACT Electronically Signed On 10-14-2023 14:47:47 CDT by Huey Hankins M.D.
--- NOTE | 2023-10-13 08:54 | ECG_ITS ---
Test Date: 2023-10-13 08:40:43 Measurements Intervals [place] Rate: 89 P: -47 [place]: 87 QRS: 42 QRSD: 75 T: 84 QT: 369 QTc: 449 Interpretive Statements VERY POOR QUALITY ECG BECAUSE OF MOTION ARTIFACT SINUS RHYTHM NO FURTHER COMMENTS/DIAGNOSIS CAN NOT BE MADE DUE TO VERY POOR QUALITY TRACING No previous ECG available for comparison Electronically Signed On 10-13-2023 09:10:32 CDT by Huey Hankins M.D.
[2023-10-13 09:13] LABS: Basophils Absolute Auto 0.1 K/mm3 (0.0-0.1); Basophils Percent Auto 0.7 % (0.2-1.2); Eosinophils Percent Auto 0.4 % (0-4.4); Hematocrit 35.9 % (42.0-52.0); Hemoglobin 11.1 g/dL (14.0-18.0); Immature Granulocyte Absolute 0.06 K/mm3 (0.00-0.031); Immature Granulocyte Percent A 0.8 % (0-0.5); Lymphocytes Absolute Auto 1.23 K/mm3 (0.9-3.2); Lymphocytes Percent Auto 16.6 % (18.3-44.2); Mean Corpuscular HGB Conc 30.9 g/dl (32-36); Mean Corpuscular Hemoglobin 28.5 pg (26-34); Mean Corpuscular Volume 92.3 fl (80-100); Mean Platelet Volume 9.9 fl (7.4-10.4); Monocytes Absolute Auto 0.2 K/mm3 (0.1-0.6); Monocytes Percent Auto 2.7 % (2.6-8.5); Neutrophils Absolute Auto 5.8 K/mm3 (1.3-6.7); Neutrophils Percent Auto 78.8 % (45.5-73.1); Platelet Count Result 287 k/mm3 (150-375); Red Blood Count 3.89 M/mm3 (4.6-6.20); Red Cell Distribution Width 16.3 % (11.5-14.5); White Blood Count 7.4 K/mm3 (4.5-10.0)
[2023-10-13 09:23] LABS: Prothrombin Time 13.7 Seconds (11.1-14.7)
[2023-10-13 09:24] LABS: Partial Thromboplastin Time 33.2 Seconds (22.3-36.8)
[2023-10-13 09:26] LABS: Alanine Aminotransferase 10 U/L (6-50); Albumin Level 2.9 g/dL (3.5-5.1); Alkaline Phosphatase 71 U/L (38-126); Anion Gap 7 mmol/L (4-12); Aspartate Amino Transferase 24 U/L (17-59); Bilirubin,Total 0.5 mg/dL (0.2-1.3); Blood Urea Nitrogen 22 mg/dL (9-20); Calcium 7.4 mg/dL (8.4-10.2); Carbon Dioxide 22 mmol/L (22-30); Chloride 108 mmol/L (98-107); Estimated CRCL calculation 40 ml/min; Estimated Glomerular Filt Rate > 60; Glucose 88 mg/dL (65-110); Potassium 3.9 mmol/L (3.4-5.0); Sodium 137 mmol/L (137-145)
[2023-10-13 09:26] LABS: Lactic Acid Reflex 1.2 mmol/L (0.7-2.0)
[2023-10-13 09:35] LABS: NT Pro B Type Natriuretic Pept 607 pg/mL (19.9-100)
[2023-10-13 09:37] LABS: Alveolar/Arterial O2 Gradient 487.5 mmHg; Base Excess ABG -4.6 mEq/l (+/-2.0); Fractional Inspired Oxygen 100 %; HCO3 ABG 18.9 mEq/l (22.0-26.0); Oxygen Content ABG 16.1 %vol (16.0-22.0); Oxygen Saturation ABG 99.4 % (95.0-100.0); Oxyhemoglobin 98.8 % THb (90.0-100.0); PCO2 ABG 29.6 mmHg (35.0-45.0); PO2 ABG 195.9 mmHg (80.0-100.0); PO2 FiO2 Ratio Arterial Blood 1.96 %; Total Hemoglobin 11.3 g/dL (12.0-18.0); pH ABG 7.422 (7.350-7.450)
[2023-10-13 09:38] LABS: Device NON-REBREATHER MASK; Site Drawn LEFT RADIAL
[2023-10-13] MEDS: AZITHROMYCIN 500 MG/NS 250 ML 500 MG/250 ML BAG 250 MG IVPB (10:29)
[2023-10-13] MEDS: IPRATROPIUM 0.5 MG/ALBUTEROL SULFATE 2.5 MG AMPUL.NEB 3 ML INHALATION (10:32)
[2023-10-13 10:58] LABS: Influenza A QL RT-PCR Negative (Negative); Influenza B QL RT-PCR Negative (Negative); RSV RNA, RT-PCR Negative (Negative); SARS-CoV-2 RNA PCR Negative (Negative)
--- NOTE | 2023-10-13 11:32 | ED.SOB ---
HPI - SOB/Dyspnea General Chief Complaint: Shortness of Breath/Dyspnea Stated Complaint: resp distress History of Present Illness HPI Narrative: Patient is an 88-year-old male with history of metastatic prostate cancer he presents ER with shortness of breath and cough. Developing over last day. He is concerned he has pneumonia. Cough is productive. No known sick contacts. He has had subjective fevers and chills. No alleviating factors. Patient found to be hypoxic and is now requiring oxygen which is atypical for him. Related Data Home Medications Medication Instructions Recorded Confirmed calcium carbonate 600 mg-vitamin 1 tablet PO BID 06/12/21 10/13/23 D3 5 mcg (200 unit) tablet cholecalciferol (vitamin D3) 25 25 mcg PO DAILY 01/02/22 10/13/23 mcg (1,000 unit) capsule multivitamin-zinc tablet 1 tablet PO DAILY 02/19/23 10/13/23 cyanocobalamin (vitamin B-12) 500 500 mcg PO DAILY 03/22/23 10/13/23 mcg tablet ferrous sulfate 325 mg (65 mg 325 mg PO DAILY 03/22/23 10/13/23 iron) tablet abiraterone 250 mg tablet 500 mg PO QAM 07/24/23 10/13/23 Saccharomyces boulardii 250 mg 250 mg PO DAILY 10/13/23 10/13/23 capsule (Florastor) potassium chloride 10 mEq 20 meq PO DAILY 10/13/23 10/13/23 tablet,extended release prednisone 5 mg tablet 5 mg PO BID 10/13/23 10/13/23 Allergies Allergy/AdvReac Type Severity Reaction Status Date / Time No Known Allergies Allergy Mild Verified 10/13/23 08:55 Review of Systems Review of Systems: All systems reviewed & are unremarkable except as noted in HPI and below Constitutional: Constitutional: Reports chills, Reports fatigue and Reports fever(s) ENT: Reports system reviewed and no additional complaints, except as documented Cardiovascular: Cardiovascular: Reports no additional cardiovascular complaints Respiratory: Respiratory: Reports cough, Reports dyspnea and Denies wheezing Gastrointestinal: Gastrointestinal: Reports no additional gastrointestinal complaints Genitourinary: Genitourinary: Reports no additional male genitourinary complaints Integumentary/Breasts: Skin/Breast: Reports system reviewed and no additional complaints, except as docu [facility] Past Medical History Medical History (Updated 10/13/23 @ 18:42 by Madi Rodriguez MD) C. 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 Code status: Full code. Smoking packs per day: 1 Smoking cigarettes per day: 20.0 Years smoked: 60 Smoking pack-years: 60.00 Smoking status: Former smoker Second hand tobacco smoke exposure: Yes Alcohol intake: former Drinks per week: 10 Substance use: never Do You Feel Safe in your Home?: Yes Lack of Transportation: No Lack of Food: Never True Current Housing: I Have Housing Concerned About Future Housing: No Difficulty Paying Gas/Electric Bills: No Difficulty Paying for Meds: No Currently Unemployed: No Education: High School Diploma/GED Dif
--- NOTE | 2023-10-13 12:34 | ADMGEN ---
This patient, Yamil Sabillon, was admitted to Medical Room 343-01. Patient/family oriented to hospital policies and general routines including ID bracelet, bed and alarms, visiting hours, pain management, procedures, bathroom and other care routines, personal items, smoking policy, room service/diet, and visiting hours. Information on how to activate the Rapid Response Team has been discussed. Patient/Family are encouraged to report perceived risks to care and to ask questions if they do not understand what they are told or what they should do.
--- NOTE | 2023-10-13 14:02 | PM.IMHP ---
H&P: HPI History of Present Illness Date/Time: 10/13/23 14:02 Chief Complaint: Shortness of Breath Narrative: 88 y/o M presents here with shortness of breath with PMH of COPD, prostate cancer, former smoker (cessation in 2022), HTN, chronic pleural effusion The patient presents here from home via EMS for further evaluation of shortness of breath. Onset was last night at 6-7 pm while the patient was sitting watching the devsisters. Shortness of breath is accompanied by weakness and productive cough. Cough started 3-4 days ago. Denying accompanying fever, chills, and body aches. Patient wears 2L NC at baseline. Upon EMS arrival, patient's O2 sat was 86% on 2L NC. Placed on NRB with increase to 99%. Patient additionally has a pleurX catheter present to the right chest for a chronic pleural effusion that is drained 3 times a week (M/W/F). Initial VS at presentation: 97.6? F, HR 91, RR 26, 90/66, and 92% on enter be. Currently 94% on 2L NC. ED workup showed: No leukocytosis, hemoglobin 11.1, creatinine 1.0 and normal 0 4, calcium 7.4, BNP 607, viral PCR negative. ABG showed CO2 29.6, O2 195.9, HCO3 18.9 while on NRB. CXR showed a hazy bibasilar and right upper lobe airspace disease, possible nodular opacity in the right lung base, small pleural effusions, stable MediPort. [facility] Past Medical History Medical History (Updated 10/13/23 @ 15:07 by Sarah Gagnon APRN) C. 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 Code status: Full code. Smoking packs per day: 1 Smoking cigarettes per day: 20.0 Years smoked: 60 Smoking pack-years: 60.00 Smoking status: Former smoker Second hand tobacco smoke exposure: Yes Alcohol intake: former Drinks per week: 10 Substance use: never Do You Feel Safe in your Home?: Yes Lack of Transportation: No Lack of Food: Never True Current Housing: I Have Housing Concerned About Future Housing: No Difficulty Paying Gas/Electric Bills: No Difficulty Paying for Meds: No Currently Unemployed: No Education: High School Diploma/GED Difficulty w/ Childcare or Family Care: No Living arrangements: alone Spiritual care concerns: No Meds Home Medications and Allergies Home Medications Medication Instructions Recorded Confirmed Type calcium carbonate 600 mg-vitamin 1 tablet PO BID 06/12/21 10/13/23 History D3 5 mcg (200 unit) tablet cholecalciferol (vitamin D3) 25 25 mcg PO DAILY 01/02/22 10/13/23 History mcg (1,000 unit) capsule multivitamin-zinc tablet 1 tablet PO DAILY 02/19/23 10/13/23 History cyanocobalamin (vitamin B-12) 500 500 mcg PO DAILY 03/22/23 10/13/23 History mcg tablet ferrous sulfate 325 mg (65 mg 325 mg PO DAILY 03/22/23 10/13/23 History iron) tablet furosemide 20 mg tablet 10 mg PO QAM #30 tabs 05/01/23 10/13/23 Rx Trelegy Ellipta 100 mcg-62.5 1 inh inhalation Q24H #60 ea 07/03/23 10/13/23 Rx mcg-25 mcg powder for inhalation (flut
[2023-10-13] MEDS: LACTATED RINGERS 1,000 ML 999 ML IV CONT (15:13)
[2023-10-13] MEDS: BENZOCAINE/MENTHOL (*BKC) 18 EA LOZENGE 1 LOZENGE PO (15:15)
[2023-10-13] MEDS: LACTATED RINGERS 1,000 ML 100 ML IV CONT (16:27)
[2023-10-13] MEDS: CALCIUM/VITAMIN D 500 MG/5 MCG (200 I.U.) TABLET PO (17:23)
[2023-10-13] MEDS: predniSONE 5 MG TABLET PO (17:23)
--- NOTE | 2023-10-13 17:27 | PHAR ---
[facility] [id number] bottle identified to contain: Drug Name: Abiraterone Acetate Ingredients: Abiraterone Acetate -- 250 MG Color: White to Off-White Shape: Oval Imprint: ABR ; 250 Form: Oral Tablet
[2023-10-13 19:15] LABS: Toxigenic C. Diff POSITIVE (NEGATIVE)
[2023-10-13] MEDS: guaiFENesin 12 HR 600 MG TABCR PO (21:48)
[2023-10-13] MEDS: FIDAXOMICIN 200 MG TABLET PO (21:48)
[2023-10-14] MEDS: BENZONATATE 100 MG CAPSULE PO ×2 (00:14→23:38)
[2023-10-14 05:38] LABS: Basophils Percent Auto 0.6 % (0.2-1.2); Eosinophils Percent Auto 0.4 % (0-4.4); Hematocrit 29.6 % (42.0-52.0); Hemoglobin 9.2 g/dL (14.0-18.0); Immature Granulocyte Absolute 0.04 K/mm3 (0.00-0.031); Immature Granulocyte Percent A 0.8 % (0-0.5); Lymphocytes Absolute Auto 0.62 K/mm3 (0.9-3.2); Lymphocytes Percent Auto 12.1 % (18.3-44.2); Mean Corpuscular HGB Conc 31.1 g/dl (32-36); Mean Corpuscular Volume 90.2 fl (80-100); Mean Platelet Volume 9.3 fl (7.4-10.4); Monocytes Absolute Auto 0.2 K/mm3 (0.1-0.6); Monocytes Percent Auto 4.1 % (2.6-8.5); Neutrophils Absolute Auto 4.2 K/mm3 (1.3-6.7); Platelet Count Result 217 k/mm3 (150-375); Red Blood Count 3.28 M/mm3 (4.6-6.20); Red Cell Distribution Width 16.1 % (11.5-14.5); White Blood Count 5.1 K/mm3 (4.5-10.0)
[2023-10-14 05:50] LABS: Alanine Aminotransferase 9 U/L (6-50); Albumin Level 2.3 g/dL (3.5-5.1); Alkaline Phosphatase 66 U/L (38-126); Anion Gap 3 mmol/L (4-12); Aspartate Amino Transferase 19 U/L (17-59); Bilirubin,Total 0.2 mg/dL (0.2-1.3); Blood Urea Nitrogen 19 mg/dL (9-20); Calcium 7.4 mg/dL (8.4-10.2); Carbon Dioxide 21 mmol/L (22-30); Chloride 109 mmol/L (98-107); Estimated CRCL calculation 49 ml/min; Estimated Glomerular Filt Rate > 60; Glucose 120 mg/dL (65-110); Potassium 3.8 mmol/L (3.4-5.0); Sodium 133 mmol/L (137-145)
[2023-10-14 05:52] VITALS: BP 126/61; PULSE 82; RESP 20; TEMP 36.1; O2SAT 95
[2023-10-14] MEDS: CHOLECALCIFEROL 1,000 UNITS TABLET 1000 UNITS PO (09:31)
[2023-10-14] MEDS: FERROUS GLUCONATE 324 MG TABLET PO (09:31)
[2023-10-14] MEDS: guaiFENesin 12 HR 600 MG TABCR PO ×2 (09:31→21:39)
[2023-10-14] MEDS: POTASSIUM CHLORIDE 20 MEQ ER TABLET PO (09:32)
[2023-10-14] MEDS: predniSONE 5 MG TABLET PO ×2 (09:32→17:48)
[2023-10-14] MEDS: FIDAXOMICIN 200 MG TABLET PO ×2 (09:32→21:39)
[2023-10-14] MEDS: CALCIUM/VITAMIN D 500 MG/5 MCG (200 I.U.) TABLET PO ×2 (09:32→17:48)
[2023-10-14] MEDS: THERAPEUTIC MULTIVITAMINS/MINERALS TAB (*BKC) 1 TABLET PO (09:32)
[2023-10-14] MEDS: CYANOCOBALAMIN 500 MCG TABLET PO (09:32)
[2023-10-14] MEDS: FUROSEMIDE 10 MG TABLET PO (09:32)
[2023-10-14 09:53] VITALS: BP 112/50; PULSE 84; RESP 18; O2SAT 95
[2023-10-14] MEDS: SACCHAROMYCES BOULARDII 250 MG CAPSULE PO (10:11)
[2023-10-14] MEDS: AZITHROMYCIN 500 MG/NS 250 ML 500 MG/250 ML BAG 250 MG IVPB (10:12)
[2023-10-14 14:00] VITALS: BP 103/50; PULSE 88; RESP 22; TEMP 37; O2SAT 95
--- NOTE | 2023-10-14 20:01 | P.PNIM_ITS ---
Progress Note: A&P Assessment and Plan (1) Sepsis: Qualifiers: Acute respiratory failure type: with hypoxia Sepsis acute organ dysfunction status: with acute organ dysfunction Sepsis type: sepsis due to unspecified organism Severe sepsis acute organ dysfunction type: acute respiratory failure Severe sepsis shock status: without septic shock Qualified Code(s): A41.9 - Sepsis, unspecified organism; R65.20 - Severe sepsis without septic shock; J96.01 - Acute respiratory failure with hypoxia Code(s): A41.9 - Sepsis, unspecified organism Status: Acute Assessment and Plan: -RESOLVED -IN ED meets SIRS criteria: HR, RR. +hypoxia, BP soft but not hypotensive - lactic acid:1.2 - 30 mL/kg = 1770, 1L bolus then 100 mL/hr - suspected source: Pneumonia -CONTINUE azithromycin and ceftriaxone - blood cultures drawn on 10/12 - CXR: Hazy bibasilar and right upper lobe airspace disease. Correlate for pneumonia or possibly mild pulmonary edema. Possible nodular opacity right lung base. Chest CT recommended to confirm or exclude pulmonary nodule. Small pleural effusions. Stable Mediport. - (2) Pneumonia: Qualifiers: Laterality: bilateral Lung location: unspecified part of lung Pneumonia type: due to unspecified organism Qualified Code(s): J18.9 - Pneumonia, unspecified organism Code(s): J18.9 - Pneumonia, unspecified organism Status: Acute Assessment and Plan: - CXR: Hazy bibasilar and right upper lobe airspace disease. 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 COPD. 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 Qualified Code(s): J43.9 - Emphysema, unspecified Code(s): J44.9 - Chronic obstructive pulmonary disease, unspecified Status: Acute Assessment and Plan: - DuoNebs Q6H - continue home prednisone - continue home inhalers: Trelegy (4) Pleural effusion: Code(s): J90 - Pleural effusion, not elsewhere classified Status: Acute Assessment and Plan: - recurrent right sided pleural effusion - pleurX catheter in place that is used to drain effusion 3 times per week on Mo , Saturday, and Saturday -10/13 DRAINED PleurX cath 700 ml -Patient feels better (5) Diarrhea: Qualifiers: Diarrhea type: presumed infectious Qualified Code(s): R19.7 - Diarrhea, unspecified Code(s): R19.7 - Diarrhea, unspecified Status: Acute Assessment and Plan: - presumed infectious - has recurrent c. diff infections and has started to have diarrhea again in the last few days, brother reported to nursing staff that smell is the same as previous infections - contact precautions - c. diff testing positive -Will discuss with ID whether whether the patient needs oral vancomycin. - IV fluids Plan Patient here with shortness of breath, generalized weakness, and productive cough. CXR showing pneumonia. Started on ceftriaxone and azithromycin. Met SIRS criteria on ED. Lactic within normal limits. Given 1 L bolus in the ED then maintenance fluids. Also has history of recu
[2023-10-14 21:44] VITALS: BP 122/67; PULSE 83; RESP 20; TEMP 36.1; O2SAT 94
[2023-10-14 21:45] VITALS: O2SAT 94
[2023-10-15] VITALS (7 sets, daily range): BP systolic 100–120; BP diastolic 47–74; PULSE 79–85; RESP 16–20; TEMP 36.7–37.2; O2SAT 94–95
[2023-10-15 05:53] LABS: Basophils Percent Auto 0.4 % (0.2-1.2); Eosinophils Percent Auto 0.4 % (0-4.4); Hematocrit 30.7 % (42.0-52.0); Hemoglobin 9.6 g/dL (14.0-18.0); Immature Granulocyte Absolute 0.06 K/mm3 (0.00-0.031); Immature Granulocyte Percent A 1.1 % (0-0.5); Lymphocytes Absolute Auto 0.62 K/mm3 (0.9-3.2); Lymphocytes Percent Auto 11.9 % (18.3-44.2); Mean Corpuscular HGB Conc 31.3 g/dl (32-36); Mean Corpuscular Hemoglobin 28.7 pg (26-34); Mean Corpuscular Volume 91.6 fl (80-100); Mean Platelet Volume 9.7 fl (7.4-10.4); Monocytes Absolute Auto 0.3 K/mm3 (0.1-0.6); Monocytes Percent Auto 5.6 % (2.6-8.5); Neutrophils Absolute Auto 4.2 K/mm3 (1.3-6.7); Neutrophils Percent Auto 80.6 % (45.5-73.1); Platelet Count Result 245 k/mm3 (150-375); Red Blood Count 3.35 M/mm3 (4.6-6.20); Red Cell Distribution Width 16.1 % (11.5-14.5); White Blood Count 5.2 K/mm3 (4.5-10.0)
[2023-10-15 05:59] LABS: Alanine Aminotransferase 9 U/L (6-50); Albumin Level 2.4 g/dL (3.5-5.1); Alkaline Phosphatase 73 U/L (38-126); Anion Gap 4 mmol/L (4-12); Aspartate Amino Transferase 20 U/L (17-59); Bilirubin,Total 0.2 mg/dL (0.2-1.3); Blood Urea Nitrogen 19 mg/dL (9-20); Calcium 7.9 mg/dL (8.4-10.2); Carbon Dioxide 24 mmol/L (22-30); Chloride 109 mmol/L (98-107); Estimated CRCL calculation 44 ml/min; Estimated Glomerular Filt Rate > 60; Glucose 110 mg/dL (65-110); Potassium 4.2 mmol/L (3.4-5.0); Sodium 137 mmol/L (137-145)
[2023-10-15 08:20] LABS: Glucose Point of Care 100 mg/dl (65-105)
[2023-10-15] MEDS: FUROSEMIDE 10 MG TABLET PO (09:49)
[2023-10-15] MEDS: FIDAXOMICIN 200 MG TABLET PO ×2 (09:54→20:43)
[2023-10-15] MEDS: POTASSIUM CHLORIDE 20 MEQ ER TABLET PO (09:54)
[2023-10-15] MEDS: guaiFENesin 12 HR 600 MG TABCR PO ×2 (09:54→20:43)
[2023-10-15] MEDS: CHOLECALCIFEROL 1,000 UNITS TABLET 1000 UNITS PO (09:54)
[2023-10-15] MEDS: CYANOCOBALAMIN 500 MCG TABLET PO (09:54)
[2023-10-15] MEDS: CALCIUM/VITAMIN D 500 MG/5 MCG (200 I.U.) TABLET PO ×2 (09:54→17:21)
[2023-10-15] MEDS: SACCHAROMYCES BOULARDII 250 MG CAPSULE PO (09:54)
[2023-10-15] MEDS: THERAPEUTIC MULTIVITAMINS/MINERALS TAB (*BKC) 1 TABLET PO (09:54)
[2023-10-15] MEDS: predniSONE 5 MG TABLET PO ×2 (09:56→17:21)
[2023-10-15] MEDS: FERROUS GLUCONATE 324 MG TABLET PO (09:56)
[2023-10-15] MEDS: AZITHROMYCIN 500 MG/NS 250 ML 500 MG/250 ML BAG 250 MG IVPB (10:40)
--- NOTE | 2023-10-15 10:52 | PM.IMPN ---
Progress Note: A&P Assessment and Plan (1) Sepsis: Qualifiers: Acute respiratory failure type: with hypoxia Sepsis acute organ dysfunction status: with acute organ dysfunction Sepsis type: sepsis due to unspecified organism Severe sepsis acute organ dysfunction type: acute respiratory failure Severe sepsis shock status: without septic shock Qualified Code(s): A41.9 - Sepsis, unspecified organism; R65.20 - Severe sepsis without septic shock; J96.01 - Acute respiratory failure with hypoxia Code(s): A41.9 - Sepsis, unspecified organism Status: Acute Assessment and Plan: -RESOLVED -IN ED meets SIRS criteria: HR, RR. +hypoxia, BP soft but not hypotensive - lactic acid:1.2 - 30 mL/kg = 1770, 1L bolus then 100 mL/hr - suspected source: Pneumonia -CONTINUE azithromycin and ceftriaxone - blood cultures drawn on 10/12 - CXR: Hazy bibasilar and right upper lobe airspace disease. Correlate for pneumonia or possibly mild pulmonary edema. Possible nodular opacity right lung base. Chest CT recommended to confirm or exclude pulmonary nodule. Small pleural effusions. Stable Mediport. - (2) Pneumonia: Qualifiers: Laterality: bilateral Lung location: unspecified part of lung Pneumonia type: due to unspecified organism Qualified Code(s): J18.9 - Pneumonia, unspecified organism Code(s): J18.9 - Pneumonia, unspecified organism Status: Acute Assessment and Plan: -Ceftrixone and Azithromycin - CXR: Hazy bibasilar and right upper lobe airspace disease. 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 COPD. 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 Qualified Code(s): J43.9 - Emphysema, unspecified Code(s): J44.9 - Chronic obstructive pulmonary disease, unspecified Status: Acute Assessment and Plan: - DuoNebs Q6H - continue home prednisone - continue home inhalers: Trelegy (4) Pleural effusion: Code(s): J90 - Pleural effusion, not elsewhere classified Status: Acute Assessment and Plan: -Needs drainage tomorrow(10/15) - recurrent right sided pleural effusion - pleurX catheter in place that is used to drain effusion 3 times per week on Saturday, Saturday, and Saturday -10/13 DRAINED PleurX cath 700 ml -Patient feels better (5) Diarrhea: Qualifiers: Diarrhea type: presumed infectious Qualified Code(s): R19.7 - Diarrhea, unspecified Code(s): R19.7 - Diarrhea, unspecified Status: Acute Assessment and Plan: - presumed infectious - has recurrent c. diff infections and has started to have diarrhea again in the last few days, brother reported to nursing staff that smell is the same as previous infections - contact precautions - c. diff testing positive -Will discuss with ID whether whether the patient needs oral vancomycin. - IV fluids Plan Patient here with shortness of breath, generalized weakness, and productive cough. CXR showing pneumonia. Started on ceftriaxone and azithromycin. Met SIRS criteria on ED. Lactic within normal limits. Given 1 L bolus in the ED then maintenance fluids. Also has history of recurrent C diff infections, began having diarrhea again 2-3 days ago, last infection 1 month ago. C diff results positive tomorrow we will discuss the results with with Infectious Disease in regards to starting oral vancomycin. To patient also has chronic right pleural effusion with PleurX catheter in place. Drained Mondays, Wednesdays, Fridays. Today
[2023-10-15 11:59] LABS: Glucose Point of Care 107 mg/dl (65-105)
--- NOTE | 2023-10-15 12:13 | PCPTNOTE ---
On 10/15/23, the student, [Arely Foster], provided care and completed [facility] documentation on this patient. I have reviewed the student's documentation and agree with the findings.
[2023-10-15] MEDS: FLUTICASONE/UMECLIDIN/VILANTER 100-62.5-25 MCG ELLIPTA 1 PUFF INHALATION (13:12)
[2023-10-15] MEDS: BENZONATATE 100 MG CAPSULE PO (17:22)
[2023-10-16 05:45] VITALS: BP 103/54; PULSE 85; RESP 16; TEMP 37; O2SAT 96
[2023-10-16 05:58] LABS: Basophils Percent Auto 0.6 % (0.2-1.2); Eosinophils Absolute Auto 0.1 K/mm3 (0-0.3); Hematocrit 30.5 % (42.0-52.0); Hemoglobin 9.7 g/dL (14.0-18.0); Immature Granulocyte Absolute 0.07 K/mm3 (0.00-0.031); Immature Granulocyte Percent A 1.4 % (0-0.5); Lymphocytes Absolute Auto 0.59 K/mm3 (0.9-3.2); Lymphocytes Percent Auto 11.9 % (18.3-44.2); Mean Corpuscular HGB Conc 31.8 g/dl (32-36); Mean Corpuscular Volume 91.3 fl (80-100); Mean Platelet Volume 9.4 fl (7.4-10.4); Monocytes Absolute Auto 0.4 K/mm3 (0.1-0.6); Monocytes Percent Auto 7.3 % (2.6-8.5); Neutrophils Absolute Auto 3.9 K/mm3 (1.3-6.7); Neutrophils Percent Auto 77.8 % (45.5-73.1); Platelet Count Result 233 k/mm3 (150-375); Red Blood Count 3.34 M/mm3 (4.6-6.20); Red Cell Distribution Width 15.9 % (11.5-14.5)
[2023-10-16 06:08] LABS: Alanine Aminotransferase 10 U/L (6-50); Albumin Level 2.5 g/dL (3.5-5.1); Alkaline Phosphatase 69 U/L (38-126); Anion Gap 7 mmol/L (4-12); Aspartate Amino Transferase 21 U/L (17-59); Bilirubin,Total 0.3 mg/dL (0.2-1.3); Blood Urea Nitrogen 18 mg/dL (9-20); Calcium 8.1 mg/dL (8.4-10.2); Carbon Dioxide 23 mmol/L (22-30); Chloride 106 mmol/L (98-107); Estimated CRCL calculation 44 ml/min; Estimated Glomerular Filt Rate > 60; Glucose 93 mg/dL (65-110); Potassium 4.1 mmol/L (3.4-5.0); Sodium 136 mmol/L (137-145)
--- NOTE | 2023-10-16 08:08 | PM.IMPN ---
Progress Note: A&P Assessment and Plan (1) Sepsis: Qualifiers: Acute respiratory failure type: with hypoxia Sepsis acute organ dysfunction status: with acute organ dysfunction Sepsis type: sepsis due to unspecified organism Severe sepsis acute organ dysfunction type: acute respiratory failure Severe sepsis shock status: without septic shock Qualified Code(s): A41.9 - Sepsis, unspecified organism; R65.20 - Severe sepsis without septic shock; J96.01 - Acute respiratory failure with hypoxia Code(s): A41.9 - Sepsis, unspecified organism Status: Acute Assessment and Plan: -RESOLVED - (2) Pneumonia: Qualifiers: Laterality: bilateral Lung location: unspecified part of lung Pneumonia type: due to unspecified organism Qualified Code(s): J18.9 - Pneumonia, unspecified organism Code(s): J18.9 - Pneumonia, unspecified organism Status: Acute Assessment and Plan: #PNA -Discontinued Ceftrixone and Azithromycin -started amoxicillin/clav PO BID x 5 days and Azithromycin 500mg PO - Hold Abiraterone and Prednisone as per advise form . - CXR: Hazy bibasilar and right upper lobe airspace disease. 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 COPD. 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 Qualified Code(s): J43.9 - Emphysema, unspecified Code(s): J44.9 - Chronic obstructive pulmonary disease, unspecified Status: Acute Assessment and Plan: - DuoNebs Q6H - continue home prednisone - continue home inhalers: Trelegy (4) Pleural effusion: Code(s): J90 - Pleural effusion, not elsewhere classified Status: Acute Assessment and Plan: -10/15 drained Pluer X cath - recurrent right sided pleural effusion - pleurX catheter in place that is used to drain effusion 3 times per week on Saturday, Saturday, and Saturday -10/13 DRAINED PleurX cath 700 ml -Patient feels better (5) Diarrhea: Qualifiers: Diarrhea type: presumed infectious Qualified Code(s): R19.7 - Diarrhea, unspecified Code(s): R19.7 - Diarrhea, unspecified Status: Acute Assessment and Plan: - presumed infectious - has recurrent c. diff infections and has started to have diarrhea again in the last few days, brother reported to nursing staff that smell is the same as previous infections - contact precautions - c. diff testing positive -Will discuss with ID whether whether the patient needs oral vancomycin. - IV fluids Plan Patient here with shortness of breath, generalized weakness, and productive cough. CXR showing pneumonia. Started on ceftriaxone and azithromycin. Met SIRS criteria on ED. Lactic within normal limits. Given 1 L bolus in the ED then maintenance fluids. Also has history of recurrent C diff infections, began having diarrhea again 2-3 days ago, last infection 1 month ago. C diff results positive tomorrow we will discuss the results with with Infectious Disease in regards to starting oral vancomycin. To patient also has chronic right pleural effusion with PleurX catheter in place. Drained Mondays, Wednesdays, Fridays. Today PleurX catheter was drained 700 cc Diet: heart healthy GI Prophylaxis: not currently indicated DVT Prophylaxis: SCDs Lines: peripheral Code Status: full code Subjective Date/time seen: 10/16/23 08:09 Interval history: PleurX catheter was drained and patient feels better. Currently on 2 L and saturating well. Exam Const: General: comfortabl
[2023-10-16 08:12] VITALS: O2SAT 92
[2023-10-16] MEDS: FLUTICASONE/UMECLIDIN/VILANTER 100-62.5-25 MCG ELLIPTA 1 PUFF INHALATION (08:12)
[2023-10-16] MEDS: POTASSIUM CHLORIDE 20 MEQ ER TABLET PO (08:38)
[2023-10-16] MEDS: CYANOCOBALAMIN 500 MCG TABLET PO (08:38)
[2023-10-16] MEDS: FUROSEMIDE 10 MG TABLET PO (08:38)
[2023-10-16] MEDS: BENZONATATE 100 MG CAPSULE PO ×2 (08:38→20:19)
[2023-10-16] MEDS: CHOLECALCIFEROL 1,000 UNITS TABLET 1000 UNITS PO (08:38)
[2023-10-16] MEDS: THERAPEUTIC MULTIVITAMINS/MINERALS TAB (*BKC) 1 TABLET PO (08:38)
[2023-10-16] MEDS: predniSONE 5 MG TABLET PO (08:38)
[2023-10-16] MEDS: FERROUS GLUCONATE 324 MG TABLET PO (08:38)
[2023-10-16] MEDS: FIDAXOMICIN 200 MG TABLET PO ×2 (08:38→20:19)
[2023-10-16] MEDS: CALCIUM/VITAMIN D 500 MG/5 MCG (200 I.U.) TABLET PO ×2 (08:38→17:33)
[2023-10-16] MEDS: SACCHAROMYCES BOULARDII 250 MG CAPSULE PO (08:38)
[2023-10-16] MEDS: guaiFENesin 12 HR 600 MG TABCR PO ×2 (08:38→20:19)
[2023-10-16] MEDS: AZITHROMYCIN 500 MG/NS 250 ML 500 MG/250 ML BAG 250 MG IVPB (09:19)
--- NOTE | 2023-10-16 13:02 | PC.NURSE ---
Plurex catheter drained. 500 mLs yellow drainage yielded. Patient reports improved breathing.
[2023-10-16 13:05] VITALS: O2SAT 92
[2023-10-16 13:14] VITALS: BP 119/57; PULSE 87; RESP 20; TEMP 36.1; O2SAT 94
[2023-10-16 19:57] VITALS: O2SAT 94
[2023-10-16 22:00] VITALS: BP 98/60; PULSE 95; RESP 16; TEMP 37.2; O2SAT 95
[2023-10-17] VITALS (7 sets, daily range): BP systolic 94–114; BP diastolic 56–86; PULSE 61–93; RESP 14–18; TEMP 36.8–37.9; O2SAT 90–94
--- NOTE | 2023-10-17 08:29 | PCOTNOTE ---
The patient treatment was not able to be completed. Patient requested to be seen after breakfast. Will plan to continue treatment per plan of care.
[2023-10-17 08:53] LABS: Hematocrit 29.2 % (42.0-52.0); Hemoglobin 9.4 g/dL (14.0-18.0); Mean Corpuscular HGB Conc 32.2 g/dl (32-36); Mean Corpuscular Hemoglobin 29.3 pg (26-34); Mean Platelet Volume 9.6 fl (7.4-10.4); Platelet Count Result 246 k/mm3 (150-375); Red Blood Count 3.21 M/mm3 (4.6-6.20); Red Cell Distribution Width 15.7 % (11.5-14.5); White Blood Count 4.9 K/mm3 (4.5-10.0)
[2023-10-17] MEDS: CHOLECALCIFEROL 1,000 UNITS TABLET 1000 UNITS PO (08:57)
[2023-10-17] MEDS: FUROSEMIDE 10 MG TABLET PO (08:57)
[2023-10-17] MEDS: SACCHAROMYCES BOULARDII 250 MG CAPSULE PO (08:57)
[2023-10-17] MEDS: CALCIUM/VITAMIN D 500 MG/5 MCG (200 I.U.) TABLET PO ×2 (08:57→17:12)
[2023-10-17] MEDS: FERROUS GLUCONATE 324 MG TABLET PO (08:57)
[2023-10-17] MEDS: POTASSIUM CHLORIDE 20 MEQ ER TABLET PO (08:57)
[2023-10-17] MEDS: guaiFENesin 12 HR 600 MG TABCR PO ×2 (08:57→20:04)
[2023-10-17] MEDS: AMOXICILLIN/CLAVULANATE K 875-125 MG TAB 1 TABLET PO ×2 (08:57→20:04)
[2023-10-17] MEDS: THERAPEUTIC MULTIVITAMINS/MINERALS TAB (*BKC) 1 TABLET PO (08:57)
[2023-10-17] MEDS: CYANOCOBALAMIN 500 MCG TABLET PO (08:57)
[2023-10-17] MEDS: FIDAXOMICIN 200 MG TABLET PO ×2 (08:57→20:04)
[2023-10-17 09:04] LABS: Alanine Aminotransferase 10 U/L (6-50); Albumin Level 2.2 g/dL (3.5-5.1); Alkaline Phosphatase 66 U/L (38-126); Anion Gap 4 mmol/L (4-12); Aspartate Amino Transferase 21 U/L (17-59); Bilirubin,Total 0.3 mg/dL (0.2-1.3); Blood Urea Nitrogen 21 mg/dL (9-20); Calcium 7.8 mg/dL (8.4-10.2); Carbon Dioxide 26 mmol/L (22-30); Chloride 105 mmol/L (98-107); Estimated CRCL calculation 40 ml/min; Estimated Glomerular Filt Rate > 60; Glucose 90 mg/dL (65-110); Potassium 3.8 mmol/L (3.4-5.0); Sodium 135 mmol/L (137-145)
[2023-10-17] MEDS: FLUTICASONE/UMECLIDIN/VILANTER 100-62.5-25 MCG ELLIPTA 1 PUFF INHALATION (09:13)
[2023-10-17] MEDS: AZITHROMYCIN 250 MG TABLET 500 MG PO (09:15)
[2023-10-17] MEDS: BENZONATATE 100 MG CAPSULE PO ×2 (12:53→17:14)
--- NOTE | 2023-10-17 15:45 | PM.IMPN ---
Progress Note: A&P Assessment and Plan (1) Sepsis: Qualifiers: Acute respiratory failure type: with hypoxia Sepsis acute organ dysfunction status: with acute organ dysfunction Sepsis type: sepsis due to unspecified organism Severe sepsis acute organ dysfunction type: acute respiratory failure Severe sepsis shock status: without septic shock Qualified Code(s): A41.9 - Sepsis, unspecified organism; R65.20 - Severe sepsis without septic shock; J96.01 - Acute respiratory failure with hypoxia Code(s): A41.9 - Sepsis, unspecified organism Status: Acute Assessment and Plan: -RESOLVED - (2) Pneumonia: Qualifiers: Laterality: bilateral Lung location: unspecified part of lung Pneumonia type: due to unspecified organism Qualified Code(s): J18.9 - Pneumonia, unspecified organism Code(s): J18.9 - Pneumonia, unspecified organism Status: Acute Assessment and Plan: #PNA -Discontinued Ceftrixone and Azithromycin -started amoxicillin/clav PO BID x 5 days and Azithromycin 500mg PO(finished) - Hold Abiraterone and Prednisone as per advise form . - Need to restart Abiraterone 250mg and Prednisone 5 mg PO BID upon discharge -PluerX cath drainage MWF - CXR: Hazy bibasilar and right upper lobe airspace disease. 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 COPD. 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 Qualified Code(s): J43.9 - Emphysema, unspecified Code(s): J44.9 - Chronic obstructive pulmonary disease, unspecified Status: Acute Assessment and Plan: - DuoNebs Q6H - continue home prednisone - continue home inhalers: Trelegy (4) Pleural effusion: Code(s): J90 - Pleural effusion, not elsewhere classified Status: Acute Assessment and Plan: -10/15 drained Pluer X cath - recurrent right sided pleural effusion - pleurX catheter in place that is used to drain effusion 3 times per week on Saturday, Saturday, and Saturday -10/13 DRAINED PleurX cath 700 ml -Patient feels better (5) Diarrhea: Qualifiers: Diarrhea type: presumed infectious Qualified Code(s): R19.7 - Diarrhea, unspecified Code(s): R19.7 - Diarrhea, unspecified Status: Acute Assessment and Plan: - presumed infectious - has recurrent c. diff infections and has started to have diarrhea again in the last few days, brother reported to nursing staff that smell is the same as previous infections - contact precautions - c. diff testing positive -Will discuss with ID whether whether the patient needs oral vancomycin. - IV fluids Plan Patient here with shortness of breath, generalized weakness, and productive cough. CXR showing pneumonia. Started on ceftriaxone and azithromycin. Met SIRS criteria on ED. Lactic within normal limits. Given 1 L bolus in the ED then maintenance fluids. Also has history of recurrent C diff infections, began having diarrhea again 2-3 days ago, last infection 1 month ago. C diff results positive tomorrow we will discuss the results with with Infectious Disease in regards to starting oral vancomycin. To patient also has chronic right pleural effusion with PleurX catheter in place. Drained Mondays, Wednesdays, Fridays. Today PleurX catheter was drained 700 cc Diet: heart healthy GI Prophylaxis: not currently indicated DVT Prophylaxis: SCDs Lines: peripheral Code Status: full code Subjective Date/time seen: 10/17/23 15:45 Interval history: Patient cough
[2023-10-18 05:56] LABS: Hemoglobin 10.2 g/dL (14.0-18.0); Mean Corpuscular HGB Conc 30.9 g/dl (32-36); Mean Corpuscular Hemoglobin 28.5 pg (26-34); Mean Corpuscular Volume 92.2 fl (80-100); Mean Platelet Volume 9.6 fl (7.4-10.4); Platelet Count Result 299 k/mm3 (150-375); Red Blood Count 3.58 M/mm3 (4.6-6.20); Red Cell Distribution Width 15.7 % (11.5-14.5); White Blood Count 6.6 K/mm3 (4.5-10.0)
[2023-10-18 06:00] VITALS: BP 95/63; PULSE 99; RESP 18; TEMP 36.9; O2SAT 93
[2023-10-18 06:06] LABS: Alanine Aminotransferase 12 U/L (6-50); Albumin Level 2.4 g/dL (3.5-5.1); Alkaline Phosphatase 72 U/L (38-126); Anion Gap 6 mmol/L (4-12); Aspartate Amino Transferase 25 U/L (17-59); Bilirubin,Total 0.3 mg/dL (0.2-1.3); Blood Urea Nitrogen 21 mg/dL (9-20); Calcium 8.2 mg/dL (8.4-10.2); Carbon Dioxide 24 mmol/L (22-30); Chloride 105 mmol/L (98-107); Estimated CRCL calculation 36 ml/min; Estimated Glomerular Filt Rate > 60; Glucose 102 mg/dL (65-110); Sodium 135 mmol/L (137-145)
[2023-10-18 07:51] VITALS: PULSE 85; RESP 20; O2SAT 93
[2023-10-18] MEDS: FLUTICASONE/UMECLIDIN/VILANTER 100-62.5-25 MCG ELLIPTA 1 PUFF INHALATION (07:51)
[2023-10-18 08:40] VITALS: O2SAT 93
[2023-10-18] MEDS: POTASSIUM CHLORIDE 20 MEQ ER TABLET PO (08:44)
[2023-10-18] MEDS: SACCHAROMYCES BOULARDII 250 MG CAPSULE PO (08:44)
[2023-10-18] MEDS: CALCIUM/VITAMIN D 500 MG/5 MCG (200 I.U.) TABLET PO ×2 (08:44→17:24)
[2023-10-18] MEDS: guaiFENesin 12 HR 600 MG TABCR PO ×2 (08:44→21:06)
[2023-10-18] MEDS: CYANOCOBALAMIN 500 MCG TABLET PO (08:44)
[2023-10-18] MEDS: FUROSEMIDE 10 MG TABLET PO (08:44)
[2023-10-18] MEDS: FERROUS GLUCONATE 324 MG TABLET PO (08:44)
[2023-10-18] MEDS: FIDAXOMICIN 200 MG TABLET PO ×2 (08:44→21:06)
[2023-10-18] MEDS: CHOLECALCIFEROL 1,000 UNITS TABLET 1000 UNITS PO (08:44)
[2023-10-18] MEDS: THERAPEUTIC MULTIVITAMINS/MINERALS TAB (*BKC) 1 TABLET PO (08:44)
[2023-10-18] MEDS: BENZONATATE 100 MG CAPSULE PO (12:14)
--- NOTE | 2023-10-18 12:32 | PC.NURSE ---
Patient's lung drained per plurex catheter. This yielded 600 mLs of yellow fluid.
--- NOTE | 2023-10-18 14:25 | PM.IMPN ---
Progress Note: A&P Assessment and Plan (1) Sepsis: Qualifiers: Acute respiratory failure type: with hypoxia Sepsis acute organ dysfunction status: with acute organ dysfunction Sepsis type: sepsis due to unspecified organism Severe sepsis acute organ dysfunction type: acute respiratory failure Severe sepsis shock status: without septic shock Qualified Code(s): A41.9 - Sepsis, unspecified organism; R65.20 - Severe sepsis without septic shock; J96.01 - Acute respiratory failure with hypoxia Code(s): A41.9 - Sepsis, unspecified organism Status: Acute Assessment and Plan: - (2) Pneumonia: Qualifiers: Laterality: bilateral Lung location: unspecified part of lung Pneumonia type: due to unspecified organism Qualified Code(s): J18.9 - Pneumonia, unspecified organism Code(s): J18.9 - Pneumonia, unspecified organism Status: Acute (3) 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 Cough is productive. No sick contact. Had subjective fever and chills he was found to be hypoxic requiring oxygen in the ER. Also reported generalized weakness. In the ED evaluation chest x-ray showed right-sided infiltrate. CBC with mild anemia but normal WBC count. Met sirs criteria in ED lactate within normal limit. Received IV fluid resuscitation. He also reported ongoing diarrhea for the past 2-3 days prior to admission. History of recurrent C diff infections. CMP unremarkable. ABG with PO2 of 195 and pCO2 29 pH of 7.42. COVID flu influenza negative. Patient was started on ceftriaxone azithromycin and bronchodilators Chronic right pleural effusion with PleurX catheter in place drain Saturday. C diff came back positive has been started on oral vancomycin. Diarrhea has since slowed down. Patient treated for pneumonia with antibiotics is been completed. History of prostate cancer on prednisone and abiraterone per oncology Diet: heart healthy GI Prophylaxis: not currently indicated DVT Prophylaxis: SCDs Lines: peripheral Code Status: full code Disposition: PT OT and placement Subjective Date/time seen: 10/18/23 14:25 Interval history: Feeling better. Diarrhea slowed down. Awaiting placement. Feels weak. Breathing has improved. Review of Systems Review of Systems: All systems reviewed & are unremarkable except as noted in HPI and below Exam Narrative: GENERAL: Chronically ill-appearing, thin built and in no acute distress. HEAD: Normocephalic, atraumatic. EYES: PERRL and EOMI. ENT: Mucous membranes moist. CHEST: Coarse breath sound no respiratory distress HEART: Regular rate and rhythm. Normal peripheral pulses. ABDOMEN: Soft, nontender, nondistended. EXTREMITIES: Normal range of motion. No edema. SKIN: Warm, dry, no rash. NEURO: Alert and oriented x3. PSYCH: Normal mood and affect. Objective Data Vital Signs Vital Signs: Vital Signs - 24 hr 10/17/23 20:00 10/17/23 21:28 10/17/23 23:45 Temperature 100.2 F H 98.4 F Pulse Rate 87 Respiratory Rate 14 Blood Pressure 94/56 L Pulse Oximetry 92 94 Oxygen Delivery Nasal Cannula Oxygen Flow Rate 2 10/18/23 06:00 10/18/23 07:51 10/18/23 07:51 Temperature 98.4 F Pulse Rate 99 85 Respiratory Rate 18 20 Blood Pressure 95/63 L Pulse Oximetry 93 9
[2023-10-18 15:23] VITALS: BP 104/45; PULSE 90; RESP 20; TEMP 36.4; O2SAT 92
[2023-10-18 20:00] VITALS: O2SAT 95
[2023-10-18 22:00] VITALS: BP 113/50; PULSE 94; RESP 16; TEMP 36.8; O2SAT 92
[2023-10-19 05:36] LABS: Basophils Percent Auto 0.8 % (0.2-1.2); Eosinophils Absolute Auto 0.1 K/mm3 (0-0.3); Eosinophils Percent Auto 2.1 % (0-4.4); Hematocrit 29.9 % (42.0-52.0); Hemoglobin 9.4 g/dL (14.0-18.0); Immature Granulocyte Absolute 0.08 K/mm3 (0.00-0.031); Immature Granulocyte Percent A 1.5 % (0-0.5); Lymphocytes Absolute Auto 0.88 K/mm3 (0.9-3.2); Lymphocytes Percent Auto 16.5 % (18.3-44.2); Mean Corpuscular HGB Conc 31.4 g/dl (32-36); Mean Corpuscular Hemoglobin 28.5 pg (26-34); Mean Corpuscular Volume 90.6 fl (80-100); Mean Platelet Volume 9.5 fl (7.4-10.4); Monocytes Absolute Auto 0.5 K/mm3 (0.1-0.6); Monocytes Percent Auto 8.8 % (2.6-8.5); Neutrophils Absolute Auto 3.8 K/mm3 (1.3-6.7); Neutrophils Percent Auto 70.3 % (45.5-73.1); Platelet Count Result 269 k/mm3 (150-375); Red Cell Distribution Width 15.7 % (11.5-14.5); White Blood Count 5.3 K/mm3 (4.5-10.0)
[2023-10-19 05:40] LABS: Alanine Aminotransferase 11 U/L (6-50); Albumin Level 2.2 g/dL (3.5-5.1); Alkaline Phosphatase 71 U/L (38-126); Anion Gap 5 mmol/L (4-12); Aspartate Amino Transferase 24 U/L (17-59); Bilirubin,Total 0.3 mg/dL (0.2-1.3); Blood Urea Nitrogen 23 mg/dL (9-20); Calcium 7.8 mg/dL (8.4-10.2); Carbon Dioxide 23 mmol/L (22-30); Chloride 106 mmol/L (98-107); Estimated CRCL calculation 36 ml/min; Estimated Glomerular Filt Rate > 60; Glucose 98 mg/dL (65-110); Magnesium 1.9 mg/dL (1.6-2.3); Potassium 3.9 mmol/L (3.4-5.0); Sodium 134 mmol/L (137-145)
[2023-10-19 06:00] VITALS: BP 102/53; PULSE 88; RESP 16; TEMP 36.9; O2SAT 98
[2023-10-19 09:39] VITALS: O2SAT 95
[2023-10-19] MEDS: CYANOCOBALAMIN 500 MCG TABLET PO (09:39)
[2023-10-19] MEDS: CALCIUM/VITAMIN D 500 MG/5 MCG (200 I.U.) TABLET PO (09:39)
[2023-10-19] MEDS: CHOLECALCIFEROL 1,000 UNITS TABLET 1000 UNITS PO (09:39)
[2023-10-19] MEDS: guaiFENesin 12 HR 600 MG TABCR PO (09:39)
[2023-10-19] MEDS: THERAPEUTIC MULTIVITAMINS/MINERALS TAB (*BKC) 1 TABLET PO (09:39)
[2023-10-19] MEDS: SACCHAROMYCES BOULARDII 250 MG CAPSULE PO (09:39)
[2023-10-19] MEDS: FIDAXOMICIN 200 MG TABLET PO (09:39)
[2023-10-19] MEDS: POTASSIUM CHLORIDE 20 MEQ ER TABLET PO (09:39)
[2023-10-19] MEDS: FERROUS GLUCONATE 324 MG TABLET PO (09:39)
[2023-10-19] MEDS: FUROSEMIDE 10 MG TABLET PO (09:39)
[2023-10-19 10:00] VITALS: PULSE 89; RESP 20; O2SAT 95
[2023-10-19] MEDS: FLUTICASONE/UMECLIDIN/VILANTER 100-62.5-25 MCG ELLIPTA 1 PUFF INHALATION (10:00)
--- NOTE | 2023-10-19 10:52 | PM.DS ---
DS: Admitting Diagnosis Discharge Date 10/19/2023 Admitting Diagnosis Shortness of breath DS: Discharge Diagnosis Discharge Diagnosis (1) Sepsis: Qualifiers: Acute respiratory failure type: with hypoxia Sepsis acute organ dysfunction status: with acute organ dysfunction Sepsis type: sepsis due to unspecified organism Severe sepsis acute organ dysfunction type: acute respiratory failure Severe sepsis shock status: without septic shock Qualified Code(s): A41.9 - Sepsis, unspecified organism; R65.20 - Severe sepsis without septic shock; J96.01 - Acute respiratory failure with hypoxia Code(s): A41.9 - Sepsis, unspecified organism Status: Acute (2) Pneumonia: Qualifiers: Laterality: bilateral Lung location: unspecified part of lung Pneumonia type: due to unspecified organism Qualified Code(s): J18.9 - Pneumonia, unspecified organism Code(s): J18.9 - Pneumonia, unspecified organism Status: Acute (3) 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 Cough is productive. No sick contact. Had subjective fever and chills he was found to be hypoxic requiring oxygen in the ER. Also reported generalized weakness. In the ED evaluation chest x-ray showed right-sided infiltrate. CBC with mild anemia but normal WBC count. Met sirs criteria in ED lactate within normal limit. Received IV fluid resuscitation. He also reported ongoing diarrhea for the past 2-3 days prior to admission. History of recurrent C diff infections. CMP unremarkable. ABG with PO2 of 195 and pCO2 29 pH of 7.42. COVID flu influenza negative. Patient was started on ceftriaxone azithromycin and bronchodilators. Patient treated for pneumonia with antibiotics which has been completed during the hospital stay. Chronic right pleural effusion with PleurX catheter in place drain [place] Wednesday [place]. C diff came back positive has been started on oral Dificid. Diarrhea has since slowed down. We will complete the course History of prostate cancer on prednisone and abiraterone per oncology Diet: heart healthy GI Prophylaxis: not currently indicated DVT Prophylaxis: SCDs Lines: peripheral Code Status: full code Disposition: PT OT and placement and was accepted at [facility] bed Time Spent with Patient Time attestation: Total time spent providing and/or coordinating discharge services: 35 minutes Exam Narrative: GENERAL: Chronically ill-appearing, thin built and in no acute distress. HEAD: Normocephalic, atraumatic. EYES: PERRL and EOMI. ENT: Mucous membranes moist. CHEST: Coarse breath sound no respiratory distress HEART: Regular rate and rhythm. Normal peripheral pulses. ABDOMEN: Soft, nontender, nondistended. EXTREMITIES: Normal range of motion. No edema. SKIN: Warm, dry, no rash. NEURO: Alert and oriented x3. PSYCH: Normal mood and affect. DS: Data Data Completed and Pending Labs on day of discharge: Labs from last 24 hours 10/19/23 05:12 WBC 5.3 RBC 3.30 L Hgb 9.4 L Hct 29.9 L MCV 90.6 MCH 28.5 MCHC 31.4 L RDW 15.7 H Plt Count 269 MPV 9.5 Immature Gran % (Auto) 1.5 H Neut % (Auto) 70.3 Lymph % (Auto) 16.5 L [place] % (Auto) 8.8 H Eos % (Auto) 2.1 Baso % (Auto) 0.8 Lymph # (Auto) 0.88 L [place] # (Auto)
[2023-10-19 13:00] LABS: SARS-CoV-2 RNA PCR Negative (Negative)
== END 2023-10-19 16:10 | disposition swing bed (61) | DRG 871 ==
LOC: ANHED 11:34 → ANH3MED 11:51
PROVIDERS: General Practice; Student in an Organized Health Care Education/Training Program; Admitting Provider Family Medicine; Emergency Provider Emergency Medicine; PCP Family Medicine; Visit Provider Internal Medicine
DX: A41.9 Sepsis, unspecified organism (principal); J18.9 Pneumonia, unspecified organism; J96.01 Acute respiratory failure with hypoxia; A04.71 Enterocolitis due to Clostridium difficile, recurrent; J44.0 Chronic obstructive pulmonary disease with (acute) lower respiratory infection; J90 Pleural effusion, not elsewhere classified; C79.51 Secondary malignant neoplasm of bone; R65.20 Severe sepsis without septic shock; D64.9 Anemia, unspecified; E78.5 Hyperlipidemia, unspecified; M70.22 Olecranon bursitis, left elbow; Z20.822 Contact with and (suspected) exposure to COVID-19; Z85.46 Personal history of malignant neoplasm of prostate; Z86.16 Personal history of COVID-19; Z98.49 Cataract extraction status, unspecified eye; Z87.891 Personal history of nicotine dependence
CPT/HCPCS: 36415; 36600; 71046; 80053; 82805; 82948; 83605; 83735; 83880; 85025; 85027; 85610; 85730; 87040; 87493; 87635; 87637; 93005; 94640; 94667; 96365; 96366; 96367; 96368; 97110; 97161; 97165; 97530; 97535; 99285; A9270; G0378; J0456; J0696; J7120; J7512

== ENCOUNTER 2023-10-19 16:47 | Inpatient (IN) | payer MEDICARE, SELFPAY ==
[2023-10-19 16:50] VITALS: BP 104/55; PULSE 95; RESP 20; TEMP 36.3; O2SAT 92; BMI 19.2
--- NOTE | 2023-10-19 16:50 | ADMGEN ---
This patient, Yamil Sabillon, was admitted to 2nd Floor Room 208-1 as skilled swing bed.. Patient/family oriented to hospital policies and general routines including ID bracelet, bed and alarms, visiting hours, pain management, procedures, bathroom and other care routines, personal items, smoking policy, room service/diet, and visiting hours. Patient sent with 1 kit to drain right chest pleurex cath if needed before saturday. Difficid given to this nurse by EMS that was sent with patient from [facility], medication placed in med room with patients label attached. Information on how to activate the Rapid Response Team has been discussed. Patient/Family are encouraged to report perceived risks to care and to ask questions if they do not understand what they are told or what they should do.
[2023-10-19 17:00] VITALS: O2SAT 91
[2023-10-19 19:45] VITALS: PULSE 95; RESP 20; O2SAT 92
[2023-10-19 20:00] VITALS: PULSE 90; RESP 20; O2SAT 91
[2023-10-19] MEDS: guaiFENesin 12 HR 600 MG TABCR PO (20:55)
[2023-10-19] MEDS: FIDAXOMICIN 200 MG TABLET PO (20:55)
[2023-10-20] VITALS: BP 93/52; PULSE 96; RESP 20; TEMP 36.2; O2SAT 91
[2023-10-20 05:30] VITALS: O2SAT 91
[2023-10-20 08:00] VITALS: BP 89/56; PULSE 85; RESP 18; TEMP 36.3; O2SAT 91
[2023-10-20] MEDS: FLUTICASONE/UMECLIDIN/VILANTER 100-62.5-25 MCG ELLIPTA 1 PUFF INHALATION (09:04)
[2023-10-20] MEDS: predniSONE 5 MG TABLET PO ×2 (09:04→17:04)
[2023-10-20] MEDS: MULTIVITAMINS THERAPEUTIC TAB (*BKC) 1 TABLET PO (09:05)
[2023-10-20] MEDS: FUROSEMIDE 10 MG TABLET PO (09:05)
[2023-10-20] MEDS: FIDAXOMICIN 200 MG TABLET PO ×2 (09:05→20:34)
[2023-10-20] MEDS: SACCHAROMYCES BOULARDII 250 MG CAPSULE PO (09:05)
[2023-10-20] MEDS: CALCIUM/VITAMIN D 250 MG/3.125 MCG (125 I.U.) TABLET 2 TABLET PO ×2 (09:05→17:04)
[2023-10-20] MEDS: POTASSIUM CHLORIDE 20 MEQ ER TABLET PO (09:05)
[2023-10-20] MEDS: CHOLECALCIFEROL 1,000 UNITS TABLET 1000 UNITS PO (09:05)
[2023-10-20] MEDS: guaiFENesin 12 HR 600 MG TABCR PO ×2 (09:05→20:34)
[2023-10-20] MEDS: FERROUS SULFATE 325 MG TABLET DR PO (09:06)
[2023-10-20] MEDS: CYANOCOBALAMIN 500 MCG TABLET PO (09:06)
--- NOTE | 2023-10-20 15:24 | PM.IMHP ---
H&P: HPI History of Present Illness Date/Time: 10/20/23 15:24 Chief Complaint: generalized deconditioning Narrative: This is an 88-year-old male with a significant past medical history of C diff colitis, COPD, dyslipidemia, hydropneumothorax with chronic pleural effusion, prostate cancer with metastatic disease with history of prostatectomy, former smoker who [place] [facility] [place] [facility] Patient was recently seen at [facility] and was admitted on 10/13/2023 with severe sepsis, acute respiratory failure, community-acquired pneumonia and generalized weakness. Patient finished a full course of antibiotics for the sepsis pneumonia and was on Rocephin and azithromycin. he was also found to have diarrhea and was positive for C diff. he was started on Dificid which he continues with. patient denies any fever, chills, nausea, vomiting, diarrhea, abdominal pain, chest pain. patient is currently on 2 L nasal cannula and reports decrease in appetite and fatigue. Review of Systems Review of Systems: All systems reviewed & are unremarkable except as noted in HPI and below Constitutional: Constitutional: Reports as per HPI and Reports no additional constitutional complaints Eyes: Eyes: Reports as per HPI and Reports no additional eye complaints ENT: Reports system reviewed and no additional complaints, except as documented and Reports as per HPI Cardiovascular: Cardiovascular: Reports as per HPI and Reports no additional cardiovascular complaints Respiratory: Respiratory: Reports as per HPI and Reports no additional respiratory complaints Gastrointestinal: Gastrointestinal: Reports as per HPI and Reports no additional gastrointestinal complaints Genitourinary: Genitourinary: Reports no additional male genitourinary complaints and Reports as per HPI Musculoskeletal: Musculoskeletal: Reports no additional musculoskeletal complaints and Reports as per HPI Integumentary/Breasts: Skin/Breast: Reports system reviewed and no additional complaints, except as docu and Reports as per HPI Neurologic: Reports system reviewed and no additional complaints, except as documented and Reports as per HPI Psychiatric: Psychiatric: Reports no additional psychiatric complaints and Reports as per HPI [facility] Past Medical History Medical History C. 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 Code status: Full code. Smoking packs per day: 1.5 Smoking cigarettes per day: 30.0 Years smoked: 65 Smoking pack-years: 97.50 Smoking status: Former smoker Tobacco type: cigarettes Second hand tobacco smoke exposure: Yes Alcohol intake: never Drinks per week: 10 Substance use: former Substance use type: does not use Do You Feel Safe in your Home?: Yes Lack of Transportation: No Lack of Food: Never True Current Housing: I Have Housing Concerned About
[2023-10-20 16:45] VITALS: BP 106/58; PULSE 85; RESP 18; TEMP 35.8; O2SAT 91
[2023-10-20 19:53] VITALS: O2SAT 92
[2023-10-21] VITALS: BP 111/57; PULSE 82; RESP 20; TEMP 36.1; O2SAT 92
[2023-10-21 05:30] VITALS: O2SAT 92
[2023-10-21 08:00] VITALS: BP 98/59; PULSE 88; RESP 18; TEMP 35.4; O2SAT 90
[2023-10-21] MEDS: predniSONE 5 MG TABLET PO ×2 (08:43→17:17)
[2023-10-21] MEDS: FLUTICASONE/UMECLIDIN/VILANTER 100-62.5-25 MCG ELLIPTA 1 PUFF INHALATION (08:43)
[2023-10-21] MEDS: CHOLECALCIFEROL 1,000 UNITS TABLET 1000 UNITS PO (08:43)
[2023-10-21] MEDS: SACCHAROMYCES BOULARDII 250 MG CAPSULE PO (08:44)
[2023-10-21] MEDS: FIDAXOMICIN 200 MG TABLET PO ×2 (08:44→21:25)
[2023-10-21] MEDS: CALCIUM/VITAMIN D 250 MG/3.125 MCG (125 I.U.) TABLET 2 TABLET PO ×2 (08:44→17:17)
[2023-10-21] MEDS: FUROSEMIDE 10 MG TABLET PO (08:45)
[2023-10-21] MEDS: guaiFENesin 12 HR 600 MG TABCR PO ×2 (08:46→21:26)
[2023-10-21] MEDS: POTASSIUM CHLORIDE 20 MEQ ER TABLET PO (08:46)
[2023-10-21] MEDS: FERROUS SULFATE 325 MG TABLET DR PO (08:47)
[2023-10-21] MEDS: MULTIVITAMINS THERAPEUTIC TAB (*BKC) 1 TABLET PO (08:47)
[2023-10-21] MEDS: CYANOCOBALAMIN 500 MCG TABLET PO (08:47)
--- NOTE | 2023-10-21 10:36 | PC.NURSE ---
Fluid drained from Right lung using plural drain. 750 ml clear yellow fluid out. Sterile procedure followed. Patient tolerated well. Lung sounds improved.
--- NOTE | 2023-10-21 11:24 | PM.EVENT ---
Event Note Event Note Event Note: Pleural fluid drained today using sterile technique. He was noted to have 750 mL of fluid removed which was clear and yellow. Patient tolerated the procedure well and already notes a difference in his breathing. Sterile end cap placed to pleural drain and a new sterile dressing was applied. He is currently on 3 L nasal cannula and we can continue to wean that back down as indicated. He denies any new complaints today. He remains on C diff isolation.
[2023-10-21 16:00] VITALS: BP 90/51; PULSE 80; RESP 18; TEMP 35.8; O2SAT 98
[2023-10-22] VITALS: BP 93/57; PULSE 77; RESP 16; TEMP 35.8; O2SAT 95
[2023-10-22 05:30] VITALS: O2SAT 94
[2023-10-22 08:00] VITALS: BP 111/57; PULSE 84; RESP 18; TEMP 35.9; O2SAT 96
[2023-10-22] MEDS: FLUTICASONE/UMECLIDIN/VILANTER 100-62.5-25 MCG ELLIPTA 1 PUFF INHALATION (08:55)
[2023-10-22] MEDS: POTASSIUM CHLORIDE 20 MEQ ER TABLET PO (08:55)
[2023-10-22] MEDS: FUROSEMIDE 10 MG TABLET PO (08:56)
[2023-10-22] MEDS: CHOLECALCIFEROL 1,000 UNITS TABLET 1000 UNITS PO (08:56)
[2023-10-22] MEDS: predniSONE 5 MG TABLET PO ×2 (08:56→17:20)
[2023-10-22] MEDS: MULTIVITAMINS THERAPEUTIC TAB (*BKC) 1 TABLET PO (08:56)
[2023-10-22] MEDS: FERROUS SULFATE 325 MG TABLET DR PO (08:57)
[2023-10-22] MEDS: FIDAXOMICIN 200 MG TABLET PO ×2 (08:57→21:37)
[2023-10-22] MEDS: CYANOCOBALAMIN 500 MCG TABLET PO (08:57)
[2023-10-22] MEDS: SACCHAROMYCES BOULARDII 250 MG CAPSULE PO (08:57)
[2023-10-22] MEDS: CALCIUM/VITAMIN D 250 MG/3.125 MCG (125 I.U.) TABLET 2 TABLET PO ×2 (08:58→17:20)
[2023-10-22] MEDS: guaiFENesin 12 HR 600 MG TABCR PO ×2 (08:58→21:37)
[2023-10-22 16:00] VITALS: BP 106/51; PULSE 73; RESP 18; TEMP 35.9; O2SAT 98
[2023-10-22] MEDS: BENZONATATE 100 MG CAPSULE PO (21:37)
[2023-10-23] VITALS: BP 99/52; PULSE 79; RESP 16; TEMP 35.6; O2SAT 94
[2023-10-23 05:30] VITALS: O2SAT 96
[2023-10-23 08:00] VITALS: BP 106/67; PULSE 70; RESP 16; TEMP 35.9; O2SAT 96
[2023-10-23] MEDS: SACCHAROMYCES BOULARDII 250 MG CAPSULE PO (08:34)
[2023-10-23] MEDS: CALCIUM/VITAMIN D 250 MG/3.125 MCG (125 I.U.) TABLET 2 TABLET PO ×2 (08:34→16:58)
[2023-10-23] MEDS: MULTIVITAMINS THERAPEUTIC TAB (*BKC) 1 TABLET PO (08:35)
[2023-10-23] MEDS: guaiFENesin 12 HR 600 MG TABCR PO ×2 (08:35→21:01)
[2023-10-23] MEDS: CHOLECALCIFEROL 1,000 UNITS TABLET 1000 UNITS PO (08:35)
[2023-10-23] MEDS: predniSONE 5 MG TABLET PO ×2 (08:35→16:58)
[2023-10-23] MEDS: CYANOCOBALAMIN 500 MCG TABLET PO (08:35)
[2023-10-23] MEDS: FIDAXOMICIN 200 MG TABLET PO ×2 (08:35→21:01)
[2023-10-23] MEDS: FERROUS SULFATE 325 MG TABLET DR PO (08:35)
[2023-10-23] MEDS: FUROSEMIDE 10 MG TABLET PO (08:35)
[2023-10-23] MEDS: POTASSIUM CHLORIDE 20 MEQ ER TABLET PO (08:35)
[2023-10-23] MEDS: FLUTICASONE/UMECLIDIN/VILANTER 100-62.5-25 MCG ELLIPTA 1 PUFF INHALATION (08:36)
[2023-10-23 16:00] VITALS: BP 98/55; PULSE 76; RESP 18; TEMP 35.9; O2SAT 96
[2023-10-23] MEDS: BENZONATATE 100 MG CAPSULE PO (21:01)
[2023-10-24] VITALS: BP 107/53; PULSE 81; RESP 19; TEMP 36.6; O2SAT 94
[2023-10-24 05:30] VITALS: O2SAT 96
[2023-10-24 08:00] VITALS: BP 108/70; PULSE 84; RESP 18; TEMP 36.3; O2SAT 95
[2023-10-24] MEDS: CYANOCOBALAMIN 500 MCG TABLET PO (09:32)
[2023-10-24] MEDS: FLUTICASONE/UMECLIDIN/VILANTER 100-62.5-25 MCG ELLIPTA 1 PUFF INHALATION (09:32)
[2023-10-24] MEDS: guaiFENesin 12 HR 600 MG TABCR PO ×2 (09:32→20:50)
[2023-10-24] MEDS: CHOLECALCIFEROL 1,000 UNITS TABLET 1000 UNITS PO (09:32)
[2023-10-24] MEDS: predniSONE 5 MG TABLET PO ×2 (09:33→17:14)
[2023-10-24] MEDS: POTASSIUM CHLORIDE 20 MEQ ER TABLET PO (09:33)
[2023-10-24] MEDS: SACCHAROMYCES BOULARDII 250 MG CAPSULE PO (09:33)
[2023-10-24] MEDS: MULTIVITAMINS THERAPEUTIC TAB (*BKC) 1 TABLET PO (09:33)
[2023-10-24] MEDS: CALCIUM/VITAMIN D 250 MG/3.125 MCG (125 I.U.) TABLET 2 TABLET PO ×2 (09:33→17:14)
[2023-10-24] MEDS: FUROSEMIDE 10 MG TABLET PO (09:33)
[2023-10-24] MEDS: FERROUS SULFATE 325 MG TABLET DR PO (09:33)
[2023-10-24 16:00] VITALS: BP 110/73; PULSE 84; RESP 17; TEMP 36.6; O2SAT 96
[2023-10-24] MEDS: BENZONATATE 100 MG CAPSULE PO (20:50)
[2023-10-25] VITALS: BP 94/47; PULSE 81; RESP 17; TEMP 36.4; O2SAT 96
[2023-10-25 05:30] VITALS: O2SAT 96
--- NOTE | 2023-10-25 06:29 | PC.NURSE ---
Pt resting in bed and watching TV. Pt doesnt voice any concerns at this time.
[2023-10-25 08:00] VITALS: BP 106/57; PULSE 84; RESP 16; TEMP 36.6; O2SAT 96
[2023-10-25] MEDS: MULTIVITAMINS THERAPEUTIC TAB (*BKC) 1 TABLET PO (09:10)
[2023-10-25] MEDS: CALCIUM/VITAMIN D 250 MG/3.125 MCG (125 I.U.) TABLET 2 TABLET PO ×2 (09:10→16:57)
[2023-10-25] MEDS: FUROSEMIDE 10 MG TABLET PO (09:10)
[2023-10-25] MEDS: CHOLECALCIFEROL 1,000 UNITS TABLET 1000 UNITS PO (09:10)
[2023-10-25] MEDS: FLUTICASONE/UMECLIDIN/VILANTER 100-62.5-25 MCG ELLIPTA 1 PUFF INHALATION (09:10)
[2023-10-25] MEDS: CYANOCOBALAMIN 500 MCG TABLET PO (09:10)
[2023-10-25] MEDS: predniSONE 5 MG TABLET PO ×2 (09:10→16:57)
[2023-10-25] MEDS: guaiFENesin 12 HR 600 MG TABCR PO ×2 (09:10→20:12)
[2023-10-25] MEDS: SACCHAROMYCES BOULARDII 250 MG CAPSULE PO (09:10)
[2023-10-25] MEDS: FERROUS SULFATE 325 MG TABLET DR PO (09:10)
[2023-10-25] MEDS: POTASSIUM CHLORIDE 20 MEQ ER TABLET PO (09:10)
--- NOTE | 2023-10-25 13:20 | P.PNCROSS_ITS ---
Event Note Event Note Event Note: Patient comfortable today scheduled for drainage of his pleural lytic drain, n ursing staff to complete a with sterile technique. Reporting no current issues at this time
[2023-10-25 13:33] VITALS: RESP 17; O2SAT 98
[2023-10-25 16:00] VITALS: BP 92/48; PULSE 80; RESP 17; TEMP 36.4; O2SAT 96
[2023-10-25 19:56] VITALS: PULSE 80; RESP 17; O2SAT 96
[2023-10-25] MEDS: BENZONATATE 100 MG CAPSULE PO (20:12)
[2023-10-26] VITALS: BP 102/55; PULSE 78; RESP 18; TEMP 36.2; O2SAT 97
[2023-10-26 05:14] VITALS: O2SAT 97
--- NOTE | 2023-10-26 06:39 | PC.NURSE ---
Contact Isolation precautions for C-diff discontinued d/t formed stools x 3 days
[2023-10-26 07:49] VITALS: BP 88/47; PULSE 82; RESP 18; TEMP 35.8; O2SAT 95
[2023-10-26] MEDS: CALCIUM/VITAMIN D 250 MG/3.125 MCG (125 I.U.) TABLET 2 TABLET PO ×2 (08:25→17:00)
[2023-10-26] MEDS: SACCHAROMYCES BOULARDII 250 MG CAPSULE PO (08:26)
[2023-10-26] MEDS: FUROSEMIDE 10 MG TABLET PO (08:26)
[2023-10-26] MEDS: CHOLECALCIFEROL 1,000 UNITS TABLET 1000 UNITS PO (08:27)
[2023-10-26] MEDS: guaiFENesin 12 HR 600 MG TABCR PO ×2 (08:27→20:18)
[2023-10-26] MEDS: POTASSIUM CHLORIDE 20 MEQ ER TABLET PO (08:27)
[2023-10-26] MEDS: predniSONE 5 MG TABLET PO ×2 (08:27→17:00)
[2023-10-26] MEDS: FERROUS SULFATE 325 MG TABLET DR PO (08:28)
[2023-10-26] MEDS: MULTIVITAMINS THERAPEUTIC TAB (*BKC) 1 TABLET PO (08:28)
[2023-10-26] MEDS: CYANOCOBALAMIN 500 MCG TABLET PO (08:28)
[2023-10-26] MEDS: FLUTICASONE/UMECLIDIN/VILANTER 100-62.5-25 MCG ELLIPTA 1 PUFF INHALATION (08:31)
[2023-10-26 16:00] VITALS: BP 93/47; PULSE 82; RESP 18; TEMP 36; O2SAT 95
[2023-10-26 20:00] VITALS: PULSE 82; RESP 18; O2SAT 95
[2023-10-26] MEDS: BENZONATATE 100 MG CAPSULE PO (20:18)
[2023-10-27] VITALS: BP 105/56; PULSE 70; RESP 17; TEMP 36.2; O2SAT 97
[2023-10-27 05:30] VITALS: O2SAT 98
[2023-10-27 08:00] VITALS: BP 94/53; PULSE 67; RESP 18; TEMP 35.4; O2SAT 98
[2023-10-27] MEDS: FLUTICASONE/UMECLIDIN/VILANTER 100-62.5-25 MCG ELLIPTA 1 PUFF INHALATION (08:06)
[2023-10-27] MEDS: CALCIUM/VITAMIN D 250 MG/3.125 MCG (125 I.U.) TABLET 2 TABLET PO ×2 (08:07→17:08)
[2023-10-27] MEDS: CYANOCOBALAMIN 500 MCG TABLET PO (08:07)
[2023-10-27] MEDS: FUROSEMIDE 10 MG TABLET PO (08:07)
[2023-10-27] MEDS: POTASSIUM CHLORIDE 20 MEQ ER TABLET PO (08:08)
[2023-10-27] MEDS: FERROUS SULFATE 325 MG TABLET DR PO (08:08)
[2023-10-27] MEDS: guaiFENesin 12 HR 600 MG TABCR PO ×2 (08:09→21:01)
[2023-10-27] MEDS: predniSONE 5 MG TABLET PO ×2 (08:09→17:08)
[2023-10-27] MEDS: SACCHAROMYCES BOULARDII 250 MG CAPSULE PO (08:09)
[2023-10-27] MEDS: CHOLECALCIFEROL 1,000 UNITS TABLET 1000 UNITS PO (08:09)
[2023-10-27] MEDS: MULTIVITAMINS THERAPEUTIC TAB (*BKC) 1 TABLET PO (08:10)
[2023-10-27 16:00] VITALS: BP 97/49; PULSE 73; RESP 16; TEMP 36.1; O2SAT 96
--- NOTE | 2023-10-27 17:28 | PM.IMPN ---
Progress Note: A&P Assessment and Plan (1) Weakness: Code(s): R53.1 - Weakness Status: Acute Assessment and Plan: 10/20/23: PT and OT ordered 10/27/2023 Progressing back to baseline with PT reported improvement to weakness (2) Gait abnormality: Code(s): R26.9 - Unspecified abnormalities of gait and mobility Status: Acute Assessment and Plan: see above (3) C. 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 status post prostatectomy currently on chemotherapy Plan CODE STATUS: Full code Disposition: Continues admission to swing bed progressing well with physical therapy Time Spent With Patient Time with patient: 15 - 25 minutes Subjective Date/time seen: 10/27/23 17:28 Interval history: Admission: This is an 88-year-old male with a significant past medical history of C diff colitis, COPD, dyslipidemia, hydropneumothorax with chronic pleural effusion, prostate cancer with metastatic disease with history of prostatectomy, former smoker who presents to [facility] for rehab program Patient was recently seen at [facility] and was admitted on 10/13/2023 with severe sepsis, acute respiratory failure, community-acquired pneumonia and generalized weakness. Patient finished a full course of antibiotics for the sepsis pneumonia and was on Rocephin and azithromycin. he was also found to have diarrhea and was positive for C diff. he was started on Dificid which he continues with. patient denies any fever, chills, nausea, vomiting, diarrhea, abdominal pain, chest pain. patient is currently on 2 L nasal cannula and reports decrease in appetite and fatigue. 10/27/2023: Patient with no complaints has been tolerating draining of his pleuritic drain and is at baseline oxygen requirements. After review of chart patient has had c-diff x 3 this year was treated with Dificid x 10 days will talk with I&D about taper dose of oral vancomycin due to reoccurrences. Patient progressing well with rehab plan for discharge home in the next few days. Review of Systems Review of Systems: All systems reviewed & are unremarkable except as noted in HPI and below Constitutional: Constitutional: Reports as per HPI and Reports no additional constitutional complaints Eyes: Eyes: Reports as per HPI and Reports no additional eye complaints ENT: Reports system reviewed and no additional complaints, except as documented and Reports as per HPI Cardiovascular: Cardiovascular: Reports as per HPI and Reports no additional cardiovascular complaints Respiratory: Respiratory: Reports as per HPI and Reports no jayna
[2023-10-27 20:00] VITALS: PULSE 73; RESP 16; O2SAT 96
[2023-10-27] MEDS: BENZONATATE 100 MG CAPSULE PO (21:01)
[2023-10-28] VITALS: BP 91/44; PULSE 74; RESP 16; TEMP 36.2; O2SAT 97
[2023-10-28 05:30] VITALS: O2SAT 97
[2023-10-28 08:00] VITALS: BP 94/48; PULSE 72; PULSE 78; RESP 16; RESP 18; TEMP 36.4; O2SAT 96; O2SAT 97
[2023-10-28] MEDS: FUROSEMIDE 10 MG TABLET PO (09:08)
[2023-10-28] MEDS: FLUTICASONE/UMECLIDIN/VILANTER 100-62.5-25 MCG ELLIPTA 1 PUFF INHALATION (09:08)
[2023-10-28] MEDS: guaiFENesin 12 HR 600 MG TABCR PO ×2 (09:08→20:27)
[2023-10-28] MEDS: SACCHAROMYCES BOULARDII 250 MG CAPSULE PO (09:08)
[2023-10-28] MEDS: FERROUS SULFATE 325 MG TABLET DR PO (09:08)
[2023-10-28] MEDS: CHOLECALCIFEROL 1,000 UNITS TABLET 1000 UNITS PO (09:08)
[2023-10-28] MEDS: POTASSIUM CHLORIDE 20 MEQ ER TABLET PO (09:09)
[2023-10-28] MEDS: MULTIVITAMINS THERAPEUTIC TAB (*BKC) 1 TABLET PO (09:09)
[2023-10-28] MEDS: CALCIUM/VITAMIN D 250 MG/3.125 MCG (125 I.U.) TABLET 2 TABLET PO ×2 (09:09→17:03)
[2023-10-28] MEDS: CYANOCOBALAMIN 500 MCG TABLET PO (09:09)
[2023-10-28] MEDS: predniSONE 5 MG TABLET PO ×2 (09:09→17:04)
--- NOTE | 2023-10-28 14:49 | PC.NURSE ---
RN drained pt's pluex drain. 450 ml of clear fluid drained. Dressing replaced. RO
[2023-10-28 16:45] VITALS: BP 90/51; PULSE 85; RESP 16; TEMP 36.2; O2SAT 97
[2023-10-28 20:00] VITALS: PULSE 85; RESP 16; O2SAT 97
[2023-10-28] MEDS: BENZONATATE 100 MG CAPSULE PO (20:27)
[2023-10-29] VITALS: BP 100/48; PULSE 86; RESP 18; TEMP 36.5; O2SAT 97
[2023-10-29 05:30] VITALS: O2SAT 97
[2023-10-29 08:00] VITALS: BP 108/50; PULSE 84; RESP 16; TEMP 36.6; O2SAT 96
[2023-10-29] MEDS: CALCIUM/VITAMIN D 250 MG/3.125 MCG (125 I.U.) TABLET 2 TABLET PO ×2 (09:45→16:55)
[2023-10-29] MEDS: BENZONATATE 100 MG CAPSULE PO ×2 (09:48→20:24)
[2023-10-29] MEDS: FUROSEMIDE 10 MG TABLET PO (09:49)
[2023-10-29] MEDS: CYANOCOBALAMIN 500 MCG TABLET PO (09:49)
[2023-10-29] MEDS: FLUTICASONE/UMECLIDIN/VILANTER 100-62.5-25 MCG ELLIPTA 1 PUFF INHALATION (09:49)
[2023-10-29] MEDS: SACCHAROMYCES BOULARDII 250 MG CAPSULE PO (09:49)
[2023-10-29] MEDS: predniSONE 5 MG TABLET PO ×2 (09:49→16:55)
[2023-10-29] MEDS: CHOLECALCIFEROL 1,000 UNITS TABLET 1000 UNITS PO (09:49)
[2023-10-29] MEDS: MULTIVITAMINS THERAPEUTIC TAB (*BKC) 1 TABLET PO (09:49)
[2023-10-29] MEDS: FERROUS SULFATE 325 MG TABLET DR PO (09:50)
[2023-10-29] MEDS: POTASSIUM CHLORIDE 20 MEQ ER TABLET PO (09:50)
[2023-10-29] MEDS: guaiFENesin 12 HR 600 MG TABCR PO ×2 (09:50→20:24)
[2023-10-29 15:53] VITALS: BP 116/81; PULSE 74; RESP 20; TEMP 36.4; O2SAT 96
[2023-10-29 19:58] VITALS: PULSE 74; RESP 20; O2SAT 96
--- NOTE | 2023-10-29 23:30 | PC.NURSE ---
Pt up to the commode with standby assist of one. Pt voided and passed a large amount of soft stool and returned to bed with standby assist of one.
[2023-10-30] VITALS: BP 96/49; PULSE 73; RESP 16; TEMP 36.3; O2SAT 97
--- NOTE | 2023-10-30 02:02 | PC.NURSE ---
Pt assisted with repositioning to comfort.
--- NOTE | 2023-10-30 04:13 | PC.NURSE ---
Pt asleep and no signs of discomfort noted.
[2023-10-30 05:30] VITALS: O2SAT 96
--- NOTE | 2023-10-30 06:12 | PC.NURSE ---
Pt asleep and no signs of respiratory distress noted.
[2023-10-30 07:57] VITALS: PULSE 73; RESP 16; O2SAT 97
[2023-10-30 08:00] VITALS: BP 99/51; PULSE 69; RESP 17; TEMP 36.1; O2SAT 97
[2023-10-30] MEDS: FLUTICASONE/UMECLIDIN/VILANTER 100-62.5-25 MCG ELLIPTA 1 PUFF INHALATION (08:32)
[2023-10-30] MEDS: guaiFENesin 12 HR 600 MG TABCR PO ×2 (08:33→20:45)
[2023-10-30] MEDS: CHOLECALCIFEROL 1,000 UNITS TABLET 1000 UNITS PO (08:33)
[2023-10-30] MEDS: SACCHAROMYCES BOULARDII 250 MG CAPSULE PO (08:33)
[2023-10-30] MEDS: POTASSIUM CHLORIDE 20 MEQ ER TABLET PO (08:33)
[2023-10-30] MEDS: CYANOCOBALAMIN 500 MCG TABLET PO (08:33)
[2023-10-30] MEDS: MULTIVITAMINS THERAPEUTIC TAB (*BKC) 1 TABLET PO (08:33)
[2023-10-30] MEDS: FERROUS SULFATE 325 MG TABLET DR PO (08:33)
[2023-10-30] MEDS: FUROSEMIDE 10 MG TABLET PO (08:33)
[2023-10-30] MEDS: CALCIUM/VITAMIN D 250 MG/3.125 MCG (125 I.U.) TABLET 2 TABLET PO ×2 (08:33→17:43)
[2023-10-30] MEDS: predniSONE 5 MG TABLET PO ×2 (08:33→17:43)
[2023-10-30 16:00] VITALS: BP 105/55; PULSE 80; RESP 17; TEMP 36.2; O2SAT 98
[2023-10-30 20:00] VITALS: O2SAT 96
[2023-10-30] MEDS: BENZONATATE 100 MG CAPSULE PO (20:45)
[2023-10-31] VITALS: BP 114/52; PULSE 82; RESP 20; TEMP 36.3; O2SAT 96
--- NOTE | 2023-10-31 04:17 | PC.NURSE ---
Pt asleep and no signs of discomfort noted.
[2023-10-31 05:30] VITALS: O2SAT 97
[2023-10-31 08:00] VITALS: BP 85/50; PULSE 59; RESP 16; TEMP 35.6; O2SAT 96
[2023-10-31] MEDS: POTASSIUM CHLORIDE 20 MEQ ER TABLET PO (08:14)
[2023-10-31] MEDS: FUROSEMIDE 10 MG TABLET PO (08:15)
[2023-10-31] MEDS: FERROUS SULFATE 325 MG TABLET DR PO (08:15)
[2023-10-31] MEDS: SACCHAROMYCES BOULARDII 250 MG CAPSULE PO (08:15)
[2023-10-31] MEDS: CALCIUM/VITAMIN D 250 MG/3.125 MCG (125 I.U.) TABLET 2 TABLET PO ×2 (08:15→17:00)
[2023-10-31] MEDS: guaiFENesin 12 HR 600 MG TABCR PO ×2 (08:16→20:41)
[2023-10-31] MEDS: CHOLECALCIFEROL 1,000 UNITS TABLET 1000 UNITS PO (08:16)
[2023-10-31] MEDS: predniSONE 5 MG TABLET PO ×2 (08:16→17:00)
[2023-10-31] MEDS: MULTIVITAMINS THERAPEUTIC TAB (*BKC) 1 TABLET PO (08:16)
[2023-10-31] MEDS: CYANOCOBALAMIN 500 MCG TABLET PO (08:17)
[2023-10-31] MEDS: FLUTICASONE/UMECLIDIN/VILANTER 100-62.5-25 MCG ELLIPTA 1 PUFF INHALATION (08:17)
[2023-10-31 16:00] VITALS: BP 94/42; PULSE 73; RESP 16; TEMP 36.2; O2SAT 97
[2023-10-31 20:00] VITALS: PULSE 73; RESP 16; O2SAT 97
[2023-10-31] MEDS: BENZONATATE 100 MG CAPSULE PO (20:41)
[2023-11-01] VITALS: BP 100/50; PULSE 68; RESP 17; TEMP 36.4; O2SAT 97
[2023-11-01 07:27] VITALS: O2SAT 97
[2023-11-01 08:00] VITALS: BP 97/46; PULSE 64; RESP 16; TEMP 35.9; O2SAT 96
[2023-11-01] MEDS: FLUTICASONE/UMECLIDIN/VILANTER 100-62.5-25 MCG ELLIPTA 1 PUFF INHALATION (08:09)
[2023-11-01] MEDS: CALCIUM/VITAMIN D 250 MG/3.125 MCG (125 I.U.) TABLET 2 TABLET PO (08:09)
[2023-11-01] MEDS: CHOLECALCIFEROL 1,000 UNITS TABLET 1000 UNITS PO (08:10)
[2023-11-01] MEDS: POTASSIUM CHLORIDE 20 MEQ ER TABLET PO (08:10)
[2023-11-01] MEDS: guaiFENesin 12 HR 600 MG TABCR PO (08:10)
[2023-11-01] MEDS: predniSONE 5 MG TABLET PO (08:11)
[2023-11-01] MEDS: FUROSEMIDE 10 MG TABLET PO (08:11)
[2023-11-01] MEDS: FERROUS SULFATE 325 MG TABLET DR PO (08:11)
[2023-11-01] MEDS: SACCHAROMYCES BOULARDII 250 MG CAPSULE PO (08:11)
[2023-11-01] MEDS: MULTIVITAMINS THERAPEUTIC TAB (*BKC) 1 TABLET PO (08:12)
[2023-11-01] MEDS: CYANOCOBALAMIN 500 MCG TABLET PO (08:12)
--- NOTE | 2023-11-01 09:37 | PM.DS ---
DS: Admitting Diagnosis Discharge Date 10/31 Admitting Diagnosis weakness DS: Discharge Diagnosis Discharge Diagnosis (1) Weakness: Code(s): R53.1 - Weakness Status: Acute Assessment and Plan: 10/20/23: PT and OT ordered 10/27/2023 Progressing back to baseline with PT reported improvement to weakness (2) Gait abnormality: Code(s): R26.9 - Unspecified abnormalities of gait and mobility Status: Acute Assessment and Plan: see above (3) C. 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 status post prostatectomy currently on chemotherapy Plan CODE STATUS: Full code Disposition: Continues admission to swing bed progressing well with physical therapy DS: Summary Hospital Course Reason for hospitalization: Weakness Hospital Course: This is an 88-year-old male with a significant past medical history of C diff colitis, COPD, dyslipidemia, hydropneumothorax with chronic pleural effusion, prostate cancer with metastatic disease with history of prostatectomy, former smoker who presents to [facility] for rehab program Patient was recently seen at [facility] and was admitted on 10/13/2023 with severe sepsis, acute respiratory failure, community-acquired pneumonia and generalized weakness. Patient finished a full course of antibiotics for the sepsis pneumonia and was on Rocephin and azithromycin. he was also found to have diarrhea and was positive for C diff. he was started on Dificid which he continues with. patient denies any fever, chills, nausea, vomiting, diarrhea, abdominal pain, chest pain. patient is currently on 2 L nasal cannula and reports decrease in appetite and fatigue. Yamil did well with therapy and completed his treatment for c-diff. He was able to be weaned from oxygen at rest and with activity. He will continue to use 2 L of oxygen at bedtime. The patient would benefit from further nursing and PT services with home health for management of his Pleurx drain and further therapy for deconditioning. Overall he did well and was able to discharge home in stable condition. Time Spent with Patient Time attestation: Total time spent providing and/or coordinating discharge services:65 Exam Narrative: General: well appearing, thin, appears stated age. HEENT: normocephalic, atraumatic. Mucous membranes moist. EOMI, PERRLA, bilateral sclera anicteric, no conjunctival injection. Neck supple without JVD, lymphadenopathy, or bruit. Respiratory: clear on auscultation bilaterally. No rales/rhonic/wheezes. Pleurex drain. Cardiovascular: Regular rate and rhythm, normal S1-S2 upon
[2023-11-01 11:35] VITALS: O2SAT 97
--- NOTE | 2023-11-01 11:35 | PC.NURSE ---
Patient left unit in w/c , accompanied by his brother and typewriter mechanic. Personal belongings sent home with patient. Discharge instructions given to patient and patient's family. All voiced understanding. Patient left hospital property in privately owned vehicle.
--- NOTE | 2023-11-01 11:35 | PC.NURSE ---
Patient discharged with home health. Discharge instructions faxed to home health prior to discharge from unit.
--- NOTE | 2023-11-04 12:57 | PC.NURSE ---
Discharge call back complete, feeling terrible per friend, states home health came today to change pleurex and not much better since, feels like pneumonia may be back, sees oncology tomorrow, advised to return to ED as needed
== END 2023-11-01 11:35 | disposition home or self-care (01) | DRG 948 ==
PROVIDERS: Admitting Provider Internal Medicine; PCP Family Medicine; Visit Provider Nurse Practitioner Acute Care
DX: R53.1 Weakness (principal); A04.72 Enterocolitis due to Clostridium difficile, not specified as recurrent; J90 Pleural effusion, not elsewhere classified; C79.51 Secondary malignant neoplasm of bone; E46 Unspecified protein-calorie malnutrition; Z68.1 Body mass index [BMI] 19.9 or less, adult; J44.9 Chronic obstructive pulmonary disease, unspecified; E78.5 Hyperlipidemia, unspecified; R26.9 Unspecified abnormalities of gait and mobility; Z85.46 Personal history of malignant neoplasm of prostate; Z87.891 Personal history of nicotine dependence
CPT/HCPCS: 97110; 97112; 97161; 97165; 97530; 97535; A9270; J7512

== ENCOUNTER 2024-01-01 07:49 | Outpatient (CLI) | payer MEDICARE, SELFPAY ==
--- NOTE | ~2024-01-01 | NM_ITS ---
EXAMINATION: NM bone scan whole body DATE: 01/01/2024 12:44 INDICATION: Prostate cancer, metastatic to bone. TECHNIQUE: 24.5 mCi Tc-99m HDP was administered intravenously. Delayed whole-body scintigrams were o btained. COMPARISON: Bone scan dated 09/04/2023. Chest radiograph dated 10/13/2023 and PET/CT dated 09/03/2023 FINDINGS: Again seen are widespread foci of increased activity consistent involving the skull, ribs, spine, pel vis and bilateral scapulae and proximal humeri and femurs. This corresponds to sclerotic lesions with increased PSA may uptake on prior PET/CT consistent with widespread metastatic prostate cancer. Ther e appears to been some interval progression with a few new tiny lesions most evident in the skull and with increase in size of some of the lesions most evident in the right hemipelvis. IMPRESSION: 1. Widespread osseous metastatic prostate cancer with a few new lesions and increase in size of some lesions consistent with interval progression. Reviewed, dictated and finalized at location A. IMPRESSION: 1. Widespread osseous metastatic prostate cancer with a few new lesions and inc rease in size of some lesions consistent with interval progression.
== END 2024-01-01 07:50 | disposition home or self-care (01) ==
PROVIDERS: PCP Family Medicine; Visit Provider Internal Medicine Hematology & Oncology
DX: C61 Malignant neoplasm of prostate (principal); C79.51 Secondary malignant neoplasm of bone
CPT/HCPCS: 78306; A9503

== ENCOUNTER 2024-01-21 08:03 | Outpatient (CLI) | payer MEDICARE, SELFPAY ==
--- NOTE | ~2024-01-21 | PE_ITS ---
EXAMINATION: PET_PETPSMAST_PT DATE: 01/21/2024 10:27 INDICATION: Prostate cancer metastatic to bone. TECHNIQUE: 4.226 mCi of Ga-68 gozetotide was administered intravenously. Low dose computed tomography (CT) images were acquired from the base of the brain to the proximal thighs for attenuation correcti on and anatomic localization. Automated exposure control was employed. Dose-length product (DLP) was 634 mGy-cm. Positron emission tomography (PET) images were acquired in the same distribution. COMPARISON: PET/CT 09/03/2023 FINDINGS: Head/neck: There are no pathologically enlarged lymph nodes. There is a left internal jugular port wi th tip in superior vena cava. There are widespread sclerotic lesions of bone with increased activity. Chest: There is mild emphysema. There are small right and moderate-sized left pleural effusions. A ri ght-sided pleural catheter is noted. There is mild atelectasis in the lungs bilaterally. The heart si ze is normal. There are coronary artery calcifications. No pericardial effusion. There are calcificat ions of the aortic valve. There are no pathologically enlarged lymph nodes. There are widespread scle rotic lesions of bone with increased activity. Abdomen/pelvis/proximal thighs: There is an 8 mm cyst in the liver. The spleen, gallbladder, pancreas , and adrenal glands are normal. There are cysts in the kidneys measuring up to 6.2 cm on the left. T here is a 12 mm hemorrhagic cyst in left kidney. There is calcified atherosclerosis of the aorta and many of the other arteries. There are changes of prostatectomy. There are no dilated loops of bowel. There are no pathologically enlarged lymph nodes. There are widespread sclerotic lesions of bone with increased activity. IMPRESSION: 1. Widespread bone lesions with increased activity, stable from 09/03/2023, consistent with metastatic disease. 2. Small right and moderate-sized left pleural effusions with pleural catheter on the right, stable f rom 09/03/2023. Reviewed, dictated and finalized at location A. RACTS INTERN IMPRESSION: 1. Widespread bone lesions with increased activity, stable from 09/03/2023, cons istent with metastatic disease. 2. Small right and moderate-sized left pleural effusions with pleural catheter on the right, stable from 09/03/2023.
== END 2024-01-21 08:04 | disposition home or self-care (01) ==
PROVIDERS: PCP Family Medicine; Visit Provider Internal Medicine
DX: C61 Malignant neoplasm of prostate (principal); C79.51 Secondary malignant neoplasm of bone; J90 Pleural effusion, not elsewhere classified; Z97.8 Presence of other specified devices
CPT/HCPCS: 78815; A9596

== ENCOUNTER 2024-03-29 10:48 | Emergency (ER) | payer MEDICARE, SELFPAY ==
[2024-03-29] VITALS (16 sets, daily range): BP systolic 96–149; BP diastolic 56–110; PULSE 58–97; RESP 14–33; TEMP 36.7–37; O2SAT 90–100
--- NOTE | ~2024-03-29 | CT_ITS ---
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 The do se-length product was 498.56 mGy-cm. Maximum intensity projection 3D-reconstructions of the aorta and other arteries were constructed by the technologist on a separate workstation. FINDINGS/OBSERVATIONS: PULMONARY ARTERIES: No filling defect is identified within the main or proximal pulmonary artery. The main pulmonary artery is not enlarged. THORACIC AORTA: No aneurysmal dilatation or dissection is present. The great vessels are intact LUNGS: Large left-sided pleural effusion, unchanged from patient's PET/CT dated 01/21/2024 Small right-sided pleural effusion with Pleurx catheter in good position. MEDIASTINUM: No morphologically suspicious or pathologically enlarged lymph nodes are identified with in the mediastinum or bilateral axilla. BONES OF THE CHEST: Diffuse lytic and blastic lesions within the visualized osseous structures, consi stent with patient's known metastatic disease. HEART: The heart is of normal size, without pericardial effusion. LIVER: The liver enhances homogeneously and is not enlarged. GALLBLADDER AND BILIARY SYSTEM: The gallbladder is only minimally distended, and otherwise unremarkable. PANCREAS: The pancreas enhances homogeneously without ductal dilatation. SPLEEN: The spleen enhances homogeneously and is not enlarged measuring 8 cm in longitudinal dimension. KIDNEYS: Multiple areas of decreased attenuation within the bilateral kidneys, stable from prior. The remainder of the bilateral kidneys otherwise enhance symmetrically without hydronephrosis or emma l calculi. ADRENAL GLANDS: Unremarkable. GASTROINTESTINAL TRACT: Fecal stasis distending the rectum, consistent with fecal impaction. APPENDIX: The appendix is not definitively visualized. However, no pericecal inflammatory change is identified suggest the presence of acute appendicitis. VASCULATURE: Densely calcified atherosclerotic disease. LYMPH NODES: No pathologically enlarged or morphologically suspicious lymph nodes within the retroperitoneum or at the root of the mesentery. PELVIC STRUCTURES: The bladder is distended, and otherwise unremarkable. The prostate gland is surgically absent. BODY WALL AND MUSCULOSKELETAL: Blastic lesions within the visualized osseous structures of the lumbosacral spine and pelvis, consist ent with widespread metastatic disease. IMPRESSION: Findings consistent with patient's known widespread metastatic osseous disease. No pulmonary embolus. Large left and small right-sided pleural effusions. Fecal stasis distending the rectum suggesting fecal impaction. Reviewed, dictated and finalized at location A. INATION MACHINE TENDER
--- NOTE | 2024-03-29 12:43 | ED.GENADULT ---
HPI - General Adult General Chief complaint: Abdominal Pain Stated complaint: constipation,abd pain Time Seen by Provider: 03/29/24 12:27 History of Present Illness HPI narrative: 89-year-old male currently being treated by Dr. Merida presents to the emergency department for evaluation for increased generalized fatigue, suspected dehydration and constipation. 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 Patient does get pleurodesis approximately 3 times a week by home health. Last chemotherapy on file was February 04, 2024 Related Data Home Medications ?Medication ?Instructions ?Recorded ?Confirmed ?Last Taken ?Type calcium 600 mg (as 1 tablet PO BID 06/12/21 02/04/24 10/19/23 09:40 History carbonate)-vitamin D3 5 mcg (200 unit) tablet cholecalciferol (vitamin D3) 25 25 mcg PO DAILY 01/02/22 02/04/24 10/19/23 09:40 History mcg (1,000 unit) capsule multivitamin-zinc tablet 1 tablet PO DAILY 02/19/23 02/04/24 10/19/23 09:40 History cyanocobalamin (vitamin B-12) 500 500 mcg PO DAILY 03/22/23 02/04/24 10/19/23 09:40 History mcg tablet prednisone 5 mg tablet 5 mg PO BID 10/13/23 02/04/24 10/16/23 08:40 History potassium chloride 20 mEq 20 meq PO DAILY 11/12/23 02/04/24 Unknown History tablet,extended release(part/cryst) Allergies Allergy/AdvReac Type Severity Reaction Status Date / Time No Known Allergies Allergy Mild Verified 03/29/24 10:49 Review of Systems Review of Systems: All systems reviewed & are unremarkable except as noted in HPI and below PMFSH Past Medical History Medical History C. 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 Code status: Full code. Smoking packs per day: 1.5 Smoking cigarettes per day: 30.0 Years smoked: 65 Smoking pack-years: 97.50 Smoking status: Former smoker Tobacco type: cigarettes Second hand tobacco smoke exposure: Yes Alcohol intake: never Drinks per week: 10 Substance use: former Substance use type: does not use Do You Feel Safe in your Home?: Yes Lack of Transportation: No Lack of Food: Never True Current Housing: I Have Housing Concerned About Future Housing: No Difficulty Paying Gas/Electric Bills: No Difficulty Paying for Meds: No Currently Unemployed: No Education: High School Diploma/GED Difficulty w/ Childcare or Family Care: No Living arrangements: alone Spiritual care concerns: No Exam Narrative: APPEARANCE: Tired appearing HEAD: normocephalic, atraumatic. EYES: PERRLA/EOMI, conjunctivae clear. NOSE: Normal no drainage EARS:TMS clear with good light reflex. THROAT: Pharynx clear, no exudate. NECK: Supple. No adenopathy, no masses. RESPIRATORY: Airway patent, respirations nonlabored. Clear to auscultation bilaterally, no rales, rhonchi, wheezing. CARDIOVASCULAR: Regular rate and rhythm without murmurs rubs or gallops. ABDOMINAL: Soft, nontender, nondistended, normal bowel sounds MUSCULOSKELETAL: Moves all extremities. Strength/ROM intact, No edema, No calf tenderness. NEURO: Alert. Cranial nerves II through XII intact. Grossly intact SKIN: Warm, dry. Normal Color Course Vital Signs Vital signs: Vital Signs Temperature 98.6 F 03/29/24 10:54 Pulse Rate 58 L 03/29/24 10:54 Respiratory Rate 14 03/29/24 10:54 Blood Pressure 149/110 H 03/29/24 10:54 Pulse Oximetry 95 03/29/24 10:54 Oxygen Delivery Room Air 03/29/24 10:54 Temperature 98.1 F 03/29/24 14:16 Pulse Rate 88 03/29/24 16:31 Respiratory Rate 22 H 03/29/24 16:31 Blood Pressure 109/57 L 03/29/24 16:31 Pulse Oximetry 90 03/29/24 16:31 Oxygen Delivery Room Air 03/29/24 16:03 Oxygen Flow Rate 3 03/29/24 13:41 Medical Decision Making MDM Narrative Medical decision making narrative: 89-year-old male presenting to the emergency department for evaluation for dehydration. Patient was afebrile with no leukocytosis and a stable hemoglobin of 10.1. Patient's creatinine is 1.04. UA was nitrate negative, was trace leukocyte esterase. And did have 11-20 white blood cells. Patient denies any urinary symptoms. Patient was negative for influenza RSV and for COVID. CTA PE abdomen pelvis was ordered and was negative for pulmonary embolism but did show some fecal impaction. Patient was treated with a soapsuds enema. Patient's initial PTT was elevated. This was repeated and was the normal limits. Suspect this was improperly drawn from the patient's port. At time of re-evaluation patient states he feels significantly improved and is requesting to be discharged home. Patient did have significant output secondary to the substance enema. Patient was well-appearing at time of discharge. Patient was strongly encouraged to increase water intake and to take stool softeners. Differential Diagnosis Differential Diagnosis: Small-bowel obstruction, constipation, dehydration Vital Signs Vital Signs: Vital Signs Temperature 98.6 F 03/29/24 10:54 Pulse Rate 58 L 03/29/24 10:54 Respiratory Rate 14 03/29/24 10:54 Blood Pressure 149/110 H 03/29/24 10:54 Pulse Oximetry 95 03/29/24 10:54 Oxygen Delivery Room Air 03/29/24 10:54 Temperature 98.1 F 03/29/24 14:16 Pulse Rate 88 03/29/24 16:31 Respiratory Rate 22 H 03/29/24 16:31 Blood Pressure 109/57 L 03/29/24 16:31 Pulse Oximetry 90 03/29/24 16:31 Oxygen Delivery Room Air 03/29/24 16:03 Oxygen Flow Rate 3 03/29/24 13:41 Lab Data Lab results reviewed: Yes I reviewed the patient's lab results. 03/29/24 12:51 03/29/24 12:51 Labs: Lab Results 03/29/24 03/29/24 03/29/24 Range/Units 12:51 13:16 14:51 WBC 4.3 L (4.5-10.0) K/mm3 RBC 3.59 L (4.6-6.20) M/mm3 Hgb 10.1 L (14.0-18.0) g/dL Hct 31.4 L (42.0-52.0) % MCV 87.5 (80-100) fl MCH 28.1 (26-34) pg MCHC 32.2 (32-36) g/dl RDW 16.0 H (11.5-14.5) % Plt Count 189 (150-375) k/mm3 MPV 10.3 (7.4-10.4) fl Immature Gran % (Auto) 0.9 H (0-0.5) % Neut % (Auto) 81.7 H (45.5-73.1) % Lymph % (Auto) 14.8 L (18.3-44.2) % Emanuel % (Auto) 1.2 L (2.6-8.5) % Eos % (Auto) 0.5 (0-4.4) % Baso % (Auto) 0.9 (0.2-1.2) % Lymph # (Auto) 0.63 L (0.9-3.2) K/mm3 Emanuel # (Auto) 0.1 (0.1-0.6) K/mm3 Eos # (Auto) 0.0 (0-0.3) K/mm3 Baso # (Auto) 0.0 (0.0-0.1) K/mm3 Abs Immat Gran (auto) 0.04 H (0.00-0.031) K/mm3 Absolute Neuts (auto) 3.5 (1.3-6.7) K/mm3 Absolute Nucleated RBC 0.000 (0.0-0.012) K/mm3 Nucleated RBC % 0.0 (0.0-0.2) % PT 14.6 (11.1-14.7) Seconds INR 1.1 APTT > 200.0 H* (22.3-36.8) Seconds Sodium 137 (137-145) mmol/L Potassium 4.8 (3.4-5.0) mmol/L Chloride 109 H (98-107) mmol/L Carbon Dioxide 21 L (22-30) mmol/L Anion Gap 7 (4-12) mmol/L BUN 31 H D (9-20) mg/dL Creatinine 1.04 (0.7-1.3) mg/dL Estim Creat Clear Calc Not Reportable Estimated GFR > 60 (59 - ) Glucose 98 (65-110) mg/dL Lactic Acid 0.8 (0.7-2.0) mmol/L Calcium 6.8 L (8.4-10.2) mg/dL Total Bilirubin 0.6 (0.2-1.3) mg/dL AST 80 H (17-59) U/L ALT 13 (6-50) U/L Alkaline Phosphatase 155 H (38-126) U/L Total Protein 6.0 L (6.3-8.2) g/dL Albumin 2.8 L (3.5-5.1) g/dL Lipase 100 (23-300) U/L Urine Color Yellow (Yellow) Urine Appearance Clear (Clear) Urine pH 6.5 (5.0-9.0) Ur Specific [place] 1.015 (1.001-1.035) Urine Protein Trace (Negative) mg/dL Urine Glucose (UA) Negative (Negative) mg/dL Urine Ketones Trace H (Negative) mg/dL Ur Blood (Man) 1+ H (Negative) Urine Nitrate Negative (Negative) Urine Bilirubin Negative (Negative) Urine Urobilinogen 0.2 (<2.0) mg/dL Leukocyte Esterase Rfl Trace H (Negative) JOSELYN/UL Urine RBC 21-50 H (0-2) /hpf Urine WBC 11-20 H (0-3) /hpf Ur Squamous Epith Cells None seen (Few) /hpf Urine Bacteria None seen /hpf Urine Casts 0-2 Influenza A (RT-PCR) Negative (Negative) Influenza B (RT-PCR) Negative (Negative) RSV (RT-PCR) Negative (Negative) SARS-CoV-2 RNA (RT-PCR) Negative (Negative) 03/29/24 Range/Units 16:00 WBC (4.5-10.0) K/mm3 RBC (4.6-6.20) M/mm3 Hgb (14.0-18.0) g/dL Hct (42.0-52.0) % MCV (80-100) fl MCH (26-34) pg MCHC (32-36) g/dl RDW (11.5-14.5) % Plt Count (150-375) k/mm3 MPV (7.4-10.4) fl Immature Gran % (Auto) (0-0.5) % Neut % (Auto) (45.5-73.1) % Lymph % (Auto) (18.3-44.2) % Emanuel % (Auto) (2.6-8.5) % Eos % (Auto) (0-4.4) % Baso % (Auto) (0.2-1.2) % Lymph # (Auto) (0.9-3.2) K/mm3 Emanuel # (Auto) (0.1-0.6) K/mm3 Eos # (Auto) (0-0.3) K/mm3 Baso # (Auto) (0.0-0.1) K/mm3 Abs Immat Gran (auto) (0.00-0.031) K/mm3 Absolute Neuts (auto) (1.3-6.7) K/mm3 Absolute Nucleated RBC (0.0-0.012) K/mm3 Nucleated RBC % (0.0-0.2) % PT (11.1-14.7) Seconds INR APTT 30.9 (22.3-36.8) Seconds Sodium (137-145) mmol/L Potassium (3.4-5.0) mmol/L Chloride (98-107) mmol/L Carbon Dioxide (22-30) mmol/L Anion Gap (4-12) mmol/L BUN (9-20) mg/dL Creatinine (0.7-1.3) mg/dL Estim Creat Clear Calc Estimated GFR (59 - ) Glucose (65-110) mg/dL Lactic Acid (0.7-2.0) mmol/L Calcium (8.4-10.2) mg/dL Total Bilirubin (0.2-1.3) mg/dL AST (17-59) U/L ALT (6-50) U/L Alkaline Phosphatase (38-126) U/L Total Protein (6.3-8.2) g/dL Albumin (3.5-5.1) g/dL Lipase (23-300) U/L Urine Color (Yellow) Urine Appearance (Clear) Urine pH (5.0-9.0) Ur Specific [place] (1.001-1.035) Urine Protein (Negative) mg/dL Urine Glucose (UA) (Negative) mg/dL Urine Ketones (Negative) mg/dL Ur Blood (Man) (Negative) Urine Nitrate (Negative) Urine Bilirubin (Negative) Urine Urobilinogen (<2.0) mg/dL Leukocyte Esterase Rfl (Negative) JOSELYN/UL Urine RBC (0-2) /hpf Urine WBC (0-3) /hpf Ur Squamous Epith Cells (Few) /hpf Urine Bacteria /hpf Urine Casts Influenza A (RT-PCR) (Negative) Influenza B (RT-PCR) (Negative) RSV (RT-PCR) (Negative) SARS-CoV-2 RNA (RT-PCR) (Negative) Imaging Data Radiologist's impression: Impressions Chest/Abdomen/Pelvis CTA 03/29/24 15:33 IMPRESSION: Findings consistent with patient's known widespread metastatic osseous disease. No pulmonary embolus. Large left and small right-sided pleural effusions. Fecal stasis distending the rectum suggesting fecal impaction. Discharge Plan Discharge Clinical Impression: Prostate cancer, Constipation Patient Disposition: Home, Self-Care Condition: Stable Instructions: Antibiotic Form, Constipation (DC) Additional Instructions: Increase your MiraLax dosing. Have close follow-up with your primary care physician and remember to drink plenty of water. Patient Language: Mohawk Prescriptions: No Action calcium carbonate-vitamin D3 600 mg-5 mcg (200 unit) Tablet 1 tablet PO BID Patient Comments: . cholecalciferol (vitamin D3) 25 mcg (1,000 unit) capsule 25 mcg PO DAILY furosemide 20 mg tablet See Rx Instructions .ROUTE .COMPLEX Qty: 45 6RF Dose Instruction: TAKE 1/2 TABLET BY MOUTH EVERY MORNING Rx Instructions: TAKE 1/2 TABLET BY MOUTH EVERY MORNING umeclidinium-vilanterol 62.5-25 mcg/actuation blister with device 1 inh inhalation DAILY Qty: 60 6RF potassium chloride 20 mEq tablet,ER particles/crystals 20 meq PO DAILY multivitamin-zinc sulfate Tablet 1 tablet PO DAILY prednisone 5 mg tablet 5 mg PO BID cyanocobalamin (vitamin B-12) 500 mcg Tablet 500 mcg PO DAILY Follow-up/Referrals: Angelica Staton MD [Primary Care Provider] -
[2024-03-29] MEDS: SODIUM CHLORIDE 0.9% IV 1,000 ML 999 ML (12:55)
[2024-03-29 12:56] LABS: Basophils Percent Auto 0.9 % (0.2-1.2); Eosinophils Percent Auto 0.5 % (0-4.4); Hematocrit 31.4 % (42.0-52.0); Hemoglobin 10.1 g/dL (14.0-18.0); Immature Granulocyte Absolute 0.04 K/mm3 (0.00-0.031); Immature Granulocyte Percent A 0.9 % (0-0.5); Lymphocytes Absolute Auto 0.63 K/mm3 (0.9-3.2); Lymphocytes Percent Auto 14.8 % (18.3-44.2); Mean Corpuscular HGB Conc 32.2 g/dl (32-36); Mean Corpuscular Hemoglobin 28.1 pg (26-34); Mean Corpuscular Volume 87.5 fl (80-100); Mean Platelet Volume 10.3 fl (7.4-10.4); Monocytes Absolute Auto 0.1 K/mm3 (0.1-0.6); Monocytes Percent Auto 1.2 % (2.6-8.5); Neutrophils Absolute Auto 3.5 K/mm3 (1.3-6.7); Neutrophils Percent Auto 81.7 % (45.5-73.1); Platelet Count Result 189 k/mm3 (150-375); Red Blood Count 3.59 M/mm3 (4.6-6.20); White Blood Count 4.3 K/mm3 (4.5-10.0)
[2024-03-29 13:05] LABS: Lactic Acid Reflex 0.8 mmol/L (0.7-2.0)
[2024-03-29 13:06] LABS: Alanine Aminotransferase 13 U/L (6-50); Albumin Level 2.8 g/dL (3.5-5.1); Alkaline Phosphatase 155 U/L (38-126); Anion Gap 7 mmol/L (4-12); Aspartate Amino Transferase 80 U/L (17-59); Bilirubin,Total 0.6 mg/dL (0.2-1.3); Blood Urea Nitrogen 31 mg/dL (9-20); Calcium 6.8 mg/dL (8.4-10.2); Carbon Dioxide 21 mmol/L (22-30); Chloride 109 mmol/L (98-107); Estimated Glomerular Filt Rate > 60; Glucose 98 mg/dL (65-110); Lipase 100 U/L (23-300); Potassium 4.8 mmol/L (3.4-5.0); Sodium 137 mmol/L (137-145)
[2024-03-29 13:08] LABS: INR 1.1; Prothrombin Time 14.6 Seconds (11.1-14.7)
[2024-03-29 13:22] LABS: Partial Thromboplastin Time > 200.0 Seconds (22.3-36.8)
[2024-03-29 13:56] LABS: Influenza A QL RT-PCR Negative (Negative); Influenza B QL RT-PCR Negative (Negative); RSV RNA, RT-PCR Negative (Negative); SARS-CoV-2 RNA PCR Negative (Negative)
[2024-03-29 15:03] LABS: Add Urine Microscopic? YES; Appearance Urine Clear (Clear); Bacteria Urine None Seen /hpf; Bilirubin Urine Negative (Negative); Blood Urine 1+ (Negative); Color Urine Yellow (Yellow); Glucose Urine UA Negative (Negative); Ketones Urine Trace mg/dL (Negative); Leukocyte Esterase Ur Trace LEU/UL (Negative); Nitrate Urine Negative (Negative); Non Pathogenic Casts 0-2; Protein Urine Trace mg/dL (Negative); RBC Urine 21-50 /hpf (0-2); Specific Grav Ur 1.015 (1.001-1.035); Squamous Epithelial Cell Urine None Seen /hpf (Few); Urobilinogen Urine 0.2 mg/dL (<2.0); pH Urine 6.5 (5.0-9.0)
[2024-03-29 16:16] LABS: Partial Thromboplastin Time 30.9 Seconds (22.3-36.8)
[2024-03-29] MEDS: HEPARIN SODIUM LOCK FLUSH 500 UNITS/5 ML SYRINGE (17:42)
--- OUTSIDE RECORDS SUMMARY | 2024-04-02 10:16 | XMS_ITS | Continuity of Care Document ---
Author Name [facility] Organization [facility] Care Team Providers Care Party Host/Hostess Name Role Phone [facility] Unavailable Unavailable Problems Combined list of problems from Department of [facility] and [facility] facilities. It does not include entries that were removed or entered in error. Problem Status Onset Date Problem Type Date of Resolution Comments Source Primary malignant neoplasm of prostate Active Condition [facility] Diagnosis: ICD-10-CM C61 Malignant neoplasm of prostate Active Diagnosis [facility] Diagnosis: ICD-10-CM Z91.89 Oth personal risk factors, not elsewhere classified Active Diagnosis [facility] Medications Combined list of outpatient medications from [facility] and [facility] facilities.Medications provided include 1) outpatient medications from the last 15 months, and 2) patient-reported medications. Medication Details Route Status Patient Instructions Prescription Expires Prescription Number Last Dispense Date Ordering Provider Order Date Order Qty Source FLUTICASONE 250MCG/SALM ETEROL 50MCG INHL,ORAL,D ISKUS,60 INHALE 1 INHALATI ON ORAL INHALATI ON TWICE A DAY FOR COPD (OPEN DISKUS; CLICK ONLY ONCE; MAY INHALE TWICE TO COMPLETE DOSE; CLOSE WHEN FINISHED ) RINSE MOUTH AND SPIT AFTER EACH USE. RESPIR ATORY (INHAL ATION) 01/30/2024 [id number] 3 KANDI GALVAN ACE 2022 3 [facility] Immunizations Combined list of available immunizations from the Department of [facility] and [facility] facilities. Immunization Series Date Given Administered By Site Reaction Lot Number CVX Code Drug Powder Coater Status Comments Source COVID-19 ([employer]), MRNA, LNP-S, BIVALENT, PF, 30 MCG/0.3 ML DOSE 1 2021 300 complet ed [facility] COVID-19 ([employer]), MRNA, LNP-S, PF, 30 MCG/0.3 ML DOSE 2021 208 complet ed [facility] INFLUENZA, UNSPECIFIED FORMULATION 2021 88 complet ed [facility] COVID-19 ([employer]), MRNA, LNP-S, PF, 30 MCG/0.3 ML DOSE 3 2021 208 complet ed [facility] COVID-19 ([employer]), MRNA, LNP-S, PF, 30 MCG/0.3 ML DOSE 2 2020 208 complet ed [facility] COVID-19 ([employer]), MRNA, LNP-S, PF, 30 MCG/0.3 ML DOSE 1 2020 208 complet ed [facility] Vital Signs Combined list of inpatient and outpatient Vital Signs from Department of [facility] and [facility], ranging from 12 months to all on record, depending upon the facility. Vital Sign Value Date Comments Source SYSTOLIC BLOOD PRESSURE 115 09/26/2023 11:00:11 [facility] DIASTOLIC BLOOD PRESSURE 54 09/26/2023 11:00:11 [facility] PULSE OXIMETRY 91 09/26/2023 11:00:11 [facility] WEIGHT 127.5 09/26/2023 11:00:11 [facility] BMI 20kg/m2 09/26/2023 11:00:11 [facility] PAIN 0 09/26/2023 11:00:11 [facility] HEIGHT 67 09/26/2023 11:00:11 [facility] TEMPERATURE 98 09/26/2023 11:00:11 [facility] PULSE 78 09/26/2023 11:00:11 [facility] RESPIRATION 20 09/26/2023 11:00:11 [facility] Encounters Combined list of: 1) Encounters from Department of Veterans Affairs facilities going back up to thelast 18 months. 2) Encounters from the Department of Defense facilities going back up to 280 months. Location Location Details Encounter Type Encounter Number Reason For Visit Attending Provider ADM Date DC Date Status Disposition Source [facility] Outpatient Encounter [id number] RADHA PADILLA 10/08 [facility] OFFICE O/P NEW MOD 45-59 MIN [id number] Diagnos is: ICD-10- CM C61 Maligna nt neoplas m of prostat e
NEFTALI GALVAN M 10/09 [facility] Outpatient Encounter [id number] 10/10 [facility] HC PRO PHONE CALL 5-10 MIN [id number] Diagnos is: ICD-10- CM Z91.89 Oth persona l risk factors , not elsewhe re classif ied<br/ > Gibson RILEY 10/11 [facility] Outpatient Encounter [id number] 10/29 [facility] OFF/OP CNSLTJ NEW/EST LOW 30 [id number] Diagnos is: ICD-10- CM C61 Maligna nt neoplas m of prostat e
JOSSE RAHMAN 10/29 [facility] Outpatient Encounter [id number] 01/07 [facility] Outpatient Encounter [id number] HITESH SUAREZ 01/29 [facility] N [facility] Outpatient Encounter [id number] 01/29 [facility] N [facility] Outpatient Encounter [id number] 03/01 [facility] N [facility] Outpatient Encounter [id number] 03/01 [facility] N [facility] Outpatient Encounter [id number] 03/07 [facility] N [facility] Outpatient Encounter [id number] 07/29 [facility] Outpatient Encounter [id number] CHU SIMPSON 09/10 [facility] OFFICE O/P EST MOD 30 MIN [id number] Diagnos is: ICD-10- CM C61 Maligna nt neoplas m of prostat e
NEFTALI GALVAN M 09/25 [facility] Outpatient Encounter [id number] 03/17 [facility] Outpatient Encounter [id number] 03/19 [facility] Outpatient Encounter [id number] 04/02 [facility] Social History Combined list of available smoking, tobacco, and other social history from Department of Defense and Veterans Affairs facilities. Social History Type Response Date Comment Sour e Tobacco smoking status NHIS VA-TOBACCO FORMER USER 09/26/2023 [facility] History of tobacco use VA-TOBACCO QUIT < 1 YEAR 09/26/2023 [facility] History of tobacco use VA-TOBACCO USE ADVICE 10/09/2022 [facility] Plan of Care List of future care activities from Department of Veterans Affairs facilities. Additional future care activities may be listed in the Assessment and Plan section. Date/Time Care Activity Care Activity Detail Facili ty 08/13/2024 AMBULATORY - REHAB MEDICINE AMBULATORY - REHAB MEDICINE [facility]
--- OUTSIDE RECORDS SUMMARY | 2024-04-02 10:29 | XMS_ITS | Continuity of Care Document ---
Author Name [facility] Organization [facility] Care Team Providers Care Belly Dancer Name Role Phone [facility] Unavailable Unavailable Problems Combined list of problems from Department of [facility] and [facility] facilities. It does not include entries that were removed or entered in error. Problem Status Onset Date Problem Type Date of Resolution Comments Source Primary malignant neoplasm of prostate Active Condition [facility] Diagnosis: ICD-10-CM C61 Malignant neoplasm of prostate Active Diagnosis [facility] Diagnosis: ICD-10-CM Z91.89 Oth personal risk factors, not elsewhere classified Active Diagnosis [facility] Medications Combined list of outpatient medications from [facility] and [facility] facilities.Medications provided include 1) outpatient medications [...] EACH USE. RESPIR ATORY (INHAL ATION) 01/30/2024 [id number] 3 KANDI GALVAN ACE 2022 3 [facility] Immunizations Combined list of available immunizations from the Department of [facility] and [facility] facilities. Immunization Series Date Given Administered By Site Reaction Lot Number CVX Code Drug Market Research Senior Project Manager Status Comments Source COVID-19 ([address]), MRNA, LNP-S, BIVALENT, PF, 30 MCG/0.3 ML DOSE 1 2021 300 complet ed [facility] COVID-19 ([address]), MRNA, LNP-S, PF, 30 MCG/0.3 ML DOSE 2021 208 complet ed [facility] INFLUENZA, UNSPECIFIED FORMULATION 2021 88 complet ed [facility] COVID-19 ([employer]), MRNA, LNP-S, PF, 30 MCG/0.3 ML DOSE 3 2021 208 complet ed [facility] COVID-19 ([employer]), MRNA, LNP-S, PF, 30 MCG/0.3 ML DOSE 2 2020 208 complet ed [facility] COVID-19 ([employer]), MRNA, LNP-S, PF, 30 MCG/0.3 ML DOSE 1 2020 208 complet ed [facility] Vital Signs Combined list of inpatient and outpatient Vital Signs from Department of [facility] and [facility], ranging from 12 months to all on record, depending upon the facility. Vital Sign Value Date Comments Source SYSTOLIC BLOOD PRESSURE 115 09/26/2023 11:00:11 [facility] DIASTOLIC BLOOD PRESSURE 54 09/26/2023 11:00:11 [facility] PULSE OXIMETRY 91 09/26/2023 11:00:11 [facility] WEIGHT 127.5 09/26/2023 11:00:11 [facility] BMI 20kg/m2 09/26/2023 11:00:11 [facility] PAIN 0 09/26/2023 11:00:11 [facility] HEIGHT 67 09/26/2023 11:00:11 [facility] TEMPERATURE 98 09/26/2023 11:00:11 [facility] PULSE 78 09/26/2023 11:00:11 [facility] RESPIRATION 20 09/26/2023 11:00:11 [facility] Encounters Combined list of: 1) Encounters from Department of Veterans Affairs facilities going back up to thelast 18 months. 2) Encounters from the Department of Defense facilities going back up to 280 months. Location Location Details Encounter Type Encounter Number Reason For Visit Attending Provider ADM Date DC Date Status Disposition Source [facility] Outpatient Encounter [id number] RADHA PADILLA 10/08 [facility] OFFICE O/P NEW MOD 45-59 MIN [id number] Diagnos is: ICD-10- CM C61 Maligna nt neoplas m of prostat e
NEFTALI GALVAN M 10/09 [facility] Outpatient Encounter [id number] 10/10 [facility] HC PRO PHONE CALL 5-10 MIN [id number] Diagnos is: ICD-10- CM Z91.89 Oth persona l risk factors , not elsewhe re classif ied<br/ > Gibson RILEY 10/11 [facility] Outpatient Encounter [id number] 1 10/29 [facility] OFF/OP CNSLTJ NEW/EST LOW 30 [id number] Diagnos is: ICD-10- CM C61 Maligna nt neoplas m of prostat e
JOSSE RAHMAN 10/29 [facility] Outpatient Encounter [id number] 01/07 [facility] Outpatient Encounter [id number] HITESH SUAREZ 01/29 [facility] N [facility] Outpatient Encounter [id number] 01/29 [facility] N [facility] Outpatient Encounter [id number] 03/01 [facility] N [facility] Outpatient Encounter [id number] 03/01 [facility] N [facility] Outpatient Encounter [id number] 03/07 [facility] N [facility] Outpatient Encounter [id number] 07/29 [facility] Outpatient Encounter [id number] CHU SIMPSON 09/10 [facility] OFFICE O/P EST MOD 30 MIN [id number] Diagnos is: ICD-10- CM C61 Maligna nt neoplas m of prostat e
NEFTALI GALVAN M 09/25 [facility] Outpatient Encounter [id number] 03/17 [facility] N [facility] Outpatient Encounter [id number] 03/19 [facility] Outpatient Encounter [id number] 04/02 [facility] Social History Combined list of available smoking, tobacco, and other social history from Department of Defense and Veterans Affairs facilities. Social History Type Response Date Comment Sour e Tobacco smoking status NHIS VA-TOBACCO FORMER USER 09/26/2023 [facility] History of tobacco use VA-TOBACCO QUIT < 1 YEAR 09/26/2023 [facility] History of tobacco use VA-TOBACCO USE ADVICE 10/09/2022 [facility] Plan of Care List of future care activities from Department of Veterans Affairs facilities. Additional future care activities may be listed in the Assessment and Plan section. Date/Time Care Activity Care Activity Detail Facili ty 08/13/2024 AMBULATORY - REHAB MEDICINE AMBULATORY - REHAB MEDICINE [facility]
--- OUTSIDE RECORDS SUMMARY | 2024-04-02 10:29 | XMS_ITS | Encounter Summary ---
Author Name [facility] Organization [facility] Address [address] [place] [address] Care Team Providers Care Grades 9 12 Tutor Name Role Phone JUSTINE GALVAN Primary Care Provider Unavailabl e Insurance Providers: All historical and current Section Date Range: From patient's date of to the date document was created. This section includes the names of all active insurance providers for the patient. Insurance Provider Type of Coverage Plan Name Start of Policy Coverage End of Policy Coverage Group Number Member ID Insurance Provider's Telephone Number Policy Hanson's Name Patient's Relationship to Policy Hanson AARP MED SUPP MEDIGAP PLAN F MEDIC ARE SUPPL EMENT Dec 10, 2007 PLAN F [id number] [phone] SHIKHA JOHNSON PATIENT MEDICARE (WNR) MEDICARE (M) PART A Feb 08, 2002 PART A [id number] SHIKHA JOHNSON PATIENT MEDICARE (WNR) MEDICARE (M) PART B Feb 08, 2002 PART B [id number] ANTONIOBLAKE BLANCASMOND PATIENT Selected Encounter This section includes the information on record at [place] for the Encounter. Date/Time Encounter Type Encounter Description Reason Provider Source Sep 26, 2023 11:00 AM OFFICE O/P EST MOD 30 MIN GERIPACT ICD-10-CM C61 Malignant neoplasm of prostate JUSTINE GALVAN [place] Encounter Template Text not used by VA Assessments - Encounter Diagnoses This section includes the primary and secondary diagnoses documented for the Encounter. Date/Time Primary/Secondary Diagnosis Diagnosis Name Provider Source Sep 26, 2023 12:43 PM PRIMARY Malignant neoplasm of prostate JUSTINE GALVAN [facility] Sep 26, 2023 12:43 PM SECONDARY Chronic obstructive pulmonary disease, unspecified JUSTINE GALVAN [facility] Sep 26, 2023 12:43 PM SECONDARY Primary osteoarthritis, unspecified shoulder JUSTINE GALVAN [facility] Vital Signs: All taken on the encounter date This section contains inpatient and outpatient Vital Signs collected on the date of the Encounter. Date/Time Temperature Pulse Blood Pressure Respiratory Rate SP02 Pain Height Weight Body Mass Index Source Sep 26, 2023 11:00 AM 98 78 115/54 20 91 0 67 127.5 20 [facility] Social History: Smoking Status (Most current) and Tobacco Use (All prior to encounter date) This section includes the most current, and the historical, smoking and tobacco- related health factors from the [place] facility where the Encounter took place. Current Smoking Status This section includes the most current smoking, or tobacco-related health factor, from the [place] facility where the Encounter took place. Date/Time Current Smoking Status Comment Carey alcantar Sep 26, 2023 11:00 AM VA-TOBACCO FORMER USER [facility] Tobacco Use History This section includes a history of the smoking, or tobacco-related health factors, that were collected on or before the date of the Encounter. The data comes from the [place] facility where the Encounter took place. Date/Time Smoking Status/Tobacco Use Comment F acility Sep 26, 2023 11:00 AM VA-TOBACCO QUIT < 1 YEAR [facility] Oct 09, 2022 01:00 PM VA-TOBACCO USE > 1 5 LESS THAN 30 YEARS [facility] Oct 09, 2022 01:00 PM VA-TOBACCO USE ADVICE [facility] Oct 09, 2022 01:00 PM VA-TOBACCO USE ANIMAL CAREGIVER NO [facility] Oct 09, 2022 01:00 PM VA-TOBACCO USE MED NO [facility] Oct 09, 2022 01:00 PM VA-TOBACCO USE WI 30 MIN OF WAKEUP [facility] Oct 09, 2022 01:00 PM VA-TOBACCO USER EVERY DAY [facility] Encounter Notes: All associated encounter notes This section contains the clinical notes associated to the Encounter. Date/Time Encounter Note(s) Provider Source Sep 26, 2023 12:32 PM GERIATRIC MEDICINE NOTE: LOCAL TITLE: GERIATRIC PACT CLINIC ST STANDARD TITLE: GERIATRIC MEDICINE NOTE DATE OF NOTE: SEP 26, 2023@12:32 ENTRY DATE: SEP 26, 2023@12:33:06 AUTHOR: JUSTINE GALVAN EXP COSIGNER: URGENCY: STATUS: COMPLETED Type of Evaluation: Geriatric Follow-up Date of Visit: 09/26/23 11:00 Patient's SSN:[id number] SHIKHA JOHNSON is a 88 year old WHITE MALE. 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 Pt not sure what it is. has recently added a pill that he takes daily if I undestood him correctly. Again unsure what the med is.otherwise only c/o is copd- inhaler helps significantly Also c/o pain and limitaation of movement in both shoulders for severral months- has talked to outside pcp about this, planning to treat conservatively Adherence to Medications & Managed by: good- self GERIATRIC REVIEW OF SYSTEMS: Change in weight: Appetite: ok Dysphagia (specify with or without CVA): Dentition: Sleep: Vision: ok- recent cataract surgery Hearing: ok Wounds/Ulcers: Peripheral neuropathy (specify with or without DM): Constipation: Incontinence: Nocturia: Fear of falling: no Assistive devices: Recent Hospitalizations: no Recent ER Visits: no Complete ROS: Constitutional: Eyes: ENMT: CV: Resp: GI: : Musculoskeletal: Skin: Neuro: Psych: Living Situation The Potter lives alone. When they need help, the Potter contacts their relative who lives within a 30 minute distance. The Potter does not have any concerns about their living situation. Falls The Potter has not fallen in the last 12 months. PMH: 1) Primary malignant neoplasm of prostate OUTPATIENT MEDICATION RECONCILIATION: Review of the essential medication list for review at the time of this encounter included: Remote and local facility patient allergies, and active and pending prescriptions dispensed from this [place] (local) and dispensed from another [place] or [facility] facility (remote) as well as local inpatient and clinic medication, locally documented non-VA medications and local prescriptions that have or been discontinued in the past 90 days. With the exception of Allergies, if a category is not listed below, it means there were no relevant medications for the patient. The medication list was reviewed with the patient/caregiver: Yes Active Outpatient Medications (including Supplies): Active Outpatient Medications Status 1) FLUTICAS 250/SALMETEROL 50 INHL DISK 60 INHALE 1 ACTIVE INHALATION ORAL INHALATION TWICE A DAY FOR COPD (OPEN DISKUS; CLICK ONLY ONCE; MAY INHALE TWICE TO COMPLETE DOSE; CLOSE WHEN FINISHED) RINSE MOUTH AND SPIT AFTER EACH USE. Medication List was provided to the patient/caregiver at the end of the visit. ALLERGIES/ADR: Patient has answered NKA VITALS: BP: 115/54 (09/26/2023 11:00) Pulse: 78 (09/26/2023 11:00) Temp: 98 F [36.7 C] (09/26/2023 11:00) RR: 20 (09/26/2023 11:00) Pain: 0 (09/26/2023 11:00) Weight: Measurement DT WEIGHT LB(KG)[BMI] 09/26/2023 11:00 127.5(57.83)[20] 10/09/2022 12:38 128(58.06)[20] Height: 67 in [170.2 cm] (09/26/2023 11:00) PE: General: in nad, well groomed HEENT: nc/at, perrla, eomi CV: reg rate and rythm Pulm: clear to p and a Ext: no c,c or e Neuro: alert, oriented x3, cranial nerves 2-12 grossly intact Gait: walks unassisted LABS: CMP: No CREATININE EO data found No GLUCOSE EO data found No SODIUM EO data found No POTASSIUM data found CHLORIDE ____ No CO2 EO data found CALCIUM ____ No PROTEIN EO data found No ALBUMIN EO data found No TOTAL BILIRUBIN EO data found No ALKALINE PHOSPHATASE EO data found No AST EO data found No ALT EO data found CBC: WBC ____ RBC ____ HCT ____ MCV ____ No HEMOGLOBIN EO data found HGB A1C No data available No PLATELETS EO data found PSA: No PSA EO data found No CHOLESTEROL EO data found HDL: ____ LDL: No LDL EO data found Trigs: ____ No MICRAL data found No VITAMIN D 25 HYDROXY EO data found No B12 EO data found No FOLATE (STL-MA);FOLATE (PB);FOLATE (DC 12-16);FOLATE (DC 12/16) data found No TSH (1YR) EO data found CHEST X-RAY: No Radiology exams found. ASSESSMENT AND PLAN: 1. metastatic prostate ca- chemo per outside oncology2. copd- stable sx on wixella- cont3. shoulder pain/limitaion of motion- pt would like to treat conservatively Age Friendly 4M's MEDICATION Medications were addressed at this visit. Comment: reviewed MENTATION Dementia was addressed at this visit. Comment: neg screening ad8 MOBILITY -------- Mobility was addressed at this visit. Comment: walks 25 ft PREVENTION & HEALTH MAINTENANCE: Life Sustaining Treatment Orders RTC: /iman/ JUSTINE GALVAN MD STAFF PHYSICIAN ECRS Signed: 09/26/2023 12:43 JUSTINE GALVAN [facility] Sep 26, 2023 11:07 AM NURSING NOTE: LOCAL TITLE: V15 PACT FACE TO FACE NOTE STL STANDARD TITLE: NURSING NOTE DATE OF NOTE: SEP 26, 2023@11:07 ENTRY DATE: SEP 26, 2023@11:07:54 AUTHOR: LIBRADO SIMPSON COSIGNER: URGENCY: STATUS: COMPLETED Provider Visit: Patient Identifiers : Full Name Date of Reason for visit: Established Follow-Up Mode of Arrival: Assistive Device: cane Allergy Review: Patient has answered NKA Allergy list reviewed and remains current. Recent Vital Signs: Temperature: 98 F [36.7 C] (09/26/2023 11:00) Pulse: 78 (09/26/2023 11:00) Respiration: 20 (09/26/2023 11:00) B/P: 115/54 (09/26/2023 11:00) Pain: 0 (09/26/2023 11:00) Wt: 127.5 lb [57.83 kg] (09/26/2023 11:00) Ht: 67 in [170.2 cm] (09/26/2023 11:00) BMI: 20.0 POX: 91% (09/26/2023 11:00) Blood sugar glucometer reading: n/a Would you like to discuss any personal problem, family problem, alcohol use, drug use, or a mental or emotional illness? No Contact provided Primary Care phone number and encouraged to call if any questions or concerns. Review that after hours nurse line [phone] and emergency room are available 01/10 for patient use. Contact verbalized good understanding. MST Screening: Patient denies experiencing sexual trauma (MST). Suicide Screen: C-SSRS Screening [place]-Suicide Severity Rating Scale (C-SSRS Screener) 1. Over the past month, have you wished you were or wished you could go to sleep and not wake up? No 2. Over the past month, have you had any actual thoughts of killing yourself? No 3. Over the past month, have you been thinking about how you might do this? Response not required due to responses to other questions. 4. Over the past month, have you had these thoughts and had some intention of acting on them? Response not required due to responses to other questions. 5. Over the past month, have you started to work out or worked out the details of how to kill yourself? Response not required due to responses to other questions. 6. If yes, at any time in the past month did you intend to carry out this plan? Response not required due to responses to other questions. 7. In your lifetime, have you ever done anything, started to do anything, or prepared to do anything to end your life (for example, collected pills, obtained a gun, gave away valuables, went to the roof but didn't jump)? No 8. If YES, was this within the past 3 months? Response not required due to responses to other questions. Sexual Orientation: The patient thinks of their sexual orientation as: Straight or Heterosexual COVID-19 Immunization: Refused Pfizer Monovalent COVID-19 vaccine Immunization: COVID-19 (PFIZER), MRNA, LNP-S, PF, LIZ-SUCROSE, 30 MCG/0.3 ML (AGES 12+ YEARS) Refusal Reason: PATIENT DECISION Patient refuses all immunization(s) in the COVID-19 group Date Documented: 09/26/23 11:11 Alcohol Use Screen (AUDIT-C): Alcohol Screen: SCREEN FOR ALCOHOL (AUDIT-C) An alcohol screening test (AUDIT-C) was negative (score=0). 1. How often did you have a drink containing alcohol in the past year? Consider a drink to be a 12 ounce can or bottle of regular beer, 8 ounces of malt liquor, a 5 ounce glass of table wine, or a 1.5 ounce shot of liquor (like scotch, gin, or vodka). Never 2. How many drinks containing alcohol did you have on a typical day when you were drinking in the past year? Response not required due to responses to other questions. 3. How often did you have six or more drinks on one occasion in the past year? Response not required due to responses to other questions. Depression Screening: Perform PHQ-2 A PHQ-2 screen was performed. The score was 0 which is a negative screen for depression. Over the past two weeks, how often have you been bothered by the following problems? 1. Little interest or pleasure in doing things Not at all 2. Feeling down, depressed, or hopeless Not at all Frail/Elderly Screen: ADL Screen - [place]auer Index of [place] in Activities of Daily Living Bathing: (1 Point) Recieves assistance in bathing more than one part of the body (or not bathed) Dressing: (3 Points) Gets clothes and gets completely dressed without assistance. Toileting: (3 Points) Goes to toilet room , cleans self, and arranges clothes without assistance (may use object for support such as cane, walker, or wheelchair, and may manage own night bedpan or commode, emptying same next morning) Transferring: (3 Points) Moves in and out of bed and in and out of chair without assistance (may be using object for support, such as cane or walker) Continence: (3 Points) Controls urination and bowel movement completely by self Feeding: (3 Points) Feeds self without assistance Total Score: 16 Points 18 = High (patient independent) 6 = Low (patient very dependent) IADL Screen - [place] Instrumental Activities of Daily Living Scale Ability to use telephone: (1 point) Operates Telephone on own initiative; looks up and dials numbers. Shopping: (0 points) Shops independently for small purchases. Food preparation: (1 point) Plans, prepares, and serves adequate meals independently. Housekeeping: (1 point) Performs light daily tasks, but cannot maintain acceptable level of cleanliness. Laundry: (1 point) Does personal laundry completely. Mode of transportation: (1 point) Travels on public transportation when assisted or accompanied by another. Responsibility for own medications: (1 point) Is responsible for taking medications in correct dosages at correct times. Ability to handle finances: (1 point) Manages financial matters independently (budgets, writes checks, pays rent and bills, goes to bank); collects and keeps track of income. Total score: 7 points 8 = High function, independent 0 = Low function, dependent Falls Screen: No falls within the past 12 months. Incontinence Screen No incontinence. Herpes Zoster (Shingles) Vaccine: The patient declines to receive the recommended dose of zoster (shingles) vaccine. Immunization: ZOSTER RECOMBINANT Refusal Reason: PATIENT DECISION Patient refuses all immunization(s) in the ZOSTER group Date Documented: 09/26/23 11:18 Pneumococcal Conjugate Vaccine (PCV15/PCV20): Refuses PCV vaccine Immunization: PNEUMOCOCCAL CONJUGATE, UNSPECIFIED FORMULATION Refusal Reason: PATIENT DECISION Patient refuses all immunization(s) in the PneumoPCV group Date Documented: 09/26/23 11:19 Tobacco Use Screening: The patient is a former tobacco user. The patient quit less than one year ago. Tdap Immunization: The patient declines to receive the recommended dose of Tdap vaccine. Immunization: TDAP Refusal Reason: PATIENT DECISION Patient refuses all immunization(s) in the TDAP group Date Documented: 09/26/23 11:19 /iman/ LIBRADO SIMPSON JR, LPN LICENSED PRACTICAL NURSE Signed: 09/26/2023 11:20 LIBRADO SIMPSON [facility]
== END 2024-03-29 17:45 | disposition home or self-care (01) ==
PROVIDERS: Emergency Provider Emergency Medicine; PCP Family Medicine
DX: K59.00 Constipation, unspecified (principal); C61 Malignant neoplasm of prostate; Z20.822 Contact with and (suspected) exposure to COVID-19; C79.51 Secondary malignant neoplasm of bone; J44.9 Chronic obstructive pulmonary disease, unspecified; Z86.16 Personal history of COVID-19; E78.5 Hyperlipidemia, unspecified; Z98.49 Cataract extraction status, unspecified eye; Z87.891 Personal history of nicotine dependence; Z79.60 Long term (current) use of unspecified immunomodulators and immunosuppressants; J90 Pleural effusion, not elsewhere classified
CPT/HCPCS: 36415; 71275; 74177; 80053; 81001; 83605; 83690; 85025; 85610; 85730; 87086; 87186; 87637; 96360; 99284; J7030; Q9967

== ENCOUNTER 2024-07-09 10:11 | Outpatient (CLI) | payer MEDICARE, SELFPAY ==
--- OUTSIDE RECORDS SUMMARY | 2024-07-09 10:54 | XMS_ITS | Continuity of Care Document ---
Author Name [facility] Organization [facility] Care Team Providers Care Software Firmware Engineer Name Role Phone [facility] Unavailable Unavailable Problems Combined list of problems from [facility] and [facility] facilities. It does not include entries that were removed or entered in error. Problem Status Onset Date Problem Type Date of Resolution Comments Source Primary malignant neoplasm of prostate Active Condition [facility] Diagnosis: ICD-10-CM C61 Malignant neoplasm of prostate Active Diagnosis [facility] Medications Combined list of outpatient medications from [facility] and [facility] facilities.Medications provided include 1) outpatient medications from the last 15 months, and 2) patient-reported medications. Medication Details Route Status Patient Instructions Prescription Expires Prescription Number Last Dispense Date Ordering Provider Order Date Order Qty Source OLODATEROL 2.5MCG/TIOT ROPIUM 2.5MCG/ACTU AT INHL,ORAL,6 0D,4GM INHALE 2 PUFFS BY ORAL INHALATI ON ONCE A DAY ADMINIST ER AT SAME TIME EACH DAY RESPIR ATORY (INHAL ATION) ACTIVE 05/16/2025 [id number] KANDI GALVAN ACE M 2024 1 [facility] Immunizations Combined list of available immunizations from the [facility] and [facility] facilities. Immunization Series Date Given Administered By Site Reaction Lot Number CVX Code Drug Skein Yard Drier Status Comments Source COVID-19 (Bancore A/S), MRNA, LNP-S, BIVALENT, PF, 30 MCG/0.3 ML DOSE 1 2021 300 complet ed HISTORICA L INFORMATI ON - FROM PATIENT'S WRITTEN RECORD, [facility] COVID-19 (Bancore A/S), MRNA, LNP-S, PF, 30 MCG/0.3 ML DOSE 2021 208 complet ed HISTORICA L INFORMATI ON - FROM PATIENT'S WRITTEN RECORD, [facility] INFLUENZA, UNSPECIFIED FORMULATION 2021 88 complet ed HISTORICA L INFORMATI ON - FROM PATIENT'S RECALL, [facility] COVID-19 (PFIZER), MRNA, LNP-S, PF, 30 MCG/0.3 ML DOSE 3 2021 208 complet ed HISTORICA L INFORMATI ON - FROM PATIENT'S WRITTEN RECORD, [facility] COVID-19 (PFIZER), MRNA, LNP-S, PF, 30 MCG/0.3 ML DOSE 2 2020 208 complet ed HISTORICA L INFORMATI ON - FROM PATIENT'S WRITTEN RECORD, [facility] COVID-19 (PFIZER), MRNA, LNP-S, PF, 30 MCG/0.3 ML DOSE 1 2020 208 complet ed HISTORICA L INFORMATI ON - FROM PATIENT'S WRITTEN RECORD, [facility] Vital Signs Combined list of inpatient and outpatient Vital Signs from Department of Defense and Veterans Affairs, ranging from 12 months to all on record, depending upon the facility. Vital Sign Value Date Comments Source SYSTOLIC BLOOD PRESSURE 115 09/26/2023 11:00:11 [facility] DIASTOLIC BLOOD PRESSURE 54 09/26/2023 11:00:11 [facility] PULSE OXIMETRY 91 09/26/2023 11:00:11 [facility] WEIGHT 127.5 09/26/2023 11:00:11 [facility] BMI 20 kg/m2 09/26/2023 11:00:11 [facility] PAIN 0 09/26/2023 11:00:11 [facility] HEIGHT 67 09/26/2023 11:00:11 [facility] TEMPERATURE 98 09/26/2023 11:00:11 [facility] PULSE 78 09/26/2023 11:00:11 [facility] RESPIRATION 20 09/26/2023 11:00:11 [facility] Encounters Combined list of: 1) Encounters from Department of Veterans Affairs facilities going backup to the last 18 months, not all VA inpatient encounters are included; 2) Encounters from the Department of Defense facilities going backup to 280 months. Location Location Details Encounter Type Encounter Number Reason For Visit Attending Provider ADM Date DC Date Status Disposition Source [facility] Outpatient Encounter [id number] 01/07 [facility] Outpatient Encounter [id number] HITESH SUAREZ 01/29 [facility] Outpatient Encounter [id number] 01/29 [facility] Outpatient Encounter [id number] 03/01 [facility] Outpatient Encounter [id number] 03/01 [facility] Outpatient Encounter [id number] 03/07 [facility] Outpatient Encounter [id number] 07/29 [facility] Outpatient Encounter [id number] CHU SIMPSON 09/[address] [facility] OFFICE O/P EST MOD 30 MIN [id number] Diagnos is: ICD-10- CM C61 Maligna nt neoplas m of paul e NEFTALI GALVAN 09/25 [facility] Encounter [id number] 03/17 [facility] Outpatient Encounter [id number] 03/19 [facility] Outpatient Encounter [id number] 04/02 [facility] Outpatient Encounter [id number] 04/02 [facility] Outpatient Encounter [id number] 04/20 [facility] Outpatient Encounter [id number] 04/21 [facility] Outpatient Encounter [id number] 04/21 [facility] Outpatient Encounter [id number] 04/22 [facility] Outpatient Encounter [id number] 04/23 [facility] Outpatient Encounter [id number] JARED CALDWELL 05[facility]15 [facility] Social History Combined list of available smoking, tobacco, and other social history from Department of Defense and Veterans Affairs facilities. Social History Type Response Date Comment [facility] Tobacco smoking status NHIS VA-TOBACCO FORMER USER 09/26/2023 [facility] History of tobacco use VA-TOBACCO QUIT < 1 YEAR 09/26/2023 [facility] History of tobacco use VA-TOBACCO USER E VERY DAY 10/09/2022 [facility] Plan of Care List of future care activities from Department of [facility] Affairs facilities. Additional future care activities may be listed in the Assessment and Plan section. Date/Time Care Activity Care Activity Detail Facili ty 08/13/2024 AMBULATORY - MEDICINE AMBULATORY - MEDICI NE [facility]
--- OUTSIDE RECORDS SUMMARY | 2024-07-09 10:54 | XMS_ITS | Clinical Summary ---
Author Organization [employer] Address [address] [place] [address] Care Team Providers Care Nutrition Internship Name Role Phone A, Unknown Practice Primary Care Provider [phone] Source Comments [facility],non-owned Affiliates and Associated Physician Practices is amultiple site organization consisting of ambulatory clinics and hospital sitesin [place], [place], [place] and [place]. This disclosure is being madepursuant to the Care Everywhere program and may not contain all information available regarding this patient. Last updated 17.[facility] [employer] Allergies No known active allergies Medications * Be aware that medications may not be up to date on this document. Alwaysverify current medications with the patient. abiraterone (Zytiga) 500 MG tablet Take 2 (two) tablets by mouth once daily 3 Active lisinopril-hyd roCHLOROthiazi de (Prinzide; Zestoretic) 20-25 MG tablet Take 1 (one) tablet by mouth every morning 3 Active predniSONE (Deltasone) 5 MG tablet 3 Active acetaminophen (Tylenol) 325 MG tablet Take 2 (two) tablets by mouth every 6 hours Maximum allowable Acetaminophen amount = 4 Grams (4000 mg) / 24 hours. 3 Active albuterol HFA (ProAir HFA) 108 (90 Base) MCG/ACT inhaler Inhale 2 (two) puffs by mouth every 4 hours as needed 8.5 g 3 Active vitamin D3 (Cholecalcifer ol) 25 MCG (1000 UNITS) tablet Take 1 (one) tablet by mouth once daily 30 tablet 10/28/202 3 Active Active Problems Problem Noted Date Diagnosed Date Fracture of multiple ribs of left side 3 Pleural effusion, bilateral 01/04/2023 Spleen injury 01/04/2023 Decreased mobility 01/04/2023 Fall, initial encounter 01/01/2023 Social History Tobacco Use Types Packs/Day Years Used Date Smoking Tobacco: Every Day Cigarettes Smokeless Tobacco: Never Tobacco Cessation:Ready to Q uit: No; Counseling Given: Yes Alcohol Use Standard Drinks/Week Comments Never 0 (1 standard drink = 0.6 oz pur e alcohol) AUDIT-C Answer Date Recorded Q1: How often do you have a drink containing alcohol? Never 12/31/2022 Q2: How many drinks containi ng alcohol do you have on a typical day when you are drinking? Patient does not drink Q3: How often do you have si x or more drinks on one occasion? Never 12/31/2022 Overall Financial Resource Strain (CARDIA) Answe r Date Recorded How hard is it for you to pa y for the very basics like food, housing, medical care, and heating? Not hard at all 01/01/2023 [facility] Occup[facility] ional [facility] - Occupational Stress Questionnaire Answer Date Recorded Do you feel stress - tense, restless, nervous, or anxious, or unable to sleep at night because your mind is troubled all the time - these days? Not at all 01/01/2023 Hunger Vital Sign Answer Date Recorded Within the past 12 months, y ou worried that your food would run out before you got the money to buy more. Never true 01/02/20 23 Within the past 12 months, t he food you bought just didn't last and you didn't have money to get more. Never true 01/01/2023 PRAPARE - Transportation Answer Date Re corded In the past 12 months, has l ack of transportation kept you from medical appointments or from getting medications? No 12/10 In the past 12 months, has l ack of transportation kept you from meetings, work, or from getting things needed for daily living? No 01/01/2023 Housing Stability Vital Sign Answer Armani e Recorded In the last 12 months, was t here a time when you were not able to pay the mortgage or rent on time? No 01/01/2023 In the last 12 months, how many places have you lived? 1 01/01/2023 In the last 12 months, was t here a time when you did not have a steady place to sleep or slept in a residential (including now)? No 01/01/2023 Sex and Gender Information Value Date Recorded Sex Assigned at Not on file Legal Sex Male 9:57 AM CDT Gender Identity Not on file Sexual Orientation Not on file Last Filed Vital Signs Vital Sign Reading Time Taken Comments Blood Pressure 104/57 01/04/2023 11:52 AM CDT Pulse 92 01/04/2023 11:56 AM CDT Temperature 36.4 C (97.6 F) 01/04/2023 11:52 AM CDT Respiratory Rate 18 01/04/2023 11:56 AM CDT Oxygen Saturation 95% 01/04/2023 11:56 AM CDT Inhaled Oxygen Concentration 50% 01/03/2023 1 0:43 AM CDT Weight 58 kg (127 lb 13.9 oz) 01/02/2023 4:00 AM CDT Height 170.2 cm (5' 7 ) 01/01/2023 2:41 PM CDT Body Mass Index 20.03 01/01/2023 2:41 PM CDT Plan of Treatment Health Maintenance Due Date Last Done Comments MEDICARE AWV 12 MONTHS 1935 DTAP/TDAP/TD VACCINES (1 - Tdap) 02/27/1956 PNEUMOCOCCAL VACCINE 50+ (1 of 2 - PCV) 02/27/1956 ZOSTER VACCINE (1 of 2) 1987 Respiratory Syncytial Virus (RSV) Vaccine Pt: or over 60 yrs (1 - 1-dose 75+ series) 02/27/2012 COVID-19 VACCINE ( season) 2023 01/01/2022, 07/10/2021, 01/26/2021, Additional history exists DEPRESSION SCREENING 03/11/2024 INFLUENZA VACCINE (Season Ended) 2024 12/09/2022, 01/01/2022, 01/26/2021 HEPATITIS B VACCINE Aged Out No longe r eligible based on patient's age to complete this topic HIB VACCINE Aged Out No longer eligi ble based on patient's age to complete this topic HPV VACCINE Aged Out No longer eligi ble based on patient's age to complete this topic MENINGOCOCCAL (Group B) VACCINE SHARED DECISION-MAKING Aged Out No longer eligible based on patient's age to complete this topic MENINGOCOCCAL GROUPS A/C/Y/W VACCINE Aged Out No longer eligible based on patient's age to complete this topic Insurance MEDICARE MEDICARE [facility] Advance Directives * Full Code (Latest Code Status on File) Date Activated Date Inactivated Comments 01/01/2023 12:31 AM 01/04/2023 3:18 PM Care Teams Nutrition Internship Relationship Specialty Start Date End Date A, Unknown Practice [address] [place] [address] PCP - General 12/30/22
--- OUTSIDE RECORDS SUMMARY | 2024-07-09 10:54 | XMS_ITS | Clinical Summary ---
Author Organization [facility] ([facility]) Efraín Carrasco Address [address] [place] [address] Care Team Providers Care Plum Packer Name Role Phone Alyssa Staton MD Primary Care Provider Allergies No known active allergies Medications cholecalciferol , vitamin D3, 1,000 unit Take 1,000 Units by mouth daily. 3 Active albuterol sulfate HFA 90 mcg/actuation aerosol inhaler Take 2 Puffs by inhalation every 4 hours as needed. 3 Active acetaminophen (TYLENOL) 325 mg tablet Take 650 mg by mouth. 3 Active zinc gluconate 50 mg Tablet Take by mouth. Ac tive fluticasone-ume clidinium-vilan terol (TRELEGY ELLIPTA) 100-62.5-25 mcg Disk with Device Take 1 Puff by inhalation daily. Active multivitamin (DAILY-CHARITY) tablet Take 1 Tablet by mouth daily. Active furosemide (LASIX) 40 mg tablet Take 40 mg by mouth daily. Active ferrous sulfate 325 mg (65 mg iron) tablet Take 325 mg by mouth daily. Active ondansetron (ZOFRAN ODT) 8 mg Tablet, Rapid Dissolve Dissolve 1 tablet on top of tongue then swallow with saliva every 8 hours as needed for nausea or vomiting 30 Tablet 1 4 Active lidocaine-prilo loy (EMLA) 2.5-2.5 % Cream Apply a quarter size amount to port site 30 minutes before access. 30 Gram 1 4 Active predniSONE (DELTASONE) 5 mg tablet Take 1 Tablet (5 mg) by mouth 2 times daily with meals. 60 Tablet 4 4 Active potassium chloride (KLOR-CON M20) 20 mEq Extended Release tablet Take 1 Tablet (20 mEq) by mouth daily. 90 Tablet 3 Active Active Problems Problem Noted Date Diagnosed Date C. 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 Encounters Date Type Department Care Team Description 07/08/2024 Orders Only [facility] Oncology and Hematology - [place] [address] [place] [phone] Nikhil Merida MD 07/07/2024 Orders Only [facility] Oncology and Hematology - [place] [address] [place] [address] Nikhil Merida MD 07/06/2024 Telephone [facility] Cardiovascular and Thoracic Surgery - [address] [facility] [address] [address] [facility] [address] [place] [address] Sharif Gonzalez MD Information 07/02/2024 Telephone [facility] Cardiovas and Thor Surg at [address] [place] [address] Salome Daigle NP pleurx order submission 06/29/2024 Orders Only [facility] Oncology and Hematology - [place] [address] [place] [phone] Nikhil Merida MD Prostate cancer metastatic to bone (CMS/HCC) 06/23/2024 External Device Data STL ABSTRACTION Provider, Abstract 06/17/2024 Orders Only [facility] Oncology and Hematology - [place] [address] [place] [phone] Nikhil Merida MD 06/16/2024 8:30 AM CDT Office Visit [facility] Oncology and Hematology - [place] [address] [place] [address] Nikhil Merida MD Prostate cancer metastatic to bone (CMS/HCC) (Primary Dx) 06/16/2024 Orders Only [facility] Oncology and Hematology - [place] [address] [place] [address] Nikhil Merida MD 06/15/2024 Orders Only [facility] Oncology and Hematology - [place] [address] [place] [address] Nikhil Merida MD Prostate cancer metastatic to bone (CMS/HCC) 06/09/2024 Orders Only [facility] Oncology and Hematology - [place] [address] [place] [address] Nikhil Merida MD 06/08/2024 Telephone [facility] Oncology and Hematology - [place] [address] Nikhil Merida MD Urinary Pain 06/03/2024 Orders Only [facility] Oncology and Hematology - [place] [address] Nikhil Merida MD Burning with urination (Primary Dx) 06/01/2024 Orders Only [facility] Oncology and Hematology - [place] [address] Nikhil Merida MD Prostate cancer metastatic to bone (CMS/HCC) 05/27/2024 Telephone [facility] Oncology and Hematology - [place] [address] [place] [address] Nikhil Merida MD Blisters in mouth 05/19/2024 Orders Only [facility] Oncology and Hematology - [place] [address] Nikhil Merida MD 05/18/2024 Orders [facility] Hematology - [place] [address] [place] [phone] Nikhil Merida MD Prostate cancer metastatic to bone (CMS/HCC) 05/06/2024 Orders Only [facility] Oncology and Hematology - [place] [address] [place] [phone] Nikhil Merida MD 05/05/2024 8:30 AM HAIR BALER Office Visit [facility] Oncology and Hematology [facility] [address] [place] [address] Nikhil Merida MD Prostate cancer metastatic to bone (CMS/HCC) (Primary Dx) 05/05/2024 Orders Only [facility] Oncology and Hematology [facility] [address] [place] [phone] Nikhil Merida MD Prostate cancer metastatic to bone (CMS/HCC) (Primary Dx) 05/04/2024 Orders Only [facility] Oncology and Hematology [place] [address] [place] [address] Nikhil Merida MD Prostate cancer metastatic to bone (CMS/HCC) 04/28/2024 External Device Data STL ABSTRACTION Provider, Abstract 04/27/2024 Orders Only [facility] Oncology and Hematology [facility] [address] [place] [address] Nikhil Merida MD Prostate cancer metastatic to bone (CMS/HCC) 04/20/2024 Orders Only [facility] Oncology and Hematology - [place] [address] [place] [address] Nikhil Merida MD Prostate cancer metastatic to bone (CMS/HCC) 04/14/2024 8:45 AM HAIR BALER Office Visit [facility] Oncology and Hematology [facility] [address] [place] [address] Nikhil Merida MD Prostate cancer metastatic to bone (CMS/HCC) (Primary Dx) 04/13/2024 Orders Only [facility] Oncology and Hematology - [place] [address] [place] [address] Nikhil Merida MD Prostate cancer metastatic to bone (CMS/HCC) from Last 3 Months Immunizations Immunization Administration Dates Next Due Influenza Seasonal Unspecified Formulation IM Family History Medical History Relation Name Comments Prostate Cancer Father Relation Name Status Comments Brother 1 Brother 2 Alive Brother 3 Alive Brother 4 Alive Daughter Alive Father Mother Sister 1 Alive Sister 2 Alive Sister 3 Alive Sister 4 Alive Son Alive Social History Tobacco Use Types Packs/Day Years Used Date Smoking Tobacco: Former Cigarettes 1 65 S tarted: 1955 Smokeless Tobacco: Never Tobacco Cessation:Counseling Given: Not Answered Alcohol Use Standard Drinks/Week Comments Never 0 (1 standard drink = 0.6 oz pur e alcohol) Feeling Safe Answer Date Recorded Are you in a relationship wi th someone who hurts you emotionally and/or physically? No 04/08/2023 Food Insecurity Answer Date Recorded Social/Environmental Concerns No concerns Transportation Needs Answer Date Record ed Social/Environmental Concerns No concerns Housing Stability Answer Date Recorded Social/Environmental Concerns No concerns Utility Needs Answer Date Recorded Social/Environmental Concerns No concerns Sex and Gender Information Value Date Recorded Sex Assigned at Not on file Legal Sex Male 4:59 AM HAIR BALER Gender Identity Not on file Sexual Orientation Not on file Last Filed Vital Signs Vital Sign Reading Time Taken Comments Blood Pressure 116/55 06/16/2024 8:41 AM CDT Pulse 84 06/16/2024 8:41 AM CDT Temperature 35.9 C (96.7 F) 06/16/2024 8:41 AM CDT Respiratory Rate 15 06/16/2024 8:41 AM CDT Oxygen Saturation 91% 06/16/2024 8:41 AM CDT Inhaled Oxygen Concentration - - Weight 58 kg (127 lb 12.8 oz) 06/16/2024 8:41 AM CDT Height 170.2 cm (5' 7 ) 04/08/2023 12:07 AM HAIR BALER Body Mass Index 20.02 04/08/2023 12:07 AM HAIR BALER Plan of Treatment Upcoming Encounters Date Type Department Care Team (Late st Contact Info) Description 07/28/2024 9:00 AM CDT Office Visit [facility] Oncology and Hematology - [place] [address] [facility] [address] [place] [address] Nikhil Merida MD [address] [facility] [address] [place] [address] Health Maintenance Due Date Last Done Comments DTAP/TDAP/TD VACCINES (1 - Tdap) 02[birth year]27/1954 PNEUMOCOCCAL VACCINE 50+ YEARS (1 of 2 - PCV) 02/26/19 56 ZOSTER VACCINE (1 of 2) 02/27/1956 RSV VACCINE (60+ or ) (1 - 1-dose 75+ series) 02/27/2012 INFLUENZA VACCINE (#1) 2023 12/09/2022 Procedures Procedure Name Priority Date/Time Associated Diagnosis Comments BASIC METABOLIC PANEL Routine 07/07/2024 12:48 PM CDT CBC MIXED CELL DIFFERENTIAL Routine 06/10 12:47 PM CDT COMPREHENSIVE METABOLIC PANEL Routine 07/07/2024 9:02 AM CDT BASIC METABOLIC PANEL Routine 06/16/2024 12:39 PM CDT CBC WITH AUTODIFFERENTIAL Routine 2024 12:37 PM CDT CBC MIXED CELL DIFFERENTIAL Routine 10/2024 12:37 PM CDT COMPREHENSIVE METABOLIC PANEL Routine 06/16/2024 12:35 PM CDT URINALYSIS DIPSTICK ONLY Routine 025 11:27 AM CDT COMPREHENSIVE METABOLIC PANEL Routine 05/18/2024 10:36 AM CDT COMPREHENSIVE METABOLIC PANEL Routine 05/05/2024 4:05 PM HAIR BALER CBC WITH AUTODIFFERENTIAL Routine 2024 10:44 AM HAIR BALER from Last 3 Months Results * BASIC METABOLIC PANEL (07/07/2024 12:48 PM CDT) Only the most recent of2 resultswithin the time period is included. Blood Nikhil Merida MD CHEMISTRY ORDERABLES Final Resu lt * CBC MIXED CELL DIFFERENTIAL (07/07/2024 12:47 PM CDT) Only the most recent of2 resultswithin the time period is included. Blood us Nikhil Merida MD HEMATOLOGY ORDERABLES Final Res ult * COMPREHENSIVE METABOLIC PANEL (07/07/2024 9:02 AM CDT) Only the most recent of4 resultswithin the time period is included. Blood us Nikhil Merida MD CHEMISTRY ORDERABLES Final Resu lt * CBC WITH AUTODIFFERENTIAL (06/16/2024 12:37 PM CDT) Only the most recent of2 resultswithin the time period is included. Blood us Nikhil Merida MD HEMATOLOGY ORDERABLES Final Res ult * URINALYSIS DIPSTICK ONLY (06/03/2024 11:27 AM CDT) Urine URINE SPECIMEN OBTAINED BY CLEAN CATCH PROCEDURE / Unknown us Nikhil Merida MD URINE ORDERABLES Final Result from Last 3 Months Insurance MEDICARE PART A AND B [facility] [id number] MEDICARE PART A AND B [facility] [id number] RX [employer] RX Member Subscriber Plan / Payer (Ef fective 2023-Present) Name:Yamil Sabillon Relation to Subscriber:Self Name:Yamil Sabillon Payer ID:Not on file Group ID:[id number] Type:RX Medicare Part D Address: [facility] [employer] Medicare Part D Advance Directives For more information, please contact: [phone] * Full Code (Latest Code Status on File) Date Activated Date Inactivated Comments 04/09/2023 10:45 AM 04/16/2023 10:56 PM * Full Code Date Activated Date Inactivated Comments 04/08/2023 1:30 PM 04/09/2023 10:45 AM * Full Code Date Activated Date Inactivated Comments 04/07/2023 9:06 PM 04/08/2023 1:30 PM Care Teams Plum Packer Relationship Specialty Start Date End Date Alyssa Staton MD [address] [place] [address] PCP - General Family Practice 06/12/21
--- OUTSIDE RECORDS SUMMARY | 2024-07-09 10:54 | XMS_ITS | Encounter Summary ---
Author Organization [facility] [employer] [facility] Address [address] [place] [address] Care Team Providers Care Die Sinker Name Role Phone Alyssa Staton MD Primary Care Provider Encounter Details Date Type Department Care Team ([facility] Contact Info) Description 07/07/2024 Orders Only [facility] Oncology and Hematology - [place] [address] [place] [address] Nikhil Merida MD [address] [facility] [address] [place] [address] Social History Tobacco Use Types Packs/Day Years Used Date Smoking Tobacco: Former Cigarettes 1 65 S tarted: 8 Smokeless Tobacco: Never Alcohol Use Standard Drinks/Week Comments Never 0 [...] on file 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 Gender Identity Not on file Sexual Orientation Not on file documented as of this encounter Plan of Treatment Upcoming Encounters Date Type Department Care Team (Late Contact Info) Description 07/28/2024 9:00 AM CDT Office Visit [facility] Oncology and Hematology - [place] [address] [place] [address] Nikhil Merida MD [address] [facility] [address] [place] [address] documented as of this encounter Procedures Procedure Name Priority Date/Time Associated Diagnosis Comments BASIC METABOLIC PANEL Routine 07/07/2024 12:48 PM CDT CBC MIXED CELL DIFFERENTIAL Routine 07/07/2024 12:47 PM CDT documented in this encounter Results * BASIC METABOLIC PANEL (07/07/2024 12:48 PM CDT) Blood Nikhil Merida MD CHEMISTRY ORDERABLES Final Resu lt * CBC MIXED CELL DIFFERENTIAL (07/07/2024 12:47 PM CDT) Blood Nikhil Merida MD HEMATOLOGY ORDERABLES Final Res ult documented in this encounter Visit Diagnoses Not on filedocumented in this encounter Care Teams Die Sinker Relationship Specialty Start Date End Date Alyssa Staton MD [address] [place] [phone] PCP - General Family Practice 06/12/21 documented as of this encounter
--- OUTSIDE RECORDS SUMMARY | 2024-07-09 10:54 | XMS_ITS | Encounter Summary ---
Author Organization [facility] Address 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 Gender Identity Not on file Sexual Orientation Not on file documented as of this encounter Plan of Treatment Upcoming Encounters Date Type Department Care Team (Late st Contact Info) Description 07/28/2024 9:00 AM CDT Office Visit [facility] Oncology and Hematology [facility] [address] [facility] [address] [address] Nikhil Merida MD [address] [facility] [address] [place] [address] documented as of this encounter Visit Diagnoses Diagnosis Malignant neoplasm of prostate (CMS/HCC)- Primary Malignant neoplasm of prostate documented in this encounter Additional Health Concerns Infection Onset Date Last Indicated Resolved Time R/O GI Pathogen 04/07/2023 04/08/2023 04/08/2023 5 :52 PM AUTOMOBILE WRECKER C Diff 04/08/2023 04/08/2023 06/07/2023 1:16 AM CDT documented as of this encounter Care Teams Medical Laboratory Technical Officer Relationship Specialty Start Date End Date Alyssa Staton MD [address] [place] [phone] PCP - General Family Practice 06/12/21 documented as of this encounter
--- OUTSIDE RECORDS SUMMARY | 2024-07-09 10:54 | XMS_ITS | Encounter Summary ---
Author Organization [facility] [employer] [facility] Address [address] [place] [address] Care Team Providers Care Shipping Receiving Manager Name Role Phone Alyssa Staton MD Primary Care Provider Encounter Details Date Type Department Care Team ([facility] Contact Info) Description 07/08/2024 Orders Only [facility] Oncology and Hematology - [place] [address] [place] [address] Nikhil Merida MD [address] [facility] [employer] [address] [place] [address] Social History Tobacco Use Types [...] on file 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 Gender Identity Not on file Sexual Orientation Not on file documented as of this encounter Plan of Treatment Upcoming Encounters Date Type Department Care Team (Late Contact Info) Description 07/28/2024 9:00 AM CDT Office Visit [facility] Oncology and Hematology - [place] [address] [place] [address] Nikhil Merida MD [address] [facility] [address] [place] [address] documented as of this encounter Procedures Procedure Name Priority Date/Time Associated Diagnosis Comments COMPREHENSIVE METABOLIC PANEL Routine 07/07/2024 9:02 AM CDT documented in this encounter Results * COMPREHENSIVE METABOLIC PANEL (07/07/2024 9:02 AM CDT) Blood us Nikhil Merida MD CHEMISTRY ORDERABLES Final Resu lt documented in this encounter Visit Diagnoses Not on filedocumented in this encounter Care Teams Shipping Receiving Manager Relationship Specialty Start Date End Date Alyssa Staton MD [address] [place] [address] PCP - General Family Practice 06/12/21 documented as of this encounter
--- OUTSIDE RECORDS SUMMARY | 2024-07-09 10:54 | XMS_ITS | Clinical Summary ---
Author Organization [facility] Address [address] [place] [address] Care Team Providers Care Barrel Roller Name Role Phone None, Provider MD Primary Care Provider Unavaila ble Social History Tobacco Use Types Packs/Day Years Used Date Smoking Tobacco: Never Assessed Sex and Gender Information Value Date Recorded Sex Assigned at Not on file Legal Sex Male 4:56 PM APPLICATION PACKAGING CONSULTANT Gender Identity Not on file Sexual Orientation Not on file Plan of Treatment Health Maintenance Due Date Last Done Comments DTaP, Tdap and Td Vaccines ( 1 - Tdap) [birth year]27/1954 Pneumococcal Vaccine: 50+ Ye ars (1 of 1 - PCV) 1987 Zoster Vaccines (1 of 2) 1987 Annual Medicare Wellness Visit 2002 RSV Immunization or 60+ Years (1 - 1-dose 75+ series) 02/27/2012 COVID-19 Vaccine (2023-2 5 season) 2023 Meningococcal B Vaccine Aged Out No l onger eligible based on patient's age to complete this topic Meningococcal Vaccine Aged Out No eugenia leon eligible based on patient's age to complete this topic RSV Immunizations Under 20 Months Aged Out No longer eligible based on patient's age to complete this topic Insurance MEDICARE AARP Care Teams Barrel Roller Relationship Specialty Start Date End Date None, Provider, PCP - General UNKNOWN PHYSICIAN SPECIALTY 03/28/23
--- OUTSIDE RECORDS SUMMARY | 2024-07-09 10:54 | XMS_ITS ---
Author Name Auto Generated, Auto Generated Organization [facility] Address [address] [place] [address] Phone [phone] Care Team Providers Care Geophysics Professor Name Role Phone Hank Dolan Unavailable [phone] Eliazar Castillo Unavailable Functional Status No Results Mental Status No Results Allergies and Intolerances Name Onset Date Reaction Severity No Known Allergies (Allergy) SatFeb 08 15:42:00 EST 2022 Medications Medication Directions Start Date End Date Florastor 250 mg capsule 1 capsule CAPSU LE Oral 2 Times Daily for 10 Days Indication: GI proph SatMar 22 07:00:00 EST 2023Mar 21 01:00:00 EST 2023 sodium chloride 0.9 % intravenous solution 2 L INTRAVENOUS SOLUTION Intravenous 1 Time Daily for 1 Day Indication: First 1000ml (250ml/hr bolus x 2 then 250ml/hr x 500ml)Second 1000ml (to run at 125nl/hr x 1L) then complete SatMar 20 09:00:00 EST 2023Mar 21 01:00:00 EST 2023 ascorbic acid (vitamin C) 250 mg tablet 1 tablet TABLET Oral 1 Time Daily Indication: Supplement SatMar 18 17:00:00 EST 2023Mar 21 01:00:00 EST 2023 FeroSuL 325 mg (65 mg iron) tablet 1 tab TABLET Oral 1 Time Daily Indication: anemia SatMar 14 09:00:00 EST 2023Mar 21 01:00:00 EST 2023 cyanocobalamin (vit B-12) 500 mcg tablet 1 tab TABLET Oral 1 Time Daily Indication: deficient SatMar 14 09:00:00 EST 2023Mar 21 01:00:00 EST 2023 amoxicillin 875 mg-potassium clavulanate 125 mg tablet 1 tablet TABLET Oral 2 Times Daily for 10 Days Indication: PNA SatMar 07 14:00:00 EST 2022Mar 17 13:59:00 EST 2023 azithromycin 500 mg tablet 1 tablet TABL ET Oral 1 Time Daily for 1 Day Indication: PNA SatMar 07 07:00:00 EST 2022Mar 08 06:59:00 EST 2022 azithromycin 250 mg tablet 1 tablet TABL ET Oral 1 Time Daily for 4 Days Indication: SatMar 08 07:00:00 EST 2022Mar 12 06:59:00 EST 2023 albuterol sulfate 2.5 mg/3 mL (0.083 %) solution for nebulization 1 vial VIAL, NEBULIZER (ML) Nebulization Every 6 Hours Indication: COPD SatMar 05 15:00:00 EST 2022Mar 21 01:00:00 EST 2023 ipratropium bromide 0.02 % solution for inhalation 0.5mg SOLUTION, NON-ORAL Nebulization Every 6 Hours Indication: COPD SatMar 05 15:00:00 EST 2022Mar 12 14:41:00 EST 2023 Trelegy Ellipta 100 mcg-62.5 mcg-25 mcg powder for inhalation 1 inhalation BLISTER, WITH INHALATION DEVICE Inhalation 1 Time Daily Indication: SOB SatFeb 28 01:30:00 EST 2022Mar 21 01:00:00 EST 2023 albuterol sulfate HFA 90 mcg/actuation aerosol inhaler 1 PUFF HFA AEROSOL WITH ADAPTER (GRAM) Inhalation PRN Every 4 Hours Indication: SHORTNESS OF BREATH/WHEEZING with spacer SatFeb 27 01:30:00 EST 2022Mar 21 01:00:00 EST 2023 HYDROcodone 5 mg-acetaminophen 325 mg tablet 1 tab TABLET Oral PRN Every 6 Hours for 14 Days Indication: cough and pain SatFeb 28 00:00:00 EST 2022Mar 13 23:59:00 EST 2023 albuterol sulfate 2.5 mg/3 mL (0.083 %) solution for nebulization 1 vial VIAL, NEBULIZER (ML) Inhalation Every 4 Hours Indication: SOBWHILE AWAKE SatFeb 26 13:00:00 EST 2022Feb 27 19:37:00 EST 2022 ipratropium bromide 0.02 % solution for inhalation 0.5mg SOLUTION, NON-ORAL Inhalation Every 4 Hours Indication: SOBWHILE AWAKE SatFeb 26 13:00:00 EST 2022Feb 27 19:37:00 EST 2022 Anoro Ellipta 62.5 mcg-25 mcg/actuation powder for inhalation 1 puff BLISTER, WITH INHALATION DEVICE Inhalation 1 Time Daily Indication: COPD SatFeb 26 13:00:00 EST 2022Feb 28 01:01:00 EST 2022 folic acid 1 mg tablet 1 tablet TABLET O ral 1 Time Daily Indication: Supplement SatFeb 26 13:00:00 2022Mar 21 01:00:00 EST 2023 Vitamin C 100 mg tablet 1 tablet TABLET Oral 1 Time Daily Indication: Supplement SatFeb 26 13:00:00 EST 2022Mar 19 08:34:00 EST 2023 multivitamin tablet 1 tablet TABLET Oral 1 Time Daily Indication: Supplement SatFeb 26 14:00:00 EST 2022Mar 21 01:00:00 EST 2023 zinc sulfate 50 mg zinc (220 mg) tablet 1 tablet TABLET Oral 1 Time Daily Indication: Supplement SatFeb 26 14:00:00 EST 2022Mar 21 01:00:00 EST 2023 Fluad Quad (65yr up)(PF) 60 mcg (15 mcg x 4)/0.5mL IM syringe 0.5 mL SYRINGE (ML) Intramuscular 1 Time Daily for 1 Day Indication: Influenza vaccine SatFeb 19 11:00:00 2022Feb 19 12:33:00 EST 2022 Vitamin C 1,000 mg tablet 1 tablet TABLE T Oral 1 Time Daily for 14 Days Indication: Supplement SatFeb 19 11:00:00 EST 2022Feb 26 12:56:00 EST 2022 zinc sulfate 50 mg zinc (220 mg) capsule 1 capsule CAPSULE Oral 1 Time Daily for 14 Days Indication: supplement SatFeb 19 11:00:00 EST 2022Feb 26 12:58:00 EST 2022 Fluad Quad (65yr up)(PF) 60 mcg (15 mcg x 4)/0.5mL IM syringe 0.5 mL SYRINGE (ML) Intramuscular 1 Time Daily for 1 Day Indication: Influenza vaccine SatMar 01 11:00:00 EST 2022Mar 02 10:59:00 EST 2022 ipratropium 0.5 mg-albuteroL 3 mg (2.5 mg base)/3 mL nebulization soln as directed AMPUL FOR NEBULIZATION (ML) Inhalation Every 4 Hours Indication: SOB q 4 hrs while awake SatFeb 18 23:00:00 EST 2022Feb 26 13:00:00 EST 2022 Anoro Ellipta 62.5 mcg-25 mcg/actuation powder for inhalation 1 PUFF BLISTER, WITH INHALATION DEVICE Inhalation Continuous Indication: COPD SatFeb 14 13:00:00 EST 2022Feb 14 15:19:00 EST 2022 Anoro Ellipta 62.5 mcg-25 mcg/actuation powder for inhalation 1 tab BLISTER, WITH INHALATION DEVICE Inhalation 1 Time Daily Indication: COPD SatFeb 15 09:00:00 EST 2022Feb 14 15:50:00 EST 2022 Trelegy Ellipta 100 mcg-62.5 mcg-25 mcg powder for inhalation 1 puff BLISTER, WITH INHALATION DEVICE Inhalation 1 Time Daily Indication: . COPD rinse mouth after use SatFeb 15 09:00:00 EST 2022Feb 26 13:00:00 EST 2022 triamcinolone acetonide 0.1 % topical ointment as directed OINTMENT (GRAM) Topical 3 Times Daily for 3 Days Indication: . apply to rash TID SatFeb 14 09:00:00 EST 2022Feb 17 08:59:00 EST 2022 triamcinolone acetonide 0.1 % topical ointment as directed OINTMENT (GRAM) Topical PRN 3 Times Daily Indication: . apply to rash TID SatFeb 17 13:00:00 EST 2022Feb 26 12:59:00 EST 2022 triamcinolone acetonide 0.1 % topical cream as directed CREAM (GRAM) Topical PRN 3 Times Daily Indication: itching SatFeb 12 16:30:00 EST 2022Mar 21 01:00:00 EST 2023 TubersoL 5 tub. unit/0.1 mL intradermal injection solution Read Results VIAL (ML) Other 1 Time Weekly for 2 Weeks Indication: . Read results between 48-72 hours after 1st and 2nd (1 week apart). If positive do chest x-ray. SatFeb 11 09:00:00 EST 2022Feb 25 08:59:00 EST 2022 Med Pass 2.0 Nutritional Supplement 120 mL 120 mL 120 cc Oral 3 Times Daily Indication: For wt maintenance/gain SatFeb 11 17:30:00 EST 2022Mar 21 01:00:00 EST 2023 TubersoL 5 tub. unit/0.1 mL intradermal injection solution 0.1 ml VIAL (ML) Intradermal 1 Time Weekly for 2 Weeks Indication: . 1st injection on admission, then one week after. Read between 48 and 72 hours SatFeb 09 09:00:00 EST 2022Feb 23 08:59:00 EST 2022 albuterol sulfate HFA 90 mcg/actuation aerosol inhaler 1 PUFF HFA AEROSOL WITH ADAPTER (GRAM) Inhalation PRN 4 Times Daily Indication: SHORTNESS OF BREATH/WHEEZING SatFeb 08 16:20:00 EST 2022Feb 28 01:23:00 EST 2022 albuterol sulfate 2.5 mg/3 mL (0.083 %) solution for nebulization 3ML VIAL, NEBULIZER (ML) Nebulization Every 4 Hours Indication: COPD WHILE AWAKE SatFeb 08 16:20:00 EST 2022Feb 14 15:19:00 EST 2022 ipratropium bromide 0.02 % solution for inhalation 0.5MG SOLUTION, NON-ORAL Inhalation Every 4 Hours Indication: COPD WHILE AWAKE SatFeb 08 16:20:00 EST 2022Feb 14 15:19:00 EST 2022 Anoro Ellipta 62.5 mcg-25 mcg/actuation powder for inhalation 1 PUFF BLISTER, WITH INHALATION DEVICE Inhalation 1 Time Daily Indication: COPD SatFeb 08 16:20:00 EST 2022Feb 14 15:19:00 EST 2022 vancomycin 25 mg/mL oral solution 125MG SOLUTION, RECONSTITUTED, ORAL Oral Every 6 Hours for 4 Days Indication: C-DIFF SatFeb 08 14:20:00 EST 2022Feb 12 14:19:00 EST 2022 calcium carbonate 600 mg-vitamin D3 5 mcg (200 unit) tablet 1 TABLET TABLET Oral 2 Times Daily Indication: Supplement SatFeb 08 14:20:00 EST 2022Mar 21 01:00:00 EST 2023 Vitamin D3 25 mcg (1,000 unit) capsule 1,000 Units CAPSULE Oral 1 Time Daily Indication: Vitamin D deficiency SatFeb 08 16:20:00 EST 2022Mar 21 01:00:00 EST 2023 lisinopriL 20 mg-hydrochlorothiazide 25 mg tablet 1 TABLET TABLET Oral 1 Time Daily Indication: HTN SatFeb 08 16:20:00 EST 2022Mar 21 01:00:00 EST 2023 loratadine 10 mg tablet 10MG TABLET Oral 1 Time Daily Indication: Allergies SatFeb 08 16:20:00 EST 2022Mar 21 01:00:00 EST 2023 potassium chloride ER 20 mEq tablet,extended release 1 tablet TABLET, EXTENDED RELEASE Oral 1 Time Daily Indication: Hypokalemia SatFeb 08 16:20:00 EST 2022Feb 13 06:16:00 EST 2022 potassium chloride ER 20 mEq tablet,extended release(part/cryst) 1 tab Oral 1 Time Daily Indication: Hypokalemia SatFeb 08 12:00:00 EST 2022Mar 21 01:00:00 EST 2023 potassium chloride ER 20 mEq tablet,extended release(part/cryst) 1 Oral Continuous Indication: supplement SatFeb 08 09:00:00 EST 2022Feb 13 12:18:00 EST 2022 Problems Active Concerns * Chronic obstructive pulmonary disease, unspecified* Code: * Start Date: SatFeb 08 00:00:00 EST 2022 * End Date: * Text: * Hypokalemia* Code: * Start Date: SatFeb 08 00:00:00 EST 2022 * End Date: * Text: * Unspecified protein-calorie malnutrition* Code: * Start Date: SatFeb 08 00:00:00 EST 2022 * End Date: * Text: * Malignant neoplasm of prostate* Code: * Start Date: SatFeb 08 00:00:00 EST 2022 * End Date: * Text: * Secondary malignant neoplasm of bone* Code: * Start Date: SatFeb 08 00:00:00 EST 2022 * End Date: * Text: * Enterocolitis due to Clostridium difficile, not specified as recurrent* Code: * Start Date: SatFeb 08 00:00:00 EST 2022 * End Date: * Text: * Cutaneous abscess of left upper limb* Code: * Start Date: SatFeb 08 00:00:00 EST 2022 * End Date: * Text: * Essential (primary) hypertension* Code: * Start Date: SatFeb 08 00:00:00 EST 2022 * End Date: * Text: * Hyperlipidemia, unspecified* Code: * Start Date: SatFeb 08 00:00:00 EST 2022 * End Date: * Text: * Pleural effusion, not elsewhere classified* Code: * Start Date: SatFeb 08 00:00:00 2022 * End Date: * Text: * Chronic obstructive pulmonary disease with (acute) lower respiratory infection * Code: * Start Date: SatFeb 08 00:00:00 2022 * End Date: * Text: * Pneumonia, unspecified organism* Code: * Start Date: SatFeb 08 00:00:00 EST 2022 * End Date: * Text: * Unspecified laceration of spleen, subsequent encounter* Code: * Start Date: SatFeb 08 00:00:00 EST 2022 * End Date: * Text: * Fracture of one rib, unspecified side, subsequent encounter for fracture with routine healing* Code: * Start Date: SatFeb 08 00:00:00 2022 * End Date: * Text: * Personal history of nicotine dependence* Code: * Start Date: SatFeb 08 00:00:00 2022 * End Date: * Text: * Non-pressure chronic ulcer of skin of other sites with fat layer exposed* Code: * Start Date: SatFeb 08 00:00:00 2022 * End Date: * Text: * Hormone resistant malignancy status* Code: * Start Date: SatFeb 08 00:00:00 2022 * End Date: * Text: * Acquired absence of other genital organ(s)* Code: * Start Date: SatFeb 08 00:00:00 2022 * End Date: * Text: * Other specified postprocedural states* Code: * Start Date: SatFeb 08 00:00:00 EST 2022 * End Date: * Text: * Encounter for adjustment and management of vascular access device* Code: * Start Date: SatFeb 08 00:00:00 EST 2022 * End Date: * Text: * Dependence on supplemental oxygen* Code: * Start Date: SatFeb 26 00:00:00 EST 2022 * End Date: * Text: * Personal history of (healed) traumatic fracture* Code: * Start Date: SatFeb 08 00:00:00 2022 * End Date: * Text: * Sepsis, unspecified organism* Code: * Start Date: SatFeb 26 00:00:00 EST 2022 * End Date: * Text: * COVID-19* Code: * Start Date: SatFeb 26 00:00:00 2022 * End Date: * Text: * Chronic obstructive pulmonary disease with (acute) exacerbation* Code: * Start Date: SatFeb 26 00:00:00 2022 * End Date: * Text: * Urticaria, unspecified* Code: * Start Date: SatFeb 26 00:00:00 2022 * End Date: * Text: Reason for Referral Past Medical History Resolved Concerns * Problem Abnormal findings on diagnostic imaging of other specified body structures* Code: * Start Date: SatFeb 08 00:00:00 2022 * End Date: SatFeb 11 00:00:00 2022
--- OUTSIDE RECORDS SUMMARY | 2024-07-09 10:54 | XMS_ITS ---
Author Organization [facility] Address [address] [place] [address] Care Team Providers Care Molded Candles Wicker Name Role Phone Alyssa Staton MD Primary Care Provider Active Problems Problem Noted Date Diagnosed Date C. 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 Past Treatment and Therapy Plans No past plan information found. Lifetime Dose Tracking * Chemical Lifetime Dose Automatic Entry Manual Entr y Effective Dose 3.47 mSv 3.47 mSv 0 mSv Total DLP 145.64 DLP 145.64 DLP 0 DLP CTDIvol Max 2.97 mGy 2.97 mGy 0 mGy
--- OUTSIDE RECORDS SUMMARY | 2024-07-09 10:54 | XMS_ITS | Continuity of Care Document ---
Author Organization [facility] Address [address] [place] [address] Phone Care Team Providers Care Technical Support Agent Name Role Phone Garcia OD, Sharif Unavailable Unavailable Advance Directives Directive Yes / No Effective Date File Name No Information Encounters Encounter Description Practice Location Reason(s) For Visit Diagnoses Date Provider Providers Copied on Encounter [facility], [address], [place], [place], [id number], [place] tel:[phone] [facility] No Information [phone] Garcia OD Sharif. [address] , [address], [place], [address], [place]. tel:[phone] Family History Family Member Type Diagnosis Age At Onset No Information Payers Payer name Insurance type Covered constitution party ID Authoriza tion(s) No Information Social History Type Description Quantity Date Captured Comments Sex Male Smoking Status No Information Chief Complaint And Reason For Visit No Information Reason For Referral Reason For Referral No Information History Of Present Illness Encounter Date Complaint History Of Prese nt Illness No Information Functional Status Date Functional Assessmen t No Information Instructions Date Instruction Additional Infor mation No Information Assessments Type Assessment Date No Information Patient Care Teams Name Effective Dates (start - stop) Status Members No Information
[2024-07-09 19:24] LABS: Add Urine Microscopic? YES; Appearance Urine Clear (Clear); Bacteria Urine None Seen /hpf; Bilirubin Urine Negative (Negative); Blood Urine 3+ (Negative); Color Urine Yellow (Yellow); Glucose Urine UA Negative (Negative); Ketones Urine Negative (Negative); Leukocyte Esterase Ur Trace LEU/UL (Negative); Nitrate Urine Negative (Negative); Non Pathogenic Casts 0-2; Protein Urine 2+ mg/dL (Negative); RBC Urine >100 /hpf (0-2); Specific Grav Ur 1.011 (1.001-1.035); Squamous Epithelial Cell Urine None Seen /hpf (Few); Urobilinogen Urine 0.2 mg/dL (<2.0); pH Urine 5.5 (5.0-9.0)
== END 2024-07-09 10:12 | disposition home or self-care (01) ==
LOC: ANHGOSHLAB 10:11
PROVIDERS: PCP Family Medicine; Visit Provider Family Medicine
DX: R30.0 Dysuria (principal)
CPT/HCPCS: 81001; 87086

== ENCOUNTER 2024-09-10 13:44 | Outpatient (CLI) | payer MEDICARE, SELFPAY ==
--- NOTE | ~2024-09-10 | PE_ITS ---
EXAMINATION: PET_PETPSMAST_PT DATE: 09/10/2024 15:44 INDICATION: Prostate cancer TECHNIQUE: 4.851 mCi of Illucix Ga-68(78-[id number]) was administered i.v. Low dose computed sampson graphy (CT) images were acquired from the base of the brain to the base of the brain to the proximal thighs for attenuation correction and anatomic localization. Positron emission tomography (PET) image s were acquired in the same distribution beginning 84 minutes after injection. Images including fused PET/CT images were reconstructed in axial, coronal, and sagittal planes. Automated exposure control technique was employed. The dose-length product was 523.30mGy-cm. COMPARISON: 01/21/2024 and 09/03/2023 FINDINGS: Head/neck: Typical pattern of symmetric physiologic increased activity in the lacrimal, parotid and submandibula r glands as well as along the mucosa of the nasal and oral cavities, pharynx and hypopharynx. No path ologically enlarged cervical lymphadenopathy or suspicious non osseous foci of increased uptake in th e visualized head or neck. Chest: Left internal jugular central venous port catheter with distal tip at the mid superior vena cava. The re are moderate to large left and small right posterior layering pleural effusions with dependent com pressive atelectasis posteriorly in both lungs. Unchanged right-sided pleural catheter. Heart size is normal. Atherosclerotic coronary artery calcific location and aortic valve calcific location. No per icardial effusion. Thoracic aorta is normal in caliber. No pathologically enlarged or PSMA avid thora cic lymphadenopathy. Abdomen/pelvis/proximal thighs: Physiologic renal accumulation and excretion of activity in the kidneys, bladder and along portions o f ureters. Status post prostatectomy with no abnormal nodular soft tissue density or increased activi ty at the prostatectomy bed to suggest residual/locally recurrent disease. Photopenic defects associa rosey with bilateral low-attenuation renal cysts the largest on the left measuring 6.1 cm. No significa nt interval change in a smaller 1.3 cm hyperdense proteinaceous/hemorrhagic cyst at the lower pole of the left kidney. Normal degree and slightly heterogenous pattern of increased uptake throughout the liver and spleen without radiologic correlate or dominant PSMA avid lesion. The gallbladder, pancreas and bilateral adrenal glands are normal. Moderate uptake scattered throughout the bowels with typica l duodenal and proximal jejunal predominance and without radiologic correlate, also likely physiologi c. No other abnormal foci of increased soft tissue uptake or pathologically enlarged lymphadenopathy in the abdomen, pelvis or proximal thighs. Musculoskeletal: Again seen are numerous sclerotic bone lesions with increased uptake throughout the axial and appendi cular skeleton consistent with widespread metastatic disease. While the size and extent of the sclero tic lesion on CT appears without significant interval change, there has been subtle interval progress ion in the osseous metastatic disease on the PET imaging characterized by both subtle increase in siz e of many of the lesions as well as a few new lesions. For reference there is a new lesions anterior to the left acetabulum with maximal SUV of 9.6 which is increased from 3.2 cm the recent prior study and essentially new since the study from 09/03/2023 and 2 smaller lesions anterior to the left acetabu lum with maximal SUV values of 9.7 and 7.0 which are new since both the prior studies. These lesions are without clearly defined sclerotic bone lesions on the CT imaging. Interval progression can also b e most clearly seen on the rotating 3D PET images when comparing the size and number of PSMA abdomen lesions at the proximal aspect of the bilateral humeri and femurs. IMPRESSION: 1. Interval progression in size and number of numerous this may avid bone lesions throughout the axia l and appendicular skeleton consistent with progression of widespread osseous metastatic disease. 2. No significant change in small right and moderate to large left pleural effusions with right-sided pleural catheter. Reviewed, dictated and finalized at location A. IMPRESSION: 1. Interval progression in size and number of numerous this may avid bone lesio ns throughout the axial and appendicular skeleton consistent with progression o f widespread osseous metastatic disease. 2. No significant change in small right and moderate to large left pleural effu sions with right-sided pleural catheter.
--- OUTSIDE RECORDS SUMMARY | 2024-09-10 13:47 | XMS_ITS | Clinical Summary ---
Author Organization [facility] Efraín Carrasco Address [address] [place] [address] Care Team Providers Care Senior Marketing Engineer Name Role Phone Alyssa Staton MD Primary [...] Encounters Date Type Department Care Team Description 09/09/[address] 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 Hematology - [place] Vicky Hussein [address] [place] [phone] Nikhil Merida MD Prostate cancer metastatic to bone (CMS/HCC) 09/02/[address] [facility] Oncology and Hematology - [place] Vincenzo Hussein [address] [place] [address] Nikhil Merida MD 09/01/2024 8:30 AM CDT Office Visit 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 Oncology and Hematology - [place] Vicky Hussein [address] [place] [address] Nikhil Merida MD 08/25/2024 External Device Data STL ABSTRACTION Provider, Abstract 08/24/[address] [facility] Oncology [facility]ematology - [place] Vicky Hussein [address] [place] [phone] Nikhil Merida MD Prostate cancer metastatic to bone (CMS/HCC) 08/13/[address] [facility] Oncology and Hematology - [place] [address] Nikhil Merida MD Medication Review 08/12/[address] [facility] Oncology and Hematology - [place] [address] [place] [address] Nikhil Merida MD 08/11/[address] [facility] Oncology and Hematology - [place] [address] [place] [phone] Nikhil Merida MD 08/10/[address] [facility] Oncology and Hematology - [place] [address] Nikhil Merida MD Prostate cancer metastatic to bone (CMS/HCC) 07/31/[address] [facility] Oncology and Hematology - [place] Vicky Hussein [address] [place] [phone] Nikhil Merida MD 07/28/2024 9:00 AM CDT Office Visit 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 Oncology and Hematology - [place] Vicky Hussein [address] [place] [address] Nikhil Merida MD Prostate cancer metastatic to bone (CMS/HCC) 07/13/[address] [facility] Oncology and Hematology - [place] Vicky Hussein [address] [place] [address] Nikhil Merida MD Prostate cancer metastatic to bone (CMS/HCC) 07/08/[address] [facility] Oncology and Hematology - [place] Vicky Hussein [address] [place] [address] Nikhil Merida MD 07/07/[address] [facility] Oncology and Hematology - [place] [address] [place] [address] Nikhil Merida MD 07/06/[address] [facility] Cardiovascular and Thoracic Surgery - [address] [facility] 101 [address] [facility] 101 [place] [address] Sharif Gonzalez MD Information 07/02/[address] [facility] Cardiovas and Thor Surg at [address] [place] [address] Salome Daigle NP pleurx order submission 06/29/[address] [facility] Oncology and Hematology - [place] [address] [place] [address] Nikhil Merida MD Prostate cancer metastatic to bone (CMS/HCC) 06/23/2024 External Device Data STL ABSTRACTION Provider, Abstract 06/17/[address] [facility] Oncology and Hematology - [place] [address] [place] [address] Nikhil Merida MD 06/16/2024 8:30 AM CDT Office Visit 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 Oncology and Hematology - [place] [address] [place] [address] Nikhil Merida MD 06/15/[address] 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 Gender Identity Not on file Sexual Orientation Not on file Last Filed Vital Signs Vital Sign Reading Time Taken Comments Blood Pressure 98/57 09/01/2024 8:34 AM CDT Pulse 71 09/01/2024 8:34 AM CDT Temperature 36.3 C (97.3 F) 09/01/2024 8:34 AM CDT Respiratory Rate 15 09/01/2024 8:34 AM CDT Oxygen Saturation 90% 09/01/2024 8:34 AM CDT Inhaled Oxygen Concentration - - Weight 55.8 kg (123 lb) 09/01/2024 8:34 AM CDT Height 170.2 cm (5' 7) 04/08/2023 12:07 AM TENTERING MACHINE OFF BEARER Body Mass Index 19.26 04/08/2023 12:07 AM TENTERING MACHINE OFF BEARER Plan of Treatment Upcoming Encounters Date Type Department Care Team (Late st Contact Info) Description 09/22/2024 8:30 AM CDT Office Visit [facility] Oncology and Hematology - [place] [address] [facility] [address] [place] [address] Nikhil Merida MD [address] [facility] [address] [place] [address] Health Maintenance Due Date Last Done Comments DTAP/TDAP/TD VACCINES (1 - Tdap) 02/27/1954 PNEUMOCOCCAL VACCINE 50+ YEARS (1 of 2 - PCV) 02/26/19 56 ZOSTER VACCINE (1 of 2) 02/27/1954 RSV VACCINE (60+ or ) (1 - 1-dose 75+ series) 02/27/2012 INFLUENZA VACCINE (#1) 2024 12/09/2022 Procedures Procedure Name Priority Date/Time Associated Diagnosis Comments COMPREHENSIVE METABOLIC PANEL Routine 09/09/2024 12:20 PM CDT BASIC METABOLIC PANEL Routine 09/01/2024 12:46 PM CDT COMPREHENSIVE METABOLIC PANEL Routine 08/11/2024 4:19 PM CDT BASIC METABOLIC PANEL Routine 08/11/2024 7:52 AM CDT COMPREHENSIVE METABOLIC PANEL Routine 07/28/2024 1:21 PM CDT BASIC METABOLIC PANEL Routine 07/07/2024 12:48 PM CDT CBC MIXED CELL DIFFERENTIAL Routine 06/10 12:47 PM CDT COMPREHENSIVE METABOLIC PANEL Routine 07/07/2024 9:02 AM CDT BASIC METABOLIC PANEL Routine 06/16/2024 12:39 PM CDT CBC WITH AUTODIFFERENTIAL Routine 2024 12:37 PM CDT CBC MIXED CELL DIFFERENTIAL Routine 10/2024 12:37 PM CDT COMPREHENSIVE METABOLIC PANEL Routine 06/16/2024 12:35 PM CDT from Last 3 Months Results * COMPREHENSIVE METABOLIC PANEL (09/09/2024 12:20 PM CDT) Only the most recent of5 resultswithin the time period is included. Blood us Nikhil Merida MD CHEMISTRY ORDERABLES Final Resu lt * BASIC METABOLIC PANEL (09/01/2024 12:46 PM CDT) Only the most recent of4 resultswithin the time period is included. Blood us Nikhil Merida MD CHEMISTRY ORDERABLES Final Resu lt * CBC MIXED CELL DIFFERENTIAL (07/07/2024 12:47 PM CDT) Only the most recent of2 resultswithin the time period is included. Blood Nikhil Merida MD HEMATOLOGY ORDERABLES Final Res ult * CBC WITH AUTODIFFERENTIAL (06/16/2024 12:37 PM CDT) Blood Nikhil Merida MD HEMATOLOGY ORDERABLES Final Res ult from Last 3 Months Insurance MEDICARE PART A AND B [facility] [id number] MEDICARE PART A AND B [facility] [id number] RX [employer] RX Member Subscriber Plan / Payer (Ef fective 2023-Present) Name:Yamil Sabillon Relation to Subscriber:Self Name:Yamil Sabillon Payer ID:Not on file Group ID:[id number] Type:RX Medicare Part D Address: [facility] [employer] Medicare Part D Advance Directives For more information, please contact: [phone] * Full Code (Latest Code Status on File) Date Activated Date Inactivated Comments 04/09/2023 10:45 AM 04/16/2023 10:56 PM * Full Code Date Activated Date Inactivated Comments 04/08/2023 1:30 PM 04/09/2023 10:45 AM * Full Code Date Activated Date Inactivated Comments 04/07/2023 9:06 PM 04/08/2023 1:30 PM Care Teams Senior Marketing Engineer Relationship Specialty Start Date End Date Alyssa Staton MD [address] [place] [address] PCP - General Family Practice 06/12/21
--- OUTSIDE RECORDS SUMMARY | 2024-09-10 13:47 | XMS_ITS ---
[facility] Address [address] [facility] [place] [address] Care Team Providers Care Retail Manager In Training Name Role Phone Alyssa Staton MD Primary [...]
--- OUTSIDE RECORDS SUMMARY | 2024-09-10 13:47 | XMS_ITS | Continuity of Care Document ---
Author Name [employer] Organization [facility] Care Team Providers Care Welding Machine Tender Name Role Phone [facility] Unavailable Unavailable Problems Combined list of problems from [facility] and [facility] facilities. It does not include entries that were removed or entered in error. Problem Status Onset Date Problem Type Date of Resolution Comments Source Primary malignant neoplasm of prostate Active Condition [facility] Diagnosis: ICD-10-CM C61 Malignant neoplasm of prostate Active Diagnosis [facility] Medications Combined list of outpatient medications from [facility] and [facility] facilities.Medications provided include 1) outpatient medications from [...] DAY RESPIR ATORY (INHAL ATION) ACTIVE 05/16/2025 [id number] KANDI GALVAN ACE M 2024 1 [facility] Immunizations Combined list of available immunizations from the [facility] and [facility] facilities. Immunization Series Date Given Administered By Site Reaction Lot Number CVX Code Drug Psychiatry Resident Status Comments Source COVID-19 (Unight), MRNA, LNP-S, BIVALENT, PF, 30 MCG/0.3 ML DOSE 1 2021 300 complet ed HISTORICA L INFORMATI ON - FROM PATIENT'S WRITTEN RECORD, [facility] COVID-19 (Unight), MRNA, LNP-S, PF, 30 MCG/0.3 ML DOSE 2021 208 complet ed HISTORICA L INFORMATI ON - FROM PATIENT'S WRITTEN RECORD, [facility] INFLUENZA, UNSPECIFIED FORMULATION 2021 88 complet ed HISTORICA L INFORMATI ON - FROM PATIENT'S RECALL, [facility] N COVID-19 (PFIZER), MRNA, LNP-S, PF, 30 MCG/0.3 ML DOSE 3 2021 208 complet ed HISTORICA L INFORMATI ON - FROM PATIENT'S WRITTEN RECORD, [facility] N COVID-19 (PFIZER), MRNA, LNP-S, PF, 30 MCG/0.3 ML DOSE 2 2020 208 complet ed HISTORICA L INFORMATI ON - FROM PATIENT'S WRITTEN RECORD, [facility] N COVID-19 (PFIZER), MRNA, LNP-S, PF, 30 MCG/0.3 ML DOSE 1 2020 208 complet ed HISTORICA L INFORMATI ON - FROM PATIENT'S WRITTEN RECORD, [facility] Vital Signs Combined list of inpatient and outpatient Vital Signs from Department of Defense and Veterans Affairs, ranging from 12 months to all on record, depending upon the facility. Vital Sign Value Date Comments Source SYSTOLIC BLOOD PRESSURE 115 09/26/2023 11:00:11 [facility] DIASTOLIC BLOOD PRESSURE 54 09/26/2023 11:00:11 [facility] PULSE OXIMETRY 91 09/26/2023 11:00:11 [facility] WEIGHT 127.5 09/26/2023 11:00:11 [facility] BMI 20 kg/m2 09/26/2023 11:00:11 [facility] PAIN 0 09/26/2023 11:00:11 [facility] HEIGHT 67 09/26/2023 11:00:11 [facility] TEMPERATURE 98 09/26/2023 11:00:11 [facility] PULSE 78 09/26/2023 11:00:11 [facility] RESPIRATION 20 09/26/2023 11:00:11 [facility] Encounters Combined list of: 1) Encounters from Department of Veterans Affairs facilities going backup to the last 18 months, not all VA inpatient encounters are included; 2) Encounters from the Department of Defense facilities going backup to 280 months. Location Location Details Encounter Type Encounter Number Reason For Visit Attending Provider ADM Date DC Date Status Disposition Source [facility] Outpatient Encounter [id number] 03/07 [facility] Outpatient Encounter [id number] 07/29 [facility] Outpatient Encounter [id number] CHU SIMPSON 09/10 [facility] OFFICE O/P EST MOD 30 MIN [id number] Diagnos is: ICD-10- CM C61 Maligna nt neoplas m of prostat e NEFTALI GALVAN M 09/25 [facility] Outpatient Encounter [id number] 03/17 [facility] N [facility] Outpatient Encounter [id number] 03/19 [facility] Outpatient Encounter [id number] 04/02 [facility] N [facility] Outpatient Encounter [id number] 04/02 [facility] Outpatient Encounter [id number] 04/20 [facility] Outpatient Encounter [id number] 04/21 [facility] Outpatient Encounter [id number] 04/21 [facility] Outpatient Encounter [id number] 04/22 [facility] Outpatient Encounter [id number] 04/23 [facility] Outpatient Encounter [id number] JARED CALDWELL 05/15 [facility] Outpatient Encounter [id number] ELIZABETH MUNIZ 08/06 [facility] Social History Combined list of available smoking, tobacco, and other social history from Department of Defense and Veterans Affairs facilities. Social History Type Response Date Comment [facility] e Tobacco smoking status NHIS VA-TOBACCO FORMER USER 09/26/2023 [facility] History of tobacco use CO-TOBACCO QUIT < 1 YEAR 09/26/2023 [facility] History of tobacco use VA-TOBACCO USER E VERY DAY 10/09/2022 [facility]
--- OUTSIDE RECORDS SUMMARY | 2024-09-10 13:47 | XMS_ITS | Clinical Summary ---
Author Organization [facility] Address [address] [place] [address] Care Team Providers Care Tier Lift Operator Name Role Phone None, Provider MD Primary Care Provider Unavaila ble Social History Tobacco Use Types Packs/Day Years Used Date Smoking Tobacco: Never Assessed Sex and Gender Information Value Date Recorded Sex Assigned at Not on file Legal Sex Male 4:56 PM SUBWAY OPERATOR Gender Identity Not on file Sexual Orientation [...] this topic Insurance MEDICARE [employer] Care Teams Tier Lift Operator Relationship Specialty Start Date End Date None, Provider, PCP - General UNKNOWN PHYSICIAN SPECIALTY 03/28/23
--- OUTSIDE RECORDS SUMMARY | 2024-09-10 13:47 | XMS_ITS | Encounter Summary ---
Author Organization [facility] Address 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 Gender Identity Not on file Sexual Orientation Not on file documented as of this encounter Plan of Treatment Upcoming Encounters Date Type Department Care Team (Late st Contact Info) Description 09/22/2024 8:30 AM CDT Office Visit [facility] Oncology and Hematology [facility] [address] [facility] [address] [address] Nikhil Merida MD [address] [facility] [address] [place] [address] documented as of this encounter Visit Diagnoses Diagnosis Malignant neoplasm of prostate (CMS/HCC)- Primary Malignant neoplasm of prostate documented in this encounter Additional Health Concerns Infection Onset Date Last Indicated Resolved Time R/O GI Pathogen 04/07/2023 04/08/2023 04/08/2023 5 :52 PM BRANCH ADMINISTRATOR C Diff 04/08/2023 04/08/2023 06/07/2023 1:16 AM CDT documented as of this encounter Care Teams Corporate Law Specialist Relationship Specialty Start Date End Date Alyssa Staton MD [address] [place] [phone] PCP - General Family Practice 06/12/21 documented as of this encounter
--- OUTSIDE RECORDS SUMMARY | 2024-09-10 13:48 | XMS_ITS ---
Author Name Auto Generated, Auto Generated Organization [facility] ices Address [address] [place] [address] Phone [phone] Care Team Providers Care Alumina Plant Supervisor Name Role Phone Hank Dolan Unavailable [phone] Eliazar Castillo Unavailable [phone] Functional Status No Results Mental Status No [...]
--- OUTSIDE RECORDS SUMMARY | 2024-09-10 13:48 | XMS_ITS | Encounter Summary ---
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) Social History Tobacco Use Types Packs/Day Years Used Date Smoking Tobacco: Former Cigarettes 1 67 S tarted: 1955 Smokeless Tobacco: Never Alcohol Use Standard Drinks/Week [...] on file Legal Sex 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 Gender Identity Not on file Sexual Orientation Not on file documented as of this encounter Plan of Treatment Upcoming Encounters Date Type Department Care Team (Late Contact Info) Description 09/22/2024 8:30 AM CDT Office Visit [facility] Oncology and Hematology [facility] [address] [facility] [address] [place] [address] Nikhil Merida MD [address] [facility] [address] [place] [address] documented as of this encounter Visit Diagnoses Diagnosis 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
--- OUTSIDE RECORDS SUMMARY | 2024-09-10 13:48 | XMS_ITS | Encounter Summary ---
Author Organization [facility] Address [address] [place] [address] Care Team Providers Care Director Of Training Name Role Phone Alyssa Staton MD Primary Care Provider Encounter Details Date Type Department Care Team (Late Contact Info) Description 09/09/2024 Orders Only [facility] Oncology and Hematology - [place] [address] [facility] 200 [place] [address] Nikhil Merida MD [address] 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) Every Two Weeks for 99 Occurrences starting 09/09/2024 until 09/09/2025 documented as of this encounter Procedures Procedure Name Priority Date/Time Associated Diagnosis Comments COMPREHENSIVE METABOLIC PANEL Routine 09/09/2024 12:20 PM CDT documented in this encounter Results * COMPREHENSIVE METABOLIC PANEL (09/09/2024 12:20 PM CDT) Blood us Nikhil Merida MD CHEMISTRY ORDERABLES Final Resu lt documented in this encounter Visit Diagnoses Diagnosis 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
--- OUTSIDE RECORDS SUMMARY | 2024-09-10 13:48 | XMS_ITS | Clinical Summary ---
Author Organization [employer] Address [address] [place] [address] Care Team Providers Care Car Attendant Name Role Phone A, Unknown Practice Primary Care Provider [phone] Source Comments [facility],non-owned Affiliates and Associated Physician Practices is amultiple site organization consisting of ambulatory clinics and hospital sitesin [place], [place], [place] and [place]. This disclosure is being madepursuant to the Care Everywhere program and may not contain all information available regarding this patient. Last updated 17.[facility] Allergies No known active allergies Medications * [...] and heating? Not hard at all 01/01/2023 [facility] Occupat ional Health - Occupational Stress [...] place to sleep or slept in a penitentiary (including now)? No 01/01/2023 Sex and Gender [...] 4:00 AM CDT Height 170.2 cm (5' 7) 01/01/2023 2:41 PM CDT Body Mass Index [...] to complete this topic Insurance MEDICARE MEDICARE [facility] Advance Directives * Full Code (Latest Code Status on File) Date Activated Date Inactivated Comments 01/01/2023 12:31 AM 01/04/2023 3:18 PM Care Teams Car Attendant Relationship Specialty Start Date End Date A, Unknown Practice [address] [place] [address] PCP - General 12/30/22
--- OUTSIDE RECORDS SUMMARY | 2024-09-10 13:48 | XMS_ITS | Continuity of Care Document ---
Author Organization [facility] Address [address] [place] [address] Phone Care Team Providers Care Director Of Hotel Operations Name Role Phone Garcia OD, Sharif Unavailable Unavailable Advance Directives Directive Yes / No Effective Date File Name No Information Encounters Encounter Description Practice Location Reason(s) For Visit Diagnoses Date Provider Providers Copied on Encounter [facility], [address], [place], [place], [id number], [place] tel:[phone] [facility] No Information 6-200 4 Garcia OD Sharif. [address], [place], [address], [place]. tel:[phone] Family History Family Member Type Diagnosis Age At Onset No Information Payers Payer name Insurance type Covered alliance party ID Authoriza tion(s) No Information Social [...]
--- OUTSIDE RECORDS SUMMARY | 2024-09-10 13:48 | XMS_ITS ---
Author Name Auto Generated, Auto Generated Organization [facility] ices Address [address] [place] [address] Phone [phone] Care Team Providers Care Aircraft Engine Specialist Name Role Phone Hank Dolan Unavailable [phone] Eliazar Castillo Unavailable Functional Status No Results [...]
== END 2024-09-10 13:45 | disposition home or self-care (01) ==
PROVIDERS: PCP Family Medicine; Visit Provider Internal Medicine Hematology & Oncology
DX: C61 Malignant neoplasm of prostate (principal); J90 Pleural effusion, not elsewhere classified; Z97.8 Presence of other specified devices
CPT/HCPCS: 78815; A9596

== ENCOUNTER 2025-03-02 08:21 | Inpatient (IN) | payer MEDICARE, SELFPAY ==
[2025-03-02] VITALS (10 sets, daily range): BP systolic 93–149; BP diastolic 56–99; PULSE 82–100; RESP 18–27; TEMP 36.7–36.8; O2SAT 89–96; BMI 19.5
--- NOTE | ~2025-03-02 | US_ITS ---
EXAMINATION: US thoracentesis DATE: 03/02/2025 14:14 INDICATION: pleural effusion TECHNIQUE: The procedure and its risks and benefits were discussed with the patient. Potential risks discussed included bleeding, infection, and pneumothorax. The patient understood the risks and agreed to proceed. The skin at the posterior inferior left hemithorax was prepped and draped in sterile fas hion. 1% lidocaine was used for local anesthesia. Under ultrasound guidance, a 5 Fr catheter with trochar was advanced into the left pleural effusion. Fluid was aspirated. The catheter was removed, and a dressing was applied. There were no immediate complications. FINDINGS: Ultrasound images demonstrate a large left pleural effusion and the catheter within the fluid. IMPRESSION: 1. Successful ultrasound-guided thoracentesis yielding 1000 mL of clear yellowish fluid. Reviewed, dictated and finalized at location A. R COACH DRIVER IMPRESSION: 1. Successful ultrasound-guided thoracentesis yielding 1000 mL of clear yellow jamaal fluid.
--- NOTE | ~2025-03-02 | XR_ITS ---
EXAMINATION: [id number] DATE: 03/02/2025 14:16 INDICATION: Left pleural effusion TECHNIQUE: frontal view of the chest was obtained. COMPARISON: Chest radiograph dated 03/22/2023 FINDINGS: Again seen is a left internal jugular central venous port catheter with distal tip at the cephalad superior vena cava. There is a new right pleural drainage catheter projecting over the lower lung zone with distal tip projecting over the cardiophrenic angle. Hazy opacity left lower lung zone with blunting at the costophrenic angle consistent with residual small left pleural effusion with associated basilar atelectasis and/or pneumonia. Patchy groundglass opacities in the right mid lung zone which could represent additional atelectasis or pneumonia. No pneumothorax or evident right-sided pleural effusion. Heart size is normal. Calcification associated with a few healing anterior left lower rib fractures. IMPRESSION: 1. Residual small left pleural effusion post thoracentesis. No pneumothorax. 2. Opacities at the right mid and left lower lung zones which could represent atelectasis or pneumonia. Reviewed, dictated and finalized at location A. ESE TEACHER IMPRESSION: 1. Residual small left pleural effusion post thoracentesis. No pneumothorax. 2. Opacities at the right mid and left lower lung zones which could represent a telectasis or pneumonia.
--- NOTE | ~2025-03-02 | XR_ITS ---
Examination: XR chest 2V Clinical History: SOB Comparison: PET/CT 09/10/2024 Technique: PA and Lateral Findings: Left chest Mediport. Right Pleurx catheter Cardiomediastinal silhouette normal size and configuration. Large left pleural effusion. Scattered bilateral foci interstitial markings. No acute bony abnormality. Scattered bony lesions. IMPRESSION: 1. Large left pleural effusion. 2. Scattered foci bilateral pneumonitis. Reviewed, dictated and finalized at location R. CLEANING COOKING
--- NOTE | 2025-03-02 08:28 | ECG_ITS ---
Test Date: 2025-03-02 08:35:26 Measurements Intervals [place] Rate: 99 P: 46 ID: [id number] QRS: 58 QRSD: 74 T: 58 QT: 347 QTc: 446 Interpretive Statements SINUS RHYTHM CANNOT R/O SEPTAL INFARCT, AGE INDETERMINATE BORDERLINE ST-T WAVE ABNORMALITY- INF/HIGH LAT LEADS BASELINE ARTIFACT- I, II, III, AVR, AVL, AVF, V1-V2, V4-V6 ABNORMAL ECG Compared to ECG 10/13/2023 08:51:04 No significant changes Electronically Signed On 03-02-2025 10:41:46 SEGMENT BLOCK LAYER by Joe Dean D.O.
[2025-03-02 08:51] LABS: Hematocrit 26.4 % (42.0-52.0); Hemoglobin 8.0 g/dL (14.0-18.0); Immature Granulocyte Percent A 4.8 % (0-0.5); Lymphocytes Absolute Auto 1.00 K/mm3 (0.9-3.2); Mean Corpuscular HGB Conc 30.3 g/dl (32-36); Mean Corpuscular Hemoglobin 28.0 pg (26-34); Mean Corpuscular Volume 92.3 fl (80-100); Nucleated Red Blood Cells Absolute Auto 0.070 K/mm3 (0.0-0.012); Nucleated Red Blood Cells Perc 1.5 % (0.0-0.2); Platelet Count Result 225 k/mm3 (150-375); Red Blood Count 2.86 M/mm3 (4.6-6.20); White Blood Count 4.8 K/mm3 (4.5-10.0)
[2025-03-02 09:16] LABS: Alanine Aminotransferase 14 U/L (6-50); Albumin Level 3.0 g/dL (3.5-5.1); Alkaline Phosphatase 129 U/L (38-126); Anion Gap 10 mmol/L (4-12); Aspartate Amino Transferase 34 U/L (17-59); Bilirubin,Total 0.5 mg/dL (0.2-1.3); Blood Urea Nitrogen 40 mg/dL (9-20); Calcium 7.0 mg/dL (8.4-10.2); Carbon Dioxide 19 mmol/L (22-30); Chloride 110 mmol/L (98-107); Estimated CRCL calculation 19 ml/min; Estimated Glomerular Filt Rate 31; Glucose 134 mg/dL (65-110); Potassium 4.5 mmol/L (3.4-5.0); Sodium 139 mmol/L (137-145); Total Protein 5.9 g/dL (6.3-8.2)
[2025-03-02 09:27] LABS: Influenza A QL RT-PCR Negative (Negative); Influenza B QL RT-PCR Negative (Negative); RSV RNA, RT-PCR Negative (Negative); SARS-CoV-2 RNA PCR Positive (Negative)
[2025-03-02 09:37] LABS: INR 1.2; Prothrombin Time 15.4 Seconds (11.1-14.7)
[2025-03-02 09:38] LABS: Partial Thromboplastin Time 36.6 Seconds (22.3-36.8)
--- OUTSIDE RECORDS SUMMARY | 2025-03-02 09:56 | XMS_ITS | Clinical Summary ---
Author Organization [facility] Address [address] [place] [address] Care Team Providers Care Production Control Specialist Name Role Phone Alyssa Staton MD [...] before access. 30 Gram 1 4 Active potassium chloride (KLOR-CON M20) 20 mEq Extended Release tablet Take 1 Tablet (20 mEq) by mouth daily. 90 Tablet 3 5 Active predniSONE (DELTASONE) 5 mg tablet Take 1 Tablet (5 mg) by mouth 2 times daily with meals. 60 Tablet 5 Active Active Problems Problem Noted Date Diagnosed Date C. 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 Encounters Date Type Department Care Team Description 03/01/2025 Orders Only [facility] Oncology and Hematology - [place] [address] [place] [phone] Nikhil Merida MD Prostate cancer metastatic to bone (CMS/HCC) 02/25/2025 Orders Only [facility] Oncology and Hematology - [place] [address] [place] [id number] Nikhil Merida MD 02/22/2025 Orders Only [facility] Oncology and Hematology - [place] [address] [place] [address] Nikhil Merida MD Prostate cancer metastatic to bone (CMS/HCC) 02/18/2025 8:45 AM SKIN CARE TECHNICIAN Office Visit [facility] Oncology and Hematology - [place] [address] [place] [address] Nikhil Merida MD Prostate cancer metastatic to bone (CMS/HCC) (Primary Dx) 02/15/2025 Orders Only [facility] Oncology and Hematology - [place] [address] [place] [address] Nikhil Merida MD Prostate cancer metastatic to bone (CMS/HCC) 02/08/2025 Orders Only [facility] Oncology and Hematology - [place] [address] [place] [address] Nikhil Merida MD Prostate cancer metastatic to bone (CMS/HCC) 02/02/2025 Orders Only [facility] Oncology and Hematology - [place] [address] [place] [address] Nikhil Merida MD 02/01/20[facility] Oncology and Hematology - [place] [address] [place] [id number] Nikhil Merida MD Prostate cancer metastatic to bone (CMS/HCC) 01/27/2025 Orders Only [facility] Oncology and Hematology - [place] [address] Nikhil Merida MD 01/25/2025 Refill [facility] Oncology and Hematology - [place] [address] Nikhil Merida MD 01/25/2025 Orders Only [facility] Oncology and Hematology - [place] [address] Nikhil Merida MD Prostate cancer metastatic to bone (CMS/HCC) 01/19/2025 Orders Only [facility] Oncology and Hematology - [place] [address] Nikhil Merida MD 01/18/2025 Orders Only [facility] Oncology and Hematology - [place] [address] [place] [address] Nikhil Merida MD Prostate cancer metastatic to bone (CMS/HCC) 01/11/2025 Orders Only [facility] Oncology and Hematology - [place] [address] [place] [address] Nikhil Merida MD Prostate cancer metastatic to bone (CMS/HCC) 01/05/20[facility] Oncology and Hematology - [place] [address] [place] [phone] Nikhil Merida MD 01/04/2025 Orders Only [facility] Oncology and Hematology - [place] [address] [place] [address] Nikhil Merida MD Prostate cancer metastatic to bone (CMS/HCC) 12/31/2024 8:45 AM CDT Office Visit [facility] Oncology and Hematology - [place] [address] [place] [address] Nikhil Merida MD Prostate cancer metastatic to bone (CMS/HCC) (Primary Dx) 12/31/2024 Orders Only [facility] Oncology and Hematology - [place] [address] [place] [address] Nikhil Merida MD 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) 12/28/2024 Orders Only [facility] Oncology and Hematology - [place] [address] [place] [address] Nikhil Merida MD Prostate cancer metastatic to bone (CMS/HCC) 12/22/2024 Orders Only [facility] Oncology and Hematology - [place] [address] [place] [address] Nikhil Merida MD 12/21/2024 Orders Only [facility] Oncology and Hematology - [place] [address] [place] [address] Nikhil Merida MD Prostate cancer metastatic to bone (CMS/HCC) 12/16/2024 Orders Only [facility] Oncology and Hematology - [place] [address] [place] [address] Nikhil Merida MD Prostate cancer metastatic to bone (CMS/HCC) (Primary Dx) 12/14/2024 Orders Only [facility] Oncology and Hematology - [place] [address] [place] [address] Nikhil Merida MD Prostate cancer metastatic to bone (CMS/HCC) 12/10/2024 Orders Only [facility] Oncology and Hematology - [place] [address] [place] [address] Nikhil Merida MD 12/07/2024 Telephone [facility] Cardiovas and Thor Surg at [facility] Heart [address] [place] [address] Charity Godfrye ENVIRONMENTAL SERVICES ATTENDANT Question 12/07/2024 Orders Only [facility] Oncology and Hematology - [place] [address] [place] [address] Nikhil Merida MD Prostate cancer metastatic to bone (CMS/HCC) 12/02/2024 Orders Only [facility] Oncology and Hematology [facility] [address] [place] [address] Nikhil Merida MD 12/01/2024 9:15 AM CDT Office Visit [facility] Oncology and Hematology [facility] [address] [place] [address] Nikhil Merida MD Prostate cancer metastatic to bone (CMS/HCC) (Primary Dx); Anemia due to chemotherapy from Last 3 Months Immunizations Immunization Administration [...] on file Legal Sex Male 4:59 AM SKIN CARE TECHNICIAN Gender Identity Not on file Sexual Orientation Not on file Last Filed Vital Signs Vital Sign Reading Time Taken Comments Blood Pressure 91/42 02/18/2025 8:55 AM SKIN CARE TECHNICIAN Pulse 90 02/18/2025 8:52 AM SKIN CARE TECHNICIAN Temperature 36.3 C (97.3 F) 02/18/2025 8:52 AM SKIN CARE TECHNICIAN Respiratory Rate 17 02/18/2025 8:52 AM SKIN CARE TECHNICIAN Oxygen Saturation 87% 02/18/2025 8:52 AM SKIN CARE TECHNICIAN Inhaled Oxygen Concentration - - Weight 53.4 kg (117 lb 12.8 oz) 02/18/2025 8:52 AM SKIN CARE TECHNICIAN Height 170.2 cm (5' 7) 04/08/2023 12:0 7 AM SKIN CARE TECHNICIAN Body Mass Index 18.45 04/08/2023 12:07 AM SKIN CARE TECHNICIAN Plan of Treatment Upcoming Encounters Date Type Department Care Team (Late st Contact Info) Description 03/30/2025 8:45 AM SKIN CARE TECHNICIAN Office Visit [facility] Oncology and Hematology - [place] [address] [facility] [address] [place] [address] Nikhil Merida MD [address] [facility] [address] [place] [address] Health Maintenance Due Date Last Done Comments DTAP/TDAP/TD VACCINES (1 - Tdap) 02[birth year]27/1954 PNEUMOCOCCAL VACCINE 50+ YEARS (1 of 2 - PCV) 02/26/19 56 ZOSTER VACCINE (1 of 2) 02/27/1954 RSV VACCINE (60+ or ) (1 - 1-dose 75+ series) 02/27/2012 INFLUENZA VACCINE (#1) 2024 12/09/2022 Procedures Procedure Name Priority Date/Time Associated Diagnosis Comments CBC WITH AUTODIFFERENTIAL Routine 2024 12:47 PM SKIN CARE TECHNICIAN CBC WITH AUTODIFFERENTIAL Routine 2024 2:11 PM SKIN CARE TECHNICIAN COMPREHENSIVE METABOLIC PANEL Routine 01/26/2025 2:27 PM SKIN CARE TECHNICIAN CBC WITH AUTODIFFERENTIAL Routine 2024 1:40 PM SKIN CARE TECHNICIAN CBC WITH AUTODIFFERENTIAL Routine 2024 1:09 PM SKIN CARE TECHNICIAN CBC WITH AUTODIFFERENTIAL Routine 2024 3:24 PM SKIN CARE TECHNICIAN COMPREHENSIVE METABOLIC PANEL Routine 01/05/2025 12:33 PM CDT BASIC METABOLIC PANEL Routine 12/31/2024 11:47 AM CDT CBC WITH AUTODIFFERENTIAL Routine 2024 11:17 AM CDT CBC WITH AUTODIFFERENTIAL Routine 2024 3:19 PM CDT CBC WITH AUTODIFFERENTIAL Routine 2024 11:48 AM CDT PSA Routine 12/01/2024 3:33 PM CDT COMPREHENSIVE METABOLIC PANEL Routine 12/01/2024 1:30 PM CDT from Last 3 Months Results * CBC WITH AUTODIFFERENTIAL (02/25/2025 12:47 PM SKIN CARE TECHNICIAN) Only the most recent of8 resultswithin the time period is included. Blood us Nikhil Merida MD HEMATOLOGY ORDERABLES Final Res ult * COMPREHENSIVE METABOLIC PANEL (01/26/2025 2:27 PM SKIN CARE TECHNICIAN) Only the most recent of3 resultswithin the time period is included. Blood us Nikhil Merida MD CHEMISTRY ORDERABLES Final Resu lt * BASIC METABOLIC PANEL (12/31/2024 11:47 AM CDT) Blood us Nikhil Merida MD CHEMISTRY ORDERABLES Final Resu lt * PSA (12/01/2024 3:33 PM CDT) Blood us Nikhil Merida MD CHEMISTRY ORDERABLES Final Resu lt from Last 3 Months Insurance MEDICARE PART A AND B [facility] [id number] MEDICARE PART A AND B [facility] [id number] RX [employer] RX Member Subscriber Plan / Payer (Ef fective 2023-Present) Name:Yamil Sabillon Relation to Subscriber:Self Name:Yamil Sabillon Payer ID:Not on file Group ID:[id number] Type:RX Medicare Part D Address: [facility] INTERMISSION COORDINATOR, [employer] Medicare Part D Advance Directives For more information, please contact: [phone] * Full Code (Latest Code Status on File) Date Activated Date Inactivated Comments 04/09/2023 10:45 AM 04/16/2023 10:56 PM * Full Code Date Activated Date Inactivated Comments 04/08/2023 1:30 PM 04/09/2023 10:45 AM * Full Code Date Activated Date Inactivated Comments 04/07/2023 9:06 PM 04/08/2023 1:30 PM Care Teams Production Control Specialist Relationship Specialty Start Date End Date Alyssa Staton MD [address] [place] [id number] PCP - General Family Practice 06/12/21
--- OUTSIDE RECORDS SUMMARY | 2025-03-02 09:56 | XMS_ITS | Encounter Summary ---
Author Organization [facility] Address [address] [address] Care Team Providers Care Hairspring Vibrator Name Role Phone Alyssa Staton MD Primary Care Provider Encounter Details Date Type Department Care Team ([facility] Contact Info) Description 03/01/2025 Orders Only [facility] Oncology and Hematology - [place] [address] [facility] [address] [place] [address] Nikhil Merida MD [address] [facility] [address] [place] [address] Prostate cancer metastatic to bone [...] on file Legal Sex Male 4:59 AM SUPERVISOR SHRIMP POND Gender Identity Not on file Sexual Orientation Not on file documented as of this encounter Plan of Treatment Upcoming Encounters Date Type Department Care Team (Late Contact Info) Description 03/30/2025 8:45 AM SUPERVISOR SHRIMP POND Office Visit [facility] Oncology and Hematology - [place] [address] [facility] [address] [place] [address] Nikhil Merida MD [address] [facility] [address] [place] [address] documented as of this encounter Visit Diagnoses Diagnosis Prostate cancer metastatic to bone (CMS/HCC) documented in this encounter Additional Health Concerns Assessment Noted Time PHQ-9 Depression Total Score: 1 02/19/20 25 8:55 AM SUPERVISOR SHRIMP POND documented as of this encounter Care Teams Hairspring Vibrator Relationship Specialty Start Date End Date Alyssa Staton MD [address] [place] [address] PCP - General Family Practice 06/12/21 documented as of this encounter
--- OUTSIDE RECORDS SUMMARY | 2025-03-02 09:56 | XMS_ITS ---
[facility] Address [address] [place] [address] Care Team Providers Care Bandmill Operator Name Role Phone Alyssa Staton MD [...]
--- OUTSIDE RECORDS SUMMARY | 2025-03-02 09:56 | XMS_ITS | Clinical Summary ---
Author Organization [facility] Address [address] [place] [address] Care Team Providers Care Improvement Coordinator Name Role Phone A, Unknown Practice Primary Care Provider [phone] Source Comments [employer],non-owned Affiliates and Associated Physician Practices is amultiple site organization consisting of ambulatory clinics and hospital sitesin [place], [place], [place] and [place]. This disclosure is being madepursuant to the Care Everywhere program and may not contain all information available regarding this patient. Last updated 17.[employer] Allergies No known active allergies Medications * [...] and heating? Not hard at all 01/01/2023 [facility]at ional [facility] - Occupational Stress [...] place to sleep or slept in a senior care (including now)? No 01/01/2023 Sex and Gender [...] yrs (1 - 1-dose 75+ series) 02/27/2012 DEPRESSION SCREENING 03/11/2024 COVID-19 VACCINE ( season) 2024 01/01/2022, 07/10/2021, 01/26/2021, Additional history exists INFLUENZA VACCINE (#1) 2024 3, 01/01/2022, 01/26/2021 HEPATITIS B VACCINE Aged Out [...] to complete this topic Insurance MEDICARE [facility] Advance Directives * Full Code (Latest Code Status on File) Date Activated Date Inactivated Comments 01/01/2023 12:31 AM 01/04/2023 3:18 PM Care Teams Improvement Coordinator Relationship Specialty Start Date End Date A, Unknown Practice [address] [place] [address] PCP - General 12/30/22
--- OUTSIDE RECORDS SUMMARY | 2025-03-02 09:56 | XMS_ITS | Encounter Summary ---
Author Organization [facility] [employer] [facility] Address [address] [place] [address] Care Team Providers Care Rental Salesperson Name Role Phone Alyssa Staton MD Primary Care Provider Encounter Details Date Type Department Care Team ([facility] Contact Info) Description 02/25/2025 Orders Only [facility] Oncology and Hematology - [place] [address] [facility] [address] [place] [address] Nikhil Merida MD [address] [facility] [address] [place] [address] Social History Tobacco Use Types [...] on file Legal Sex Male 4:59 AM FOUNDRY WORKER Gender Identity Not on file Sexual Orientation Not on file documented as of this encounter Plan of Treatment Upcoming Encounters Date Type Department Care Team (Late Contact Info) Description 03/30/2025 8:45 AM FOUNDRY WORKER Office Visit [facility] Oncology and Hematology - [place] [address] [facility] [address] [place] [address] Nikhil Merida MD [address] [facility] [address] [place] [address] documented as of this encounter Procedures Procedure Name Priority Date/Time Associated Diagnosis Comments CBC WITH AUTODIFFERENTIAL Routine 2024 12:47 PM FOUNDRY WORKER documented in this encounter Results * CBC WITH AUTODIFFERENTIAL (02/25/2025 12:47 PM FOUNDRY WORKER) Blood us Nikhil Merida MD HEMATOLOGY ORDERABLES Final Res ult documented in this encounter Visit Diagnoses Not on filedocumented in this encounter Additional Health Concerns Assessment Noted Time PHQ-9 Depression Total Score: 1 02/19/20 25 8:55 AM FOUNDRY WORKER documented as of this encounter Care Teams Rental Salesperson Relationship Specialty Start Date End Date Alyssa Staton MD [address] [place] [address] PCP - General Family Practice 06/12/21 documented as of this encounter
--- OUTSIDE RECORDS SUMMARY | 2025-03-02 09:56 | XMS_ITS | Clinical Summary ---
Author Organization [facility] Address [address] [place] [address] Care Team Providers Care Manager Sales And Marketing Name Role Phone None, Provider MD Primary Care Provider Unavaila ble Social History Tobacco Use Types Packs/Day Years Used Date Smoking Tobacco: Never Assessed Sex and Gender Information Value Date Recorded Sex Assigned at Not on file Legal Sex Male 4:56 PM SENIOR PLANNING MANAGER Gender Identity Not on file Sexual Orientation [...] - 1-dose 75+ series) 02/27/2012 COVID-19 Vaccine ( - 2024-2 6 season) 2024 Influenza Adult (#1) 2024 Hepatitis A Vaccines Aged Out No long er eligible based on patient's age to complete this topic Meningococcal B Vaccine Aged Out No l onger eligible based on patient's age to complete this topic Meningococcal Vaccine Aged Out No eugenia leon eligible based on patient's age to complete this topic RSV Immunizations Under 20 Months Aged Out No longer eligible based on patient's age to complete this topic Insurance MEDICARE [facility] Care Teams Manager Sales And Marketing Relationship Specialty Start Date End Date None, Provider, PCP - General UNKNOWN PHYSICIAN SPECIALTY 03/28/23
--- OUTSIDE RECORDS SUMMARY | 2025-03-02 09:56 | XMS_ITS | Encounter Summary ---
Author Organization [facility] Address [address] [place] [address] Care Team Providers Care News Clipping Cutter Name Role Phone Alyssa Staton MD Primary [...] on file Legal Sex Male 4:59 AM CNC WOOD LATHE OPERATOR Gender Identity Not on file Sexual Orientation Not on file documented as of this encounter Plan of Treatment Upcoming Encounters Date Type Department Care Team (Late st Contact Info) Description 03/30/2025 8:45 AM CNC WOOD LATHE OPERATOR Office Visit [facility] Oncology and Hematology - [place] [address] [facility] [address] [place] [address] Nikhil Merida MD [address] [facility] [address] [place] [address] documented as of this encounter Visit Diagnoses Diagnosis Malignant neoplasm of prostate (CMS/HCC)- Primary Malignant neoplasm of prostate documented in this encounter Additional Health Concerns Infection Onset Date Last Indicated Resolved Time R/O GI Pathogen 04/07/2023 04/08/2023 04/08/2023 5 :52 PM CNC WOOD LATHE OPERATOR C Diff 04/08/2023 04/08/2023 06/07/2023 1:16 AM CDT documented as of this encounter Care Teams News Clipping Cutter Relationship Specialty Start Date End Date Alyssa Staton MD [address] [place] [id number] PCP - General Family Practice 06/12/21 documented as of this encounter
[2025-03-02] MEDS: SODIUM CHLORIDE 0.9% IV 500 ML 999 ML IV CONT (10:04)
--- NOTE | 2025-03-02 11:10 | ED.SOB ---
HPI - SOB/Dyspnea General Chief Complaint: Shortness of Breath/Dyspnea <Marcelina Chapa PA-C - Last Filed: 03/02/25 12:44> Stated Complaint: dyspnea <DANIELLA Zelaya Last Filed: 03/02/25 12:44> Time Seen by Provider: 03/02/25 09:19 <Marcelina Chapa PA-C - Last Filed: 03/02/25 12:44> Source: patient <DANIELLA Zelaya Last Filed: 03/02/25 12:44> Mode of arrival: EMS <DANIELLA Zelaya Last Filed: 03/02/25 12:44> Limitations: no limitations <DANIELLA Zelaya Last Filed: 03/02/25 12:44> History of Present Illness HPI Narrative: This is a 89 year old male that presents to the ER for productive cough. Reports feeling generally unwell. Reports history of metastatic prostate cancer. Has a drain placed in his lung for home pleural effusion drainage. Denies fevers. <Marcelina Chapa PA-C - Last Filed: 03/02/25 12:44> Related Data Home Medications: Home Medications ?Medication ?Instructions ?Recorded ?Confirmed ?Last Taken ?Type calcium 600 mg (as 1 tablet PO TID 06/12/21 03/02/25 03/02/25 History carbonate)-vitamin D3 5 mcg (200 unit) tablet cholecalciferol (vitamin D3) 25 25 mcg PO DAILY 01/02/22 03/02/25 03/02/25 History mcg (1,000 unit) capsule multivitamin-zinc tablet 1 tablet PO DAILY 02/19/23 03/02/25 10/19/23 09:40 History cyanocobalamin (vitamin B-12) 500 500 mcg PO DAILY 03/22/23 03/02/25 03/02/25 History mcg tablet prednisone 5 mg tablet 5 mg PO BID 10/13/23 03/02/25 03/02/25 History potassium chloride 20 mEq 10 meq PO DAILY 11/12/23 03/02/25 03/02/25 History tablet,extended release(part/cryst) loratadine 10 mg tablet (Claritin) 10 mg PO DAILY 06/25/24 03/02/25 03/02/25 History furosemide 20 mg tablet 10 mg PO DAILY 07/09/24 03/02/25 03/02/25 History Saccharomyces boulardii 250 mg 500 mg PO DAILY 03/02/25 03/02/25 03/02/25 History capsule (Florastor) ferrous sulfate 325 mg (65 mg 325 mg PO DAILY 03/02/25 03/02/25 Unknown History iron) tablet (iron) ajqdinxwpuoz-uvjwnnhr-ykavrj 1 tablet PO DAILY 03/02/25 03/02/25 Unknown History tablet (Multivitamin 50 Plus tablet) <Marcelina Chapa PA-C - Last Filed: 03/02/25 12:44> Allergies/Adverse Reactions: Allergies Allergy/AdvReac Type Severity Reaction Status Date / Time No Known Allergies Allergy Mild Verified 03/02/25 15:01 <Marcelina Chapa PA-C - Last Filed: 03/02/25 12:44> Review of Systems Review of Systems: All systems reviewed & are unremarkable except as noted in HPI and below <Marcelina Chapa PA-C - Last Filed: 03/02/25 12:44> [facility] Past Medical History Medical History: Medical History Recurrent Clostridioides difficile infection Hydropneumothorax (~03/2023) COVID (~02/2023) Ulcer of elbow with fat layer exposed Olecranon bursitis of left elbow (~02/2022) C. difficile colitis (~03/2023) Hypokalemia Chronic obstructive pulmonary disease Prostate cancer metastatic to bone Rib fracture (12/2022) Splenic laceration (12/2022) managed conservatively Dyslipidemia <Marcelina Chapa PA-C - Last Filed: 03/02/25 12:44> Surgical History Surgical History: Surgical History History of thoracentesis right thoracentesis(12/2022 and 01/2023), left thoracentesis and PleurX catheter placement on the right(04/09/23) History of cataract extraction History of bilateral inguinal hernia repair (11/2003) History of prostatectomy (11/2002) <Marcelina Chapa PA-C - Last Filed: 03/02/25 12:44> Family History Family History: Family History Father Family history of cardiovascular disease Malignant neoplasm of prostate Mother Family history of cardiovascular disease Sibling Acute myocardial infarction <Marcelina Chapa PA-C - Last Filed: 03/02/25 12:44> Social History Social History: Social History Social History: Surrogate medical decision maker: Hakeem Sabillon, brother. Code status: Full code. Smoking packs per day: 1.5 Smoking cigarettes per day: 30.0 Years smoked: 30 Smoking pack-years: 45.00 Smoking status: Former smoker Tobacco type: cigarettes Second hand tobacco smoke exposure: Yes Alcohol intake: former Drinks per week: 10 Substance use: never Substance use type: does not use Lack of Transportation: No Lack of Food: Never True Current Housing: I Have Housing Concerned About Future Housing: No Difficulty Paying Gas/Electric Bills: No Difficulty Paying for Meds: No Currently Unemployed: No Education: Don't Know Difficulty w/ Childcare or Family Care: No Living arrangements: alone Spiritual care concerns: No <Marcelina Chapa PA-C - Last Filed: 03/02/25 12:44> Exam Narrative: GENERAL: Chronically ill-appearing, thin, and in no acute distress. HEAD: Normocephalic, atraumatic. EYES: EOMI. ENT: Nares clear, no rhinorrhea or epistaxis. Mucous membranes moist. Oropharynx without tonsillar hypertrophy exudate or other lesions. NECK: Supple. No adenopathy or masses. CHEST: No respiratory distress. Left lung base diminished. No wheezes or rhonchi HEART: Regular rate and rhythm. No murmur heard. Normal peripheral pulses. EXTREMITIES: Normal range of motion. No edema. SKIN: Warm, dry, no rash. NEURO: No focal deficits. Alert and oriented x3. PSYCH: Normal mood and affect <Marcelina Chapa PA-C - Last Filed: 03/02/25 12:44> Course LOZENGE MAKER/PA Physician Supervision This visit was performed by both a physician and an APC. I performed all aspects of the MDM as documented. <Josue Kapadia MD - Last Filed: 03/02/25 18:18> Vital Signs Vital signs: Vital Signs Temperature 98.1 F 03/02/25 08:23 Pulse Rate 100 03/02/25 08:23 Respiratory Rate 22 H 03/02/25 08:23 Temperature 98.1 F 03/02/25 14:00 Pulse Rate 89 03/02/25 14:00 Respiratory Rate 22 H 03/02/25 14:00 Blood Pressure 121/58 L 03/02/25 14:00 Pulse Oximetry 89 L 03/02/25 14:00 Oxygen Delivery Room Air 03/02/25 17:12 Oxygen Flow Rate 2 03/02/25 08:29 <Marcelina Chapa PA-C - Last Filed: 03/02/25 12:44> Vital Signs Temperature 98.1 F 03/02/25 08:23 Pulse Rate 100 03/02/25 08:23 Respiratory Rate 22 H 03/02/25 08:23 Temperature 98.1 F 03/02/25 14:00 Pulse Rate 89 03/02/25 14:00 Respiratory Rate 22 H 03/02/25 14:00 Blood Pressure 121/58 L 03/02/25 14:00 Pulse Oximetry 89 L 03/02/25 14:00 Oxygen Delivery Room Air 03/02/25 17:12 Oxygen Flow Rate 2 03/02/25 08:29 <Josue Kapadia MD - Last Filed: 03/02/25 18:18> [facility] Narrative Medical decision making narrative: Patient presents the emergency department for generalized weakness, productive cough. Patient is afebrile and nontoxic appearing. Blood pressure soft upon arrival, given IV fluids with improvement. Patient requiring 2 L nasal cannula. Usually only wears this at night. Cbc without leukocytosis. Hemoglobin appears stable. Metabolic panel with some evidence of dehydration. COVID test is positive. Chest x-ray showing large left pleural effusion. Patient will be admitted to the hospitalist service for further management <Marcelina Chapa PA-C - Last Filed: 03/02/25 12:44> Differential Diagnosis Differential Diagnosis: COVID 19, pneumonia, malignancy <Marcelina Chapa PA-C - Last Filed: 03/02/25 12:44> Lab Data [facility] Lab Attestation statement: I personally reviewed the patient's lab results. <Marcelina Chapa PA-C - Last Filed: 03/02/25 12:44> Result diagrams: 03/02/25 08:45 03/02/25 08:45 <Marcelina Chapa PA-C - Last Filed: 03/02/25 12:44> Labs: Lab Results 03/02/25 Range/Units 08:45 WBC 4.8 (4.5-10.0) K/mm3 RBC 2.86 L (4.6-6.20) M/mm3 Hgb 8.0 L (14.0-18.0) g/dL Hct 26.4 L (42.0-52.0) % MCV 92.3 (80-100) fl MCH 28.0 (26-34) pg MCHC 30.3 L (32-36) g/dl RDW 20.1 H (11.5-14.5) % Plt Count 225 D (150-375) k/mm3 MPV 9.5 (7.4-10.4) fl Immature Gran % (Auto) 4.8 H (0-0.5) % Neut % (Auto) 61.8 (45.5-73.1) % Lymph % (Auto) 20.9 (18.3-44.2) % Rosebud % (Auto) 11.1 H (2.6-8.5) % Eos % (Auto) 1.0 (0-4.4) % Baso % (Auto) 0.4 (0.2-1.2) % Lymph # (Auto) 1.00 (0.9-3.2) K/mm3 Rosebud # (Auto) 0.5 (0.1-0.6) K/mm3 Eos # (Auto) 0.1 (0-0.3) K/mm3 Baso # (Auto) 0.0 (0.0-0.1) K/mm3 Abs Immat Gran (auto) 0.23 H (0.00-0.031) K/mm3 Absolute Neuts (auto) 3.0 (1.3-6.7) K/mm3 Absolute Nucleated RBC 0.070 H (0.0-0.012) K/mm3 Nucleated RBC % 1.5 H (0.0-0.2) % PT 15.4 H (11.1-14.7) Seconds INR 1.2 APTT 36.6 (22.3-36.8) Seconds Sodium 139 (137-145) mmol/L Potassium 4.5 (3.4-5.0) mmol/L Chloride 110 H (98-107) mmol/L Carbon Dioxide 19 L (22-30) mmol/L Anion Gap 10 (4-12) mmol/L BUN 40 H (9-20) mg/dL Creatinine 2.03 H (0.7-1.3) mg/dL Estim Creat Clear Calc 19 ml/min Estimated GFR 31 L (59 - ) Glucose 134 H (65-110) mg/dL Calcium 7.0 L (8.4-10.2) mg/dL Total Bilirubin 0.5 (0.2-1.3) mg/dL AST 34 (17-59) U/L ALT 14 (6-50) U/L Alkaline Phosphatase 129 H (38-126) U/L Total Protein 5.9 L (6.3-8.2) g/dL Albumin 3.0 L (3.5-5.1) g/dL Influenza A (RT-PCR) Negative (Negative) Influenza B (RT-PCR) Negative (Negative) RSV (RT-PCR) Negative (Negative) SARS-CoV-2 RNA (RT-PCR) Positive A (Negative) <Marcelina Chapa PA-C - Last Filed: 03/02/25 12:44> Lab Results 03/02/25 Range/Units 08:45 WBC 4.8 (4.5-10.0) K/mm3 RBC 2.86 L (4.6-6.20) M/mm3 Hgb 8.0 L (14.0-18.0) g/dL Hct 26.4 L (42.0-52.0) % MCV 92.3 (80-100) fl MCH 28.0 (26-34) pg MCHC 30.3 L (32-36) g/dl RDW 20.1 H (11.5-14.5) % Plt Count 225 D (150-375) k/mm3 MPV 9.5 (7.4-10.4) fl Immature Gran % (Auto) 4.8 H (0-0.5) % Neut % (Auto) 61.8 (45.5-73.1) % Lymph % (Auto) 20.9 (18.3-44.2) % Rosebud % (Auto) 11.1 H (2.6-8.5) % Eos % (Auto) 1.0 (0-4.4) % Baso % (Auto) 0.4 (0.2-1.2) % Lymph # (Auto) 1.00 (0.9-3.2) K/mm3 Rosebud # (Auto) 0.5 (0.1-0.6) K/mm3 Eos # (Auto) 0.1 (0-0.3) K/mm3 Baso # (Auto) 0.0 (0.0-0.1) K/mm3 Abs Immat Gran (auto) 0.23 H (0.00-0.031) K/mm3 Absolute Neuts (auto) 3.0 (1.3-6.7) K/mm3 Absolute Nucleated RBC 0.070 H (0.0-0.012) K/mm3 Nucleated RBC % 1.5 H (0.0-0.2) % PT 15.4 H (11.1-14.7) Seconds INR 1.2 APTT 36.6 (22.3-36.8) Seconds Sodium 139 (137-145) mmol/L Potassium 4.5 (3.4-5.0) mmol/L Chloride 110 H (98-107) mmol/L Carbon Dioxide 19 L (22-30) mmol/L Anion Gap 10 (4-12) mmol/L BUN 40 H (9-20) mg/dL Creatinine 2.03 H (0.7-1.3) mg/dL Estim Creat Clear Calc 19 ml/min Estimated GFR 31 L (59 - ) Glucose 134 H (65-110) mg/dL Calcium 7.0 L (8.4-10.2) mg/dL Total Bilirubin 0.5 (0.2-1.3) mg/dL AST 34 (17-59) U/L ALT 14 (6-50) U/L Alkaline Phosphatase 129 H (38-126) U/L Total Protein 5.9 L (6.3-8.2) g/dL Albumin 3.0 L (3.5-5.1) g/dL Influenza A (RT-PCR) Negative (Negative) Influenza B (RT-PCR) Negative (Negative) RSV (RT-PCR) Negative (Negative) SARS-CoV-2 RNA (RT-PCR) Positive A (Negative) <Josue Kapadia MD - Last Filed: 03/02/25 18:18> Imaging Data Radiologist's impression: ITS Impressions Chest X-Ray 03/02/25 14:26 IMPRESSION: 1. Residual small left pleural effusion post thoracentesis. No pneumothorax. 2. Opacities at the right mid and left lower lung zones which could represent atelectasis or pneumonia. Thoracentesis Ultrasound 03/02/25 14:29 IMPRESSION: 1. Successful ultrasound-guided thoracentesis yielding 1000 mL of clear yellowish fluid. <Marcelina hCapa PA-C - Last Filed: 03/02/25 12:44> ITS Impressions Chest X-Ray 03/02/25 14:26 IMPRESSION: 1. Residual small left pleural effusion post thoracentesis. No pneumothorax. 2. Opacities at the right mid and left lower lung zones which could represent atelectasis or pneumonia. Thoracentesis Ultrasound 03/02/25 14:29 IMPRESSION: 1. Successful ultrasound-guided thoracentesis yielding 1000 mL of clear yellowish fluid. <Josue Kapadia MD - Last Filed: 03/02/25 18:18> Critical Care Time Critical Care Time Critical Care Time: Yes <Marcelina Chapa PA-C - Last Filed: 03/02/25 12:44> Initial evaluation, discuss w/ involved parties, attempting to gather old records: 10 minutes <Marcelina Chapa PA-C - Last Filed: 03/02/25 12:44> Documenting medical record: 5 minutes <Marcelina Chapa PA-C - Last Filed: 03/02/25 12:44> Review of results (EKG's, labs, imaging): 5 minutes <Marcelina Chapa PA-C - Last Filed: 03/02/25 12:44> Serial repeat bedside evaluation: 10 minutes <Marcelina Chapa PA-C - Last Filed: 03/02/25 12:44> Discussing case with multiple memebers of the care team and consultants: 5 minutes <Marcelina Chapa PA-C - Last Filed: 03/02/25 12:44> Total Critical Care Time: 35 <Marcelina Chapa PA-C - Last Filed: 03/02/25 12:44> 35 <Josue Kapadia MD - Last Filed: 03/02/25 18:18> Discharge Plan Discharge Clinical Impression: COVID-19 Acute on chronic respiratory failure Qualifiers: Respiratory failure complication: hypoxia Qualified Code(s): J96.21 - Acute and chronic respiratory failure with hypoxia <Marcelina Chapa PA-C - Last Filed: 03/02/25 12:44> Patient Disposition: Still a Patient <Marcelina Chapa PA-C - Last Filed: 03/02/25 12:44> Condition: Stable <Marcelina Chapa PA-C - Last Filed: 03/02/25 12:44>
--- NOTE | 2025-03-02 11:12 | PC.NURSE ---
pt has drain on left lower lung. gauze and tegaderm changed. no drainage present on the gauze that was removed
--- NOTE | 2025-03-02 12:36 | PM.IMHP2 ---
H&P: HPI History of Present Illness Date/Time: 03/02/25 12:36 Chief Complaint: Increased shortness of breath Narrative: 89-year-old male with a past medical history of COPD, metastatic prostate cancer s/p radical prostatectomy, recurrent pleural effusion with PleurX catheter in place, hyperlipidemia presents to the ED on 03/02/2025 with complaints of increasing shortness of breath. Patient is chronically short of breath due to COPD and metastatic prostate cancer with recurring effusions but states it has increased over the past few days. He states he now has yellow colored sputum. Patient wears O2 per nasal cannula at night but was requiring supplemental O2 in the ED for O2 saturations of 88% on room air. Patient has a PleurX drain to his right chest that is usually drained every Saturday by his brother. They attempted a drain today to assist with his dyspnea with no relief of symptoms. Denies chest pain, fevers. Patient's brother is his mandrel puller. Patient was initially diagnosed with prostate cancer in 2002 and underwent a radical prostatectomy at that time. Patient was found to have bone Mets in October of 2019. Most recent oncology visit was 02/18/[address] Merida. Initial vital signs 93/69, HR 100, respirations 20, afebrile and 96% on 2 L O2. No leukocytosis. RBC 2.86, hemoglobin 8.0, hematocrit 26.4. PT 15.4. Chloride 110, carbon dioxide 19, BUN 40, creatinine 2.03 and GFR 31. Alk-phos 129. COVID-19 positive. EKG sinus rhythm. Chest x-ray reveals large left pleural effusion, right PleurX catheter in place, scattered foci bilateral pneumonitis. Patient underwent left thoracentesis with 1 L of clear yellowish fluid removed. Review of Systems Review of Systems: All systems reviewed & are unremarkable except as noted in HPI and below PMFSH Past Medical History Medical History Recurrent Clostridioides difficile infection Hydropneumothorax (~03/2023) COVID (~02/2023) Ulcer of elbow with fat layer exposed Olecranon bursitis of left elbow (~02/2022) C. difficile colitis (~03/2023) Hypokalemia Chronic obstructive pulmonary disease Prostate cancer metastatic to bone Rib fracture (12/2022) Splenic laceration (12/2022) managed conservatively Dyslipidemia Surgical History Surgical History History of thoracentesis right thoracentesis(12/2022 and 01/2023), left thoracentesis and PleurX catheter placement on the right(04/09/23) History of cataract extraction History of bilateral inguinal hernia repair (11/2003) History of prostatectomy (11/2002) Family History Family History Father Family history of cardiovascular disease Malignant neoplasm of prostate Mother Family history of cardiovascular disease Sibling Acute myocardial infarction Social History Social History Social History: Surrogate medical decision maker: Hakeem Ramandeep, brother. Code status: Full code. Smoking packs per day: 1.5 Smoking cigarettes per day: 30.0 Years smoked: 65 Smoking pack-years: 97.50 Smoking status: Former smoker Tobacco type: cigarettes Second hand tobacco smoke exposure: Yes Alcohol intake: never Drinks per week: 10 Substance use: former Substance use type: does not use Lack of Transportation: No Lack of Food: Never True Current Housing: I Have Housing Concerned About Future Housing: No Difficulty Paying Gas/Electric Bills: No Difficulty Paying for Meds: No Currently Unemployed: No Education: High School Diploma/GED Difficulty w/ Childcare or Family Care: No Living arrangements: alone Spiritual care concerns: No Meds Home Medications and Allergies Home Medications ?Medication ?Instructions ?Recorded ?Confirmed ?Type calcium 600 mg (as 1 tablet PO TID 06/12/21 03/02/25 History carbonate)-vitamin D3 5 mcg (200 unit) tablet cholecalciferol (vitamin D3) 25 25 mcg PO DAILY 01/02/22 03/02/25 History mcg (1,000 unit) capsule multivitamin-zinc tablet 1 tablet PO DAILY 02/19/23 03/02/25 History cyanocobalamin (vitamin B-12) 500 500 mcg PO DAILY 03/22/23 03/02/25 History mcg tablet prednisone 5 mg tablet 5 mg PO BID 10/13/23 03/02/25 History potassium chloride 20 mEq 10 meq PO DAILY 11/12/23 03/02/25 History tablet,extended release(part/cryst) loratadine 10 mg tablet (Claritin) 10 mg PO DAILY 06/25/24 03/02/25 History furosemide 20 mg tablet 10 mg PO DAILY 07/09/24 03/02/25 History umeclidinium 62.5 mcg-vilanterol See Rx Instructions .Route 11/11/24 03/02/25 Rx 25 mcg/actuation powdr for .COMPLEX #60 ea inhalation (Anoro Ellipta) Saccharomyces boulardii 250 mg 500 mg PO DAILY 03/02/25 03/02/25 History capsule (Florastor) ferrous sulfate 325 mg (65 mg 325 mg PO DAILY 03/02/25 03/02/25 History iron) tablet (iron) vsglnaovawvq-pzcdkmla-yfhmwq 1 tablet PO DAILY 03/02/25 03/02/25 History tablet (Multivitamin 50 Plus tablet) Allergies Allergy/AdvReac Type Severity Reaction Status Date / Time No Known Allergies Allergy Mild Verified 03/02/25 15:01 Vital Signs Vital Signs - 24 hr 03/02/25 08:23 03/02/25 08:29 03/02/25 08:32 Temperature 98.1 F Pulse Rate 100 93 Respiratory Rate 22 H 24 H Blood Pressure 93/69 L Pulse Oximetry 96 95 Oxygen Delivery Nasal Cannula Oxygen Flow Rate 2 03/02/25 08:41 03/02/25 10:04 03/02/25 11:31 Temperature Pulse Rate 90 94 Respiratory Rate 24 H 20 Blood Pressure 124/63 124/56 L Pulse Oximetry 95 93 92 Oxygen Delivery Room Air Oxygen Flow Rate 03/02/25 12:00 Temperature Pulse Rate 93 Respiratory Rate 27 H Blood Pressure 134/99 H Pulse Oximetry 94 Oxygen Delivery Oxygen Flow Rate Exam Narrative: GENERAL: Chronically ill-appearing. Frail HEAD: Normocephalic, atraumatic. EYES: PERRLA. Conjunctivae clear. NOSE: Normal no drainage. THROAT: Pharynx clear, no exudate. NECK: ?Trachea midline. No adenopathy, no masses. RESPIRATORY: Airway patent, respirations nonlabored. Left lung diminished. PleurX catheter in place on right chest CARDIOVASCULAR: Regular rate and rhythm GASTROINTESTINAL: ?Abdomen is soft and nontender. ?No organomegaly. ?Bowel sounds normal in all quadrants. GENITOURINARY: ?Defer MUSCULOSKELETAL: Moves all extremities. No gross deformities. Distal pulses palpable. Extremities warm SKIN: Warm, dry, normal color. NEURO: A&O X4. Speech clear PSYCHIATRIC: Normal interaction Results Labs Labs: Short CBC 03/02/25 Range/Units 08:45 WBC 4.8 (4.5-10.0) K/mm3 Hgb 8.0 L (14.0-18.0) g/dL Hct 26.4 L (42.0-52.0) % Plt Count 225 D (150-375) k/mm3 BMP 03/02/25 08:45 Sodium 139 Potassium 4.5 Chloride 110 H Carbon Dioxide 19 L BUN 40 H Creatinine 2.03 H Glucose 134 H Calcium 7.0 L Liver Function 03/02/25 Range/Units 08:45 Total Bilirubin 0.5 (0.2-1.3) mg/dL AST 34 (17-59) U/L ALT 14 (6-50) U/L Alkaline Phosphatase 129 H (38-126) U/L Albumin 3.0 L (3.5-5.1) g/dL Quality VTE Prophylaxis VTE prophylaxis: pharmacologic ordered Assessment and Plan Assessment and plan (1) Pleural effusion: Code(s): J90 - Pleural effusion, not elsewhere classified Status: Acute Assessment and Plan: Increased dyspnea over the past few days. Found to be COVID-19 positive. Chest x-ray reveals large left pleural effusion, right PleurX catheter in place, scattered foci bilateral pneumonitis. - Left thoracentesis with 1 L removed - Pleural fluid culture pending - Monitor respiratory status - No longer requiring supplemental O2 post thoracentesis - Continue furosemide - Right PleurX catheter in place. Continue draining as scheduled (2) COVID-19: Code(s): U07.1 - COVID-19 Status: Acute Assessment and Plan: Tested positive for COVID-19 today. Afebrile and patient denies fevers at home. Increased dyspnea at home. - Remdesivir, Dexamethasone, acetaminophen - Trend fever - Hepatic panel Q 48 - No concern for pneumonia at this time (3) FRANC (acute kidney injury): Code(s): N17.9 - Acute kidney failure, unspecified Status: Acute Assessment and Plan: Creatinine 2.03 on admit. Baseline creatinine runs between 1.3 and 1.8. Likely related to dehydration in setting of COVID-19 infection - 1 L bolus given in ED - Trend renal function - Monitor fluid status (4) Essential (primary) hypertension: Code(s): I10 - Essential (primary) hypertension Status: Chronic Assessment and Plan: Hypotensive on presentation with improvement after 1 L fluid bolus. Does not take antihypertensives at home -continue to monitor Prior Studies I have reviewed the following patient records and this information was taken into consideration when formulating the assessment and plan.: previous labs, previous ER visits, previous hospitalizations and previous clinic visits Time Spent with Patient Time with patient: 45 - 74 minutes Hospitalist MIPS Advance Care Plan I have confirmed that the patient's Advanced Care Plan is present, code status is documented, or surrogate decision maker is listed in patient medical record.: Yes Medication Reconciliation I have utilized all available resources to obtain, update and review the patients current medications (includes all prescriptions, OTC, herbals, cannabis, and nutritional supplements).: Yes
--- NOTE | 2025-03-02 12:53 | PC.NURSE ---
pt requesting something to eat. pt has orde in for a pleura. per US, pt has to be NPO for 2 hours prior to the procedure.
--- NOTE | 2025-03-02 13:17 | PC.NURSE ---
pt to us at this time
--- NOTE | 2025-03-02 13:23 | WPCEDHO ---
ED Hand Off Checklist All vitals saved:yes IV Site documented:yes All med administrations documented:yes Triage Note Triage Note Pt to ED via EMS from home c/o 03/02/25 08:23 increased SOB over the past couple weeks. Endorses yellow productive cough. Pt does have hx of metastatic CA in lungs, COPD. A&OX4. Ems reports pt initially 84% on room air, pt usually only wears O2 at night. Pt oxygen increased to 95% on 2L NC. Pt states his brother drains his lung 3x/week - MWF and that normally helps him feel better but today it did not. Pt denies pain. Allergies No Known Allergies Allergy (Mild, Verified 03/02/25 08:32) Family History (Last Reviewed 12/30/24 @ 10:18 by Neil Kincaid APRN) Father Family history of cardiovascular disease Malignant neoplasm of prostate Mother Family history of cardiovascular disease Sibling Acute myocardial infarction Administered/Completed Medications Discontinued Medications Sodium Chloride (Normal Saline Iv) 500 mls @ 999 mls/hr IV CONT .Q31M STA Stop: 03/02/25 09:52 Last Infusion: 03/02/25 10:34 Dose: Infused Documented By: Admin: 03/02/25 10:04 Dose: 999 mls/hr Documented By: MLI Notes 03/02/25 13:17 Nurse Note by Sandra Hurtado pt to us at this time Initialized on 03/02/25 13:17 - END OF NOTE 03/02/25 12:53 Nurse Note by Sandra Hurtado pt requesting something to eat. pt has orde in for a pleura. per US, pt has to be NPO for 2 hours prior to the procedure. Initialized on 03/02/25 12:53 - END OF NOTE 03/02/25 11:12 Nurse Note by Sandra Hurtado pt has drain on left lower lung. gauze and tegaderm changed. no drainage present on the gauze that was removed Initialized on 03/02/25 11:12 - END OF NOTE Interventions/Assessments IV / Saline Lock, Insert Start: 03/02/25 08:28 Freq: STAT Status: Active Protocol: Document 03/02/25 08:29 MLI (Rec: 03/02/25 08:32 MLI [id number]) IV Assessment Peripheral Access Left Wrist IV Catheter Access Initiated Before Arrival IV Insertion Date 03/02/25 Catheter Gauge 20 IV Site Assessment WNL IV Care and WNL Maintenance PA: Cardiovascular Assessment Start: 03/02/25 08:13 Freq: Status: Active Protocol: Document 03/02/25 08:29 MLI (Rec: 03/02/25 08:32 MLI [id number]) Cardiovascular Assessment Cardiovascular Dyspnea Symptoms Skin Description Pallor PA: Respiratory Assessment Start: 03/02/25 08:13 Freq: Status: Active Protocol: Document 03/02/25 08:29 MLI (Rec: 03/02/25 08:32 MLI [id number]) Respiratory Assessment Symptoms Congestion,Cough,Shortness of Breath at Rest,Shortness of Breath With Exertion Effort Short of Breath Pattern Tachypnea Depth Shallow Chest Expansion Symmetrical Adult Capillary Normal/Less than 2 Seconds Refill Cough Description Productive Cough Frequency Intermittent Sputum Production/ Spontaneous Expectoration Suction Method Oxygen Delivery Oxygen Delivery Nasal Cannula Oxygen Flow Rate (L/ 2 min) Pulse Oximetry (90- 96 100 %) Last Vital Signs Temperature 98.1 F 03/02/25 08:23 Pulse Rate 95 03/02/25 13:01 Respiratory Rate 22 H 03/02/25 13:01 Pulse Oximetry 92 03/02/25 13:01 Blood Pressure 149/59 H 03/02/25 13:01 Blood Pressure Mean 77 03/02/25 13:01 Oxygen Delivery Room Air 03/02/25 08:41 Oxygen Flow Rate 2 03/02/25 08:29 Weight 59 kg 03/02/25 08:23 Last Result - Abnormals Only RBC 2.86 M/mm3 (4.6-6.20) L 03/02/25 08:45 Hgb 8.0 g/dL (14.0-18.0) L 03/02/25 08:45 Hct 26.4 % (42.0-52.0) L 03/02/25 08:45 MCHC 30.3 g/dl (32-36) L 03/02/25 08:45 RDW 20.1 % (11.5-14.5) H 03/02/25 08:45 Immature Gran % (Auto) 4.8 % (0-0.5) H 03/02/25 08:45 Lamar % (Auto) 11.1 % (2.6-8.5) H 03/02/25 08:45 Abs Immat Gran (auto) 0.23 K/mm3 (0.00-0.031) H 03/02/25 08:45 Absolute Nucleated RBC 0.070 K/mm3 (0.0-0.012) H 03/02/25 08:45 Nucleated RBC % 1.5 % (0.0-0.2) H 03/02/25 08:45 PT 15.4 Seconds (11.1-14.7) H 03/02/25 08:45 Chloride 110 mmol/L (98-107) H 03/02/25 08:45 Carbon Dioxide 19 mmol/L (22-30) L 03/02/25 08:45 BUN 40 mg/dL (9-20) H 03/02/25 08:45 Creatinine 2.03 mg/dL (0.7-1.3) H 03/02/25 08:45 Estimated GFR 31 (59-) L 03/02/25 08:45 Glucose 134 mg/dL (65-110) H 03/02/25 08:45 Calcium 7.0 mg/dL (8.4-10.2) L 03/02/25 08:45 Alkaline Phosphatase 129 U/L (38-126) H 03/02/25 08:45 Total Protein 5.9 g/dL (6.3-8.2) L 03/02/25 08:45 Albumin 3.0 g/dL (3.5-5.1) L 03/02/25 08:45 SARS-CoV-2 RNA (RT-PCR) Positive (Negative) A 03/02/25 08:45 Most Recent Suicide Severity Rating Suicide Severity Rating NO RISK INDICATED 03/02/25 08:23
--- NOTE | 2025-03-02 13:25 | CY_PTH ---
PATIENT: Yamil Sabillon LOC: [id number] U#:[id number] AGE/SX: 89/M ROOM: 343 RE03/03/[address]: Matthew Corrales MD : [id number] BED: 01 DIS: 03/04/2025 SPEC #: [id number] RECD: 03/05/25 07:30 STATUS: NICCI RECameron #: [id number] WILL: 03/02/25 13:[address]: Radha Barone DEPT: [facility] Cytology RECD BY: Judi Bond ENTERED: 03/05/25 07:31 SP TYPE: Cytology OTHR DR: MD Alyssa Newton MD Onyema Nnanna, MD Tissues: A - Pleural Fluid Procedures: Hematoxylin and Eosin Stain Cell Block Cytopathology Cytospin
--- NOTE | 2025-03-02 13:26 | PC.NURSE ---
report called to Arpita on [facility] at this time
--- NOTE | 2025-03-02 13:36 | PC.NURSE ---
US notified of pt having a room upstairs. US said they will not take him upstairs since they do not know his history to transfer him to a different department. once he returns, pt will be taken upstairs to room 343
[2025-03-02] MEDS: REMDESIVIR 200 MG/NS 250 ML 200 MG/250 ML BAG 250 MG IVPB (14:04)
[2025-03-02 15:05] LABS: Appearance Pleural Fluid Clear (Clear); Color Pleural Fluid Yellow (Colorless)
[2025-03-02 15:08] LABS: Nucleated Cell Pleural Fluid 54 /uL (0-1000)
[2025-03-02 15:09] LABS: Lymphocytes Pleural Fluid 52 %; Macrophages Pleural Fluid 33 %; Monocytes Pleural Fluid 1 %; Neutrophils Pleural Fluid 14 % (0-25)
[2025-03-03 05:28] VITALS: BP 115/60; PULSE 85; RESP 22; TEMP 36.4; O2SAT 97
[2025-03-03 06:12] LABS: Hematocrit 25.0 % (42.0-52.0); Hemoglobin 7.7 g/dL (14.0-18.0); Immature Granulocyte Percent A 7.1 % (0-0.5); Lymphocytes Absolute Auto 0.40 K/mm3 (0.9-3.2); Mean Corpuscular HGB Conc 30.8 g/dl (32-36); Mean Corpuscular Hemoglobin 28.2 pg (26-34); Mean Corpuscular Volume 91.6 fl (80-100); Nucleated Red Blood Cells Absolute Auto 0.030 K/mm3 (0.0-0.012); Nucleated Red Blood Cells Perc 1.0 % (0.0-0.2); Platelet Count Result 184 k/mm3 (150-375); Red Blood Count 2.73 M/mm3 (4.6-6.20); White Blood Count 3.0 K/mm3 (4.5-10.0)
[2025-03-03 06:37] LABS: INR 1.3; Prothrombin Time 15.8 Seconds (11.1-14.7)
[2025-03-03 06:47] LABS: Alanine Aminotransferase 12 U/L (6-50); Albumin Level 2.7 g/dL (3.5-5.1); Alkaline Phosphatase 122 U/L (38-126); Anion Gap 7 mmol/L (4-12); Aspartate Amino Transferase 33 U/L (17-59); Bilirubin,Total 0.3 mg/dL (0.2-1.3); Blood Urea Nitrogen 45 mg/dL (9-20); Calcium 6.9 mg/dL (8.4-10.2); Carbon Dioxide 15 mmol/L (22-30); Chloride 113 mmol/L (98-107); Estimated CRCL calculation 19 ml/min; Estimated Glomerular Filt Rate 33; Glucose 181 mg/dL (65-110); Potassium 4.8 mmol/L (3.4-5.0); Sodium 135 mmol/L (137-145); Total Protein 5.0 g/dL (6.3-8.2)
[2025-03-03 06:58] LABS: Anisocytosis 1+; Burr Cells 1+; Giant Platelets Present; Ovalocytes 1+
[2025-03-03 06:59] LABS: Acanthocytes Occasional; Schistocytes Rare
[2025-03-03] MEDS: UMECLIDINIUM/VILANTEROL 62.5-25 MCG ELLIPTA 1 PUFF INHALATION (08:54)
[2025-03-03 08:55] VITALS: PULSE 78; RESP 18
[2025-03-03] MEDS: FUROSEMIDE 10 MG TABLET PO (10:39)
[2025-03-03] MEDS: LORATADINE 10 MG TABLET PO (10:39)
[2025-03-03] MEDS: FERROUS SULFATE 325 MG TABLET BY MOUTH (10:39)
[2025-03-03] MEDS: OPTI-GEN TAB 1 TABLET PO (10:39)
[2025-03-03] MEDS: CALCIUM/VITAMIN D 500 MG/5 MCG (200 I.U.) TABLET PO ×3 (10:39→17:10)
[2025-03-03] MEDS: SACCHAROMYCES BOULARDII 250 MG CAPSULE 500 MG PO (10:39)
[2025-03-03] MEDS: CYANOCOBALAMIN 500 MCG TABLET PO (10:40)
[2025-03-03] MEDS: CHOLECALCIFEROL (VITAMIN D3) 25 MCG (1,000 UNITS) TABLET PO (10:40)
[2025-03-03] MEDS: REMDESIVIR 100 MG/NS 250 ML 100 MG/250 ML BAG 250 MG IVPB (10:42)
[2025-03-03] MEDS: POTASSIUM CHLORIDE 20 MEQ PACKET (FOR LIQUID) PO (10:42)
--- NOTE | 2025-03-03 12:06 | PM.IMPN2 ---
Assessment and Plan Assessment and Plan (1) Pleural effusion: Code(s): J90 - Pleural effusion, not elsewhere classified Status: Acute Assessment and Plan: Increased dyspnea over the past few days. Found to be COVID-19 positive. Chest x-ray reveals large left pleural effusion, right PleurX catheter in place, scattered foci bilateral pneumonitis. - Left thoracentesis with 1 L removed - Pleural fluid culture pending - Monitor respiratory status - No longer requiring supplemental O2 post thoracentesis - Continue furosemide - Right PleurX catheter in place. Continue draining as scheduled (2) COVID-19: Code(s): U07.1 - COVID-19 Status: Acute Assessment and Plan: Tested positive for COVID-19 today. Afebrile and patient denies fevers at home. Increased dyspnea at home. - Remdesivir, Dexamethasone, acetaminophen - Trend fever - Hepatic panel Q 48 - No concern for pneumonia at this time (3) FRANC (acute kidney injury): Code(s): N17.9 - Acute kidney failure, unspecified Status: Acute Assessment and Plan: Baseline creatinine runs between 1.3 and 1.8. Likely related to dehydration in setting of COVID-19 infection - s/p 1 L bolus given in ED, encouraged oral intake - Cr today 1.95 from 2.03 - Monitor fluid status (4) Essential (primary) hypertension: Code(s): I10 - Essential (primary) hypertension Status: Chronic Assessment and Plan: Hypotensive on presentation with improvement after 1 L fluid bolus. Does not take antihypertensives at home -continue to monitor Plan DVT prophyalxis on Sq Heparin Subjective Date/time seen: 03/03/25 12:06 Interval history: Comfortbale at bedside Discussed with family member at bedside who noted that patient is generally weak and wanted patietn to evaluated by PT for possibel rehab PT/OT consulted Review of Systems Review of Systems: All systems reviewed & are unremarkable except as noted in HPI and below Exam Narrative: GENERAL: Chronically ill-appearing. Frail HEAD: Normocephalic, atraumatic. EYES: PERRLA. Conjunctivae clear. NOSE: Normal no drainage. THROAT: Pharynx clear, no exudate. NECK: ?Trachea midline. No adenopathy, no masses. RESPIRATORY: Airway patent, respirations nonlabored. Left lung diminished. PleurX catheter in place on right chest CARDIOVASCULAR: Regular rate and rhythm GASTROINTESTINAL: ?Abdomen is soft and nontender. ?No organomegaly. ?Bowel sounds normal in all quadrants. GENITOURINARY: ?Defer MUSCULOSKELETAL: Moves all extremities. No gross deformities. Distal pulses palpable. Extremities warm SKIN: Warm, dry, normal color. NEURO: A&O X4. Speech clear PSYCHIATRIC: Normal interaction Objective Data Vital Signs Vital Signs: Vital Signs - 24 hr 03/02/25 13:01 03/02/25 14:00 03/02/25 17:12 Temperature 98.1 F Pulse Rate 95 89 Respiratory Rate 22 H 22 H Blood Pressure 149/59 H 121/58 L Pulse Oximetry 92 89 L Oxygen Delivery Room Air 03/02/25 20:00 03/02/25 20:48 03/03/25 05:28 Temperature 98.3 F 97.6 F Pulse Rate 82 85 Respiratory Rate 18 22 H Blood Pressure 107/57 L 115/60 Pulse Oximetry 95 97 Oxygen Delivery Room Air 03/03/25 08:55 Temperature Pulse Rate 78 Respiratory Rate 18 Blood Pressure Pulse Oximetry Oxygen Delivery Intake/Output Intake/Output: Intake & Output 02/28/25 03/01/25 03/02/25 03/03/25 23:59 23:59 23:59 23:59 Intake Total 790 0 Output Total 1000 Balance -210 0 Meds/Results Medications: Active Medications Generic Name Dose Route Start Last Admin Trade Name Freq PRN Reason Stop Dose Admin Acetaminophen 650 mg 03/03/25 00:14 Acetaminophen 325 Mg Tablet PO Q6H PRN Mild Pain (1-3) or Fever Albuterol 2.5 mg 03/03/25 00:36 Albuterol Sulfate Neb 2.5 Mg/3 Ml Inh INHALATION Q6HRT PRN Shortness Of Breath Or Wheezing Calcium Carbonate 500 mg 03/03/25 09:00 03/03/25 10:39 Calcium/Vitamin D 500 Mg/5 Mcg (200 I.U.) Tablet PO 500 mg TID MEENAKSHI Administration Cyanocobalamin 500 mcg 03/03/25 09:00 03/03/25 10:40 Cyanocobalamin 500 Mcg Tablet PO 500 mcg DAILY MEENAKSHI Administration Dexamethasone 6 mg 03/02/25 12:40 03/03/25 10:39 Dexamethasone 2 Mg Tablet PO 03/11/25 08:01 6 mg DAILY@0800 MEENAKSHI Administration Ferrous Sulfate 325 mg 03/03/25 09:00 03/03/25 10:39 Ferrous Sulfate 325 Mg Tablet BY MOUTH 325 mg DAILY MEENAKSHI Administration Furosemide 10 mg 03/03/25 09:00 03/03/25 10:39 Furosemide 10 Mg Tablet PO 10 mg DAILY MEENAKSHI Administration Heparin Sodium (Porcine) 5,000 units 03/03/25 06:00 03/03/25 06:23 Heparin Sodium 5,000 Units/Ml Vial SUB-Q 5,000 units Q8HR MEENAKSHI Administration Remdesivir 100 mg in 250 mls @ 250 mls/hr 03/03/25 10:00 03/03/25 10:42 IVPB 03/06/25 10:59 250 mls/hr Q24H MEENAKSHI Administration Loratadine 10 mg 03/03/25 09:00 03/03/25 10:39 Loratadine 10 Mg Tablet PO 10 mg DAILY MEENAKSHI Administration Multivitamins/Minerals 1 tablet 03/03/25 09:00 03/03/25 10:39 Opti-Gen Tab PO 1 tablet DAILY MEENAKSHI Administration Potassium Chloride 20 meq 03/03/25 09:00 03/03/25 10:42 Potassium Chloride 20 Meq Packet (For Liquid) PO 20 meq DAILY MEENAKSHI Administration Saccharomyces Boulardii 500 mg 03/03/25 09:00 03/03/25 10:39 Saccharomyces Boulardii 250 Mg Capsule PO 500 mg DAILY MEENAKSHI Administration Umeclidinium/Vilanterol 1 puff 03/03/25 08:00 03/03/25 08:54 Umeclidinium/Vilanterol 62.5-25 Mcg Ellipta INHALATION 1 puff DAILYRT MEENAKSHI Administration Vitamin D 25 mcg 03/03/25 09:00 03/03/25 10:40 Cholecalciferol (Vitamin D3) 25 Mcg (1,000 Units) Tablet PO 25 mcg DAILY MEENAKSHI Administration Radiology Results: ITS Impressions Chest X-Ray 03/02/25 14:26 IMPRESSION: 1. Residual small left pleural effusion post thoracentesis. No pneumothorax. 2. Opacities at the right mid and left lower lung zones which could represent atelectasis or pneumonia. Thoracentesis Ultrasound 03/02/25 14:29 IMPRESSION: 1. Successful ultrasound-guided thoracentesis yielding 1000 mL of clear yellowish fluid. Labs Labs: Laboratory Results - last 24 hr 03/02/25 03/03/25 13:25 06:04 WBC 3.0 L RBC 2.73 L Hgb 7.7 L Hct 25.0 L MCV 91.6 MCH 28.2 MCHC 30.8 L RDW 19.9 H Plt Count 184 MPV 9.2 Immature Gran % (Auto) 7.1 H Neut % (Auto) 69.3 Lymph % (Auto) 13.5 L [place] % (Auto) 9.1 H Eos % (Auto) 0.3 Baso % (Auto) 0.7 Lymph # (Auto) 0.40 L [place] # (Auto) 0.3 Eos # (Auto) 0.0 Baso # (Auto) 0.0 Abs Immat Gran (auto) 0.21 H Absolute Neuts (auto) 2.1 Absolute Nucleated RBC 0.030 H Band Neutrophils % Not Reportable Nucleated RBC % 1.0 H Nucleated RBCs 2 Atypical Lymphocytes Present Platelet Estimate Adequate Large Platelets Present Giant Platelets Present Anisocytosis 1+ Ovalocytes 1+ Dayanna Cells 1+ Acanthocytes (Spur) Occasional Schistocytes Rare PT 15.8 H INR 1.3 Sodium 135 L Potassium 4.8 Chloride 113 H Carbon Dioxide 15 L Anion Gap 7 BUN 45 H Creatinine 1.95 H Estim Creat Clear Calc 19 Estimated GFR 33 L Glucose 181 H Calcium 6.9 L Total Bilirubin 0.3 AST 33 ALT 12 Alkaline Phosphatase 122 Total Protein 5.0 L Albumin 2.7 L Pleural Fluid Source Pleural fluid Pleural Color Yellow Pleural Appearance Clear Pleural RBC < 2000 Pleural Nuc Cells 54 Pleural Neutrophils 14 Pleural Lymphocytes 52 Pleural Monocytes 1 Pleural Macrophages 33 Quality VTE Prophylaxis VTE prophylaxis: pharmacologic ordered
[2025-03-03 14:00] VITALS: BP 114/62; PULSE 81; RESP 18; TEMP 36.8; O2SAT 93
[2025-03-03 21:51] VITALS: BP 104/62; PULSE 68; RESP 16; TEMP 36.3; O2SAT 96
[2025-03-04 05:59] LABS: Hematocrit 23.9 % (42.0-52.0); Hemoglobin 7.3 g/dL (14.0-18.0); Immature Granulocyte Percent A 7.9 % (0-0.5); Lymphocytes Absolute Auto 0.44 K/mm3 (0.9-3.2); Mean Corpuscular HGB Conc 30.5 g/dl (32-36); Mean Corpuscular Hemoglobin 28.1 pg (26-34); Mean Corpuscular Volume 91.9 fl (80-100); Nucleated Red Blood Cells Absolute Auto 0.040 K/mm3 (0.0-0.012); Nucleated Red Blood Cells Perc 1.0 % (0.0-0.2); Platelet Count Result 208 k/mm3 (150-375); Red Blood Count 2.60 M/mm3 (4.6-6.20); White Blood Count 3.8 K/mm3 (4.5-10.0)
[2025-03-04 06:00] VITALS: BP 114/59; PULSE 75; RESP 16; TEMP 36.3; O2SAT 96
[2025-03-04 06:22] LABS: Alanine Aminotransferase 11 U/L (6-50); Albumin Level 2.5 g/dL (3.5-5.1); Alkaline Phosphatase 109 U/L (38-126); Anion Gap 8 mmol/L (4-12); Aspartate Amino Transferase 32 U/L (17-59); Bilirubin,Total 0.2 mg/dL (0.2-1.3); Blood Urea Nitrogen 56 mg/dL (9-20); Calcium 7.7 mg/dL (8.4-10.2); Carbon Dioxide 17 mmol/L (22-30); Chloride 112 mmol/L (98-107); Estimated CRCL calculation 20 ml/min; Estimated Glomerular Filt Rate 35; Glucose 129 mg/dL (65-110); Magnesium 2.1 mg/dL (1.6-2.3); Potassium 5.4 mmol/L (3.4-5.0); Sodium 137 mmol/L (137-145); Total Protein 5.0 g/dL (6.3-8.2)
[2025-03-04 06:23] LABS: Iron 63 ug/dL (49-181)
[2025-03-04 06:27] LABS: Percent Iron Saturation 40 % (20-50)
[2025-03-04 06:59] LABS: Acanthocytes Occasional; Anisocytosis 1+; Burr Cells 1+; Hypochromasia 1+; Ovalocytes 1+; Poikilocytosis 1+; Schistocytes Occasional; Target Cells Occasional; Tear Drop Cells 1+
[2025-03-04] MEDS: UMECLIDINIUM/VILANTEROL 62.5-25 MCG ELLIPTA 1 PUFF INHALATION (07:23)
[2025-03-04 07:25] VITALS: PULSE 82; RESP 17
[2025-03-04] MEDS: FERROUS SULFATE 325 MG TABLET BY MOUTH (09:44)
[2025-03-04] MEDS: OPTI-GEN TAB 1 TABLET PO (09:44)
[2025-03-04] MEDS: CHOLECALCIFEROL (VITAMIN D3) 25 MCG (1,000 UNITS) TABLET PO (09:44)
[2025-03-04] MEDS: CALCIUM/VITAMIN D 500 MG/5 MCG (200 I.U.) TABLET PO ×2 (09:44→13:50)
[2025-03-04] MEDS: CYANOCOBALAMIN 500 MCG TABLET PO (09:44)
[2025-03-04] MEDS: SACCHAROMYCES BOULARDII 250 MG CAPSULE 500 MG PO (09:45)
[2025-03-04] MEDS: FUROSEMIDE 10 MG TABLET PO (09:45)
[2025-03-04] MEDS: POTASSIUM CHLORIDE 20 MEQ PACKET (FOR LIQUID) PO (09:45)
[2025-03-04] MEDS: LORATADINE 10 MG TABLET PO (09:45)
[2025-03-04] MEDS: REMDESIVIR 100 MG/NS 250 ML 100 MG/250 ML BAG 250 MG IVPB (10:57)
--- NOTE | 2025-03-04 12:17 | P.DS_ITS ---
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 At baseline, the patient has chronic dyspnea related to COPD and recurrent pleural effusions; however, he reported progressive dyspnea over several days associated with new yellow sputum production. He normally uses supplemental oxygen at night but required oxygen in the emergency department after being found hypoxic to 88% on room air. His brother, who serves as his primary caregiver, attempted drainage of the right PleurX catheter without symptomatic relief. On presentation, the patient was afebrile with borderline hypotension and tachypnea. Laboratory evaluation demonstrated chronic normocytic anemia with hemoglobin of 8.0 g/dL, no leukocytosis, mild metabolic acidosis, and acute kidney injury with creatinine of 2.03 mg/dL on a baseline of 1.3?1.8 mg/dL. COVID?19 testing returned positive. Chest radiograph revealed a large left?sided pleural effusion, right-sided PleurX catheter in appropriate position, and scattered bilateral pneumonitis. The patient underwent therapeutic left-sided thoracentesis with removal of approximately one liter of clear yellow fluid, resulting in significant improvement in respiratory symptoms. Pleural fluid studies were sent and showed no immediate evidence of infection. Following the procedure, he was able to maintain adequate oxygen saturation on room air. Given COVID?19 infection with increased dyspnea, he was treated with remdesivir and dexamethasone. He remained afebrile throughout hospitalization and did not demonstrate clinical or radiographic evidence of bacterial pneumonia. His acute kidney injury was felt to be multifactorial, likely related to dehydration in the setting of acute viral illness, and improved with intravenous fluids and encouragement of oral intake. Physical therapy and occupational therapy were consulted due to generalized weakness and functional decline noted by family, with recommendations for home health on discharge. By the time of discharge, the patient was breathing comfortably on room air, hemodynamically stable, tolerating oral intake, and without recurrence of dyspnea following thoracentesis. Discharge Diagnoses * Acute left pleural effusion, status post thoracentesis * COVID?19 infection * Chronic obstructive pulmonary disease * Metastatic prostate cancer with recurrent malignant pleural effusions * Acute kidney injury, improved * Chronic anemia * Hyperlipidemia Discharge Medications * Prednisone 5 mg PO twice daily * Umeclidinium?vilanterol (Anoro Ellipta) inhalation once daily * Albuterol inhaler or nebulizer every 6 hours as needed for shortness of breath * Furosemide 10 mg PO daily * Potassium chloride 10 mEq PO daily * Calcium carbonate?vitamin D3 PO three times daily * Cholecalciferol (vitamin D3) 1,000 units PO daily * Ferrous sulfate 325 mg PO daily * Cyanocobalamin (vitamin B12) 500 mcg PO daily * Multivitamin with minerals PO daily * Saccharomyces boulardii 500 mg PO daily * Loratadine 10 mg PO daily * Acetaminophen 650 mg PO every 6 hours as needed for pain or fever Follow?Up * Primary Care:?Within 1?2 weeks * Pulmonology:?For management of recurrent pleural effusions and PleurX catheter care * Oncology:?Continue established follow?up for metastatic prostate cancer * Home Health / Rehab:?As arranged per PT/OT recommendations Discharge Condition Stable, breathing comfortably on room air, hemodynamically stable, renal function improving, and safe for discharge with family support. Time Spent with Patient Time attestation: Total time spent providing and/or coordinating discharge services: DS: Data Data Completed and Pending Pending studies at discharge: Pending at discharge 03/02/25 12:42 Cytology [PTH] Routine Labs on day of discharge: Labs from last 24 hours 03/04/25 05:36 WBC 3.8 L RBC 2.60 L Hgb 7.3 L Hct 23.9 L MCV 91.9 MCH 28.1 MCHC 30.5 L RDW 19.8 H Plt Count 208 MPV 9.5 Immature Gran % (Auto) 7.9 H Neut % (Auto) 69.6 Lymph % (Auto) 11.5 L Dillon % (Auto) 10.5 H Eos % (Auto) 0.0 Baso % (Auto) 0.5 Lymph # (Auto) 0.44 L Dillon # (Auto) 0.4 Eos # (Auto) 0.0 Baso # (Auto) 0.0 Abs Immat Gran (auto) 0.30 H Absolute Neuts (auto) 2.7 Absolute Nucleated RBC 0.040 H Band Neutrophils % Not Reportable Nucleated RBC % 1.0 H Platelet Estimate Adequate Hypochromasia 1+ Poikilocytosis 1+ Anisocytosis 1+ Target Cells Occasional Tear Drop Cells 1+ Ovalocytes 1+ [place] Cells 1+ Acanthocytes (Spur) Occasional Schistocytes Occasional Sodium 137 Potassium 5.4 H Chloride 112 H Carbon Dioxide 17 L Anion Gap 8 BUN 56 H D Creatinine 1.85 H Estim Creat Clear Calc 20 Estimated GFR 35 L Glucose 129 H Calcium 7.7 L Magnesium 2.1 Iron 63 TIBC 156 L % Saturation 40 Ferritin 541.00 H Total Bilirubin 0.2 AST 32 ALT 11 Alkaline Phosphatase 109 Total Protein 5.0 L Albumin 2.5 L Preliminary micro results at discharge 03/02/25 13:26 Sterile Body Fluid Culture - Preliminary Pleural Fluid 12/23/25 13:25 Fungal Culture - Preliminary Pleural Fluid 03/02/25 13:26 Acid Fast Bacilli Culture - Preliminary Pleural Fluid Discharge Plan Discharge Attending physician on discharge: Matthew Corrales Consulting providers: Matthew Corrales Discharging Clinician: Matthew Corrales Anticipated Discharge Date/Time: 03/04/25 12:17 Patient Disposition: Home with Home Health Service Activity: as tolerated Diet: as tolerated and regular Patient Instructions: Antibiotic Form Patient Language: Maldivian Stand Alone Forms: General Discharge Information Follow-up/Referrals: Angelica Staton MD [Primary Care Provider, Family Practice] Referral Note: F/u with PCP in 3-5 days Discharge Medications: Continued calcium carbonate-vitamin D3 600 mg-5 mcg (200 unit) Tablet 1 tablet PO TID Patient Comments: .... cholecalciferol (vitamin D3) 25 mcg (1,000 unit) capsule 25 mcg PO DAILY Patient Comments: . furosemide 20 mg tablet 10 mg PO DAILY Patient Comments: . loratadine [Claritin] 10 mg tablet 10 mg PO DAILY Patient Comments: . potassium chloride 20 mEq tablet,ER particles/crystals 10 meq PO DAILY Patient Comments: . multivitamin-zinc sulfate Tablet 1 tablet PO DAILY Patient Comments: . prednisone 5 mg tablet 5 mg PO BID Patient Comments: . Saccharomyces boulardii [Florastor] 250 mg capsule 500 mg PO DAILY Multivitamin 50 Plus Tablet 1 tablet PO DAILY ferrous sulfate [iron] 325 mg (65 mg iron) tablet 325 mg PO DAILY cyanocobalamin (vitamin B-12) 500 mcg Tablet 500 mcg PO DAILY Patient Comments: . umeclidinium-vilanterol [Anoro Ellipta] 62.5-25 mcg/actuation blister with device See Rx Instructions .ROUTE .COMPLEX Qty: 60 6RF Dose Instruction: INHALE 1 PUFF BY MOUTH DAILY Patient Comments: ... Rx Instructions: INHALE 1 PUFF BY MOUTH DAILY Date of admission: 03/03/25 09:42 Primary Care Provider: Angelica Staton Admitting Provider: Arthur Fox Attending physician on admission: Arthur Fox Condition: Stable
== END 2025-03-04 15:30 | disposition home health service (06) | DRG 177 ==
LOC: ANHED 12:36 → ANH3MED 13:44
PROVIDERS: Emergency Medicine; Nurse Practitioner Adult Health; Admitting Provider Internal Medicine; Emergency Provider Physician Assistant; PCP Family Medicine; Visit Provider Internal Medicine
DX: U07.1 COVID-19 (principal); J96.21 Acute and chronic respiratory failure with hypoxia; N17.8 Other acute kidney failure; J90 Pleural effusion, not elsewhere classified; C79.51 Secondary malignant neoplasm of bone; J44.9 Chronic obstructive pulmonary disease, unspecified; I95.9 Hypotension, unspecified; E86.0 Dehydration; E78.5 Hyperlipidemia, unspecified; C61 Malignant neoplasm of prostate; Z87.891 Personal history of nicotine dependence
CPT/HCPCS: 32555; 36415; 71046; 80053; 82728; 83540; 83550; 83735; 85025; 85610; 85730; 87205; 87637; 88108; 88305; 89051; 93005; 94640; 97161; 97165; 99285; A9270; G0378; J0248; J1644; J7040; J8540